=== PATIENT | female | born 1945 | race Caucasian/White ===

== ENCOUNTER → 2016-04-14 | Outpatient (CLI) | payer BC ==
[~2016-04-14] MED LIST: ASPI-435 PO; ATOR10TA88 PO; CHOL100010 PO; IBUP-103 PO; INSUINJ SC; MULT-506 PO; PANT40TA PO; TAMO20TA47 PO
--- NOTE | 2016-04-14 11:48 | DIAGNOSTIC IMAGING REPORT ---
TWO VIEW CHEST CLINICAL HISTORY: Breast cancer. Chest congestion. FINDINGS: PA and lateral chest radiographs are compared to study dated 04/22/2015. Correlation is made with chest CT dated 10/22/2014. The cardiomediastinal silhouette is unremarkable. Chronic interstitial thickening and nodularity is similar previous. No superimposed airspace consolidation or pleural effusion is identified. There is no pneumothorax. The skeletal structures are osteopenic. The bony thorax appears intact. Surgical clips project over the left breast. IMPRESSION: Chronic parenchymal changes as above. No acute cardiopulmonary abnormality is seen. Electronically signed by: Sheng Betancourt M.D. 04/14/2016 11:46 AM Dictated Date/Time: 04/14/2016 11:45 AM
== END | disposition home or self-care (01) ==
LOC: C.RAD 11:14
PROVIDERS: ATTEND Internal Medicine Hematology & Oncology
DX: D05.12 Intraductal carcinoma in situ of left breast (principal)

== ENCOUNTER → 2016-05-31 | Outpatient (CLI) | payer BC ==
--- NOTE | 2016-05-31 14:38 | DIAGNOSTIC IMAGING REPORT ---
PA CHEST WITH BILATERAL RIB SERIES CLINICAL HISTORY: Pleurodynia. FINDINGS: A PA chest radiograph with 8 additional views may been bilateral rib series is compared to study dated 04/14/2016 and correlated with chest CT dated 10/22/2014. The cardiomediastinal silhouette is unremarkable. There is mild atherosclerotic calcification of the thoracic aorta. Chronic interstitial thickening and nodularity is similar to previous. No airspace consolidation, pleural effusion, or pneumothorax is seen. The skeletal structures are osteopenic. There is no radiographic evidence of acute rib fracture on the bilateral rib series. Destructive change with mild bony resorption is noted within the adjacent left anterolateral fifth and sixth ribs. The remainder of the bony thorax is grossly intact. Degenerative change is noted throughout the thoracic spine. Surgical clips are noted in the left breast. IMPRESSION: 1. No active disease in the chest. 2. There is no radiographic evidence of acute rib fracture on the bilateral rib series as clinically queried. 3. Chronic appearing destructive change is seen within the adjacent anterolateral 5th and 6th ribs. This may represent the sequelae of previous treatment/fracture with bony resorption. Correlate for point tenderness at this site. Chest CT could be considered for further assessment. Electronically signed by: hSeng Betancourt M.D. 05/31/2016 2:37 PM Dictated Date/Time: 05/31/2016 2:29 PM
== END | disposition home or self-care (01) ==
LOC: C.RAD1850 13:57
PROVIDERS: ATTEND Student in an Organized Health Care Education/Training Program
DX: R07.81 Pleurodynia (principal)

== ENCOUNTER → 2016-09-26 | Outpatient (CLI) | payer BC ==
--- NOTE | 2016-10-04 06:08 | CODING QUERY MEDICAL NECESSITY ---
CQSUPPORTING DIAGNOSIS NEEDED A supporting diagnosis is required for the test/procedure performed on this patient in order for us to be reimbursed by the patient's insurance. Please provide a supporting diagnosis for the following test/procedure listed below next to the test name along with your signature. *If there is no additional diagnosis for this patient that would support the following test/procedure please document that below next to the test/procedure. Test(s)/Procedure(s) that require a supporting diagnosis: DOS 09/26/16 URINE CULTURE ORDERED BY LIBRADO BENEDICT Provider Signature: Date: Thank you Lashell Otto Health Information Management Once completed, please kindly fax back to [phone] For questions please call [phone]
== END | disposition home or self-care (01) ==
LOC: C.PATHSPEC 17:04
PROVIDERS: ATTEND Nurse Practitioner Adult Health
DX: L29.8 Other pruritus (principal); R31.29 Other microscopic hematuria

== ENCOUNTER → 2016-10-13 | Outpatient (CLI) | payer BC ==
[2016-10-11 12:46] LABS: BUN/CREATININE RATIO 12.8 (10-20); CREATININE 0.76 mg/dl (0.60-1.20)
[~2016-10-13] MED LIST changes: +OPTIRAY 320 IV PRN
--- NOTE | 2016-10-13 09:49 | DIAGNOSTIC IMAGING REPORT ---
ABD/PELVIS COMBO HISTORY: 70 years Female R31.29 Microhematuria COMPARISON: Chest CT 10/22/2014 TECHNIQUE: Multiple axial CT images of the abdomen and pelvis were obtained both with and without the intravenous administration of 120 mL Optiray 320. Delayed postcontrast images were obtained. FINDINGS: Minimal subpleural groundglass opacities of the lung bases suggest atelectasis. There is no pneumoperitoneum. Coronary arterial calcifications are partially imaged. The liver, gallbladder, spleen and adrenal glands are within normal limits. There is moderate diffuse pancreatic atrophy. The noncontrast scan demonstrates no renal calculi. There is an extrarenal pelvis on the left without hydronephrosis. The bilateral ureters, urinary bladder, uterus and adnexa are within normal limits. No filling defects are identified within the collecting systems. Somewhat lobulated exophytic low attenuating lesion projecting from the lateral aspect of the screw pole left kidney measures 1.5 x 1.0 cm suggesting a simple cyst. There is moderate atherosclerotic plaquing of the abdominal aorta. No bulky retroperitoneal adenopathy is seen. There is no bowel obstruction. Significant colonic diverticulosis is noted particularly within the sigmoid colon without CT evidence of acute diverticulitis. Appendix appears normal. Soft tissues are within normal limits. The bones are intact. Severe facet arthropathy is seen at several levels in the lower lumbar spine. 5 mm anterolisthesis L4 on L5. Severe degenerative basis. There is severe intervertebral disc space narrowing at L5-S1. There is convex left curvature of the lumbar spine. IMPRESSION: 1. No acute intra-abdominal or intrapelvic abnormality identified. 2. No renal calculi or obstructive uropathy. 3. Extensive sigmoid diverticulosis without CT evidence of acute diverticulitis. 4. Additional incidental findings as above. The above report was generated using voice recognition software. It may contain grammatical, syntax or spelling errors. Electronically signed by: Keith Holbrook M.D. 10/13/2016 9:48 AM Dictated Date/Time: 10/13/2016 9:36 AM
== END | disposition home or self-care (01) ==
LOC: C.CTS 09:05
PROVIDERS: ATTEND Nurse Practitioner Adult Health
DX: R31.29 Other microscopic hematuria (principal); K57.30 Diverticulosis of large intestine without perforation or abscess without bleeding

== ENCOUNTER → 2016-11-01 | Outpatient (CLI) | payer BC ==
[~2016-11-01] MED LIST changes: -OPTIRAY 320 IV PRN
[2016-11-01 13:22] VITALS: BP 130/86; PULSE 95; TEMP 37.2; O2SAT 97
--- NOTE | 2016-11-01 17:15 | Radiation Oncology Follow-Up ---
Radiation Oncology Follow-Up Date of Visit Nov 01, 2016. Reason For Visit Annual follow-up Radiation Completion Date APBI 01/24/14 Diagnosis (1) DCIS (ductal carcinoma in situ) of breast Status: Resolved Onset Date: 11/01/2013 Stage: 0 Permanent Comment: Abnormal left breast mammogram Status post stereotactic biopsy 11/01/2013 revealing ductal carcinoma in situ Status post lumpectomy 12/03/2013 revealing DCIS staged [id number] Estrogen receptor positive, progesterone receptor positive Status post completion of radiation therapy utilizing accelerated partial breast treatment completed 01/24/2014 received 3850 cGy Last Edited By: Amairani Deleon on Sep 02, 2014 15:01 History of Present Illness Ms. Reyna is a 70-year-old female who underwent bilateral digital screening mammograms on 10/23/2013. This showed a faint group of microcalcifications in an associated asymmetry in the upper outer middle one third of the left breast. Further evaluation with spot magnification views was recommended. These microcalcifications appear more conspicuous compared to prior examination. Stable benign intramammary lymph nodes are noted in the upper outer quadrant of each breast. No other abnormalities were appreciated. On 10/07/2013 patient underwent a unilateral left digital diagnostic mammogram. Spot magnification views were performed of the left upper outer quadrant. The recently observed increasing cluster of microcalcifications in the left upper outer quadrant were appreciated but did not appear to be significantly increased compared to a prior study from 2010. Their morphology however is indeterminant. This was given a BI-RADS Category 4B of intermediate suspicion for malignancy and a stereotactic biopsy of the left breast was recommended. On 11/01/2013 the patient underwent a stereotactic left breast biopsy. This revealed DCIS solid with multiple small ducts totaling less than 0.2 cm collective diameter. Nuclear grade is 2 of 3. Microcalcifications were present but not associated with DCIS. Estrogen receptors were positive and progesterone receptors were positive. No invasive carcinoma was appreciated. Presumptive pathologic stage is pTis (DCIS). The patient was subsequently seen by Dr. Lopez for medical oncology evaluation. She was also seen by Dr. Trinidad for further surgical evaluation. She is scheduled for a partial mastectomy on 12/03/2013. Dr. Lopze reviewed the potential role of tamoxifen and was kind enough to ask us to see the patient in referral to discuss the potential role of radiation. She received accelerated partial breast treatment. Radiation was completed and she received 3850 cGy Interim History She's been doing well over this past year. She denies any changes to her breast. She has noted no masses or tenderness no change of axilla. She's had no swelling of her arm. She is up-to-date on mammography. She is on tamoxifen and denies side effects. She is being followed by gynecology. She has had a previous ultrasound. She is for recheck ultrasound to follow the endometrium. She had a workup for microscopic hematuria. This included an abdominal and pelvic CT scan on 10/13/2016. There was no acute intra-abdominal or intrapelvic abnormalities identified. No renal calculi. Extensive sigmoid diverticulosis. Allergies Coded Allergies: Penicillins (Verified Allergy, Unknown, RASH, 12/03/13) Home Medications Scheduled Aspirin (Aspirin 81), 81 TAB PO DAILY Atorvastatin (Lipitor), 10 MG PO DAILY Cholecalciferol (Vitamin D), 1,000 INTER.UNIT PO DAILY Ibuprofen Tab (Advil), 400 MG PO Q6 Insulin Nph (Humulin-N), 17 UNITS SC QAM Insulin Nph (Humulin-N), 8-10 UNITS SC QPM Multivitamin (Multivitamin), 1 TAB PO DAILY Pantoprazole (Protonix), 40 MG PO DAILY Tamoxifen (Nolvadex), 20 MG PO DAILY Review of Systems Gastrointestinal: Symptoms: WNL Oral: Symptoms: No Problems Respiratory: Symptoms: WNL Urinary: Symptoms: WNL Comments: Dropped Bladder - Frequency Skin: Symptoms: No Problems Breast: Right Upper Arm Measurement: 29.9 Right Mid Arm Measurement: 24.3 Right Wrist Measurement: 16.9 Left Upper Arm Measurement: 31.1 Left Mid Arm Measurement: 24.5 Left Wrist Measurement: 16.8 Arm Dominence: Right Physical Exam Vital Signs Date Time Temp Pulse Resp B/P (MAP) Pulse Ox O2 Delivery O2 Flow Rate FiO2 11/01/16 13:22 37.2 95 16 130/86 97 Fatigue: None General Appearance: no apparent distress Eyes: normal inspection, EOMI ENT: normal ENT inspection, hearing grossly normal Neck: no adenopathy, thyroid normal Respiratory/Chest: lungs clear, no respiratory distress, no accessory muscle use Breast: Breast examination reveals well-healed incisions of the left breast. There are no masses or tenderness and no axillary adenopathy. She has no skin retractions or nipple changes. She does have some telangiectasia along the incision line. There are fibrous changes along the lateral aspect of the breast. Using the Vergas score cosmesis she has a good outcome. The right breast showed no masses or tenderness and no axillary adenopathy. Cardiovascular: regular rate, rhythm, no gallop, no murmur Abdomen: non tender Extremities: no pedal edema Neurologic/Psychiatric: no motor/sensory deficits, alert, normal mood/affect Skin: warm/dry Laboratory Studies Test 10/11/16 10:05 Blood Urea Nitrogen 10 mg/dl (7-18) Creatinine 0.76 mg/dl (0.60-1.20) Est Creatinine Clear Calc Drug Dose 67.1 ml/min Estimated GFR () 92.8 Estimated GFR (Non- 80.0 BUN/Creatinine Ratio 12.8 (10-20) Additional Studies Patient: YIN REYNA Med Rec: [id number] Address1: [address] [place] [address] [id number] Date: 1945 Sex: F Ref Phy: Att Phy: Amairani Deleon PA-C Bridgette Phy: Lorne Moody M.D. Inter Phy: Staci Gavlan [facility] Zip: [place] [address] SC: [id number] Report #: [id number] Sonographer: JENNIFER Diagnosis: 6 MO F/U BILATERAL Service Date: 02/16/16 MNE: [id number] Ordering Dr: Amairani Deleon PA-C CC: Amairani Deleon PA-C CONF: DICTATED BY: Staci Galvan MD MAMMOGRAPHY REPORT BILATERAL DIGITAL DIAGNOSTIC MAMMOGRAM TOMOSYNTHESIS WITH CAD: 02/16/2016 CLINICAL HISTORY: 70-year-old female with a personal history of left breast cancer status post lumpectomy and radiation in November 2013. Annual bilateral mammography. TECHNIQUE: Bilateral CC and MLO 2-D digital and tomosynthesis images, spot magnification left CC and ML views were obtained. Current study was also evaluated with a Computer Aided Detection (CAD) system. COMPARISON: Comparison is made to exams dated: 07/29/2015 mammogram, 11/03/2014 mammogram, 05/02/2014 mammogram, 12/03/2013 specimen, 09/26/2013 mammogram, and 2012 mammogram - [facility]. BREAST COMPOSITION: There are scattered areas of fibroglandular density in both breasts. FINDINGS: There is expected architectural distortion and associated surgical clips in the upper outer posterior left breast, at the site of prior lumpectomy. There is skin irregularity of the left breast as well as diffuse skin thickening and trabecular edema. All of these findings are likely related to prior treatment. There are rim calcifications anterior and lateral to the surgical site that are compatible with benign dystrophic calcifications. More linear calcifications inferior and medial to the surgical site also probably represent dystrophic calcification. They have coarsened since the 11/03/2014 mammograms. No new suspicious mass, architectural distortion or cluster of microcalcifications is seen bilaterally. IMPRESSION: IMPRESSION: ACR BI-RADS CATEGORY 2: BENIGN Stable bilateral mammograms. There is no mammographic evidence of malignancy in the breasts. Bilateral mammography is recommended in one year but recommend remaining a diagnostic patient so that additional spot magnification views can be performed of the left lumpectomy bed. These results and recommendations were discussed with the patient at the time of the exam. Approximately 10% of breast cancers are not detected with mammography. A negative mammographic report should not delay biopsy if a clinically suggestive mass is present. Staci Galvan M.D. ay/:02/16/2016 13:40:08 Manager Bridge: Brooke SALAMANCA)([place]), [facility] letter sent: Normal 1/2 BI-RADS Code: ACR BI-RADS Category 2: Benign Dictated by: Staci Galvan MD Signed by: Staci Galvan MD Assessment & Plan Plan: Continue with scheduled mammography. This is scheduled for January. Continues on tamoxifen through medical oncology. We asked her to return to our office in 1 year. She may call if she has any questions or concerns in the interim. Total Time In Follow-Up I spent 20 minutes speaking to the patient performing examination. I spent 15 minutes reviewing information in completing this note. Copy To Lorne Moody M.D.; Elvin Gr D.O. Problem Qualifiers (1) DCIS (ductal carcinoma in situ) of breast: Laterality: left Qualified Codes: D05.12 - Intraductal carcinoma in situ of left breast
== END | disposition home or self-care (01) ==
LOC: C.ONC 13:11
PROVIDERS: ATTEND Physician Assistant Medical
DX: Z08 Encounter for follow-up examination after completed treatment for malignant neoplasm (principal); Z92.3 Personal history of irradiation; Z85.3 Personal history of malignant neoplasm of breast

== ENCOUNTER → 2016-11-04 | Outpatient (CLI) | payer BC | END | disposition home or self-care (01) | LOC: C.PATHSPEC 13:35 | PROVIDERS: ATTEND Obstetrics & Gynecology | DX: R93.8 Abnormal findings on diagnostic imaging of other specified body structures (principal) ==

== ENCOUNTER → 2016-11-11 | Outpatient (CLI) | payer BC ==
[2016-11-11 12:53] LABS: ESTIMATED AVERAGE GLUCOSE 171 mg/dl; HA1C FLAG Normal (Normal)
== END | disposition home or self-care (01) ==
LOC: C.LAB1850 10:14
PROVIDERS: ATTEND Nurse Practitioner Family
DX: E11.9 Type 2 diabetes mellitus without complications (principal)

== ENCOUNTER → 2016-12-19 | Outpatient (CLI) | payer BC ==
[2016-12-19 14:49] LABS: HEMATOCRIT 44.9 % (37-47); MEAN CELL VOLUME 91.4 fL (80-100); MEAN CORPUSCULAR HEMOGLOBIN 31.6 pg (25-34); MEAN CORPUSCULAR HGB CONC 34.5 g/dl (32-36); MEAN PLATELET VOLUME 9.9 fL (7.4-10.4); PLATELET COUNT 295 K/uL (130-400); RED BLOOD COUNT 4.91 M/uL (4.2-5.4); WHITE BLOOD COUNT 9.79 K/uL (4.8-10.8)
== END | disposition home or self-care (01) ==
LOC: C.LAB1850 12:31
PROVIDERS: ATTEND Obstetrics & Gynecology
DX: Z01.810 Encounter for preprocedural cardiovascular examination (principal); Z01.812 Encounter for preprocedural laboratory examination

== ENCOUNTER → 2016-12-26 | Day surgery (SDC) | payer BC ==
[2016-11-24 16:00] VITALS: Ht 157.5 cm; Wt 84.1 kg
[~2016-12-26] VITALS: Ht 157.5 cm; Wt 84.1 kg
[~2016-12-26] MED LIST changes: +ATROPINE SULFATE 0.1 MG/ML 5ML SYR IV PRN; +DEXAMETHASONE SOD INJ 4 MG/ML VIAL ONE; +DEXTROSE 5% 50ML 50 ML IV ONE; +EpHEDrine SULFATE INJ 50 MG/ML AMP IV PRN; +FENTANYL CITRATE INJ 50 MCG/1 ML 2 ML VIAL IV PRN; +FENTANYL CITRATE INJ 50 MCG/1 ML 2 ML VIAL ONE; +HYDROmorphone INJ 1 MG/ML SYR IV PRN; +LIDOCAINE HCL 2% 2 ML VIAL (20MG/ML) ONE; +MIDAZOLAM HCL 1 MG/ML 2ML VIAL ONE; +NURSING VERBAL MED ORDER ONE; +ONDANSETRON INJ 2 MG/ML 2 ML VIAL IV PRN; +ONDANSETRON INJ 2 MG/ML 2 ML VIAL ONE; +OXYCODONE/ACETAMINOPHEN 5-325 TAB PO PRN; +PHENYLEPHRINE 100MCG/ML 5ML SYR IV PRN; +PROMETHAZINE HCL INJ 25 MG in SODIUM CHLORIDE 0.9% 50ML 50 ML IV PRN; +PROPOFOL IV EMULSION 10 MG/ML 20 ML VIAL IV ONE; +SODIUM CHLORIDE 0.9% 1000ML 1,000 ML IV SCH
--- NOTE | 2016-12-26 08:22 | History & Physical Bridge - SC ---
H&P Re-Evaluation Bridge Note: I have examined the patient, reviewed the History & Physical and in the interval since the performance of the History & Physical I have noted the following changes of clinical significance: No changes noted. +/- polypectomy ( if found on hysteroscopy).
--- NOTE | 2016-12-26 09:08 | [facility] Post Operative Brief Note ---
Immediate Operative Summary Operative Date Dec 26, 2016. Pre-Operative Diagnosis Thickened endometrium Post-Operative Diagnosis Same Procedure(s) Performed Hysteroscopy, dilation & curettage Surgeon Nazia Ritchie DO Packaging Line Operator Surgeon(s) none Estimated Blood Loss 5ml Findings Uterus sounded to 8cm. Bilateral tubal ostia visualized. Small amount of "bubbly "-appearing endometrium, otherwise appears atrophic. Small amount of endometrial curettings obtained. Specimens endometrial curettings Drains bladder drained prior to and after procedure - clear yellow Anesthesia general Complication(s) None Disposition Recovery Room / PACU
--- NOTE | 2016-12-26 09:09 | Discharge Instructions-SurgCtr ---
Discharge Instructions Date of Service Dec 26, 2016. Visit Reason for Visit: Thickened Endometrium Discharge Discharge Diagnosis / Problem: same Discharge Goals Goal(s): Diagnostic testing Medications Stopped Medications Name(s): Only took half of insulin. Activity Recommendations Activity Limitations: per Instructions/Follow-up section Anesthesia . Post Anesthesia Instructions: If you have had General Anesthesia or IV Sedation: * Do not drive today. * Resume driving when surgeon permits. * Do not make important decisions or sign legal documents today. * Call surgeon for: 1. Temperature elevations greater than 101 degrees F. 2. Uncontrollable pain. 3. Excessive bleeding. 4. Persistent nausea and vomiting. 5. Medication intolerance (nausea, vomiting or rash). * For nausea and vomiting use only clear liquids such as: tea, soda, bouillon until nausea subsides, then gradually increase diet as tolerated. * If you have any concerns or questions, call your surgeon's office. If physician is unavailable and it is an emergency, call 911 or go to the nearest emergency room. . Instructions / Follow-Up Instructions / Follow-Up ACTIVITY RECOMMENDATIONS: * Avoid tampons, douching, hot tubs, pools, and intercourse until bleeding has stopped. * May shower as usual. * No strenuous activity for 24-48 hours. After 24-48 hours, you may do anything you feel like doing (driving and sports are okay). SPECIAL CARE INSTRUCTIONS: Special Diet: * Mild nausea may occur in the immediate post-operative period. * Take clear liquids such as tea, cola or bouillon until all nausea has subsided; you may then resume your normal diet. Special Care: * Light bleeding and vaginal spotting can last from a few days to 3-4 weeks. Call your doctor if bleeding becomes heavier than the heaviest part of your period. * Check your temperature twice a day for one week. If it goes above 100.4 degrees Fahrenheit (38.0 Celsius), notify your doctor. * Call your doctor's office for an appointment for 6 weeks after your surgery. FOLLOW-UP VISIT: Call your doctor's office for an appointment for 6 weeks after your surgery. Diet Recommendations Home Diet: resume previous diet Procedures Procedures Performed: Hysteroscopy, dilation & curettage Pending Studies Studies pending at discharge: yes List of pending studies: pathology - endometrial curettings Medical Emergencies . Who to Call and When: Medical Emergencies: If at any time you feel your situation is an emergency, please call 911 immediately. . Non-Emergent Contact Non-Emergency issues call your: Primary Care Provider, Gambling Broker . . "Provider Documentation" section prepared by Galina Ritchie. .
[2016-12-26 10:04] VITALS: TEMP 36.5
--- NOTE | 2016-12-26 10:28 | OPERATIVE REPORT ---
DATE OF OPERATION: 12/26/2016 REASON FOR SURGERY: Thickened endometrium. PREOPERATIVE DIAGNOSIS: Thickened endometrium. POSTOPERATIVE DIAGNOSIS: Thickened endometrium. PROCEDURES PERFORMED: Hysteroscopy and dilation and curettage. SURGEON: Galina Ritchie MD INHALATION THERAPY AIDE: None. ESTIMATED BLOOD LOSS: 5 mL. FINDINGS: Uterus sounded to 6 to 8 cm. Bilateral tubal ostia visualized, bubble-like polypoid-appearing endometrium, otherwise appeared atrophic, small amount of endometrial curettings obtained. SPECIMENS: Endometrial curettings. DRAINS: Bladder drained prior to and after procedure clear yellow. ANESTHESIA: General. COMPLICATIONS: None. DISPOSITION: Stable and good to recovery area. INDICATIONS FOR PROCEDURE: The patient is a 71-year-old who was noted to find a thickened endometrium of 4.6 mm on ultrasound. Attempt was made to collect specimen in the office; however, this was impossible due to patient discomfort. A sample with the endometrial biopsy curette was taken and scant tissue was received by pathology. Therefore, due to her thickened endometrial lining and use of tamoxifen, the patient was taken to the operating room for more thorough evaluation and dilation and curettage. DESCRIPTION OF PROCEDURE: The patient was seen in the preoperative holding area where risks, benefits, alternatives to surgery were reviewed. She had previously signed informed consent in the office under no duress. She was then taken to the operating room where general anesthesia was administered. She was prepared and draped in the usual sterile fashion with feet in Yellofin stirrups in the dorsal lithotomy position. A timeout was confirmed. Bladder was drained. A weighted speculum was placed in the vagina, the cervix was visualized and the anterior lip was grasped with a single tooth tenaculum. The uterus was sounded to 8 cm and the cervix was gently dilated sequentially to admit a hysteroscope. A hysteroscope was inserted. The above noted findings were seen. Using the MyoSure device for greater accuracy, the noted abnormal areas of endometrial tissue were sampled with MyoSure. This was then removed and a generalized curettage was performed with a sharp curette. All of these specimens were sent to pathology labeled endometrial curettings. All instruments were removed from the vagina. The bladder was again drained and this was again clear yellow. Excellent hemostasis was observed. The patient was awoken from anesthesia and taken to recovery room in stable and good condition. I attest to the content of the Intraoperative Record and any orders documented therein. Any exceptions are noted below. MTDD
[2016-12-26 10:33] VITALS: BP 117/61; PULSE 89; O2SAT 98
--- NOTE | 2016-12-26 10:35 | Anesthesiology Progress Note ---
Anesthesia Post Op Note Date & Time Dec 26, 2016 at 10:34 Vital Signs Pain Intensity: 0 Vital Signs Past 12 Hours Date Time Temp Pulse Resp B/P (MAP) Pulse Ox O2 Delivery O2 Flow Rate FiO2 12/26/16 10:04 36.5 101 16 114/69 (84) 96 Room Air 12/26/16 09:55 113/75 12/26/16 09:54 84 17 90 12/26/16 09:54 79 17 12/26/16 09:53 81 18 12/26/16 09:53 80 18 96 12/26/16 09:51 120/73 12/26/16 09:51 36.7 82 16 120/73 96 Room Air 12/26/16 09:48 77 15 12/26/16 09:48 76 15 97 12/26/16 09:46 105/76 12/26/16 09:43 88 17 12/26/16 09:43 91 17 94 12/26/16 09:41 112/73 12/26/16 09:38 81 22 100 12/26/16 09:38 81 22 12/26/16 09:36 109/50 12/26/16 09:33 75 15 12/26/16 09:33 15 12/26/16 09:31 108/49 12/26/16 09:28 79 18 100 12/26/16 09:28 79 18 12/26/16 09:25 110/73 12/26/16 09:23 81 18 12/26/16 09:23 81 18 100 12/26/16 09:20 102/51 12/26/16 09:18 82 15 12/26/16 09:18 15 12/26/16 09:16 103/61 12/26/16 09:13 93 12/26/16 09:13 36.7 96 18 108/60 100 Mask 8 12/26/16 09:13 91 18 108/60 99 12/26/16 07:01 36.7 89 18 105/58 (74) 95 Room Air Notes Mental Status: alert / awake / arousable, participated in evaluation Pt Amnestic to Procedure: Yes Nausea / Vomiting: adequately controlled Pain: adequately controlled Airway Patency, RR, SpO2: stable & adequate BP & HR: stable & adequate Hydration State: stable & adequate Anesthetic Complications: no major complications apparent Doing well. BG 91. VSS. Ready for d/c
== END | disposition home or self-care (01) ==
LOC: X.SURG 06:37
PROVIDERS: ATTEND Obstetrics & Gynecology
DX: N84.0 Polyp of corpus uteri (principal); E11.42 Type 2 diabetes mellitus with diabetic polyneuropathy; Z79.4 Long term (current) use of insulin; E78.5 Hyperlipidemia, unspecified; E78.1 Pure hyperglyceridemia; E55.9 Vitamin D deficiency, unspecified; K21.9 Gastro-esophageal reflux disease without esophagitis; Z78.0 Asymptomatic menopausal state; Z87.891 Personal history of nicotine dependence; Z79.82 Long term (current) use of aspirin; Z79.899 Other long term (current) drug therapy

== ENCOUNTER → 2017-02-20 | Outpatient (CLI) | payer BC ==
[~2017-02-20] MED LIST changes: +ATOR10TA82 PO; -ATOR10TA88 PO; -ATROPINE SULFATE 0.1 MG/ML 5ML SYR IV PRN; -DEXAMETHASONE SOD INJ 4 MG/ML VIAL ONE; -DEXTROSE 5% 50ML 50 ML IV ONE; -EpHEDrine SULFATE INJ 50 MG/ML AMP IV PRN; -FENTANYL CITRATE INJ 50 MCG/1 ML 2 ML VIAL IV PRN; -FENTANYL CITRATE INJ 50 MCG/1 ML 2 ML VIAL ONE; -HYDROmorphone INJ 1 MG/ML SYR IV PRN; -LIDOCAINE HCL 2% 2 ML VIAL (20MG/ML) ONE; -MIDAZOLAM HCL 1 MG/ML 2ML VIAL ONE; -NURSING VERBAL MED ORDER ONE; -ONDANSETRON INJ 2 MG/ML 2 ML VIAL IV PRN; -ONDANSETRON INJ 2 MG/ML 2 ML VIAL ONE; -OXYCODONE/ACETAMINOPHEN 5-325 TAB PO PRN; -PHENYLEPHRINE 100MCG/ML 5ML SYR IV PRN; -PROMETHAZINE HCL INJ 25 MG in SODIUM CHLORIDE 0.9% 50ML 50 ML IV PRN; -PROPOFOL IV EMULSION 10 MG/ML 20 ML VIAL IV ONE; -SODIUM CHLORIDE 0.9% 1000ML 1,000 ML IV SCH; -TAMO20TA47 PO; +TAMO20TA9 PO
--- NOTE | 2017-02-20 15:13 | MAMMOGRAPHY REPORT ---
BILATERAL DIGITAL DIAGNOSTIC MAMMOGRAM TOMOSYNTHESIS WITH CAD: 02/20/2017 CLINICAL HISTORY: 71-year-old woman with a personal history of left breast cancer status post breast conservation treatment. She presents for annual mammography. TECHNIQUE: Bilateral breast tomosynthesis in addition to standard 2D mammography was performed. Spot magnification left CC and ML views were also obtained. Current study was also evaluated with a Comp uter Aided Detection (CAD) system. COMPARISON: Comparison is made to exams dated: 02/16/2016 mammogram, 07/29/2015 mammogram, 11/03/2014 m ammogram, 10/07/2013 mammogram, 09/26/2013 mammogram, and 09/25/2012 mammogram - [facility]. BREAST COMPOSITION: There are scattered areas of fibroglandular density in both breasts. FINDINGS: There is asymmetry of the size of the breasts, right greater than left, secondary to prior left breast treatment. There is expected architectural distortion in the upper outer posterior left breast, denoting the site of prior lumpectomy. There remains diffuse trabecular edema and skin thick ening of the left breast since treatment. There are benign dystrophic calcifications anterior to the surgical site, best seen on the spot magnification views, that are stable comparing to the spot magn ification views obtained 02/16/2016. No new suspicious mass, architectural distortion or cluster of microcalcifications is seen bilaterally. IMPRESSION: ACR BI-RADS CATEGORY 2: BENIGN Stable bilateral mammograms, including postsurgical/posttreatment changes in the left breast and meredith gn-appearing calcifications anterior to the surgical site. Bilateral mammography is recommended in o ne year and would recommend remaining a diagnostic patient so additional spot magnification views can be performed again in the left breast. These results and recommendations were discussed with the patient at the time of the exam. Approximately 10% of breast cancers are not detected with mammography. A negative mammographic report should not delay biopsy if a clinically suggestive mass is present. Staci Galvan M.D. ay/:02/20/2017 11:21:22 Financial Counselor: Jose A WEBB(Mira)(M), [facility] letter sent: Normal 1/2 BI-RADS Code: ACR BI-RADS Category 2: Benign
== END | disposition home or self-care (01) ==
LOC: C.MAMM 10:21
PROVIDERS: ATTEND Physician Assistant Medical
DX: R92.1 Mammographic calcification found on diagnostic imaging of breast (principal); Z85.3 Personal history of malignant neoplasm of breast

== ENCOUNTER → 2017-02-27 | Outpatient (CLI) | payer BC | END | disposition home or self-care (01) | LOC: C.MAMM 10:37 | PROVIDERS: ATTEND Family Medicine | DX: Z78.0 Asymptomatic menopausal state (principal); M85.89 Other specified disorders of bone density and structure, multiple sites ==

== ENCOUNTER → 2017-04-21 | Outpatient (CLI) | payer BC ==
--- NOTE | 2017-04-21 14:09 | DIAGNOSTIC IMAGING REPORT ---
R HAND MIN 3 VIEWS ROUTINE CLINICAL HISTORY: OSTEOARTHRITIS pain COMPARISON: None. DISCUSSION: Moderate generalized degenerative change. Is most prominent involving the distal interphalangeal joints throughout. Degenerative subchondral cysts at several locations. Minimal degenerative change first carpometacarpal joint. Minimal degenerative change of the carpometacarpal regions. There is no evidence for soft tissue swelling. IMPRESSION: Findings consistent with osteoarthritic change primarily of the distal interphalangeal joint of all fingers. The above report was generated using voice recognition software. It may contain grammatical, syntax or spelling errors. Electronically signed by: Bryce Vines M.D. 04/21/2017 2:07 PM Dictated Date/Time: 04/21/2017 2:05 PM
== END | disposition home or self-care (01) ==
LOC: C.RAD1850 13:33
PROVIDERS: ATTEND Family Medicine
DX: M19.041 Primary osteoarthritis, right hand (principal)

== ENCOUNTER → 2017-04-27 | Outpatient (CLI) | payer BC ==
--- NOTE | 2017-04-27 11:00 | DIAGNOSTIC IMAGING REPORT ---
RIGHT SHOULDER 3 VIEWS CLINICAL HISTORY: Right shoulder pain. FINDINGS: 3 views of the right shoulder are compared to study dated 08/06/2015. The skeletal structures are osteopenic. No fracture or dislocation is identified. Mild productive change is noted at the acromioclavicular joint. The glenohumeral articulation is preserved. The overlying soft tissues are within normal limits. The visualized right lung parenchyma appears clear. IMPRESSION: Osteopenia and mild arthritic change as above. No acute bony abnormality is identified in the right shoulder. Findings are unchanged from previous. Electronically signed by: Sheng Betancourt M.D. 04/27/2017 10:58 AM Dictated Date/Time: 04/27/2017 10:57 AM
== END | disposition home or self-care (01) ==
LOC: C.RDSM 18:59
PROVIDERS: ATTEND Family Medicine
DX: M25.511 Pain in right shoulder (principal); M85.88 Other specified disorders of bone density and structure, other site

== ENCOUNTER → 2017-05-26 | Outpatient (CLI) | payer BC ==
[2017-05-26 16:03] LABS: ALBUMIN 3.2 gm/dl (3.4-5.0); ALT/SGPT 25 U/L (12-78); BLOOD UREA NITROGEN 13 mg/dl (7-18); CALCIUM 8.8 mg/dl (8.5-10.1); CARBON DIOXIDE 28 mmol/L (21-32); CHOLESTEROL 141 mg/dl (0-200); CREATININE 0.75 mg/dl (0.60-1.20); GLUCOSE 187 mg/dl (70-99); POTASSIUM 4.3 mmol/L (3.5-5.1); SODIUM 140 mmol/L (136-145)
[2017-05-26 16:13] LABS: ALKALINE PHOSPHATASE 41 U/L (45-117); AST/SGOT 14 U/L (15-37); LDL CHOLESTEROL CALCULATED 48 mg/dl; TOTAL PROTEIN 7.1 gm/dl (6.4-8.2)
[2017-05-27 07:11] LABS: HEMOGLOBIN A1C 7.8 % (4.5-5.6)
== END | disposition home or self-care (01) ==
LOC: C.LAB1850 14:26
PROVIDERS: ATTEND Internal Medicine Endocrinology, Diabetes & Metabolism
DX: E55.9 Vitamin D deficiency, unspecified (principal); E13.9 Other specified diabetes mellitus without complications

== ENCOUNTER → 2017-06-13 | Outpatient (CLI) | payer BC | END | disposition home or self-care (01) | LOC: C.LAB1850 10:29 | PROVIDERS: ATTEND Internal Medicine Endocrinology, Diabetes & Metabolism | DX: E55.9 Vitamin D deficiency, unspecified (principal); E13.9 Other specified diabetes mellitus without complications ==

== ENCOUNTER → 2017-10-31 | Outpatient (CLI) | payer BC ==
[2017-10-31 12:52] VITALS: BP 96/60; PULSE 89; TEMP 36.7; O2SAT 97
--- NOTE | 2017-10-31 14:37 | Radiation Oncology Follow-Up ---
Radiation Oncology Follow-Up Date of Visit Oct 31, 2017. Reason For Visit annual follow up Radiation Completion Date APBI finished 01-24-2014 Diagnosis (1) DCIS (ductal carcinoma in situ) of breast Status: Resolved Onset Date: 11/01/2013 Stage: 0 Permanent Comment: Abnormal left breast mammogram Status post stereotactic biopsy 11/01/2013 revealing ductal carcinoma in situ Status post lumpectomy 12/03/2013 revealing DCIS staged [id number] Estrogen receptor positive, progesterone receptor positive Status post completion of radiation therapy utilizing accelerated partial breast treatment completed 01/24/2014 received 3850 cGy Last Edited By: Amairani Deleon on Sep 02, 2014 15:01 History of Present Illness Ms. Reyna is a 70-year-old female who underwent bilateral digital screening mammograms on 10/23/2013. This showed a faint group of microcalcifications in an associated asymmetry in the upper outer middle one third of the left breast. Further evaluation with spot magnification views was recommended. These microcalcifications appear more conspicuous compared to prior examination. Stable benign intramammary lymph nodes are noted in the upper outer quadrant of each breast. No other abnormalities were appreciated. On 10/07/2013 patient underwent a unilateral left digital diagnostic mammogram. Spot magnification views were performed of the left upper outer quadrant. The recently observed increasing cluster of microcalcifications in the left upper outer quadrant were appreciated but did not appear to be significantly increased compared to a prior study from 2010. Their morphology however is indeterminant. This was given a BI-RADS Category 4B of intermediate suspicion for malignancy and a stereotactic biopsy of the left breast was recommended. On 11/01/2013 the patient underwent a stereotactic left breast biopsy. This revealed DCIS solid with multiple small ducts totaling less than 0.2 cm collective diameter. Nuclear grade is 2 of 3. Microcalcifications were present but not associated with DCIS. Estrogen receptors were positive and progesterone receptors were positive. No invasive carcinoma was appreciated. Presumptive pathologic stage is pTis (DCIS). The patient was subsequently seen by Dr. Lopez for medical oncology evaluation. She was also seen by Dr. Trinidad for further surgical evaluation. She is scheduled for a partial mastectomy on 12/03/2013. Dr. Lopez reviewed the potential role of tamoxifen and was kind enough to ask us to see the patient in referral to discuss the potential role of radiation. She received accelerated partial breast treatment. Radiation was completed and she received 3850 cGy Interim History She has been doing well over this past year. She denies any changes to her breast. She has an area of fibrous scar tissue. She feels this is unchanged from previous. She has no associated pain or discomfort. She is noticed no swelling of the breast. She denies any change of the axilla. She has had no swelling of her arm. She is up-to-date on mammography. She is on tamoxifen and denies side effects. Allergies Coded Allergies: Penicillins (Verified Allergy, Intermediate, RASH, 12/26/16) Home Medications Scheduled Aspirin (Aspirin 81), 81 TAB PO QAM Atorvastatin (Lipitor), 10 MG PO QPM Cholecalciferol (Vitamin D), 1,000 INTER.UNIT PO QAM Ibuprofen Tab (Advil), 400 MG PO Q6 Insulin Nph (Humulin-N), 15 UNITS SC QAM Insulin Nph (Humulin-N), 10 UNITS SC QPM Multivitamin (Multivitamin), 1 TAB PO QAM Pantoprazole (Protonix), 40 MG PO QAM Tamoxifen (Nolvadex), 20 MG PO QAM Review of Systems Gastrointestinal: Symptoms: WNL Oral: Symptoms: No Problems Respiratory: Symptoms: WNL Urinary: Symptoms: WNL Comments: " dropped bladder has a pesseri " Skin: Symptoms: No Problems Breast: Right Upper Arm Measurement: 32.0 Right Mid Arm Measurement: 25.0 Right Wrist Measurement: 16.9 Left Upper Arm Measurement: 31.0 Left Mid Arm Measurement: 23.5 Left Wrist Measurement: 16.5 Arm Dominence: Right Patient Cosmetic Evaluation: Good Staff Cosmetic Evalaluation: Good Physical Exam Vital Signs Date Time Temp Pulse Resp B/P (MAP) Pulse Ox O2 Delivery O2 Flow Rate FiO2 10/31/17 12:52 36.7 89 20 96/60 97 Fatigue: None General Appearance: no apparent distress Eyes: normal inspection, EOMI ENT: normal ENT inspection, hearing grossly normal Neck: no adenopathy, thyroid normal Respiratory/Chest: lungs clear, no respiratory distress, no accessory muscle use Breast: Breast examination reveals well-healed incisions of the left breast. She has an area of fibrous tissue in the area of the incision. This is firm. There are no distinct masses. The fibrous tissue is extensive across the lateral portion of the breast. She has telangiectasia. Using the [place] score cosmesis she has a poor outcome. The right breast showed no masses or tenderness and no axillary adenopathy. Cardiovascular: regular rate, rhythm, no gallop, no murmur Extremities: no pedal edema Neurologic/Psychiatric: no motor/sensory deficits, alert, normal mood/affect Skin: warm/dry Pain Management Patient Reports Pain: No Side: Bilateral Patient Preferred Pain Scale: 0 - 10 Initial Pain Intensity: 0.0 Pain Management Plan She denies pain therefore requires no pain management. Laboratory Laboratory Results: not applicable Pathology Pathology Results: not applicable Imaging Imaging Studies: were reviewed, and pertinent findings noted below Imaging Comments Patient: YIN REYNA [place] Rec: [id number] Address1: [address] [place] [address] Address2: Acct ID: [id number] Date: 1945 Sex: F Ref Phy: Amairani Deleon PA-C Att Phy: Amairani Deleon PA-C Bridgette Phy: Lorne Moody M.D. Inter Phy: Staci Galvan MD [place] Zip: [id number] SC: C.MAMM Report #: [id number] Structures Assembler: RISHI Diagnosis: 12 MO F/U Service Date: 02/20/17 MNE: [id number] Ordering Dr: Amairani Deleon PA-C CC: Amairani Deleon PA-C CONF: DICTATED BY: Staci Galvan MD MAMMOGRAPHY REPORT BILATERAL DIGITAL DIAGNOSTIC MAMMOGRAM TOMOSYNTHESIS WITH CAD: 02/20/2017 CLINICAL HISTORY: 71-year-old woman with a personal history of left breast cancer status post breast conservation treatment. She presents for annual mammography. TECHNIQUE: Bilateral breast tomosynthesis in addition to standard 2D mammography was performed. Spot magnification left CC and ML views were also obtained. Current study was also evaluated with a Computer Aided Detection (CAD ) system. COMPARISON: Comparison is made to exams dated: 02/16/2016 mammogram, 07/29/2015 mammogram, 11/03/2014 mammogram, 10/07/2013 mammogram, 09/26/2013 mammogram, and 09/25 mammogram - [facility]. BREAST COMPOSITION: There are scattered areas of fibroglandular density in both breasts. FINDINGS: There is asymmetry of the size of the breasts, right greater than left , secondary to prior left breast treatment. There is expected architectural distortion in the upper outer posterior left breast, denoting the site of prior lumpectomy. There remains diffuse trabecular edema and skin thickening of the left breast since treatment. There are benign dystrophic calcifications anterior to the surgical site, best seen on the spot magnification views, that are stable comparing to the spot magnification views obtained 02/16/2016. No new suspicious mass, architectural distortion or cluster of microcalcifications is seen bilaterally. IMPRESSION: ACR BI-RADS CATEGORY 2: BENIGN Stable bilateral mammograms, including postsurgical/posttreatment changes in the left breast and benign-appearing calcifications anterior to the surgical site. Bilateral mammography is recommended in one year and would recommend remaining a diagnostic patient so additional spot magnification views can be performed again in the left breast. These results and recommendations were discussed with the patient at the time of the exam. Approximately 10% of breast cancers are not detected with mammography. A negative mammographic report should not delay biopsy if a clinically suggestive mass is present. Staci Galvan M.D. ay/:02/20/2017 11:21:22 Regional Marketing Director: Jose A WEBB(Mira)([place]), [facility] letter sent: Normal 1/2 BI-RADS Code: ACR BI-RADS Category 2: Benign Dictated by: Staci Galvan MD Signed by: Staci Galvan MD Assessment & Plan Plan: Continue regular follow-up with her primary care provider and medical oncologist. She continues on tamoxifen. She is scheduled for her next mammogram in January 2018. We asked her to return to our office in 1 year. She may call if she has any questions or concerns in the interim. Total Time In Follow-Up I spent 20 minutes speaking to the patient in performing examination. I spent 15 minutes reviewing information and completing this note. Copy To Lorne Moody M.D.; Elvin Gr D.O. Problem Qualifiers (1) DCIS (ductal carcinoma in situ) of breast: Laterality: left Qualified Codes: D05.12 - Intraductal carcinoma in situ of left breast
== END | disposition home or self-care (01) ==
LOC: C.ONC 12:23
PROVIDERS: ATTEND Physician Assistant Medical
DX: Z08 Encounter for follow-up examination after completed treatment for malignant neoplasm (principal); Z92.3 Personal history of irradiation; Z85.3 Personal history of malignant neoplasm of breast

== ENCOUNTER 2019-12-09 11:42 | Inpatient (IN) ==
[2019-12-09] MEDS ORDERED: NITROGLYCERIN SL 0.4 MG/TAB TAB SL PRN (12:28)
[2019-12-09] MEDS ORDERED: SODIUM CHLORIDE 0.9% 500 ML IV SCH (12:30)
--- NOTE | 2019-12-09 12:36 | Emergency Department Note ---
Impression & Plan Substernal chest pain, Acalculous cholecystitis, Leukocytosis, Elevated LFTs ED Provider Note INFORMANT: Patient ED PROVIDER(S): Nathan Cadet MD CHIEF COMPLAINT: Chest pain PLAN: Disposition: Admitted Condition: Good MEDICAL DECISION MAKING: Patient presented complaining of chest pain. She was given 1 sublingual nitroglycerin which helped and resolved her pain. The patient had tachycardia on her ECG. No acute ST elevation was noted. Nonspecific changes. She had blood work obtained. Chest x-ray was negative for acute process. Her laboratory testing showed a significant leukocytosis at 16,000. The patient also had increased LFTs. Troponin was negative. CT PE study was performed and did not reveal any evidence of pulmonary embolism. Chronic findings noted. The patient underwent gallbladder imaging. Consultation was made with internal medicine for further management. She was treated with IV Rocephin and Flagyl as her gallbladder ultrasound was concerning for a calculus cholecystitis. The patient was evaluated by internal medicine in the emergency department and admitted. Triage Nursing notes reviewed and agree them. Vital Signs: reviewed and remarkable for tachycardia Differential diagnosis: Cardiac ischemia, aortic dissection, pulmonary embolism, pneumothorax, pneumonia, pericarditis, myocarditis, esophageal rupture, GERD, cholecystitis, pancreatitis, musculoskeletal, as well as other pathologies. Diagnostics interpreted by me: ECG: Twelve-lead ECG reveals sinus tachycardia at [address] Normal axis and QRS. No ST elevation or depression. Cardiac Monitoring: Cardiac monitoring ordered by me: The patient was placed on continuous cardiac monitoring and observed. It revealed a sinus tachycardia at 102 beats per minute without ectopy or evidence of dysrhythmia. Imaging studies: Chest x-ray. Findings: A chest x-ray was performed and revealed no pneumothorax, effusion, infiltrate, pulmonary edema, free air under the diaphragm, or wide mediastinum. Impression: No acute disease. CT PE study was performed and revealed no evidence of pulmonary embolism. 1. Motion degraded study 2. No evidence of acute pulmonary embolism 3. No evidence of focal pulmonary consolidation 4. Multiple chronic left-sided rib fractures associated with bony resorption and soft tissue thickening of the left chest wall. While this could be posttraumatic or represent the late sequela of post radiation change, neoplasm cannot be excluded. Clinical correlation is advocated. A PET/CT scan potentially could add diagnostic information. Consultation(s): [facility] service, Dr. Ileana HPI: The patient is a 85 year old female who presents to the Emergency Room with complaints of substernal chest pain. This started this morning at 9:00 and is persistent. The patient also notes the following associated symptoms, pain with a deep breath, nausea, vomiting. The patient has taken no medication for relieving factors. Current pain is rated as 5/10. Pain was a 6. Occurred at rest. Pt denies LOC, headache, fevers, chills, diaphoresis, visual changes, neck pain, abdominal pain, back pain, melena, hematochezia, urinary symptoms, numbness, weakness, lymphadenopathy, rash, or other complaints. ROS: See above HPI for pertinent positives & negatives. A total of 10 systems reviewed and were otherwise negative. PAST MEDICAL HISTORY:See Below, diabetes PAST SURGICAL HISTORY:See Below, FAMILY HISTORY:See Below SOCIAL HISTORY:See Below, lives alone HOME MEDICATIONS:See Below ALLERGIES:See Below VITALS:See Below PHYSICAL EXAMINATION: GENERAL: Awake, alert, well-appearing, in no distress HENT: Normocephalic, atraumatic. Oropharynx unremarkable. EYES: Normal conjunctiva. Sclera non-icteric. NECK: Inspection normal. Non-tender. Supple. No nuchal rigidity. FROM. No masses. RESPIRATORY: Clear to auscultation. No wheezes. No rales. Normal respiratory effort. CARDIAC: Normal rate. Normal rhythm. No murmurs. No rubs. Extremities warm and well perfused. Pulses equal. No JVD. GI: Soft, non-distended. No tenderness to palpation. No rebound or guarding. No masses. RECTAL: Deferred. MUSCULOSKELETAL: Atraumatic. Chest examination reveals no tenderness. The back is symmetrical on inspection without obvious abnormality. There is no CVA tenderness to palpation. No joint edema. LOWER EXTREMITIES: Calves are equal size bilaterally and non-tender. Trace edema. No discoloration. NEURO: Normal sensorium. No sensory or motor deficits noted. SKIN: No rash or jaundice noted. Nathan Cadet MD Past Med/Surg History Medical History Asthma Hypercholesterolemia Insulin dependent diabetes mellitus Family History Father Diabetes Brother Diabetes Social History Smoking Status: Former smoker Feels Safe at Home: Yes Allergies Allergies Allergy/AdvReac Type Severity Reaction Status Date / Time Penicillins Allergy Intermediate RASH Verified 12/09/19 14:17 Home Meds Home Medications Medication Instructions Recorded Confirmed aspirin [Aspir-81] 81 mg PO DAILY 12/09/19 12/09/19 atorvastatin 10 mg PO HS 12/09/19 12/09/19 cholecalciferol (vitamin D3) 25 mcg PO DAILY 12/09/19 12/09/19 multivitamin 1 tab PO DAILY 12/09/19 12/09/19 omeprazole 20 mg PO HS 12/09/19 12/09/19 ropinirole 2 mg PO HS 12/09/19 12/09/19 tramadol 50 mg PO HS PRN 12/09/19 12/09/19 Previous Rx's Medication Instructions Recorded Humulin 70/30 U-100 Insulin 100 See Rx Instructions SQ .COMPLEX #3 12/31/18 unit/mL subcutaneous suspension vial NS ApexigenTouch Ultra Blue Test Strip #200 ea NS 04/17/19 insulin syringe-needle U-100 0.5 #120 ea 11/14/19 mL 31 gauge x 5/16" Humulin N NPH U-100 Insulin 100 15 unit SQ QAM #2 vial NS 11/21/19 unit/mL subcutaneous Results & Data (ED) Vital Signs Vital Signs - 24 hr 12/09/19 11:48 12/09/19 11:58 12/09/19 12:29 Temperature 36.6 C Temperature Source Oral Pulse Rate 129 H Pulse Rate [Apical] Pulse Rate from SpO2 Sensor Pulse Rhythm Regular Pulse Rhythm [Apical] Pulse Strength Normal Pulse Strength [Apical] Respiratory Rate 20 Respiratory Effort / Characteristics Non-Labored Spontaneous Non-Labored Spontaneous Respiratory Depth Normal Normal Respiratory Pattern Regular Blood Pressure 149/75 H Blood Pressure [Right Arm] Blood Pressure Mean 99 Blood Pressure Mean [Right Arm] Blood Pressure Position Sitting Blood Pressure Position [Right Arm] Pulse Oximetry 94 95 Oxygen Delivery Method Room Air Room Air Room Air Sepsis Recent Fever Within 48 Hours No Sepsis New/Unexplained Change in Mental Status N/A Sepsis Action Taken by Nursing No Action Required 12/09/19 12:37 12/09/19 12:44 12/09/19 13:00 Temperature Temperature Source Pulse Rate 123 H 118 H Pulse Rate [Apical] 115 H Pulse Rate from SpO2 Sensor 124 H Pulse Rhythm Pulse Rhythm [Apical] Pulse Strength Pulse Strength [Apical] Respiratory Rate 20 20 20 Respiratory Effort / Characteristics Non-Labored Respiratory Depth Normal Respiratory Pattern Blood Pressure 134/73 128/79 Blood Pressure [Right Arm] 128/72 Blood Pressure Mean 102 92 Blood Pressure Mean [Right Arm] 90 Blood Pressure Position Blood Pressure Position [Right Arm] Pulse Oximetry 98 95 95 Oxygen Delivery Method Room Air Room Air Room Air Sepsis Recent Fever Within 48 Hours Sepsis New/Unexplained Change in Mental Status Sepsis Action Taken by Nursing 12/09/19 13:30 12/09/19 14:00 12/09/19 14:38 Temperature Temperature Source Pulse Rate 117 H 116 H Pulse Rate [Apical] 117 H Pulse Rate from SpO2 Sensor 117 H 119 H Pulse Rhythm Pulse Rhythm [Apical] Regular Pulse Strength Pulse Strength [Apical] Normal Respiratory Rate 22 18 16 Respiratory Effort / Characteristics Non-Labored Spontaneous Respiratory Depth Normal Respiratory Pattern Regular Blood Pressure 141/71 H 136/65 Blood Pressure [Right Arm] 147/86 H Blood Pressure Mean 104 94 Blood Pressure Mean [Right Arm] 106 Blood Pressure Position Blood Pressure Position [Right Arm] Semi-fowlers Pulse Oximetry 94 91 96 Oxygen Delivery Method Room Air Room Air Room Air Sepsis Recent Fever Within 48 Hours Sepsis New/Unexplained Change in Mental Status Sepsis Action Taken by Nursing 12/09/19 14:39 12/09/19 15:01 12/09/19 16:00 Temperature Temperature Source Pulse Rate 118 H 122 H 120 H Pulse Rate [Apical] Pulse Rate from SpO2 Sensor 122 H 125 H 120 H Pulse Rhythm Pulse Rhythm [Apical] Pulse Strength Pulse Strength [Apical] Respiratory Rate 23 19 19 Respiratory Effort / Characteristics Respiratory Depth Respiratory Pattern Blood Pressure 147/86 H 151/109 H 121/61 Blood Pressure [Right Arm] Blood Pressure Mean 99 115 87 Blood Pressure Mean [Right Arm] Blood Pressure Position Blood Pressure Position [Right Arm] Pulse Oximetry 97 95 90 Oxygen Delivery Method Sepsis Recent Fever Within 48 Hours Sepsis New/Unexplained Change in Mental Status Sepsis Action Taken by Nursing 12/09/19 16:30 12/09/19 17:00 Temperature Temperature Source Pulse Rate 124 H 124 H Pulse Rate [Apical] Pulse Rate from SpO2 Sensor 124 H Pulse Rhythm Pulse Rhythm [Apical] Pulse Strength Pulse Strength [Apical] Respiratory Rate 20 21 Respiratory Effort / Characteristics Respiratory Depth Respiratory Pattern Blood Pressure 149/73 H 147/79 H Blood Pressure [Right Arm] Blood Pressure Mean 99 100 Blood Pressure Mean [Right Arm] Blood Pressure Position Blood Pressure Position [Right Arm] Pulse Oximetry 95 Oxygen Delivery Method Sepsis Recent Fever Within 48 Hours Sepsis New/Unexplained Change in Mental Status Sepsis Action Taken by Nursing Laboratory Data Result diagrams: 12/09/19 12:47 12/09/19 12:47 Lab Results 12/09/19 12/09/19 12/09/19 Range/Units 12:47 12:47 12:47 WBC 16.20 H (4.8-10.8) K/uL RBC 4.70 (4.2-5.4) M/uL Hgb 14.2 (12.0-16.0) g/dL Hct 43.0 (37-47) % MCV 91.5 (80-100) fL MCH 30.2 (25-34) pg MCHC 33.0 (32-36) g/dL RDW Std Deviation 46.9 H (36.4-46.3) fL RDW Coeff of Kwasi 13.8 (11.5-14.5) % Plt Count 370 (130-400) K/uL MPV 9.3 (7.4-10.4) fL Immature Gran % (Auto) 0.2 % Neut % (Auto) 88.5 % Lymph % (Auto) 7.2 % [place] % (Auto) 3.3 % Eos % (Auto) 0.6 % Baso % (Auto) 0.2 % Neut # (Auto) 14.32 H (1.4-6.5) K/uL Lymph # (Auto) 1.17 L (1.2-3.4) K/uL [place] # (Auto) 0.54 (0.11-0.59) K/uL Eos # (Auto) 0.10 (0-0.5) K/uL Baso # (Auto) 0.03 (0-0.2) K/uL Immature Gran # (Auto) 0.04 H (0.00-0.02) K/uL PT 10.7 (9.0-12.0) Seconds INR 1.0 (0.9-1.1) APTT 29.5 (21.0-31.0) Seconds PTT Ratio 1.1 Sodium 139 (136-145) mmol/L Potassium 4.1 (3.5-5.1) mmol/L Chloride 103 (98-107) mmol/L Carbon Dioxide 28 (21-32) mmol/L Anion Gap 8.0 (3-11) BUN 13 (7-18) mg/dl Creatinine 0.76 (0.6-1.2) mg/dl Est Cr Clr Drug Dosing 69.8 ml/min Est GFR ( Amer) 90.2 Est GFR (Non-Af Amer) 77.8 BUN/Creatinine Ratio 16.7 (10-20) Glucose 247 H (70-99) mg/dl Calcium 9.2 (8.5-10.1) mg/dl Total Bilirubin 1.7 H (0.2-1) mg/dl AST 465 H (15-37) U/L ALT 196 H (12-78) U/L Alkaline Phosphatase 93 (45-117) U/L Troponin I < 0.015 (0-0.045) ng/ml Total Protein 6.9 (6.4-8.2) gm/dl Albumin 2.8 L (3.4-5.0) gm/dl Globulin 4.1 H (2.5-4.0) gm/dl Albumin/Globulin Ratio 0.7 L (0.9-2) Lipase 75 (73-393) U/L Administered Medications Nitroglycerin (Nitroglycerin Sl 0.4 Mg/Tab Tab) 0.4 mg SL UD PRN PRN Reason: Chest Pain Stop: 01/08/20 12:27 Last Admin: 12/09/19 12:34 Dose: 0.4 mg Documented by: [id number] Discontinued Medications Sodium Chloride (Nss) 500 mls @ 999 mls/hr IV .Q31M SETH Stop: 12/09/19 13:00 Last Infusion: 12/09/19 13:10 Dose: 0 mls/hr Documented by: [id number] Admin: 12/09/19 12:36 Dose: 999 mls/hr Documented by: [id number] Ceftriaxone Sodium (Rocephin) 1,000 mg in 50 mls @ 100 mls/hr IV NOW STA Stop: 12/09/19 16:48 Last Infusion: 12/09/19 17:18 Dose: 100 mls/hr Documented by: [id number] Infusion: 12/09/19 16:40 Dose: 0 mls/hr Documented by: [id number] Admin: 12/09/19 16:34 Dose: 100 mls/hr Documented by: [id number] Metronidazole (Flagyl) 500 mg in 100 mls @ 100 mls/hr IV NOW STA Stop: 12/09/19 17:18 Last Infusion: 12/09/19 17:19 Dose: 100 mls/hr Documented by: [id number] Infusion: 12/09/19 16:40 Dose: 0 mls/hr Documented by: [id number] Admin: 12/09/19 16:34 Dose: 100 mls/hr Documented by: [id number] Ioversol (Optiray 320 125ml) 120 ml IV ONCE ONE Stop: 12/09/19 14:22 Last Admin: 12/09/19 14:21 Dose: 120 ml Documented by: [id number] Discharge Plan Visit Data Chief Complaint: Chest Pain Stated Complaint: CHEST PAIN,VOMITING ED Provider: Nathan Cadet Discharge Problem: Substernal chest pain, Acalculous cholecystitis, Leukocytosis, Elevated LFTs Forms Stand Alone Forms: [facility] Prescriptions Prescriptions: No Action Humulin 70/30 U-100 Insulin 100 unit/mL (70-30) suspension See Rx Instructions SQ .COMPLEX Qty: 3 RF: 3 (DME) OneTouch Ultra Blue Test Strip Strip See Rx Instructions .ROUTE .MEDSUPPLY Qty: 200 RF: 3 (DME) insulin syringe-needle U-100 [BD Insulin Syringe Ultra-Fine] 0.5 mL 31 gauge x 5/16" syringe See Rx Instructions .ROUTE .MEDSUPPLY Qty: 120 RF: 5 Humulin N NPH U-100 Insulin 100 unit/mL suspension 15 unit SQ QAM Qty: 2 RF: 3 atorvastatin 10 mg tablet 10 mg PO HS RF: 0 aspirin [Aspir-81] 81 mg Tablet,Delayed Release (Dr/Ec) 81 mg PO DAILY RF: 0 multivitamin Tablet 1 tab PO DAILY RF: 0 cholecalciferol (vitamin D3) 25 mcg (1,000 unit) Tablet 25 mcg PO DAILY RF: 0 tramadol 50 mg tablet 50 mg PO HS PRN (Reason: Pain) RF: 0 ropinirole 2 mg tablet 2 mg PO HS RF: 0 omeprazole 20 mg capsule,delayed release(DR/EC) 20 mg PO HS RF: 0 Referrals Referrals: Lorne Moody [Primary Care Provider] -
[2019-12-09 12:59] LABS: Basophils # (auto) 0.03 K/uL (0-0.2); Basophils % (auto) 0.2 %; Eosinophils % (auto) 0.6 %; Hemoglobin 14.2 g/dL (12.0-16.0); Immature Granulocytes # (auto) 0.04 K/uL (0.00-0.02); Immature Granulocytes % (auto) 0.2 %; Lymphocytes # (auto) 1.17 K/uL (1.2-3.4); Lymphocytes % (auto) 7.2 %; Mean Corpuscular Hemoglobin 30.2 pg (25-34); Mean Corpuscular Volume 91.5 fL (80-100); Mean Platelet Volume 9.3 fL (7.4-10.4); Monocytes # (auto) 0.54 K/uL (0.11-0.59); Monocytes % (auto) 3.3 %; Neutrophils # (auto) 14.32 K/uL (1.4-6.5); Neutrophils % (auto) 88.5 %; Platelet Count 370 K/uL (130-400); RDW Coefficient of Variation 13.8 % (11.5-14.5); RDW Standard Deviation 46.9 fL (36.4-46.3)
[2019-12-09 13:14] LABS: Partial Thromboplastin Ratio 1.1; Partial Thromboplastin Time 29.5 Seconds (21.0-31.0); Prothrombin Time 10.7 Seconds (9.0-12.0)
[2019-12-09 13:23] LABS: Alanine Aminotransferase 196 U/L (12-78); Albumin Level 2.8 gm/dl (3.4-5.0); Aspartate Aminotransferase 465 U/L (15-37); BUN Creatinine Ratio 16.7 (10-20); Blood Urea Nitrogen 13 mg/dl (7-18); Calcium 9.2 mg/dl (8.5-10.1); Carbon Dioxide 28 mmol/L (21-32); Chloride 103 mmol/L (98-107); Creatinine Clr Calc Pharmacy 69.8 ml/min; Est GFR (African American) 90.2; Est GFR (Non-African American) 77.8; Glucose 247 mg/dl (70-99); Lipase 75 U/L (73-393); Potassium 4.1 mmol/L (3.5-5.1); Sodium 139 mmol/L (136-145)
[2019-12-09 13:28] LABS: Albumin Globulin Ratio 0.7 (0.9-2); Alkaline Phosphatase 93 U/L (45-117); Bilirubin,Total 1.7 mg/dl (0.2-1); Globulin 4.1 gm/dl (2.5-4.0); Total Protein 6.9 gm/dl (6.4-8.2); Troponin I < 0.015 ng/ml (0-0.045)
--- NOTE | 2019-12-09 13:49 | XRay Report ---
XR chest 1V portable HISTORY: Atypical Chest Pain COMPARISON: Chest 05/31/2016. FINDINGS: The lungs are clear. Cardiac silhouette is normal in size. No pleural effusions. No pneumot horax. Surgical clips noted within the left breast. Mild diffuse interstitial thickening is likely ch ronic. IMPRESSION: No acute process. ACT 112: Negative or not required by law. Electronically signed by: Zay Ugarte M.D. 12/09/2019 1:48 PM
--- NOTE | 2019-12-09 14:09 | Electrocardiogram Report ---
Test Reason : Blood Pressure : / mmHG Vent. Rate : 118 BPM Atrial Rate : 118 BPM P-R Int : 180 ms QRS Dur : 068 ms QT Int : 306 ms P-R-T Axes : 041 008 049 degrees QTc Int : 428 ms Poor data quality, interpretation may be adversely affected Sinus tachycardia Possible Left atrial enlargement Nonspecific ST abnormality Abnormal ECG When compared with ECG of 13-NOV-2013 10:19, No significant change was found Confirmed by Cayden Glaser ([id number]) on 12/09/2019 2:08:42 PM Referred By: Confirmed By:Cayden Glaser
[2019-12-09] MEDS ORDERED: OPTIRAY 320 125ml IV ONE (14:21)
--- NOTE | 2019-12-09 14:44 | CT Scan Report ---
CT ANGIOGRAM OF THE CHEST CLINICAL HISTORY: Atypical chest pain and tachycardia. Possible pulmonary embolism. COMPARISON STUDY: Chest x-ray dated 12/09/2019, CT scan dated 10/22/2014, rib series dated 05/31/2016 TECHNIQUE: Following the IV administration of 120 mL of Optiray-320, CT angiogram of the thorax was p erformed from the thoracic inlet to the lung bases utilizing the pulmonary embolus protocol. Images a re reviewed in the axial, sagittal, and coronal planes. IV contrast was administered without complica tion. MIP imaging was performed. A dose lowering technique was utilized adhering to the principles o f ALARA. CT DOSE: 476.79 mGy.cm FINDINGS: There is a subcarinal lymph node the upper limits of normal in size. There is no definitive pathologi c adenopathy. There was no evidence of thoracic aortic dilatation. There are no pulmonary artery filling defects to indicate acute pulmonary embolism. Evaluation is juárez ited due to respiratory motion artifact. There are no pleural effusions There is no focal pulmonary consolidation. Postsurgical changes involve the left breast. There is increasing soft tissue thickening involving th e left chest wall measuring 23 mm in thickness. There are multiple old left-sided rib fractures with areas of bony resorption. IMPRESSION: 1. Motion degraded study 2. No evidence of acute pulmonary embolism 3. No evidence of focal pulmonary consolidation 4. Multiple chronic left-sided rib fractures associated with bony resorption and soft tissue thickeni ng of the left chest wall. While this could be posttraumatic or represent the late sequela of post ra diation change, neoplasm cannot be excluded. Clinical correlation is advocated. A PET/CT scan potenti ally could add diagnostic information. ACT 112: Negative or not required by law. Electronically signed by: Angel Lopez M.D. 12/09/2019 2:43 PM
--- NOTE | 2019-12-09 16:00 | Ultrasound Report ---
Biliary ultrasound CLINICAL HISTORY: Chest pain. Elevated LFTs. Possible post cystitis COMPARISON STUDY: CT scan dated 10/13/2016 FINDINGS: Pancreas appears sonographically normal. No focal hepatic masses are visualized. There is gallbladder wall thickening with trace pericholecystic fluid. The gallbladder wall measures 5 mm. No shadowing calculi are visualized. The gallbladder contains a small amount of sludge. The gal lbladder wall appears hypervascular. There is no ductal dilatation. The common bile duct measures 5 m m. The technologist reports a negative sonographic Matias sign. There is no right-sided hydronephrosis. IMPRESSION: 1. Abnormal gallbladder wall thickening with trace pericholecystic fluid. No discrete gallbladder francine culi identified. No ductal dilatation. There is mild gallbladder wall hyperemia. Clinical correlation recommended to exclude acalculus cholecystitis. A nuclear medicine hepatic biliary study could be ob tained in follow-up to assess cystic duct patency. ACT 112: Negative or not required by law. Electronically signed by: Angel Lopez M.D. 12/09/2019 3:58 PM
[2019-12-09] MEDS ORDERED: cefTRIAXone SODIUM 1,000 MG/50 ML BAG IV STA (16:19)
[2019-12-09] MEDS ORDERED: metroNIDAZOLE 500 MG/100 ML BAG IV STA (16:19)
--- NOTE | 2019-12-09 16:49 | History & Physical Report ---
Date of Service December 09, 2019 Assessment & Plan (1) Cholecystitis: RUQ u/s on admission showed gallbladder wall thickening with trace pericholecystic fluid. LFTs also elevated along with elevated bilirubin. Possibly reflecting a passed stone vs. acalculus cholecystitis. - GI & GS consulted - HIDA scan ordered - NPO - Given signs/symptoms of sepsis (HR, leukocytosis), will get blood cultures & start antibiotics. - Pain control as needed - IV fluids given tachycardia and concern for SIRS. Lactate also ordered. (2) Chest pain: Initially thought to be chest pain. EKG shows sinus tachycardia to the 120 range, but no acute ischemic changes. No ongoing chest pain, and initial troponin negative. - Trend one more troponin, but I do not think this represents ACS. - Will in fact HOLD her ASA in case of need for surgery. - (3) Insulin dependent diabetes mellitus: Prior A1c was 7.7% in 2019. She reports being a Type 3 diabetic. She reports she follows with Dr. Calvert; however, I do not see any notes in our system. - Continue home insulin doses, but lower dosing given she will be NPO. - Glycemic pharmacist consulted given unusual insulin regimen. (4) Hypercholesterolemia: - Continue statin (5) Asthma: In notes; however, no inhalers in MAY. - DuoNebs PRN (6) DVT prophylaxis: SCDs - Low DVT risk per admission calculator, plus possible surgery needed. History of Present Illness Primary Care Provider: Lorne Moody 74yo W w/ hx of DM who presents with epigastric pain and concern for cholecystitis/choledocholithiasis. The patient reports that she had breakfast around 8:30am. She reports the pain began shortly after that. She reports the pain as an epigastric pain with some radiation up the substernal chest and toward the RUQ region. The pain lasted about an hour after gradually fading away. She reports that she also felt nauseated and threw up her cereal she'd eaten for breakfast. She felt slightly lightheaded, but did not pass out. She denies any fevers or chills. She reports the pain lasted about 1 hour then resolved without any real action on her part. She did not take any additional medication or treatment for the pain. She came to the ED for further treatment. Allergies Allergy/AdvReac Type Severity Reaction Status Date / Time Penicillins Allergy Intermediate RASH Verified 12/09/19 14:17 Home Medications Home Medications Medication Instructions Recorded Confirmed Type Humulin 70/30 U-100 Insulin 100 See Rx Instructions SQ .COMPLEX #3 12/31/18 12/09/19 Rx unit/mL subcutaneous suspension vial NS OneTouch Ultra Blue Test Strip #200 ea NS 04/17/19 11/21/19 Rx insulin syringe-needle U-100 0.5 #120 ea 11/14/19 11/21/19 Rx mL 31 gauge x 5/16" Humulin N NPH U-100 Insulin 100 15 unit SQ QAM #2 vial NS 11/21/19 12/09/19 Rx unit/mL subcutaneous aspirin [Aspir-81] 81 mg PO DAILY 12/09/19 12/09/19 History atorvastatin 10 mg PO HS 12/09/19 12/09/19 History cholecalciferol (vitamin D3) 25 mcg PO DAILY 12/09/19 12/09/19 History multivitamin 1 tab PO DAILY 12/09/19 12/09/19 History omeprazole 20 mg PO HS 12/09/19 12/09/19 History ropinirole 2 mg PO HS 12/09/19 12/09/19 History tramadol 50 mg PO HS PRN 12/09/19 12/09/19 History Past Med/Surg History Medical History Asthma Hypercholesterolemia Insulin dependent diabetes mellitus Family History Father Diabetes Brother Diabetes Social History Smoking Status: Former smoker Feels Safe at Home: Yes Review of Systems Review of Systems: All systems reviewed & are unremarkable except as noted in HPI & below Physical Exam Constitutional: WD/WN, vitals as above Eyes: EOM intact bilaterally; no conjunctival abnormality ENMT: external ear and nose normal, oropharynx normal Neck: trachea midline, no thyromegaly normal visual inspection Respiratory: normal respiratory effort, lungs clear to auscultation no respiratory distress Cardiovascular: Rate/Rhythm: regular rhythm and + tachycardic Heart Sounds: normal S1 and normal S2 Extremities: no edema Gastrointestinal (Abdomen): Inspection/Auscultation: abdomen normal to inspection and normal bowel sounds; abdomen not distended Percussion/Palpation: + abdomen tender (Very mild in epigastric region) and abdomen soft; no guarding and abdomen not rigid Musculoskeletal: no cyanosis or clubbing, extremities motor strength 5/5 Skin: no rashes, warm and dry Neurologic: moves all extremities and awake Psychiatric: Orientation: alert, oriented to person and cooperative Results & Data Results & Data ([facility]) Vital Signs (Past 12 Hours) Vital Signs Temp Pulse Pulse Resp BP BP Pulse Ox 12/09/19 14:38 117 H 16 147/86 H 96 12/09/19 14:00 116 H 18 136/65 91 12/09/19 13:30 117 H 22 141/71 H 94 12/09/19 13:00 118 H 20 128/79 95 12/09/19 12:44 123 H 20 134/73 95 12/09/19 12:37 115 H 20 128/72 98 12/09/19 12:29 95 12/09/19 11:48 36.6 C 129 H 20 149/75 H 94 PG Care Time/CCT Total # of Minutes Spent Total Time Spent with Patient: Total time spent is greater than 50% in coordination of care (as documented) at patient's floor/unit and/or counseling patient: Coding Level of Care Code 32284 Initial Inpt Care Lvl 3 Diagnoses Cholecystitis K81.9 Chest pain R07.9 Insulin dependent diabetes mellitus E11.9; Z79.4 Hypercholesterolemia E78.00 Asthma J45.909 DVT prophylaxis Z29.9
[2019-12-09] MEDS ORDERED: GLUCOSE 40% GEL 15 GM TUBE PO PRN (17:57)
[2019-12-09] MEDS ORDERED: INSULIN ASPART 100 UNITS/ML 3 ML PEN SC SCH ×2 (17:57→19:00)
[2019-12-09] MEDS ORDERED: DEXTROSE 50% 50 ML SYRINGE IV PRN (17:57)
[2019-12-09] MEDS ORDERED: ONDANSETRON INJ 2 MG/ML 2 ML VIAL IV PRN (17:57)
[2019-12-09] MEDS ORDERED: GLUCOSE 10 TABS/TUBE PO PRN (17:57)
[2019-12-09] MEDS ORDERED: CARBOHYDRATES FOR HYPOGLYCEMIA PO PRN (17:57)
[2019-12-09] MEDS ORDERED: GLUCAGON FOR INJ 1 MG VIAL SQ PRN (17:57)
[2019-12-09] MEDS ORDERED: INSULIN NPH ISOPH U HUMAN SQ SCH (17:57)
[2019-12-09] MEDS ORDERED: PHARMACY GLYCEMIC MGMT CONSULT PRN (18:18)
[2019-12-09] MEDS: SODIUM CHLORIDE 0.9% 1000ML 1,000 ML IV SCH (18:34)
[2019-12-09] MEDS ORDERED: SODIUM CHLORIDE 0.9% 1000ML 500 ML IV ONE (18:44)
--- NOTE | 2019-12-09 19:39 | Surgery Consultation ---
Date of Consultation December 09, 2019 Assessment & Plan (1) Substernal chest pain: (2) Acalculous cholecystitis: pt is a 74 year-old female who was admitted to hospital for chest pain, U/S study, acute cholecystitis, IMP: acute cholecystitis, cholangitis? conservative treatment first, NPO, IV fluid, IV antibiotic, control pain, repeat labs CBC, CMP in am, HIDA scan, depend on labs and HIDA scan result, pt may need ERCP if T bili goes up, I plan to do laparoscopic cholecystectomy tomorrow afternoon or Monday , D/W benefits, risks and alternatives of the surgery, pt understood, she agrees with the plan, I answered all questions, (3) Elevated LFTs: History of Present Illness Attending Physician: João Santiago MD CC: chest pain, HPI:74yo W w/ hx of DM who presents with epigastric pain and concern for cholecystitis/choledocholithiasis. The patient reports that she had breakfast around 8:30am. She reports the pain began shortly after that. She reports the pain as an epigastric pain with some radiation up the substernal chest and toward the RUQ region. The pain lasted about an hour after gradually fading away. She reports that she also felt nauseated and threw up her cereal she'd eaten for breakfast. She felt slightly lightheaded, but did not pass out. She denies any fevers or chills. She reports the pain lasted about 1 hour then resolved without any real action on her part. She did not take any additional medication or treatment for the pain. She came to the ED for further treatment. I ( Malgorzata Dumont MD ) got a call for consult acute cholecystitis. I reviewed pt's H/P, labs, U/S CT scan with pt. now pt has no chest pain. no abdominal pain, no nausea, no vomiting, no fever. Allergies Allergy/AdvReac Type Severity Reaction Status Date / Time Penicillins Allergy Intermediate RASH Verified 12/09/19 14:17 Home Medications Home Medications Medication Instructions Recorded Confirmed Type Humulin 70/30 U-100 Insulin 100 See Rx Instructions SQ .COMPLEX #3 12/31/18 12/09/19 Rx unit/mL subcutaneous suspension vial NS OneTouch Ultra Blue Test Strip #200 ea NS 04/17/19 11/21/19 Rx insulin syringe-needle U-100 0.5 #120 ea 11/14/19 11/21/19 Rx mL 31 gauge x 5/16" Humulin N NPH U-100 Insulin 100 15 unit SQ QAM #2 vial NS 11/21/19 12/09/19 Rx unit/mL subcutaneous aspirin [Aspir-81] 81 mg PO DAILY 12/09/19 12/09/19 History atorvastatin 10 mg PO HS 12/09/19 12/09/19 History cholecalciferol (vitamin D3) 25 mcg PO DAILY 12/09/19 12/09/19 History multivitamin 1 tab PO DAILY 12/09/19 12/09/19 History omeprazole 20 mg PO HS 12/09/19 12/09/19 History ropinirole 2 mg PO HS 12/09/19 12/09/19 History tramadol 50 mg PO HS PRN 12/09/19 12/09/19 History Past Med/Surg History Medical History Asthma Hypercholesterolemia Insulin dependent diabetes mellitus Family History Father Diabetes Brother Diabetes Social History Smoking Status: Former smoker Feels Safe at Home: Yes Review of Systems Review of Systems: All systems reviewed & are unremarkable except as noted in HPI & below Allergies Allergy/AdvReac Type Severity Reaction Status Date / Time Penicillins Allergy Intermediate RASH Verified 12/09/19 14:17 Home Medications Home Medications Medication Instructions Recorded Confirmed Type Humulin 70/30 U-100 Insulin 100 See Rx Instructions SQ .COMPLEX #3 12/31/18 12/09/19 Rx unit/mL subcutaneous suspension vial NS OneTouch Ultra Blue Test Strip #200 ea NS 04/17/19 11/21/19 Rx insulin syringe-needle U-100 0.5 #120 ea 11/14/19 11/21/19 Rx mL 31 gauge x 5/16" Humulin N NPH U-100 Insulin 100 15 unit SQ QAM #2 vial NS 11/21/19 12/09/19 Rx unit/mL subcutaneous aspirin [Aspir-81] 81 mg PO DAILY 12/09/19 12/09/19 History atorvastatin 10 mg PO HS 12/09/19 12/09/19 History cholecalciferol (vitamin D3) 25 mcg PO DAILY 12/09/19 12/09/19 History multivitamin 1 tab PO DAILY 12/09/19 12/09/19 History omeprazole 20 mg PO HS 12/09/19 12/09/19 History ropinirole 2 mg PO HS 12/09/19 12/09/19 History tramadol 50 mg PO HS PRN 12/09/19 12/09/19 History Patient History Medical History Asthma Hypercholesterolemia Insulin dependent diabetes mellitus Family History Father Diabetes Brother Diabetes Social History Smoking Status: Former smoker Second Hand Exposure: Yes (Son smokes); Do You Dip or Chew Tobacco: No; Tobacco Cessation Education Requested by Patient: No Hx Alcohol Use: No Hx Substance Use: No Preferred Language: Slovenian Communication Ability: Effective [employer] Required: No Beliefs That Will Affect Care: None Current Living Situation: Family and Other Current Living Situation Comment: resides with son and sister Other Information That Helps Us Care for You: No Feels Safe at Home: Yes Safety Concerns: Feels Safe At This Time Review of Systems Review of Systems: All systems reviewed & are unremarkable except as noted in HPI & below Constitutional: as per Subjective / HPI Eyes: as per Subjective / HPI Ear, Nose, Mouth, Throat: as per Subjective / HPI Respiratory: as per Subjective / HPI asthma Cardiovascular: as per Subjective / HPI and + chest pain Additional Comments: hypercholesterolemia Gastrointestinal: as per Subjective / HPI gastroenteritis Genitourinary: as per Subjective / HPI breast cancer 2016 Musculoskeletal: as per Subjective / HPI shoulder and knee surgery Integumentary: as per Subjective / HPI Neurologic: as per Subjective / HPI Psychiatric: as per Subjective / HPI Endocrine: as per Subjective / HPI insulin dependent DM Hematologic / Lymphatic: as per Subjective / HPI Allergy / Immunological: as per Subjective / HPI Physical Exam Constitutional: WD/WN, vitals as above well developed and well nourished Eyes: PERRL, conjunctivae normal, anicteric sclerae ENMT: external ear and nose normal, oropharynx normal Neck: trachea midline, no thyromegaly Respiratory: normal respiratory effort, lungs clear to auscultation normal respiratory effort Cardiovascular: RRR, no murmur, no edema Rate/Rhythm: regular rate, regular rhythm and + tachycardic Heart Sounds: normal S1 and normal S2 Gastrointestinal (Abdomen): normal bowel sounds, soft, nontender, no hepatosplenomegaly soft, NT, ND, BS +, Musculoskeletal: no cyanosis or clubbing, extremities motor strength 5/5 Skin: no rashes, warm and dry Neurologic: patellar DTR's 2+ bilat, sensation intact Psychiatric: Orientation: alert and oriented x 3 Results & Data ([facility]) Vital Signs (Past 12 Hours) Vital Signs Temp Pulse Pulse Resp BP BP Pulse Ox 12/09/19 17:57 37.3 C 134 H 20 114/63 93 12/09/19 17:00 124 H 21 147/79 H 12/09/19 16:30 124 H 20 149/73 H 95 12/09/19 16:00 120 H 19 121/61 90 12/09/19 15:01 122 H 19 151/109 H 95 12/09/19 14:39 118 H 23 147/86 H 97 12/09/19 14:38 117 H 16 147/86 H 96 12/09/19 14:00 116 H 18 136/65 91 12/09/19 13:30 117 H 22 141/71 H 94 12/09/19 13:00 118 H 20 128/79 95 12/09/19 12:44 123 H 20 134/73 95 12/09/19 12:37 115 H 20 128/72 98 12/09/19 12:29 95 12/09/19 11:48 36.6 C 129 H 20 149/75 H 94 Laboratory Results Abnormal lab results 12/09/19 12/09/19 12/09/19 Range/Units 12:47 12:47 18:10 WBC 16.20 H (4.8-10.8) K/uL RDW Std Deviation 46.9 H (36.4-46.3) fL Neut # (Auto) 14.32 H (1.4-6.5) K/uL Lymph # (Auto) 1.17 L (1.2-3.4) K/uL Immature Gran # (Auto) 0.04 H (0.00-0.02) K/uL Glucose 247 H (70-99) mg/dl POC Glucose 183 H (70-99) mg/dl Total Bilirubin 1.7 H (0.2-1) mg/dl AST 465 H (15-37) U/L ALT 196 H (12-78) U/L Albumin 2.8 L (3.4-5.0) gm/dl Globulin 4.1 H (2.5-4.0) gm/dl Albumin/Globulin Ratio 0.7 L (0.9-2) Biliary ultrasound CLINICAL HISTORY: Chest pain. Elevated LFTs. Possible post cystitis COMPARISON STUDY: CT scan dated 10/13/2016 FINDINGS: Pancreas appears sonographically normal. No focal hepatic masses are visualized. There is gallbladder wall thickening with trace pericholecystic fluid. The gallbladder wall measures 5 mm. No shadowing calculi are visualized. The gallbladder contains a small amount of sludge. The gallbladder wall appears hypervascular. There is no ductal dilatation. The common bile duct measures 5 mm. The technologist reports a negative sonographic Matias sign. There is no right-sided hydronephrosis. IMPRESSION: 1. Abnormal gallbladder wall thickening with trace pericholecystic fluid. No discrete gallbladder calculi identified. No ductal dilatation. There is mild gallbladder wall hyperemia. Clinical correlation recommended to exclude acalculus cholecystitis. A nuclear medicine hepatic biliary study could be obtained in follow-up to assess cystic duct patency.
[2019-12-09] MEDS: AMPICILLIN/SULBACTAM SOD 3,000 MG in 0.9 % SODIUM CHLORIDE 100 ML IV SCH ×2 (19:42→23:39)
--- NOTE | 2019-12-09 19:57 | Medical Student H&P ---
Date of Service December 09, 2019 Assessment & Plan (1) Substernal chest pain: Chest pain * Patient started experiencing chest pain after having breakfast. Pain started substernal upper abdomen area and traveled to the epigastric area and below the left chest. She reports nausea and vomiting. * On exam, R and L UQ pain on deep palpation as well as positive Matias sign * Labs: Elevated LFTs: Ast 465, ALT 198. Bili 1.7. Leukocytosis: 16.k (neut 14.3k) Imaging: * GB US: normal pancreas, GB wall thickenin mm, diameter 5 mm, small sludge noted, no discrete calculus appreciated. * CXR: clear lungs. no signs of congestion or pleura effusion * Chest CT: normal, left sided rib fractures noted * No numbness, tingling, facial droop, extremities weakness Not concerning of neurological etiology. * No tachypnea, SOB, PORTER, labored breathing, abnormal lung sounds. No congestion on CXR. Not concerning for a PE Plan: History, physical exam, and imaging are consistent with Cholecystitis. Blood cultures pending. Start broad spectrum ABX (cipro?). Consult surgery for cholecystectomy Elevated LFTs * AST 465, Alt 198. Ration AST/ALt ~ 2.3 * Low Albumin 2.8 * No know hx of hepatitis, no evidence for vaccination either Plan: Although no jaundice, angiomata, staton erythma, JVD or acities were appreciated on exam, cannot rule out liver etiology. Liver US may help with clem gnosis Tachycardia: * Heart rate has been elevated on vitals checks and on heart monitor order by ED physician. HR ranging from 115-134 since admission. * ECG was not significant for AK or acute processes. Unspecific ST abnormalities. * No left arm pain, no jaw/neck pain. No personal hx of cardiac disease, present in family (mother --unspecified) Plan: Tachycardia likley to inflammation process. Chest pain is likely referred pain due to the cholecystitis. Imaging studies reassuring. Continue to monitor. HTN: * BP has been elevated since admission. Systolic runs in the high 140s-150s. Diastolic run in the high 80s with a highest of 109. occasionally drops to normal levels. * Today: 171/64 Plan: patient is not on any BP medication. Continue to monitor while at [facility]. FOllow with with PCP. If persistent, advice to discuss with PCP to get started on a BP controlling regimen. Hx of breast cancer DICS: * Radiation, lumpectomy (2013). no mastectomy * CTA noted signs of left sided rib fractures with bony resorption Plan: continue to monitor, may consider Heme-onc consultation, follow up with Heme-onc to discuss finding. Poorly controled DMII on insulin: * A1c 7.7%. Glouse levels 274 (POC: 159)( on 08/06/18). Patined is on insulin and does not seem to have developed end organ damage. Plan: Encourage better diet, increased excerise, home testing strips, and follow up with PCP to re-assess A1c and re-evaluate meds regimen Admission and Anticipated Discharge Date Admission Date: December 09, 2019 History of Present Illness Chief Complaint: Chest pain Ms Washington is a 74 yo female who presents to the ED complaining of chest pain that started this morning around 8:30 am after having her usual breakfast (bowl of cereal). Based on history, the pain started across the upper abdomen, travelling downwards towards midline of the abdomen and towards left chest. She had a hard time describing the quality of pain and said it is of a sharp nature. Pain has been constant since onset and she rates it at 7/10 when it started, has gown down to 2/10 after she was given MED here. She did not take anything for it before coming to the ED, nor has she had any food since the pain started. Nothing seems to make the pain worse. Patient reports nausea and vomiting twice this morning. Emisis had a brown color "like the cereal" but no coffee ground or blood present. Pain does not radiate down the left arm. Patient denies facial droop, jaw pain, upper or lower extremity weakness, numbness or tingling. Patient denies chest pain, SOB, PORTER, diarrhea, constipation, fever, night sweats, chills, known sick contacts, unusual foods, or recent travel. Patient is compliant with COVID-19 gridlines, always wearing a mask and staying home for the most part. Of note, history and PE were somewhat limited due to patient frustration with having to answer questions. Allergies Allergy/AdvReac Type Severity Reaction Status Date / Time Penicillins Allergy Intermediate RASH Verified 12/09/19 14:17 Home Medications Home Medications Medication Instructions Recorded Confirmed Type Humulin 70/30 U-100 Insulin 100 See Rx Instructions SQ .COMPLEX #3 12/31/18 12/09/19 Rx unit/mL subcutaneous suspension vial NS OneTouch Ultra Blue Test Strip #200 ea NS 04/17/19 11/21/19 Rx insulin syringe-needle U-100 0.5 #120 ea 11/14/19 11/21/19 Rx mL 31 gauge x 5/16" Humulin N NPH U-100 Insulin 100 15 unit SQ QAM #2 vial NS 11/21/19 12/09/19 Rx unit/mL subcutaneous aspirin [Aspir-81] 81 mg PO DAILY 12/09/19 12/09/19 History atorvastatin 10 mg PO HS 12/09/19 12/09/19 History cholecalciferol (vitamin D3) 25 mcg PO DAILY 12/09/19 12/09/19 History multivitamin 1 tab PO DAILY 12/09/19 12/09/19 History omeprazole 20 mg PO HS 12/09/19 12/09/19 History ropinirole 2 mg PO HS 12/09/19 12/09/19 History tramadol 50 mg PO HS PRN 12/09/19 12/09/19 History Past Med/Surg History Medical History Asthma Hypercholesterolemia Insulin dependent diabetes mellitus Family History Father Diabetes Brother Diabetes Social History Smoking Status: Former smoker Second Hand Exposure: Yes (Son smokes); Do You Dip or Chew Tobacco: No; Tobacco Cessation Education Requested by Patient: No Hx Alcohol Use: No Hx Substance Use: No Preferred Language: Monegasque Communication Ability: Effective Patient Insurance Clerk Required: No Beliefs That Will Affect Care: None Current Living Situation: Family and Other Current Living Situation Comment: resides with son and sister Other Information That Helps Us Care for You: No Feels Safe at Home: Yes Safety Concerns: Feels Safe At This Time Immunizations: has not gotten flu shot this year yet (2019) Review of Systems + anorexia; no fever, no chills, no sweats, no fatigue and no weakness no facial pain no cough, no chest congestion, no dyspnea, no dyspnea on exertion and no hemoptysis + chest pain; no radiating jaw, neck or arm pain, no dyspnea, no dyspnea on exertion and no palpitations as per Subjective / HPI, + nausea and + vomiting; no constipation and no diarrhea/loose stools + restless legs; no generalized weakness, no tingling, no numbness, no headache(s) and no confusion Oriented x3 Physical Exam Constitutional: WD/WN, vitals as above + acute distress; no altered mental status Respiratory: normal respiratory effort; no labored breathing Auscultation: lungs clear to auscultation bilaterally; no crackles, no rhonchi and no wheezes Cardiovascular: Rate/Rhythm: regular rhythm and + tachycardic Heart Sounds: no gallop, no murmur and no cardiac rub trace bilateral lower extremity edema Gastrointestinal (Abdomen): Inspection/Auscultation: abdomen normal to inspection Percussion/Palpation: + abdomen tender and abdomen soft; no guarding, abdomen not rigid and no abdominal mass reduced bowl sounds in all 4 quadrants. Tender in the upper right and left quadrants on deep palpation. Positive Matias sign. Results & Data ([facility]) Vital Signs (Past 12 Hours) Vital Signs Temp Pulse Pulse Resp BP BP Pulse Ox 12/09/19 17:57 37.3 C 134 H 20 114/63 93 12/09/19 17:00 124 H 21 147/79 H 12/09/19 16:30 124 H 20 149/73 H 95 12/09/19 16:00 120 H 19 121/61 90 12/09/19 15:01 122 H 19 151/109 H 95 12/09/19 14:39 118 H 23 147/86 H 97 12/09/19 14:38 117 H 16 147/86 H 96 12/09/19 14:00 116 H 18 136/65 91 12/09/19 13:30 117 H 22 141/71 H 94 12/09/19 13:00 118 H 20 128/79 95 12/09/19 12:44 123 H 20 134/73 95 12/09/19 12:37 115 H 20 128/72 98 12/09/19 12:29 95 12/09/19 11:48 36.6 C 129 H 20 149/75 H 94 Code Status & VTE Plan VTE Prophylaxis Plan VTE Prophylaxis will be ordered: Yes Supervising Attestation This is a medical student note, written for learning purposes only. Please see my H&P for plan of care.
[2019-12-09] MEDS: INSULIN ASPART 100 UNITS/ML 3 ML PEN SC SCH ×2 (20:02→23:40)
[2019-12-09] MEDS: ROPINIROLE HCL 1 MG TABLET PO SCH (20:03)
[2019-12-09] MEDS: ATORVASTATIN 10 MG TAB PO SCH (20:03)
[2019-12-09] MEDS: PANTOprazole 40 MG TAB PO SCH (20:04)
[2019-12-10] MEDS: INSULIN ASPART 100 UNITS/ML 3 ML PEN SC SCH ×5 (03:46→20:05)
[2019-12-10] MEDS: AMPICILLIN/SULBACTAM SOD 3,000 MG in 0.9 % SODIUM CHLORIDE 100 ML IV SCH ×3 (06:11→20:02)
[2019-12-10 07:05] LABS: Hemoglobin 13.4 g/dL (12.0-16.0); Mean Corpuscular Hemoglobin 29.4 pg (25-34); Mean Corpuscular Hgb Conc 32.7 g/dL (32-36); Mean Corpuscular Volume 89.9 fL (80-100); Mean Platelet Volume 9.4 fL (7.4-10.4); Platelet Count 323 K/uL (130-400); RDW Coefficient of Variation 14.1 % (11.5-14.5); RDW Standard Deviation 46.1 fL (36.4-46.3); Red Blood Count 4.56 M/uL (4.2-5.4)
[2019-12-10 07:32] LABS: Albumin Level 2.5 gm/dl (3.4-5.0); BUN Creatinine Ratio 13.8 (10-20); Calcium 9.2 mg/dl (8.5-10.1); Est GFR (African American) 101.6; Est GFR (Non-African American) 87.6; Magnesium 2.1 mg/dl (1.8-2.4)
[2019-12-10 07:38] LABS: Albumin Globulin Ratio 0.7 (0.9-2); Bilirubin,Total 4.7 mg/dl (0.2-1); Globulin 3.8 gm/dl (2.5-4.0); Total Protein 6.3 gm/dl (6.4-8.2)
[2019-12-10 08:41] LABS: Estimated Average Glucose 177 mg/dl; Hemoglobin A1C 7.8 % (4.5-5.6)
--- NOTE | 2019-12-10 08:54 | Gastrointestinal Consultation ---
Date of Consultation December 10, 2019 Assessment & Plan (1) Substernal chest pain: 74 year old female admitted w/ upper abdominal pain and substernal chest pain, imaging concerning for acalculus cholecystitis, LFTs trending up and febrile this AM which is concerning for cholangitis. She is presently out of room in MR and I was unable to assess her on AM rounds. Please keep her NPO Tentative plan for ERCP IV ABX Antiemetics PRN Analgesia PRN Appreciate general surgery recommendation Will review MR when able. Thank you for allowing us to participate in the care of this patient. Please call with any acute changes, questions or concerns. Please see addendum below with additional recommendation from my supervising physician. (2) Elevated LFTs: Supervising Physician Co-Signing Physician Notes I have personally seen and examined the patient with LIBRADO Covarrubias in the radiology suite. Her note reflects my exam and findings. I agree with her impression and plan. Pt with clinical and objective signs of cholangitis with acute rise in Bili. Will check MRCP and consider ERCP today. Patient agrees with plan. Noe Campos M.D. History of Present Illness Reason for Consultation: abd pain Requesting Physician: Jack Attending Physician: João Santiago MD History of Present Illness 74 year old female with history of T2DM, dyslipidemia, DCIS who was admitted wit h epigastric pain/chest pain - GI asked to evaluate. Pt was not in her room this AM x 2 attempts. Will attempt to evaluate in afternoon rounds. ABD US: Abnormal gallbladder wall thickening with trace pericholecystic fluid. No discrete gallbladder calculi identified. No ductal dilatation. There is mild gallbladder wall hyperemia. Clinical correlation recommended to exclude acalculus cholecystitis. A nuclear medicine hepatic biliary study could be obtained in follow-up to assess cystic duct patency. CTA: Motion degraded study 2. No evidence of acute pulmonary embolism 3. No evidence of focal pulmonary consolidation 4. Multiple chronic left-sided rib fractures associated with bony resorption and soft tissue thickening of the left chest wall. While this could be posttraumatic or represent the late sequela of post radiation change, neoplasm cannot be excluded. Clinical correlation is advocated. A PET/CT scan potentially could add diagnostic information. Allergies Allergy/AdvReac Type Severity Reaction Status Date / Time Penicillins Allergy Intermediate RASH Verified 12/09/19 14:17 Home Medications Home Medications Medication Instructions Recorded Confirmed Type Humulin 70/30 U-100 Insulin 100 See Rx Instructions SQ .COMPLEX #3 12/31/18 12/09/19 Rx unit/mL subcutaneous suspension vial NS OneTouch Ultra Blue Test Strip #200 ea NS 04/17/19 11/21/19 Rx insulin syringe-needle U-100 0.5 #120 ea 11/14/19 11/21/19 Rx mL 31 gauge x 5/16" Humulin N NPH U-100 Insulin 100 15 unit SQ QAM #2 vial NS 11/21/19 12/09/19 Rx unit/mL subcutaneous aspirin [Aspir-81] 81 mg PO DAILY 12/09/19 12/09/19 History atorvastatin 10 mg PO HS 12/09/19 12/09/19 History cholecalciferol (vitamin D3) 25 mcg PO DAILY 12/09/19 12/09/19 History multivitamin 1 tab PO DAILY 12/09/19 12/09/19 History omeprazole 20 mg PO HS 12/09/19 12/09/19 History ropinirole 2 mg PO HS 12/09/19 12/09/19 History tramadol 50 mg PO HS PRN 12/09/19 12/09/19 History Patient History Medical History (Updated 12/09/19 @ 17:42 by Nathan Cadet MD) Asthma Hypercholesterolemia Insulin dependent diabetes mellitus Family History Father Diabetes Brother Diabetes Social History Smoking Status: Former smoker Second Hand Exposure: Yes (Son smokes); Do You Dip or Chew Tobacco: No; Tobacco Cessation Education Requested by Patient: No Hx Alcohol Use: No Hx Substance Use: No Preferred Language: Belgian Communication Ability: Effective Motor Tune Up Specialist Required: No Beliefs That Will Affect Care: None Current Living Situation: Family and Other Current Living Situation Comment: resides with son and sister Other Information That Helps Us Care for You: No Feels Safe at Home: Yes Safety Concerns: Feels Safe At This Time Review of Systems Review of Systems: Unable to assess, pt not in room Physical Exam Physical Exam: Unable to assess, pt not in room Results & Data ([place]) Vital Signs (Past 12 Hours) Vital Signs Temp Pulse Pulse Resp BP Pulse Ox 12/10/19 07:20 37.6 C H 112 H 22 120/62 91 12/10/19 03:39 37 C 108 H 18 104/48 L 91 12/09/19 23:33 36.7 C 108 H 17 106/65 93 12/09/19 23:00 108 H Laboratory Results 12/10/19 12/10/19 12/10/19 Range/Units 07:23 06:38 06:38 WBC (4.8-10.8) K/uL RBC (4.2-5.4) M/uL Hgb (12.0-16.0) g/dL Hct (37-47) % MCV (80-100) fL MCH (25-34) pg MCHC (32-36) g/dL RDW Std Deviation (36.4-46.3) fL RDW Coeff of Kwasi (11.5-14.5) % Plt Count (130-400) K/uL MPV (7.4-10.4) fL Immature Gran % (Auto) % Neut % (Auto) % Lymph % (Auto) % Stoddard % (Auto) % Eos % (Auto) % Baso % (Auto) % Neut # (Auto) (1.4-6.5) K/uL Lymph # (Auto) (1.2-3.4) K/uL Stoddard # (Auto) (0.11-0.59) K/uL Eos # (Auto) (0-0.5) K/uL Baso # (Auto) (0-0.2) K/uL Immature Gran # (Auto) (0.00-0.02) K/uL PT (9.0-12.0) Seconds INR (0.9-1.1) APTT (21.0-31.0) Seconds PTT Ratio Sodium 140 (136-145) mmol/L Potassium 4.0 (3.5-5.1) mmol/L Chloride 108 H (98-107) mmol/L Carbon Dioxide 26 (21-32) mmol/L Anion Gap 7.0 (3-11) BUN 9 (7-18) mg/dl Creatinine 0.66 (0.6-1.2) mg/dl Est Cr Clr Drug Dosing 77.0 ml/min Est GFR ( Amer) 101.6 Est GFR (Non-Af Amer) 87.6 BUN/Creatinine Ratio 13.8 (10-20) Glucose 142 H (70-99) mg/dl POC Glucose 126 H (70-99) mg/dl Estimat Average Glucose 177 mg/dl Hemoglobin A1c 7.8 H (4.5-5.6) % Lactate (0.4-2.0) mmol/L Calcium 9.2 (8.5-10.1) mg/dl Magnesium 2.1 (1.8-2.4) mg/dl Total Bilirubin 4.7 H D (0.2-1) mg/dl AST 385 H (15-37) U/L ALT 433 H (12-78) U/L Alkaline Phosphatase 107 (45-117) U/L Troponin I (0-0.045) ng/ml Total Protein 6.3 L (6.4-8.2) gm/dl Albumin 2.5 L (3.4-5.0) gm/dl Globulin 3.8 (2.5-4.0) gm/dl Albumin/Globulin Ratio 0.7 L (0.9-2) Lipase (73-393) U/L 12/10/19 12/10/19 12/09/19 Range/Units 06:38 03:43 23:30 WBC 12.20 H (4.8-10.8) K/uL RBC 4.56 (4.2-5.4) M/uL Hgb 13.4 (12.0-16.0) g/dL Hct 41.0 (37-47) % MCV 89.9 (80-100) fL MCH 29.4 (25-34) pg MCHC 32.7 (32-36) g/dL RDW Std Deviation 46.1 (36.4-46.3) fL RDW Coeff of Kwasi 14.1 (11.5-14.5) % Plt Count 323 (130-400) K/uL MPV 9.4 (7.4-10.4) fL Immature Gran % (Auto) % Neut % (Auto) % Lymph % (Auto) % Stoddard % (Auto) % Eos % (Auto) % Baso % (Auto) % Neut # (Auto) (1.4-6.5) K/uL Lymph # (Auto) (1.2-3.4) K/uL Stoddard # (Auto) (0.11-0.59) K/uL Eos # (Auto) (0-0.5) K/uL Baso # (Auto) (0-0.2) K/uL Immature Gran # (Auto) (0.00-0.02) K/uL PT (9.0-12.0) Seconds INR (0.9-1.1) APTT (21.0-31.0) Seconds PTT Ratio Sodium (136-145) mmol/L Potassium (3.5-5.1) mmol/L Chloride (98-107) mmol/L Carbon Dioxide (21-32) mmol/L Anion Gap (3-11) BUN (7-18) mg/dl Creatinine (0.6-1.2) mg/dl Est Cr Clr Drug Dosing ml/min Est GFR ( Amer) Est GFR (Non-Af Amer) BUN/Creatinine Ratio (10-20) Glucose (70-99) mg/dl POC Glucose 154 H 174 H (70-99) mg/dl Estimat Average Glucose mg/dl Hemoglobin A1c (4.5-5.6) % Lactate (0.4-2.0) mmol/L Calcium (8.5-10.1) mg/dl Magnesium (1.8-2.4) mg/dl Total Bilirubin (0.2-1) mg/dl AST (15-37) U/L ALT (12-78) U/L Alkaline Phosphatase (45-117) U/L Troponin I (0-0.045) ng/ml Total Protein (6.4-8.2) gm/dl Albumin (3.4-5.0) gm/dl Globulin (2.5-4.0) gm/dl Albumin/Globulin Ratio (0.9-2) Lipase (73-393) U/L 12/09/19 12/09/19 12/09/19 Range/Units 19:59 19:55 18:10 WBC (4.8-10.8) K/uL RBC (4.2-5.4) M/uL Hgb (12.0-16.0) g/dL Hct (37-47) % MCV (80-100) fL MCH (25-34) pg MCHC (32-36) g/dL RDW Std Deviation (36.4-46.3) fL RDW Coeff of Kwasi (11.5-14.5) % Plt Count (130-400) K/uL MPV (7.4-10.4) fL Immature Gran % (Auto) % Neut % (Auto) % Lymph % (Auto) % Stoddard % (Auto) % Eos % (Auto) % Baso % (Auto) % Neut # (Auto) (1.4-6.5) K/uL Lymph # (Auto) (1.2-3.4) K/uL Stoddard # (Auto) (0.11-0.59) K/uL Eos # (Auto) (0-0.5) K/uL Baso # (Auto) (0-0.2) K/uL Immature Gran # (Auto) (0.00-0.02) K/uL PT (9.0-12.0) Seconds INR (0.9-1.1) APTT (21.0-31.0) Seconds PTT Ratio Sodium (136-145) mmol/L Potassium (3.5-5.1) mmol/L Chloride (98-107) mmol/L Carbon Dioxide (21-32) mmol/L Anion Gap (3-11) BUN (7-18) mg/dl Creatinine (0.6-1.2) mg/dl Est Cr Clr Drug Dosing ml/min Est GFR ( Amer) Est GFR (Non-Af Amer) BUN/Creatinine Ratio (10-20) Glucose (70-99) mg/dl POC Glucose 159 H 183 H (70-99) mg/dl Estimat Average Glucose mg/dl Hemoglobin A1c (4.5-5.6) % Lactate (0.4-2.0) mmol/L Calcium (8.5-10.1) mg/dl Magnesium (1.8-2.4) mg/dl Total Bilirubin (0.2-1) mg/dl AST (15-37) U/L ALT (12-78) U/L Alkaline Phosphatase (45-117) U/L Troponin I < 0.015 (0-0.045) ng/ml Total Protein (6.4-8.2) gm/dl Albumin (3.4-5.0) gm/dl Globulin (2.5-4.0) gm/dl Albumin/Globulin Ratio (0.9-2) Lipase (73-393) U/L 12/09/19 12/09/19 12/09/19 Range/Units 17:09 12:47 12:47 WBC (4.8-10.8) K/uL RBC (4.2-5.4) M/uL Hgb (12.0-16.0) g/dL Hct (37-47) % MCV (80-100) fL MCH (25-34) pg MCHC (32-36) g/dL RDW Std Deviation (36.4-46.3) fL RDW Coeff of Kwasi (11.5-14.5) % Plt Count (130-400) K/uL MPV (7.4-10.4) fL Immature Gran % (Auto) % Neut % (Auto) % Lymph % (Auto) % Stoddard % (Auto) % Eos % (Auto) % Baso % (Auto) % Neut # (Auto) (1.4-6.5) K/uL Lymph # (Auto) (1.2-3.4) K/uL Stoddard # (Auto) (0.11-0.59) K/uL Eos # (Auto) (0-0.5) K/uL Baso # (Auto) (0-0.2) K/uL Immature Gran # (Auto) (0.00-0.02) K/uL PT 10.7 (9.0-12.0) Seconds INR 1.0 (0.9-1.1) APTT 29.5 (21.0-31.0) Seconds PTT Ratio 1.1 Sodium 139 (136-145) mmol/L Potassium 4.1 (3.5-5.1) mmol/L Chloride 103 (98-107) mmol/L Carbon Dioxide 28 (21-32) mmol/L Anion Gap 8.0 (3-11) BUN 13 (7-18) mg/dl Creatinine 0.76 (0.6-1.2) mg/dl Est Cr Clr Drug Dosing 69.8 ml/min Est GFR ( Amer) 90.2 Est GFR (Non-Af Amer) 77.8 BUN/Creatinine Ratio 16.7 (10-20) Glucose 247 H (70-99) mg/dl POC Glucose (70-99) mg/dl Estimat Average Glucose mg/dl Hemoglobin A1c (4.5-5.6) % Lactate 1.1 (0.4-2.0) mmol/L Calcium 9.2 (8.5-10.1) mg/dl Magnesium (1.8-2.4) mg/dl Total Bilirubin 1.7 H (0.2-1) mg/dl AST 465 H (15-37) U/L ALT 196 H (12-78) U/L Alkaline Phosphatase 93 (45-117) U/L Troponin I < 0.015 (0-0.045) ng/ml Total Protein 6.9 (6.4-8.2) gm/dl Albumin 2.8 L (3.4-5.0) gm/dl Globulin 4.1 H (2.5-4.0) gm/dl Albumin/Globulin Ratio 0.7 L (0.9-2) Lipase 75 (73-393) U/L 12/09/19 Range/Units 12:47 WBC 16.20 H (4.8-10.8) K/uL RBC 4.70 (4.2-5.4) M/uL Hgb 14.2 (12.0-16.0) g/dL Hct 43.0 (37-47) % MCV 91.5 (80-100) fL MCH 30.2 (25-34) pg MCHC 33.0 (32-36) g/dL RDW Std Deviation 46.9 H (36.4-46.3) fL RDW Coeff of Kwasi 13.8 (11.5-14.5) % Plt Count 370 (130-400) K/uL MPV 9.3 (7.4-10.4) fL Immature Gran % (Auto) 0.2 % Neut % (Auto) 88.5 % Lymph % (Auto) 7.2 % Stoddard % (Auto) 3.3 % Eos % (Auto) 0.6 % Baso % (Auto) 0.2 % Neut # (Auto) 14.32 H (1.4-6.5) K/uL Lymph # (Auto) 1.17 L (1.2-3.4) K/uL Stoddard # (Auto) 0.54 (0.11-0.59) K/uL Eos # (Auto) 0.10 (0-0.5) K/uL Baso # (Auto) 0.03 (0-0.2) K/uL Immature Gran # (Auto) 0.04 H (0.00-0.02) K/uL PT (9.0-12.0) Seconds INR (0.9-1.1) APTT (21.0-31.0) Seconds PTT Ratio Sodium (136-145) mmol/L Potassium (3.5-5.1) mmol/L Chloride (98-107) mmol/L Carbon Dioxide (21-32) mmol/L Anion Gap (3-11) BUN (7-18) mg/dl Creatinine (0.6-1.2) mg/dl Est Cr Clr Drug Dosing ml/min Est GFR ( Amer) Est GFR (Non-Af Amer) BUN/Creatinine Ratio (10-20) Glucose (70-99) mg/dl POC Glucose (70-99) mg/dl Estimat Average Glucose mg/dl Hemoglobin A1c (4.5-5.6) % Lactate (0.4-2.0) mmol/L Calcium (8.5-10.1) mg/dl Magnesium (1.8-2.4) mg/dl Total Bilirubin (0.2-1) mg/dl AST (15-37) U/L ALT (12-78) U/L Alkaline Phosphatase (45-117) U/L Troponin I (0-0.045) ng/ml Total Protein (6.4-8.2) gm/dl Albumin (3.4-5.0) gm/dl Globulin (2.5-4.0) gm/dl Albumin/Globulin Ratio (0.9-2) Lipase (73-393) U/L
[2019-12-10] MEDS ORDERED: [UNRECOGNIZED DRUG - OTHER] SQ SCH (09:00)
[2019-12-10] MEDS ORDERED: INSULIN ISOPHANE SQ SCH (09:00)
--- NOTE | 2019-12-10 10:24 | Nuclear Medicine Report ---
NM hepatobiliary CLINICAL HISTORY: Possible cholecystitis/choledocolithiasis COMPARISON STUDY: Gallbladder ultrasound dated 12/09/2019 FINDINGS: The patient was injected with 5.5 mCi of technetium 99 M Choletec. Sequential anterior imag es were acquired. The patient was unable to lie supine for the duration of the plan images. The gallb ladder was visualized on the 60 minute image. There is normal passage of activity into small bowel IMPRESSION: 1. No evidence of cystic duct obstruction. ACT 112: Negative or not required by law. Electronically signed by: Angel Lopez M.D. 12/10/2019 10:23 AM
--- NOTE | 2019-12-10 11:08 | Magnetic Resonance Report ---
MR MRCP CLINICAL HISTORY: Possible cholecystitis abdominal and chest pain. COMPARISON STUDY: Biliary ultrasound dated 12/09/2019., Nuclear medicine hepatobiliary study dated FINDINGS: A breath-hold MRCP was performed. MIP images were acquired. The study is slightly compromised due to motion artifact. There is no evidence of intra or extrahepatic biliary ductal dilatation. The common bile duct measure s 5.7 mm. There is no pancreatic ductal dilatation. There are no ductal filling defects to indicate calculi. There is mild irregularity of the central intrahepatic ducts. It is unclear whether this is a true fi nding or secondary to artifact given the technical limitations of the examination There is gallbladder wall thickening (6 mm) with trace pericholecystic fluid. IMPRESSION: 1. Gallbladder thickening and trace pericholecystic fluid 2. No gallbladder or ductal calculi identified 3. No evidence of biliary or pancreatic ductal dilatation 4. Intrahepatic biliary strictures versus artifact secondary to somatic motion. ACT 112: Negative or not required by law. Electronically signed by: Angel Lopez M.D. 12/10/2019 11:07 AM
--- NOTE | 2019-12-10 11:36 | Pharmacy Report ---
Glycemic Control Consultation - Date of Service December 10, 2019 - Scope Scope: Glycemic Pharmacist consulted for glycemic control and to write orders per [facility] inpatient glycemic control protocol. - Objective Weight: 85.5 kg Accuchecks BSG (last 24hrs): 12/09/19 12/09/19 12/09/19 12:47 18:10 19:59 Glucose 247 H POC Glucose 183 H 159 H 12/09/19 12/10/19 12/10/19 23:30 03:43 06:38 Glucose 142 H POC Glucose 174 H 154 H 12/10/19 07:23 Glucose POC Glucose 126 H Laboratory Data (last 24hrs): 12/09/19 12/10/19 12:47 06:38 Potassium 4.1 4.0 Carbon Dioxide 28 26 Anion Gap 8.0 7.0 Creatinine 0.76 0.66 Est Cr Clr Drug Dosing 69.8 77.0 HbA1c: Hemoglobin A1c 7.8 % (4.5-5.6) H 12/10/19 06:38 - Recent Pertinent Medications Outpatient Anti-diabetic Regimen: * NPH 15 units SC qAM + Humulin 70/30 10-12 units SC qPM * A1c = 7.8 % 12/10/19 The patient is currently receiving: * Basal insulin: None * Correctional Insulin: Novolog Correction per scale ACHS Goal Range: Low 110 mg/dL - High 140 mg/dL Correction Factor: 35 mg/dL/unit * Prandial insulin: Per carb ratio of 1 unit per 11 grams CHO consumed * Oral Agents: None Risk Factors for Insulin Resistance: * Infection: suspected cholecystitis (receiving Unasyn 3 g IV q6h) * Diet: NPO - Assessment & Plan Assessment & Plan: ASSESSMENT: * AYO is a 74 year old female admitted on 12/09/19 with suspected cholecystitis * Started on IV Unasyn 3 g q6h * BSG of 247 mg/dL on admission, but well-controlled since then with Novolog q4h * 159, 174, 154, 126 mg/dL * Patient is currently NPO for cholecystectomy tomorrow - will continue q4h dosing of Novolog while NPO and add Lantus scale this evening * Per patient, she follows with Dr. Calvert for management of her diabetes PLAN FOR INPATIENT GLYCEMIC CONTROL: * Basal insulin * Lantus scale x 1 SC HS - 0-10 units based on BSG * Plan to transition back to home medications once diet is ordered * Bolus insulin * NovoLog per scale q4h while NPO * Goal Range: Low 110 mg/dL - High 140 mg/dL * Correction Factor: 35 mg/dL/unit * Nutritional / Prandial insulin per carb ratio of 1 unit per 11 grams CHO consumed * Please note that the plan above was derived based on current level of insulin resistance and hospital stress. These recommendations are appropriate for inpatient admission only. Plan of care upon discharge will need to be reassessed to avoid potential outpatient hypo/hyperglycemia. Thank you.
[2019-12-10] MEDS: SODIUM CHLORIDE 0.9% 1000ML 1,000 ML IV SCH (12:32)
[2019-12-10] MEDS: TRAMADOL HCL 50 MG TABLET PO PRN (12:46)
[2019-12-10] MEDS: ACETAMINOPHEN 325 MG TAB PO PRN (14:27)
--- NOTE | 2019-12-10 14:32 | Surgery Progress Note ---
Date of Service stable, no fever, no abdominal pain, but (T) bilirubin up to 4.7. HIDA scan, and MRCP- acute cholecystitis, December 10, 2019 Assessment & Plan (1) Substernal chest pain: (2) Acalculous cholecystitis: pt is a 74 year-old female who was admitted to hospital for chest pain, U/S study, acute cholecystitis, IMP: acute cholecystitis, cholangitis? conservative treatment first, NPO, IV fluid, IV antibiotic, control pain, repeat labs CBC, CMP in am, HIDA scan, depend on labs and HIDA scan result, pt may need ERCP if T bili goes up, I plan to do laparoscopic cholecystectomy tomorrow afternoon or Monday , D/W benefits, risks and alternatives of the surgery, pt understood, she agrees with the plan, I answered all questions, 12/10/2019 2:35PM pt will have ERCP by GI doctor today, I recommend to do laparoscopic cholecystectomy tomorrow, D/W benefits, risks and alternatives of the surgery, pt agrees with the plan, I answered all questions, NPO after MN, (3) Elevated LFTs: Admission and Anticipated Discharge Date Admission Date: December 09, 2019 Supervising Physician Co-Signing Physician Notes I have personally seen and examined the patient with LIBRADO Covarrubias in the radiology suite. Her note reflects my exam and findings. I agree with her impression and plan. Pt with clinical and objective signs of cholangitis with acute rise in Bili. Will check MRCP and consider ERCP today. Patient agrees with plan. Noe Campos M.D. Review of Systems Constitutional: as per Subjective / HPI Eyes: as per Subjective / HPI Ear, Nose, Mouth, Throat: as per Subjective / HPI Respiratory: as per Subjective / HPI asthma Cardiovascular: as per Subjective / HPI and + chest pain Additional Comments: hypercholesterolemia Gastrointestinal: as per Subjective / HPI gastroenteritis Genitourinary: as per Subjective / HPI breast cancer 2016 Musculoskeletal: as per Subjective / HPI shoulder and knee surgery Integumentary: as per Subjective / HPI Neurologic: as per Subjective / HPI Psychiatric: as per Subjective / HPI Endocrine: as per Subjective / HPI insulin dependent DM Hematologic / Lymphatic: as per Subjective / HPI Allergy / Immunological: as per Subjective / HPI Physical Exam Constitutional: WD/WN, vitals as above well developed and well nourished Eyes: PERRL, conjunctivae normal, anicteric sclerae ENMT: external ear and nose normal, oropharynx normal Neck: trachea midline, no thyromegaly Respiratory: normal respiratory effort, lungs clear to auscultation normal respiratory effort Cardiovascular: RRR, no murmur, no edema Rate/Rhythm: regular rate, regular rhythm and + tachycardic Heart Sounds: normal S1 and normal S2 Gastrointestinal (Abdomen): normal bowel sounds, soft, nontender, no hepatosplenomegaly Musculoskeletal: no cyanosis or clubbing, extremities motor strength 5/5 Skin: no rashes, warm and dry Neurologic: patellar DTR's 2+ bilat, sensation intact Psychiatric: Orientation: alert and oriented x 3 Results & Data ([facility]) Vital Signs (Past 12 Hours) Vital Signs Temp Pulse Pulse Resp BP BP Pulse Ox 12/10/19 12:03 36.8 C 103 H 20 117/77 92 12/10/19 08:00 106 H 12/10/19 07:20 37.6 C H 112 H 22 120/62 91 12/10/19 03:39 37 C 108 H 18 104/48 L 91
[2019-12-10] MEDS ORDERED: ROCURONIUM BROMIDE 10 MG/ML 5 ML VIAL IV ONE (15:05)
[2019-12-10] MEDS ORDERED: PROPOFOL IV EMULSION 10 MG/ML 20 ML VIAL IV ONE (15:05)
[2019-12-10] MEDS ORDERED: SUCCINYLCHOLINE CHLORIDE 20 MG/ML 10 ML VIAL IV ONE (15:05)
[2019-12-10] MEDS ORDERED: fentaNYL citrate 100 MCG/2 ML VIAL ONE ×2 (15:05→17:46)
[2019-12-10] MEDS ORDERED: LIDOCAINE HCL 2% 2 ML VIAL/AMP(20MG/ML) INFIL ONE (15:05)
--- NOTE | 2019-12-10 15:14 | Electrocardiogram Report ---
Test Reason : Blood Pressure : / mmHG Vent. Rate : 113 BPM Atrial Rate : 113 BPM P-R Int : 180 ms QRS Dur : 074 ms QT Int : 326 ms P-R-T Axes : 040 001 038 degrees QTc Int : 447 ms Sinus tachycardia Otherwise normal ECG When compared with ECG of 09-DEC-2019 11:48, No significant change was found Confirmed by Cayden Glaser ([id number]) on 12/10/2019 3:13:56 PM Referred By: Lorne Moody Confirmed By:Cayden Glaser
[2019-12-10] MEDS ORDERED: ONDANSETRON INJ 2 MG/ML 2 ML VIAL IV PRN (16:14)
[2019-12-10] MEDS ORDERED: fentaNYL citrate 100 MCG/2 ML VIAL IV PRN (16:14)
[2019-12-10] MEDS ORDERED: ePHEDrine sulfate 50 MG/ML AMP IV PRN (16:14)
[2019-12-10] MEDS ORDERED: ATROPINE SULFATE 0.1 MG/ML 10ML SYR IV PRN (16:14)
--- NOTE | 2019-12-10 16:14 | Anesthesiology Consultation ---
Date of Service December 10, 2019 Assessment & Plan (1) Encounter for pre-operative examination: Chart Review Chart Review: Acceptable Risk for Surgery and Patient NOT seen in Pre Admission Testing Consults Requested none ASA ASA3 Proposed Anesthesia Anesthesia Type: General Risk / Benefits Reviewed With: PT / POA / Parent / Guardian, Accepts Plan and Informed Consent Obtained History Surgery Operation Date: 12/10/19 08:40 Proposed Procedures p Endoscopic Retrograde Cholangiopancreatogram - Johan Givens Operation Date: 12/11/19 11:00 Proposed Procedures p Laparoscopic Cholecystectomy - Malgorzata Dumont MD Height/Weight Height: 5 ft 2 in Weight: 85.5 kg Allergies Allergy/AdvReac Type Severity Reaction Status Date / Time Penicillins Allergy Intermediate RASH Verified 12/09/19 14:17 Medications Home Medications Medication Instructions Recorded Confirmed Last Taken Humulin 70/30 U-100 Insulin 100 See Rx Instructions SQ .COMPLEX #3 12/31/18 12/09/19 12/08/19 unit/mL subcutaneous suspension vial NS OneTouch Ultra Blue Test Strip #200 ea NS 04/17/19 11/21/19 Unknown insulin syringe-needle U-100 0.5 #120 ea 11/14/19 11/21/19 Unknown mL 31 gauge x 5/16" Humulin N NPH U-100 Insulin 100 15 unit SQ QAM #2 vial NS 11/21/19 12/09/19 12/09/19 unit/mL subcutaneous aspirin [Aspir-81] 81 mg PO DAILY 12/09/19 12/09/19 12/09/19 atorvastatin 10 mg PO HS 12/09/19 12/09/19 12/08/19 cholecalciferol (vitamin D3) 25 mcg PO DAILY 12/09/19 12/09/19 12/09/19 multivitamin 1 tab PO DAILY 12/09/19 12/09/19 12/09/19 omeprazole 20 mg PO HS 12/09/19 12/09/19 12/08/19 ropinirole 2 mg PO HS 12/09/19 12/09/19 12/08/19 tramadol 50 mg PO HS PRN 12/09/19 12/09/19 12/08/19 Active Medications Generic Name Dose Route Start Last Admin Trade Name Freq PRN Reason Stop Dose Admin Acetaminophen 650 mg 12/09/19 17:57 09/15/20 14:27 Acetaminophen 325 Mg Tab PO 10/14/20 17:56 650 mg Q4H PRN Administration pain/fever Atorvastatin Calcium 10 mg 12/09/19 21:00 12/09/19 20:03 Atorvastatin 10 Mg Tab PO 01/08/20 20:59 10 mg HS SETH Administration Ampicillin Sodium/Sulbactam 108 mls @ 200 mls/hr 12/09/19 18:00 12/10/19 14:22 Sodium 3,000 mg/ Sodium IV 12/19/19 17:59 Infused Chloride Q6H SETH Infusion Protocol Sodium Chloride 1,000 mls @ 80 mls/hr 12/09/19 18:30 12/10/19 12:32 Nss 1000ml IV 01/08/20 18:29 80 mls/hr .[id number] SETH Administration Insulin Aspart 0 units 12/09/19 20:00 12/10/19 12:33 Insulin Aspart 100 Units/Ml 3 Ml Pen SC 01/08/20 19:59 Not Given Q4 SETH Ondansetron HCl 4 mg 12/09/19 17:57 12/09/19 20:52 Ondansetron Inj 2 Mg/Ml 2 Ml Vial IV 01/08/20 17:56 4 mg Q4H PRN Administration Nausea Pantoprazole Sodium 40 mg 12/09/19 21:00 12/09/19 20:04 Pantoprazole 40 Mg Tab PO 01/08/20 20:59 40 mg HS SETH Administration Ropinirole HCl 2 mg 12/09/19 21:00 12/09/19 20:03 Ropinirole Hcl 1 Mg Tablet PO 01/08/20 20:59 2 mg HS SETH Administration Tramadol HCl 50 mg 12/09/19 17:57 12/10/19 12:46 Tramadol Hcl 50 Mg Tablet PO 01/08/20 17:56 50 mg BID PRN Administration Pain NPO Date Last Intake of Fluids: 12/10/19 Time Last Intake of Fluids: 14:30 Last Intake of Fluids Comment: sip with pill Date Last Intake of Solids: 12/09/19 Time Last Intake of Solids: 19:00 Past Medical History Medical History Asthma Hypercholesterolemia Insulin dependent diabetes mellitus Exercise / Class Metabolic Activity II 4-5 Yardwork/Stairs/Walk up hill Past Family History Family History Father Diabetes Brother Diabetes Past Anesthesia History No Hx of Anesthesia Complications and No Family Hx of Anesthesia Complications History of PONV No Hx of PONV and No Hx of Motion Sickness Social History Smoking Status: Former smoker tobacco type: cigarettes Do You Dip or Chew Tobacco: No Hx Alcohol Use: No Hx Substance Use: No Physical Exam Vital Signs Last Vital Signs Temp 36.9 C 12/10/19 15:59 Pulse 97 H 12/10/19 15:59 Resp 20 12/10/19 15:59 BP 116/67 12/10/19 15:59 Pulse Ox 92 12/10/19 15:59 ENMT Mouth: no dentition abnormality Thyromental Distance: > or= 3.5 Finger Breadths Mallampati Class: II Neck normal visual inspection Respiratory normal respiratory effort Auscultation: lungs clear to auscultation bilaterally Cardiovascular Rate/Rhythm: regular rate and regular rhythm Psychiatric Orientation: alert Testing Laboratory Results 12/10/19 06:38 12/10/19 06:38 PT 10.7 Seconds (9.0-12.0) 12/09/19 12:47 INR 1.0 (0.9-1.1) 12/09/19 12:47 APTT 29.5 Seconds (21.0-31.0) 12/09/19 12:47 Hemoglobin A1c 7.8 % (4.5-5.6) H 12/10/19 06:38 12/10/19 12/10/19 12/10/19 15:53 11:39 07:23 POC Glucose 124 H 134 H 126 H
--- NOTE | 2019-12-10 16:19 | Hospitalist Progress Note ---
Date of Service December 10, 2019 Assessment & Plan (1) Cholecystitis: RUQ u/s on admission showed gallbladder wall thickening with trace pericholecystic fluid. LFTs also elevated along with elevated bilirubin. Possibly reflecting a passed stone vs. acalculus cholecystitis. - GI & GS consulted - Plan for ERCP today with possible lap yuval tomorrow vs. with Dr. Dumont. (2) Chest pain: Initially thought to be chest pain. EKG shows sinus tachycardia to the 120 range, but no acute ischemic changes. No ongoing chest pain, and initial troponin negative. - Troponins negative. - Will in fact HOLD her ASA in case of need for surgery. (3) Insulin dependent diabetes mellitus: Prior A1c was 7.7% in 2019. She reports being a Type 3 diabetic. She reports she follows with Dr. Calvert; however, I do not see any notes in our system. - Continue home insulin doses, but lower dosing given she will be NPO. - Glycemic pharmacist consulted given unusual insulin regimen -> Doing Lantus right now. Will transition back to normal home regimen after procedures done. (4) Hypercholesterolemia: - Continue statin (5) Asthma: In notes; however, no inhalers in MAY. - DuoNebs PRN (6) DVT prophylaxis: SCDs - Low DVT risk per admission calculator, plus surgery needed. Admission and Anticipated Discharge Date Admission Date: December 09, 2019 Subjective No major issues today. She is frustrated/upset by the confusion and lots of testing. Reports no fevers/chills, chest pain, shortness of breath, abdominal pain, nausea, or vomiting. Physical Exam Constitutional: WD/WN, vitals as above Eyes: EOM intact bilaterally; no conjunctival abnormality ENMT: external ear and nose normal, oropharynx normal Neck: trachea midline, no thyromegaly normal visual inspection Respiratory: normal respiratory effort, lungs clear to auscultation no respiratory distress Cardiovascular: Rate/Rhythm: regular rhythm and + tachycardic Heart Sounds: normal S1 and normal S2 Extremities: no edema Gastrointestinal (Abdomen): Inspection/Auscultation: abdomen normal to inspection and normal bowel sounds; abdomen not distended Percussion/Palpation: + abdomen tender (Very mild in epigastric region) and abdomen soft; no guarding and abdomen not rigid Musculoskeletal: no cyanosis or clubbing, extremities motor strength 5/5 Skin: no rashes, warm and dry Neurologic: moves all extremities and awake Psychiatric: Orientation: alert, oriented to person and cooperative Results & Data Results & Data ([facility]) Vital Signs (Past 12 Hours) Vital Signs Temp Pulse Pulse Pulse Resp BP BP 12/10/19 15:59 36.9 C 97 H 20 116/67 12/10/19 15:53 36.7 C 102 H 16 124/69 12/10/19 12:03 36.8 C 103 H 20 117/77 12/10/19 08:00 106 H 12/10/19 07:20 37.6 C H 112 H 22 120/62 Pulse Ox 12/10/19 15:59 92 12/10/19 15:53 98 12/10/19 12:03 92 12/10/19 08:00 12/10/19 07:20 91 PG Care Time/CCT Total # of Minutes Spent Total Time Spent with Patient: Total time spent is greater than 50% in coordination of care (as documented) at patient's floor/unit and/or counseling patient: Coding Level of Care Code 32767 Subseq Hosp Care Lvl 3 Diagnoses Cholecystitis K81.9 Chest pain R07.9 Insulin dependent diabetes mellitus E11.9; Z79.4 Hypercholesterolemia E78.00 Asthma J45.909 DVT prophylaxis Z29.9
--- NOTE | 2019-12-10 16:23 | History & Physical Bridge Note ---
Date of Service December 10, 2019 History & Physical Bridge Note I have examined the patient, reviewed the History & Physical and in the interval since the performance of the History & Physical. The patient presented with abdominal discomfort and was found to have a significant elevation of her liver associated enzymes, bilirubin, white blood cell count and fever. Given this scenario there is a concern for underlying cholangitis. We will proceed with ERCP for biliary decompression this afternoon. I have discussed the risks of the procedure to include bleeding, infection, perforation, failed biliary cannulation and need for follow-up studies.
[2019-12-10] MEDS ORDERED: IOVERSOL 50ml IV ONE (16:31)
[2019-12-10] MEDS ORDERED: INDOMETHACIN 50 MG SUPP PR ONE (16:32)
[2019-12-10] MEDS ORDERED: ONDANSETRON INJ 2 MG/ML 2 ML VIAL ONE (16:58)
[2019-12-10] MEDS ORDERED: DEXAMETHASONE SOD INJ 4 MG/ML VIAL ONE (16:58)
[2019-12-10] MEDS ORDERED: LARYING-O-JET KIT (LTA) ONE (16:58)
--- NOTE | 2019-12-10 18:09 | Post Operative Brief Note ---
Immediate Post Op Note v1 Date of Surgery December 10, 2019 Pre & Post Diagnosis Operation Date: 12/10/19 08:40 Pre-Op Diagnosis: EPIGASTRIC PAIN; cholangitis Post-Op Diagnosis: Cholangtiis / Choledocholithiasis Operation Date: 12/11/19 11:00 <No data on this case meets the specified criteria> I identified the patient and participated in the time-out.: Yes Procedure Operation Date: 12/10/19 08:40 Actual Procedures p Endoscopic Retrograde Cholangiopancreatogram(Not Applicable) - Johan Givens Operation Date: 12/11/19 11:00 <No data on this case meets the specified criteria> Surgeon Johan Givens Sales Strategy Manager none Estimated Blood Loss 0 Findings Consistent with Post-Op Diagnosis
--- NOTE | 2019-12-10 18:09 | GI REPORT ---
Patient Name: Krista Washington Procedure Date: 12/10/2019 4:52 PM Date of : 1945 Admit Type: Inpatient Age: 74 Gender: Female Attending MD: Johan Givens DO Procedure: ERCP Providers: Johan Givens DO Referring MD: Lorne Moody, João Santiago Md, Denisa Pantoja Md Indications: Abdominal pain of suspected biliary origin, Suspected ascending cholangitis Medicines: General Anesthesia Complications: No immediate complications. Estimated blood loss: Minimal. Estimated Blood Loss: Estimated blood loss was minimal. Procedure: Pre-Anesthesia Assessment: - Prior to the procedure, a History and Physical was performed, and patient medications, allergies and sensitivities were reviewed. The patient's tolerance of previous anesthesia was reviewed. - The risks and benefits of the procedure and the sedation options and risks were discussed with the patient. All questions were answered and informed consent was obtained. - Patient identification and proposed procedure were verified prior to the procedure by the physician, the nurse and the rda. The procedure was verified in the procedure room. - Pre-procedure physical examination revealed no contraindications to sedation. - ASA Grade Assessment: III - A patient with severe systemic disease. - After reviewing the risks and benefits, the patient was deemed in satisfactory condition to undergo the procedure. - The anesthesia plan was to use general anesthesia. - Immediately prior to administration of medications, the patient was re-assessed for adequacy to receive sedatives. - The heart rate, respiratory rate, oxygen saturations, blood pressure, adequacy of pulmonary ventilation, and response to care were monitored throughout the procedure. - The physical status of the patient was re-assessed after the procedure. After obtaining informed consent, the scope was passed under direct vision. Throughout the procedure, the patient's blood pressure, pulse, and oxygen saturations were monitored continuously. The Scope was introduced through the mouth, and advanced to the duodenum and used to inject contrast into the bile duct. The patient tolerated the procedure well. The Scope was introduced through the mouth, and advanced to the duodenum and used to inject contrast into the bile duct and ventral pancreatic duct. The ERCP was performed with difficulty due to challenging cannulation because of papillary stenosis. Successful completion of the procedure was aided by performing the maneuvers documented (below) in this report. Findings: The semiconductor engineer film was normal. The esophagus was successfully intubated under direct vision without detailed examination of the pharynx, larynx, and associated structures, and upper GI tract. The upper GI tract was grossly normal. The major papilla was small. The ventral pancreatic duct was inadvertently cannulated with the short-nosed traction sphincterotome and 0.025 in guidewire without any complications. This was left in place to aid in biliary cannulation and later placed a prophylactic pancreatic stent. The bile duct could not be cannulated with the short-nosed traction sphincterotome and guidewire (multiple combinations tried). A ventral pancreatic septotomy was made with a monofilament Dreamtome sphincterotome using ERBE electrocautery to gain access to the biliary tree. There was no post-sphincterotomy bleeding. The bile duct was deeply cannulated with the short-nosed traction sphincterotome and 0.035 in Acrobat 2 guidewire. Contrast was injected. I personally interpreted the bile duct images. Contrast extended to the hepatic ducts. The biliary orifice was stenotic. This appeared benign. The lower third of the main bile duct contained filling defect(s) thought to be a small stones and sludge. Biliary sphincterotomy was made with a monofilament Fusion OMNI sphincterotome using ERBE electrocautery. There was no post-sphincterotomy bleeding. To discover objects, the biliary tree was swept with an 8.5 to15.5 mm balloon starting at the bifurcation. Sludge, small stones and pus was swept from the duct. One 5 Fr by 7 cm prophylactic pancreatic stent with a full external pigtail and no internal flaps was placed 7 cm into the ventral pancreatic duct. Clear fluid flowed through the stent. The stent was in good position. One 10 Fr by 7 cm biliary stent with a single external flap and a single internal flap was placed 7 cm into the common bile duct. Dark bile, pus and sludge flowed through the stent. The stent was in good position. The endoscope was withdrawn from the patient. The total fluoroscopy exposure time was 2 minutes and 24 seconds. Indomethacin 100 mg was given via suppository to decrease the risk of post-ERCP pancreatitis (PEP). Impression: - The major papilla appeared to be small. - Biliary papillary stenosis, benign. - Choledocholithiasis, sludge and pus was found. Partial removal was accomplished by biliary sphincterotomy and balloon extraction. - A pancreatic septotomy was performed to gain access to the biliary tree. - A biliary sphincterotomy was performed. - One prophylactic pancreatic stent was placed into the ventral pancreatic duct. - One biliary stent was placed into the common bile duct. - Indomethacin given to decrease risk of post-ERCP pancreatitis. Recommendation: - Avoid aspirin and nonsteroidal anti-inflammatory medicines for 1 week. - Clear liquid diet today. - Observe patient's clinical course following today's ERCP with therapeutic intervention. - Use broad spectrum antibiotics for 2 weeks. - Repeat ERCP in 6 weeks to remove stent. - Cholecystectomy per General Surgery. Johan Givens D.O. Johan Givens, DO 12/10/2019 6:09:00 PM This report has been signed electronically. Note Initiated On: 12/10/2019 4:52 PM Number of Addenda: 0 I attest to the content of the Intraoperative Record and orders documented therein, exceptions below {[id number]}
--- NOTE | 2019-12-10 18:11 | Communication Note ---
Date of Service: December 10, 2019 The patient underwent urgent ERCP this evening for suspected cholangitis. The procedure was somewhat difficult due to papillary stenosis, a small ampulla and small stones within the duct. A prophylactic pancreatic stent was made. Several small stones were removed from the common bile duct in addition to sludge and pus. Prophylactic pancreatic stent placed Biliary stent placed Recommendations Avoid nonsteroidals for 1 week Broad-spectrum antibiotic coverage for 2 weeks Cholecystectomy per general surgery Repeat ERCP in 6 to 8 weeks for removal of biliary stent Continue IV hydration overnight
--- NOTE | 2019-12-10 18:26 | Anesthesiology Progress Note ---
Date of Service December 10, 2019 Anesthesia Post Procedure Vital Signs Vital Signs: Temp Pulse Pulse Pulse Resp BP BP 12/10/19 18:25 80 12 128/77 12/10/19 18:15 92 H 20 139/73 12/10/19 18:05 94 H 16 145/68 H 12/10/19 17:59 36.8 C 98 H 19 149/83 H 12/10/19 15:59 36.9 C 97 H 20 116/67 12/10/19 15:53 36.7 C 102 H 16 124/69 12/10/19 15:00 105 H 12/10/19 12:03 36.8 C 103 H 20 117/77 12/10/19 08:00 106 H 12/10/19 07:20 37.6 C H 112 H 22 120/62 12/10/19 03:39 37 C 108 H 18 104/48 L 12/09/19 23:33 36.7 C 108 H 17 106/65 12/09/19 23:00 108 H 12/09/19 19:47 37.0 C 115 H 18 171/67 H 12/09/19 18:30 130 H Pulse Ox 12/10/19 18:25 94 12/10/19 18:15 96 12/10/19 18:05 97 12/10/19 17:59 98 12/10/19 15:59 92 12/10/19 15:53 98 12/10/19 15:00 12/10/19 12:03 92 12/10/19 08:00 12/10/19 07:20 91 12/10/19 03:39 91 12/09/19 23:33 93 12/09/19 23:00 12/09/19 19:47 92 12/09/19 18:30 Pain Intensity Left Chest: Pain Intensity: 1 Transfer of Care Handoff Completed per policy Notes Mental Status: alert / awake / arousable and participated in evaluation Patient Amnestic to Procedure: Yes Nausea / Vomiting: adequately controlled Pain: adequately controlled Airway Patency, RR, SpO2: stable & adequate BP & HR: stable & adequate Hydration State: stable & adequate Anesthetic Complications: no major complications apparent and Pt Satisfied with anesthetic care
--- NOTE | 2019-12-10 18:29 | Fluoroscopy Report ---
[place] ERCP biliary ductal HISTORY: 74 years-old Female ERCP DONE IN THE [facility].R. COMPARISON: MRCP 12/10/2019 TECHNIQUE: 9 spot fluoroscopic images of the right upper quadrant abdomen were obtained utilizing 2 m inutes and 25.9 seconds fluoroscopy time FINDINGS: Endoscope within the duodenum. Cannulation of the pancreatic and common bile ducts. Retrograde inject ion of contrast. There is contrast opacification of the common bile duct which does not appear dilate d. Additionally, there is opacification of the cystic duct and what appears to be the contracted gall bladder. Contrast extends to the level of the distal common hepatic duct without appreciable intrahep atic biliary ductal opacification. Subsequent images demonstrate deployment of common bile duct and p ancreatic ductal stents which appear in satisfactory positioning. IMPRESSION: Fluoroscopic assistance as above. Please see procedural report for further details. ACT 112: Negative or not required by law. The above report was generated using voice recognition software. It may contain grammatical, syntax o r spelling errors. Electronically signed by: Keith Holbrook M.D. 12/10/2019 6:27 PM
[2019-12-10] MEDS ORDERED: LANTUS PER UNIT CHARGE SQ SCH ×2 (20:00→21:00)
[2019-12-10] MEDS: ROPINIROLE HCL 1 MG TABLET PO SCH (20:04)
[2019-12-10] MEDS: PANTOprazole 40 MG TAB PO SCH (20:04)
[2019-12-10] MEDS: ATORVASTATIN 10 MG TAB PO SCH (20:04)
[2019-12-11] MEDS: AMPICILLIN/SULBACTAM SOD 3,000 MG in 0.9 % SODIUM CHLORIDE 100 ML IV SCH ×5 (00:28→23:49)
[2019-12-11] MEDS: INSULIN ASPART 100 UNITS/ML 3 ML PEN SC SCH ×6 (00:29→20:40)
[2019-12-11] MEDS ORDERED: Nursing to Pharmacy Communication SCH (01:15)
[2019-12-11] MEDS: ACETAMINOPHEN 325 MG TAB PO PRN (06:08)
[2019-12-11] MEDS: SODIUM CHLORIDE 0.9% 1000ML 1,000 ML IV SCH ×2 (06:09→17:28)
[2019-12-11 07:07] LABS: Hematocrit (blood only) 44.1 % (37-47); Hemoglobin 14.3 g/dL (12.0-16.0); Mean Corpuscular Hemoglobin 29.5 pg (25-34); Mean Corpuscular Hgb Conc 32.4 g/dL (32-36); Mean Corpuscular Volume 91.1 fL (80-100); Mean Platelet Volume 9.3 fL (7.4-10.4); Platelet Count 348 K/uL (130-400); RDW Standard Deviation 46.8 fL (36.4-46.3); Red Blood Count 4.84 M/uL (4.2-5.4); White Blood Count 12.86 K/uL (4.8-10.8)
[2019-12-11 07:38] LABS: Albumin Level 2.7 gm/dl (3.4-5.0); BUN Creatinine Ratio 20.4 (10-20); Calcium 9.2 mg/dl (8.5-10.1); Creatinine Clr Calc Pharmacy 74.7 ml/min; Est GFR (African American) 100.6; Est GFR (Non-African American) 86.8; Magnesium 2.2 mg/dl (1.8-2.4); Potassium 4.3 mmol/L (3.5-5.1)
[2019-12-11 07:46] LABS: Albumin Globulin Ratio 0.6 (0.9-2); Globulin 4.3 gm/dl (2.5-4.0)
--- NOTE | 2019-12-11 09:39 | Gastroenterology Progress Note ---
Date of Service December 11, 2019 Assessment & Plan (1) Substernal chest pain: 74 year old female admitted w/ upper abdominal pain and substernal chest pain, imaging concerning for acalculus cholecystitis, LFTs trending up and febrile this AM which is concerning for cholangitis. She is presently out of room in and I was unable to assess her on AM rounds. S/P ERCP w/ decompression and evidence of cholangitis, stent placement Avoid nonsteroidals for 1 week Broad-spectrum antibiotic coverage for 2 weeks Cholecystectomy per general surgery Repeat ERCP in 6 to 8 weeks for removal of biliary stent Antiemetics PRN Analgesia PRN Will sign off. Thank you for allowing us to participate in the care of this patient. Please call with any acute changes, questions or concerns. Please see addendum below with additional recommendation from my supervising physician. (2) Elevated LFTs: Admission and Anticipated Discharge Date Admission Date: December 09, 2019 Subjective S/P ERCP w/ decompression and stent placement Feeling ok Has had persistent pain she presenting with No nausea/vomiting Review of Systems Constitutional: no fever and no chills Respiratory: no cough and no dyspnea Cardiovascular: no chest pain Gastrointestinal: + abdominal pain Physical Exam Constitutional: no acute distress Respiratory: normal respiratory effort, lungs clear to auscultation Gastrointestinal (Abdomen): Percussion/Palpation: + abdomen tender (RUQ) and abdomen soft Skin: no rashes, warm and dry Results & Data ([facility]) Vital Signs (Past 12 Hours) Vital Signs Temp Pulse Pulse Resp BP Pulse Ox 12/11/19 08:00 84 12/11/19 07:35 36.6 C 104 H 20 150/75 H 96 12/11/19 04:20 36.8 C 99 H 14 138/75 96 12/11/19 00:00 36.6 C 96 H 19 112/64 94 12/10/19 23:00 89
--- NOTE | 2019-12-11 10:06 | Surgery Progress Note ---
Date of Service pt had ERCP yesterday, pt has mild epigastric pain, no nausea, no vomiting, no fever, I reviewed ERCP finding with pt, December 11, 2019 Assessment & Plan (1) Substernal chest pain: (2) Acalculous cholecystitis: pt is a 74 year-old female who was admitted to hospital for chest pain, U/S study, acute cholecystitis, IMP: acute cholecystitis, cholangitis? conservative treatment first, NPO, IV fluid, IV antibiotic, control pain, repeat labs CBC, CMP in am, HIDA scan, depend on labs and HIDA scan result, pt may need ERCP if T bili goes up, I plan to do laparoscopic cholecystectomy tomorrow afternoon or Monday , D/W benefits, risks and alternatives of the surgery, pt understood, she agrees with the plan, I answered all questions, 12/10/2019 2:35PM pt will have ERCP by GI doctor today, I recommend to do laparoscopic cholecystectomy tomorrow, D/W benefits, risks and alternatives of the surgery, pt agrees with the plan, I answered all questions, NPO after MN, 12/11/2019 10:04AM, I recommend to do laparoscopic cholecystectomy, possible open or cholangiogram, D/W benefits, risks and alternatives of the surgery, the risks - infection, bleeding, injury CBD, biliary leak, NE, , injury other organs, pt understood, she agrees with the surgery, I answered all questions, (3) Elevated LFTs: Admission and Anticipated Discharge Date Admission Date: December 09, 2019 Subjective S/P ERCP w/ decompression and stent placement Feeling ok Has had persistent pain she presenting with No nausea/vomiting Review of Systems Constitutional: as per Subjective / HPI Eyes: as per Subjective / HPI Ear, Nose, Mouth, Throat: as per Subjective / HPI Respiratory: as per Subjective / HPI asthma Cardiovascular: as per Subjective / HPI and + chest pain Additional Comments: hypercholesterolemia Gastrointestinal: as per Subjective / HPI gastroenteritis Genitourinary: as per Subjective / HPI breast cancer 2016 Musculoskeletal: as per Subjective / HPI shoulder and knee surgery Integumentary: as per Subjective / HPI Neurologic: as per Subjective / HPI Psychiatric: as per Subjective / HPI Endocrine: as per Subjective / HPI insulin dependent DM Hematologic / Lymphatic: as per Subjective / HPI Allergy / Immunological: as per Subjective / HPI Physical Exam Constitutional: WD/WN, vitals as above well developed and well nourished Eyes: PERRL, conjunctivae normal, anicteric sclerae ENMT: external ear and nose normal, oropharynx normal Neck: trachea midline, no thyromegaly Respiratory: normal respiratory effort, lungs clear to auscultation normal respiratory effort Cardiovascular: RRR, no murmur, no edema Rate/Rhythm: regular rate, regular rhythm and + tachycardic Heart Sounds: normal S1 and normal S2 Gastrointestinal (Abdomen): normal bowel sounds, soft, nontender, no hepatosplenomegaly mild tenderness epigastric area, no rebound pain, no distend, BS + Musculoskeletal: no cyanosis or clubbing, extremities motor strength 5/5 Skin: no rashes, warm and dry Neurologic: patellar DTR's 2+ bilat, sensation intact Psychiatric: Orientation: alert and oriented x 3 Results & Data ([facility]) Vital Signs (Past 12 Hours) Vital Signs Temp Pulse Pulse Resp BP Pulse Ox 12/11/19 08:00 84 12/11/19 07:35 36.6 C 104 H 20 150/75 H 96 12/11/19 04:20 36.8 C 99 H 14 138/75 96 12/11/19 00:00 36.6 C 96 H 19 112/64 94 12/10/19 23:00 89 Laboratory Results Abnormal lab results 12/10/19 12/10/19 12/10/19 Range/Units 11:39 15:53 18:05 WBC (4.8-10.8) K/uL RDW Std Deviation (36.4-46.3) fL Chloride (98-107) mmol/L BUN/Creatinine Ratio (10-20) Glucose (70-99) mg/dl POC Glucose 134 H 124 H 167 H (70-99) mg/dl Total Bilirubin (0.2-1) mg/dl AST (15-37) U/L ALT (12-78) U/L Alkaline Phosphatase (45-117) U/L Albumin (3.4-5.0) gm/dl Globulin (2.5-4.0) gm/dl Albumin/Globulin Ratio (0.9-2) 12/10/19 12/11/19 12/11/19 Range/Units 20:05 00:25 04:11 WBC (4.8-10.8) K/uL RDW Std Deviation (36.4-46.3) fL Chloride (98-107) mmol/L BUN/Creatinine Ratio (10-20) Glucose (70-99) mg/dl POC Glucose 176 H 149 H 134 H (70-99) mg/dl Total Bilirubin (0.2-1) mg/dl AST (15-37) U/L ALT (12-78) U/L Alkaline Phosphatase (45-117) U/L Albumin (3.4-5.0) gm/dl Globulin (2.5-4.0) gm/dl Albumin/Globulin Ratio (0.9-2) 12/11/19 12/11/19 12/11/19 Range/Units 06:50 06:50 07:36 WBC 12.86 H (4.8-10.8) K/uL RDW Std Deviation 46.8 H (36.4-46.3) fL Chloride 108 H (98-107) mmol/L BUN/Creatinine Ratio 20.4 H (10-20) Glucose 156 H (70-99) mg/dl POC Glucose 135 H (70-99) mg/dl Total Bilirubin 2.0 H D (0.2-1) mg/dl AST 149 H (15-37) U/L ALT 300 H (12-78) U/L Alkaline Phosphatase 119 H (45-117) U/L Albumin 2.7 L (3.4-5.0) gm/dl Globulin 4.3 H (2.5-4.0) gm/dl Albumin/Globulin Ratio 0.6 L (0.9-2)
--- NOTE | 2019-12-11 10:06 | Pharmacy Report ---
Pharmacy Glycemic Short Note 2 - Date of Service December 11, 2019 - Glycemic Short BSG Results (Last 24 hours): OUTPATIENT ANTIDIABETIC REGIMEN: * NPH 15 units SC qAM + Humulin 70/30 10-12 units SC qPM * A1c = 7.8 % 12/10/19 ASSESSMENT: 12/11/19: * BSGs well controlled yesterday: [phone] mg/dL * Received 9 units of insulin total: 5 units basal + 4 units bolus * Patient underwent ERCP yesterday afternoon * She remains NPO this morning for a lap yuval. Will continue with q4h checks until a diet is resumed. 12/10/19: * AYO is a 74 year old female admitted on 12/09/19 with suspected cholecystitis * Started on IV Unasyn 3 g q6h * BSG of 247 mg/dL on admission, but well-controlled since then with Novolog q4h * 159, 174, 154, 126 mg/dL * Patient is currently NPO for cholecystectomy tomorrow - will continue q4h dosing of Novolog while NPO and add Lantus scale this evening * Per patient, she follows with Dr. Calvert for management of her diabetes PLAN FOR INPATIENT GLYCEMIC CONTROL: * Hold outpatient oral diabetes medications * Basal insulin * Lantus 0-10 units SQ x 1 per BSG (see eMAR for more details) * Bolus insulin * NovoLog q4h * Goal Range: Low 110 mg/dL - High 140 mg/dL * Correction Factor: 35 mg/dL/unit * Nutritional / Prandial insulin per carb ratio of 1 unit per 11 grams CHO consumed PLAN FOR DISCHARGE: * to be determined
--- NOTE | 2019-12-11 12:02 | History & Physical Bridge Note ---
Date of Service December 11, 2019 History & Physical Bridge Note I have examined the patient, reviewed the History & Physical and in the interval since the performance of the History & Physical I have noted the following changes of clinical significance: no changes noted Supervising Physician Co-Signing Physician Notes I have personally seen and examined the patient with LIBRADO Covarrubias in the radiology suite. Her note reflects my exam and findings. I agree with her impression and plan. Pt with clinical and objective signs of cholangitis with acute rise in Bili. Will check MRCP and consider ERCP today. Patient agrees with plan. Noe Campos M.D.
[2019-12-11] MEDS ORDERED: LACTATED RINGER'S 1,000 ML IV SCH (12:15)
[2019-12-11] MEDS ORDERED: ePHEDrine sulfate 50 MG/ML AMP IV PRN (12:17)
[2019-12-11] MEDS ORDERED: BACITRACIN OINT 15 GM TUBE ONE (12:17)
[2019-12-11] MEDS ORDERED: LIDOCAINE HCL 1% 20 ML VIAL ONE (12:17)
[2019-12-11] MEDS ORDERED: ONDANSETRON INJ 2 MG/ML 2 ML VIAL IV PRN (12:17)
[2019-12-11] MEDS ORDERED: ATROPINE SULFATE 0.1 MG/ML 10ML SYR IV PRN (12:17)
[2019-12-11] MEDS ORDERED: BUPIVACAINE 0.5 % 5 MG/1 ML MPF 30ML VIAL ONE (12:17)
--- NOTE | 2019-12-11 12:17 | Anesthesiology Consultation ---
Date of Service December 11, 2019 Assessment & Plan (1) Encounter for pre-operative examination: Chart Review Chart Review: Acceptable Risk for Surgery Consults Requested none ASA ASA3 Proposed Anesthesia Anesthesia Type: General Risk / Benefits Reviewed With: PT / POA / Parent / Guardian, Accepts Plan and Informed Consent Obtained History Surgery Operation Date: 12/10/19 08:40 Proposed Procedures p Endoscopic Retrograde Cholangiopancreatogram - Johan Givens Operation Date: 12/11/19 12:30 Proposed Procedures p Laparoscopic Cholecystectomy - Malgorzata Dumont MD Height/Weight Height: 5 ft 2 in Weight: 85.5 kg Allergies Allergy/AdvReac Type Severity Reaction Status Date / Time Penicillins Allergy Intermediate RASH Verified 12/09/19 14:17 Medications Home Medications Medication Instructions Recorded Confirmed Last Taken Humulin 70/30 U-100 Insulin 100 See Rx Instructions SQ .COMPLEX #3 12/31/18 12/09/19 12/08/19 unit/mL subcutaneous suspension vial NS OneTouch Ultra Blue Test Strip #200 ea NS 04/17/19 11/21/19 Unknown insulin syringe-needle U-100 0.5 #120 ea 11/14/19 11/21/19 Unknown mL 31 gauge x 5/16" Humulin N NPH U-100 Insulin 100 15 unit SQ QAM #2 vial NS 11/21/19 12/09/19 12/09/19 unit/mL subcutaneous aspirin [Aspir-81] 81 mg PO DAILY 12/09/19 12/09/19 12/09/19 atorvastatin 10 mg PO HS 12/09/19 12/09/19 12/08/19 cholecalciferol (vitamin D3) 25 mcg PO DAILY 12/09/19 12/09/19 12/09/19 multivitamin 1 tab PO DAILY 12/09/19 12/09/19 12/09/19 omeprazole 20 mg PO HS 12/09/19 12/09/19 12/08/19 ropinirole 2 mg PO HS 12/09/19 12/09/19 12/08/19 tramadol 50 mg PO HS PRN 12/09/19 12/09/19 12/08/19 Active Medications Generic Name Dose Route Start Last Admin Trade Name Freq PRN Reason Stop Dose Admin Acetaminophen 650 mg 12/09/19 17:57 12/11/19 06:08 Acetaminophen 325 Mg Tab PO 01/08/20 17:56 650 mg Q4H PRN Administration pain/fever Atorvastatin Calcium 10 mg 12/09/19 21:00 12/10/19 20:04 Atorvastatin 10 Mg Tab PO 01/08/20 20:59 10 mg HS SETH Administration Ampicillin Sodium/Sulbactam 108 mls @ 200 mls/hr 12/09/19 18:00 12/11/19 12:07 Sodium 3,000 mg/ Sodium IV 12/19/19 17:59 200 mls/hr Chloride Q6H SETH Administration Protocol Sodium Chloride 1,000 mls @ 80 mls/hr 12/09/19 18:30 12/11/19 06:09 Nss 1000ml IV 01/08/20 18:29 80 mls/hr .[id number] SETH Administration Insulin Aspart 0 units 12/09/19 20:00 12/11/19 11:37 Insulin Aspart 100 Units/Ml 3 Ml Pen SC 01/08/20 19:59 Not Given Q4 SETH Protocol Ondansetron HCl 4 mg 12/09/19 17:57 12/09/19 20:52 Ondansetron Inj 2 Mg/Ml 2 Ml Vial IV 01/08/20 17:56 4 mg Q4H PRN Administration Nausea Pantoprazole Sodium 40 mg 12/09/19 21:00 12/10/19 20:04 Pantoprazole 40 Mg Tab PO 01/08/20 20:59 40 mg HS SETH Administration Ropinirole HCl 2 mg 12/09/19 21:00 12/10/19 20:04 Ropinirole Hcl 1 Mg Tablet PO 01/08/20 20:59 2 mg HS SETH Administration Tramadol HCl 50 mg 12/09/19 17:57 12/10/19 12:46 Tramadol Hcl 50 Mg Tablet PO 01/08/20 17:56 50 mg BID PRN Administration Pain NPO Date Last Intake of Fluids: 12/09/19 Time Last Intake of Fluids: 08:00 Last Intake of Fluids Comment: sip with pill Date Last Intake of Solids: 12/09/19 Time Last Intake of Solids: 08:00 Past Medical History Medical History Asthma Hypercholesterolemia Insulin dependent diabetes mellitus Exercise / Class Metabolic Activity II 4-5 Yardwork/Stairs/Walk up hill Past Family History Family History Father Diabetes Brother Diabetes Past Anesthesia History No Hx of Anesthesia Complications and No Family Hx of Anesthesia Complications History of PONV No Hx of PONV and No Hx of Motion Sickness Social History Smoking Status: Former smoker tobacco type: cigarettes Do You Dip or Chew Tobacco: No Hx Alcohol Use: No Hx Substance Use: No Physical Exam Vital Signs Last Vital Signs Temp 98.2 F 12/11/19 12:02 Pulse 103 H 12/11/19 12:02 Resp 20 12/11/19 12:02 BP 154/76 H 12/11/19 12:02 Pulse Ox 98 12/11/19 12:02 ENMT Mouth: + edentulous Thyromental Distance: > or= 3.5 Finger Breadths Mallampati Class: II Neck normal visual inspection Respiratory normal respiratory effort Auscultation: lungs clear to auscultation bilaterally Cardiovascular Rate/Rhythm: regular rhythm and + tachycardic Testing Laboratory Results 12/11/19 06:50 12/11/19 06:50 PT 10.7 Seconds (9.0-12.0) 12/09/19 12:47 INR 1.0 (0.9-1.1) 12/09/19 12:47 APTT 29.5 Seconds (21.0-31.0) 12/09/19 12:47 Hemoglobin A1c 7.8 % (4.5-5.6) H 12/10/19 06:38 12/09/19 17:10 Aerobic Blood Culture - Preliminary Blood No growth in Aerobic bottle after 24 hours. Anaerobic Blood Culture - Preliminary No growth in Anaerobic bottle after 24 hours. 12/09/19 17:09 Aerobic Blood Culture - Preliminary Blood No growth in Aerobic bottle after 24 hours. Anaerobic Blood Culture - Preliminary No growth in Anaerobic bottle after 24 hours. 12/11/19 12/11/19 12/11/19 11:31 07:36 04:11 POC Glucose 139 H 135 H 134 H 12/11/19 00:25 POC Glucose 149 H
[2019-12-11] MEDS ORDERED: fentaNYL citrate 100 MCG/2 ML VIAL ONE ×2 (12:20→13:10)
[2019-12-11] MEDS ORDERED: MIDAZOLAM HCL 1 MG/ML 2ML VIAL ONE (12:20)
[2019-12-11] MEDS ORDERED: ONDANSETRON INJ 2 MG/ML 2 ML VIAL ONE (12:22)
[2019-12-11] MEDS ORDERED: LIDOCAINE HCL 2% 2 ML VIAL/AMP(20MG/ML) INFIL ONE (12:22)
[2019-12-11] MEDS ORDERED: PROPOFOL IV EMULSION 10 MG/ML 20 ML VIAL IV ONE (12:22)
[2019-12-11] MEDS ORDERED: ROCURONIUM BROMIDE 10 MG/ML 5 ML VIAL IV ONE (12:22)
[2019-12-11] MEDS ORDERED: CIPROFLOXACIN / D5W 400 MG/200 ML BAG IV SCH (12:30)
[2019-12-11] MEDS ORDERED: GLYCOPYRROLATE 0.2 MG/ML VIAL ONE (13:29)
--- NOTE | 2019-12-11 13:35 | Post Operative Brief Note ---
Immediate Post Op Note v1 Date of Surgery December 11, 2019 Pre & Post Diagnosis Operation Date: 12/10/19 08:40 Pre-Op Diagnosis: EPIGASTRIC PAIN; CHOLECYSTITIS Post-Op Diagnosis: EPIGASTRIC PAIN; CHOLECYSTITIS Operation Date: 12/11/19 12:30 Pre-Op Diagnosis: EPIGASTRIC PAIN; acute CHOLECYSTITIS Post-Op Diagnosis: Acute CHOLECYSTITIS I identified the patient and participated in the time-out.: Yes Procedure Operation Date: 12/10/19 08:40 Actual Procedures p Endoscopic Retrograde Cholangiopancreatogram(Not Applicable) - Johan Givens Operation Date: 12/11/19 12:30 Actual Procedures p Laparoscopic Cholecystectomy(Not Applicable) - Malgorzata Dumont MD Surgeon Malgorzata Dumont MD Forging Roll Operator JEN Harding Estimated Blood Loss 10 Findings Consistent with Post-Op Diagnosis acute cholecystitis Fluids 900ml Specimens gallbladder Anesthesia Type General Complications none Disposition Accompanied Patient To Recovery: Yes Disposition: Recovery Room Overlapping Procedure I was immediately available: during the entire case.
[2019-12-11] MEDS ORDERED: NEOSTIGMINE METHYLSULFATE 5 MG/5 ML SYR ONE (13:40)
[2019-12-11] MEDS ORDERED: ESMOLOL HCL INJ 10 MG/ML 10ML VIAL IV ONE (13:40)
--- NOTE | 2019-12-11 14:17 | Operative Report (OR) ---
DATE OF OPERATION: 12/11/2019 PREOPERATIVE DIAGNOSIS: Acute cholecystitis. POSTOPERATIVE DIAGNOSIS: Acute cholecystitis. OPERATION: Laparoscopic cholecystectomy. SURGEON: Malgorzata Dumont MD. ANESTHESIA: General. ESTIMATED BLOOD LOSS: About 10 mL. SODA FLAKER: Oly Hernandez PA-C. FINDINGS: Acute cholecystitis. COMPLICATIONS: None. INDICATIONS FOR THE PROCEDURE: This is a 74-year-old female who presented with acute cholecystitis and the patient is required to do laparoscopic cholecystectomy, possible open, possible cholangiogram. I did talk to the patient about the benefit, the risk, alternate procedure. I indicated the risks may include but not limited to such as bleeding, infection, injury to common bile duct, injury to other organs, myocardial infarction, bile leak, and even . The patient understands. She signed informed consent and I answered all questions. DETAILS OF PROCEDURE: We brought the patient to the OR, put the patient in the supine position. The patient received SCD on bilateral legs to prevent DVT. Also, patient received 2 grams of Unasyn IV for prophylactic antibiotic. The patient received general anesthesia without difficulties. Abdomen was prepped and draped in routine sterile fashion. After time-out, I injected local anesthesia by using 1% lidocaine mixed with 0.5% Marcaine just above the umbilicus. Then I made a small incision just above the umbilicus, opened fascia and opened peritoneum under direct vision, put a Kenny trocar in, connected to CO2 to create pneumoperitoneum, flow rate at 6 liters per minute, pressure not more than 14 mmHg. Once we got a nice pneumoperitoneum, we put the camera in, looked around the abdomen, it shows normal finding on the liver. However, the gallbladder showed significant gallbladder wall thickening and edema, confirming the diagnosis of acute cholecystitis. Then, we put another two 5 mm trocars in the right upper quadrant, one 11 trocar in the epigastric area. Once all trocars in, we used a grasper to hold the gallbladder, put in the direction to the diaphragm, another grasper to hold the pouch of gallbladder, put a lateral to expose the triangle of Calot. Cystic duct was identified and mobilized. I put two 10 mm metal clips on the proximal cystic duct, one on the distal cystic duct and used a scissor for transection of the cystic duct. Rechecked, no bile leak and the cystic artery was identified and mobilized. I put two 10 mm metal clips on the proximal cystic artery, one on the distal cystic artery, then used a scissor for transection of cystic artery. Rechecked, no active bleeding. Then we used the Bovie to take down gallbladder from the liver bed. Rechecked and no active bleeding, no bile leak from liver bed. Then we removed gallbladder through the catch bag. Then we reinserted the Kenny trocar in, connected to CO2 to create pneumoperitoneum, again looked around the abdomen, no active bleeding, no bile leak from liver bed. Then we removed all trocars under direct vision. No active bleeding from the trocar sites. Pneumoperitoneum was released, now closed the umbilical incision, fascial layer by using #1 Vicryl [id number] x2, closed subcutaneous layer by using 2-0 Vicryl interruptedly, closed skin by using 4-0 Vicryl continuous running, closed the epigastric area 11 trocar fascial layer by using #1 Vicryl [id number] x2, closed subcutaneous layer by using 2-0 Vicryl interruptedly, closed skin by using 4-0 Vicryl interruptedly, closed another two 5 mm trocar site skin only by using 4-0 Vicryl. Then, we put the dressing on. The patient tolerated the procedure well. All instrument, needle and sponge count correct x2 at the end of the case. The patient was transferred to recovery room in stable condition. My ssn/ssbn assistant navigator was necessary throughout the procedure for laparoscopic cholecystectomy. I attest to the content of the Intraoperative Record and any orders documented therein. Any exceptions are noted below. MAGDA
[2019-12-11] MEDS: fentaNYL citrate 100 MCG/2 ML VIAL IV PRN ×2 (14:25→14:30)
--- NOTE | 2019-12-11 14:39 | Anesthesiology Progress Note ---
Date of Service December 11, 2019 Anesthesia Post Procedure Vital Signs Vital Signs: Temp Pulse Pulse Pulse Resp BP BP 12/11/19 14:31 107 H 19 152/64 H 12/11/19 14:20 106 H 20 144/77 H 12/11/19 14:10 103 H 24 153/82 H 12/11/19 14:02 97.7 F 106 H 16 150/77 H 12/11/19 12:02 98.2 F 103 H 20 154/76 H 12/11/19 11:22 98.1 F 93 H 18 133/73 12/11/19 08:00 84 12/11/19 07:35 97.9 F 104 H 20 150/75 H 12/11/19 04:20 98.2 F 99 H 14 138/75 12/11/19 00:00 97.9 F 96 H 19 112/64 12/10/19 23:00 89 12/10/19 18:53 97.7 F 85 16 132/68 12/10/19 18:35 97.7 F 89 20 129/67 12/10/19 18:25 80 12 128/77 12/10/19 18:15 92 H 20 139/73 12/10/19 18:05 94 H 16 145/68 H 12/10/19 17:59 98.2 F 98 H 19 149/83 H 12/10/19 15:59 98.4 F 97 H 20 116/67 12/10/19 15:53 98.1 F 102 H 16 124/69 12/10/19 15:00 105 H Pulse Ox 12/11/19 14:31 94 12/11/19 14:20 100 12/11/19 14:10 100 12/11/19 14:02 100 12/11/19 12:02 98 12/11/19 11:22 95 12/11/19 08:00 12/11/19 07:35 96 12/11/19 04:20 96 12/11/19 00:00 94 12/10/19 23:00 12/10/19 18:53 96 12/10/19 18:35 96 12/10/19 18:25 94 12/10/19 18:15 96 12/10/19 18:05 97 12/10/19 17:59 98 12/10/19 15:59 92 12/10/19 15:53 98 12/10/19 15:00 Pain Intensity Left Chest: Pain Intensity: 1 Upper Abdomen: Pain Intensity: 3 Transfer of Care Handoff Completed per policy Notes Mental Status: alert / awake / arousable and participated in evaluation Patient Amnestic to Procedure: Yes Nausea / Vomiting: adequately controlled Pain: adequately controlled Airway Patency, RR, SpO2: stable & adequate BP & HR: stable & adequate Hydration State: stable & adequate Anesthetic Complications: no major complications apparent and Pt Satisfied with anesthetic care
[2019-12-11] MEDS ORDERED: HYDROmorphone INJ 0.5 MG/0.5 ML SYR IV PRN (15:06)
--- NOTE | 2019-12-11 16:01 | Hospitalist Progress Note ---
Date of Service December 11, 2019 Assessment & Plan (1) Acalculous cholecystitis: RUQ u/s on admission showed gallbladder wall thickening with trace pericholecystic fluid. LFTs also elevated along with elevated bilirubin. Possibly reflecting a passed stone vs. acalculus cholecystitis. - GI & GS consulted - ERCP on 12/09 with stones, sludge, and pus. GI recommend 2 weeks of antibiotics. - Lap yuval with Dr. Dumont on 12/10. No complications per operative note. - Post-operative care per surgical time. (2) Chest pain: Initially thought to be chest pain. EKG shows sinus tachycardia to the 120 range, but no acute ischemic changes. No ongoing chest pain, and initial troponin negative. - Troponins negative. - Will in fact HOLD her ASA for now until after approval from surgery. (3) Insulin dependent diabetes mellitus: Prior A1c was 7.7% in 2019. She reports being a Type 3 diabetic. She reports she follows with Dr. Calvert; however, I do not see any notes in our system. - Continue home insulin doses, but lower dosing given she will be NPO. - Glycemic pharmacist consulted given unusual insulin regimen -> Doing Lantus right now. Will transition back to normal home regimen after procedures done. - Blood sugars good today. (4) Hypercholesterolemia: - Continue statin (5) Asthma: In notes; however, no inhalers in MAY. - DuoNebs PRN (6) DVT prophylaxis: SCDs - Low DVT risk per admission calculator, plus surgery needed. - Will start Lovenox in the morning Admission and Anticipated Discharge Date Admission Date: December 09, 2019 Subjective Still having some epigastric pain today. Reports no fevers/chills, chest pain, shortness of breath, nausea, or vomiting. Physical Exam Constitutional: WD/WN, vitals as above Eyes: EOM intact bilaterally; no conjunctival abnormality ENMT: external ear and nose normal, oropharynx normal Neck: trachea midline, no thyromegaly normal visual inspection Respiratory: normal respiratory effort, lungs clear to auscultation no respiratory distress Cardiovascular: Rate/Rhythm: regular rhythm and + tachycardic Heart Sounds: normal S1 and normal S2 Extremities: no edema Gastrointestinal (Abdomen): Inspection/Auscultation: abdomen normal to inspection and normal bowel sounds; abdomen not distended Percussion/Palpation: + abdomen tender (Very mild in epigastric region) and abdomen soft; no guarding and abdomen not rigid Musculoskeletal: no cyanosis or clubbing, extremities motor strength 5/5 Skin: no rashes, warm and dry Neurologic: moves all extremities and awake Psychiatric: Orientation: alert, oriented to person and cooperative Results & Data Results & Data ([facility]) Vital Signs (Past 12 Hours) Vital Signs Temp Pulse Pulse Pulse Resp BP Pulse Ox 12/11/19 15:15 36.5 C 104 H 18 140/74 97 12/11/19 14:50 37.1 C 104 H 20 156/77 H 98 12/11/19 14:40 107 H 20 146/72 H 99 12/11/19 14:31 107 H 19 152/64 H 94 12/11/19 14:20 106 H 20 144/77 H 100 12/11/19 14:10 103 H 24 153/82 H 100 12/11/19 14:02 36.5 C 106 H 16 150/77 H 100 12/11/19 12:02 36.8 C 103 H 20 154/76 H 98 12/11/19 11:22 36.7 C 93 H 18 133/73 95 12/11/19 08:00 84 12/11/19 07:35 36.6 C 104 H 20 150/75 H 96 12/11/19 04:20 36.8 C 99 H 14 138/75 96 PG Care Time/CCT Total # of Minutes Spent Total Time Spent with Patient: Total time spent is greater than 50% in coordination of care (as documented) at patient's floor/unit and/or counseling patient: Coding Level of Care Code 96155 Subseq Hosp Care Lvl 2 Diagnoses Acalculous cholecystitis K81.9 Chest pain R07.9 Insulin dependent diabetes mellitus E11.9; Z79.4 Hypercholesterolemia E78.00 Asthma J45.909 DVT prophylaxis Z29.9
[2019-12-11] MEDS: TRAMADOL HCL 50 MG TABLET PO PRN (18:14)
[2019-12-11] MEDS ORDERED: LANTUS PER UNIT CHARGE SQ SCH (20:00)
[2019-12-11] MEDS: PANTOprazole 40 MG TAB PO SCH (20:36)
[2019-12-11] MEDS: ATORVASTATIN 10 MG TAB PO SCH (20:37)
[2019-12-11] MEDS: ROPINIROLE HCL 1 MG TABLET PO SCH (20:38)
[2019-12-12] MEDS: AMPICILLIN/SULBACTAM SOD 3,000 MG in 0.9 % SODIUM CHLORIDE 100 ML IV SCH (05:30)
[2019-12-12] MEDS: SODIUM CHLORIDE 0.9% 1000ML 1,000 ML IV SCH (05:58)
[2019-12-12 07:36] LABS: Basophils # (auto) 0.03 K/uL (0-0.2); Basophils % (auto) 0.2 %; Eosinophils # (auto) 0.41 K/uL (0-0.5); Eosinophils % (auto) 3.3 %; Hematocrit (blood only) 38.6 % (37-47); Immature Granulocytes # (auto) 0.03 K/uL (0.00-0.02); Immature Granulocytes % (auto) 0.2 %; Lymphocytes # (auto) 1.36 K/uL (1.2-3.4); Lymphocytes % (auto) 11.1 %; Mean Corpuscular Hemoglobin 30.6 pg (25-34); Mean Corpuscular Hgb Conc 33.7 g/dL (32-36); Mean Corpuscular Volume 90.8 fL (80-100); Monocytes # (auto) 1.22 K/uL (0.11-0.59); Monocytes % (auto) 9.9 %; Neutrophils # (auto) 9.25 K/uL (1.4-6.5); Neutrophils % (auto) 75.3 %; Platelet Count 319 K/uL (130-400); RDW Coefficient of Variation 14.3 % (11.5-14.5); RDW Standard Deviation 47.4 fL (36.4-46.3); Red Blood Count 4.25 M/uL (4.2-5.4)
[2019-12-12] MEDS: INSULIN ASPART 100 UNITS/ML 3 ML PEN SC SCH ×2 (08:10→12:30)
[2019-12-12] MEDS ORDERED: Nursing to Pharmacy Communication SCH (08:15)
[2019-12-12] MEDS ORDERED: CHOLECALCIFEROL 1,000 UNITS 25 MCG TAB PO SCH ×2 (09:00→21:00)
[2019-12-12] MEDS ORDERED: MULTIVITAMIN TAB PO SCH ×2 (09:00→21:00)
--- NOTE | 2019-12-12 09:03 | Surgery Progress Note ---
Date of Service December 12, 2019 Assessment & Plan (1) Acalculous cholecystitis: POD # 1 laparoscopic cholecystectomy, POD # 2 s/p ERCP with biliary sphincterotomy and balloon extraction of CBD stones/pus -vitals stable, afebrile - leukocytosis stable at 12.3K - postop pain at incisions, controlled - t. bili/lfts pending this am Plan: Okay to advance diet to regular diet Continue pain management as needed Continue IV Abx, can transition to oral if another IV cannot be established Doing well from surgical standpoint continue medical management encouraged ambulation incentive spirometry SCDs Dr. Dumont has seen patient and present during my examination , agrees with above. Admission and Anticipated Discharge Date Admission Date: December 09, 2019 Subjective feeling better had pain at incision sites, controlled with pain medication no n/v, tolerated clear liquids Physical Exam Constitutional: WD/WN, vitals as above no acute distress and not ill appearing Respiratory: normal respiratory effort; no respiratory distress Gastrointestinal (Abdomen): Inspection/Auscultation: abdomen normal to inspection; abdomen not distended Percussion/Palpation: + abdomen tender (at incision sites appropriate postop) and abdomen soft; no guarding and abdomen not rigid Skin: no rashes, warm and dry + incision (covered with dry dressings) Psychiatric: A+Ox3, euthymic affect Results & Data ([facility]) Vital Signs (Past 12 Hours) Vital Signs Temp Pulse Pulse Resp BP Pulse Ox 12/12/19 08:08 36.8 C 79 20 122/68 95 12/12/19 03:09 36.7 C 104 H 18 131/70 93 12/11/19 23:59 97 H 12/11/19 23:54 36.6 C 100 H 19 131/64 91 12/11/19 21:25 102 H Laboratory Results 12/12/19 12/12/19 12/12/19 Range/Units 07:30 07:18 07:18 WBC 12.30 H (4.8-10.8) K/uL RBC 4.25 (4.2-5.4) M/uL Hgb 13.0 (12.0-16.0) g/dL Hct 38.6 (37-47) % MCV 90.8 (80-100) fL MCH 30.6 (25-34) pg MCHC 33.7 (32-36) g/dL RDW Std Deviation 47.4 H (36.4-46.3) fL RDW Coeff of Kwasi 14.3 (11.5-14.5) % Plt Count 319 (130-400) K/uL MPV 9.0 (7.4-10.4) fL Immature Gran % (Auto) 0.2 % Neut % (Auto) 75.3 % Lymph % (Auto) 11.1 % [place] % (Auto) 9.9 % Eos % (Auto) 3.3 % Baso % (Auto) 0.2 % Neut # (Auto) 9.25 H (1.4-6.5) K/uL Lymph # (Auto) 1.36 (1.2-3.4) K/uL [place] # (Auto) 1.22 H (0.11-0.59) K/uL Eos # (Auto) 0.41 (0-0.5) K/uL Baso # (Auto) 0.03 (0-0.2) K/uL Immature Gran # (Auto) 0.03 H (0.00-0.02) K/uL Sodium Pending Potassium Pending Chloride Pending Carbon Dioxide Pending Anion Gap Pending BUN Pending Creatinine Pending Est Cr Clr Drug Dosing Pending Est GFR ( Amer) Pending Est GFR (Non-Af Amer) Pending BUN/Creatinine Ratio Pending Glucose Pending POC Glucose 121 H (70-99) mg/dl Calcium Pending Total Bilirubin Pending AST Pending ALT Pending Alkaline Phosphatase Pending Total Protein Pending Albumin Pending Globulin Pending Albumin/Globulin Ratio Pending 12/11/19 12/11/19 12/11/19 Range/Units 20:22 16:17 14:04 WBC (4.8-10.8) K/uL RBC (4.2-5.4) M/uL Hgb (12.0-16.0) g/dL Hct (37-47) % MCV (80-100) fL MCH (25-34) pg MCHC (32-36) g/dL RDW Std Deviation (36.4-46.3) fL RDW Coeff of Kwasi (11.5-14.5) % Plt Count (130-400) K/uL MPV (7.4-10.4) fL Immature Gran % (Auto) % Neut % (Auto) % Lymph % (Auto) % [place] % (Auto) % Eos % (Auto) % Baso % (Auto) % Neut # (Auto) (1.4-6.5) K/uL Lymph # (Auto) (1.2-3.4) K/uL [place] # (Auto) (0.11-0.59) K/uL Eos # (Auto) (0-0.5) K/uL Baso # (Auto) (0-0.2) K/uL Immature Gran # (Auto) (0.00-0.02) K/uL Sodium Potassium Chloride Carbon Dioxide Anion Gap BUN Creatinine Est Cr Clr Drug Dosing Est GFR ( Amer) Est GFR (Non-Af Amer) BUN/Creatinine Ratio Glucose POC Glucose 240 H 144 H 137 H (70-99) mg/dl Calcium Total Bilirubin AST ALT Alkaline Phosphatase Total Protein Albumin Globulin Albumin/Globulin Ratio 12/10/ Range/Units 11:31 WBC (4.8-10.8) K/uL RBC (4.2-5.4) M/uL Hgb (12.0-16.0) g/dL Hct (37-47) % MCV (80-100) fL MCH (25-34) pg MCHC (32-36) g/dL RDW Std Deviation (36.4-46.3) fL RDW Coeff of Kwasi (11.5-14.5) % Plt Count (130-400) K/uL MPV (7.4-10.4) fL Immature Gran % (Auto) % Neut % (Auto) % Lymph % (Auto) % [place] % (Auto) % Eos % (Auto) % Baso % (Auto) % Neut # (Auto) (1.4-6.5) K/uL Lymph # (Auto) (1.2-3.4) K/uL [place] # (Auto) (0.11-0.59) K/uL Eos # (Auto) (0-0.5) K/uL Baso # (Auto) (0-0.2) K/uL Immature Gran # (Auto) (0.00-0.02) K/uL Sodium Potassium Chloride Carbon Dioxide Anion Gap BUN Creatinine Est Cr Clr Drug Dosing Est GFR ( Amer) Est GFR (Non-Af Amer) BUN/Creatinine Ratio Glucose POC Glucose 139 H (70-99) mg/dl Calcium Total Bilirubin AST ALT Alkaline Phosphatase Total Protein Albumin Globulin Albumin/Globulin Ratio
[2019-12-12 09:06] LABS: Albumin Level 2.3 gm/dl (3.4-5.0); BUN Creatinine Ratio 18.8 (10-20); Calcium 8.2 mg/dl (8.5-10.1); Creatinine Clr Calc Pharmacy 100.5 ml/min; Est GFR (African American) 110.6; Est GFR (Non-African American) 95.4; Potassium 3.7 mmol/L (3.5-5.1)
[2019-12-12 09:10] LABS: Albumin Globulin Ratio 0.6 (0.9-2); Bilirubin,Total 1.1 mg/dl (0.2-1); Total Protein 6.3 gm/dl (6.4-8.2)
--- NOTE | 2019-12-12 10:52 | Pharmacy Report ---
Pharmacy Glycemic Short Note 2 - Date of Service December 12, 2019 - Glycemic Short BSG Results (Last 24 hours): OUTPATIENT ANTIDIABETIC REGIMEN: * NPH 15 units SC qAM + Humulin 70/30 10-12 units SC qPM * A1c = 7.8 % 12/10/19 ASSESSMENT: 12/11: * BSGs controlled yesterday: [id number] mg/dL * Received 17 units of insulin total: 10 units basal + 7 units bolus * Significant post-prandial hyperglycemia last evening - tightened CF/CR this morning given diet resumed and no longer on Q4H checks * Fasting BSG was 121 mg/dL this AM - controlled * Since diet is resumed will transition to BID NPH starting this evening to mimic home regimen * Lunchtime BSG was 136 mg/dL - controlled 12/10: * BSGs well controlled yesterday: [phone] mg/dL * Received 9 units of insulin total: 5 units basal + 4 units bolus * Patient underwent ERCP yesterday afternoon * She remains NPO this morning for a lap yuval. Will continue with q4h checks until a diet is resumed. 12/09: * AYO is a 74 year old female admitted on 12/09/19 with suspected cholecystitis * Started on IV Unasyn 3 g q6h * BSG of 247 mg/dL on admission, but well-controlled since then with Novolog q4h * 159, 174, 154, 126 mg/dL * Patient is currently NPO for cholecystectomy tomorrow - will continue q4h dosing of Novolog while NPO and add Lantus scale this evening * Per patient, she follows with Dr. Calvert for management of her diabetes PLAN FOR INPATIENT GLYCEMIC CONTROL: * Hold outpatient oral diabetes medications * Basal insulin - transitioned to BID NPH * NPH 12 units SQ w/ breakfast (starting tomorrow) * NPH 8 units SQ w/ dinner (starting tonight) * Bolus insulin - tightened CF/CR * NovoLog ACHS * Goal Range: Low 110 mg/dL - High 140 mg/dL * Correction Factor: 25 mg/dL/unit * Nutritional / Prandial insulin per carb ratio of 1 unit per 8 grams CHO consumed PLAN FOR DISCHARGE: * to be determined
--- NOTE | 2019-12-12 16:01 | Discharge Summary ---
Date of Service December 12, 2019 Admission HPI Per Admitting Provider Ms Washington is a 74 yo female who presents to the ED complaining of chest pain that started this morning around 8:30 am after having her usual breakfast (bowl of cereal). Based on history, the pain started across the upper abdomen, travelling downwards towards midline of the abdomen and towards left chest. She had a hard time describing the quality of pain and said it is of a sharp nature. Pain has been constant since onset and she rates it at 7/10 when it started, has gown down to 2/10 after she was given MED here. She did not take anything for it before coming to the ED, nor has she had any food since the pain started. Nothing seems to make the pain worse. Patient reports nausea and vomiting twice this morning. Emisis had a brown color "like the cereal" but no coffee ground or blood present. Pain does not radiate down the left arm. Patient denies facial droop, jaw pain, upper or lower extremity weakness, numbness or tingling. Patient denies chest pain, SOB, PORTER, diarrhea, constipation, fever, night sweats, chills, known sick contacts, unusual foods, or recent travel. Patient is compliant with COVID-19 gridlines, always wearing a mask and staying home for the most part. Of note, history and PE were somewhat limited due to patient frustration with having to answer questions. Principal Diagnosis Acute cholecystitis Discharge Exam Constitutional WD/WN, vitals as above Eyes EOM intact bilaterally; no conjunctival abnormality ENMT external ear and nose normal, oropharynx normal Neck trachea midline, no thyromegaly normal visual inspection Respiratory normal respiratory effort, lungs clear to auscultation no respiratory distress Cardiovascular Rate/Rhythm: regular rhythm and + tachycardic Heart Sounds: normal S1 and normal S2 Extremities: no edema Gastrointestinal (Abdomen) Inspection/Auscultation: abdomen normal to inspection and normal bowel sounds; abdomen not distended Percussion/Palpation: + abdomen tender (Very mild in epigastric region) and abdomen soft; no guarding and abdomen not rigid Musculoskeletal no cyanosis or clubbing, extremities motor strength 5/5 Skin no rashes, warm and dry Neurologic moves all extremities and awake Psychiatric Orientation: alert, oriented to person and cooperative Discharge Data Allergies Allergy/AdvReac Type Severity Reaction Status Date / Time Penicillins Allergy Intermediate RASH Verified 12/09/19 14:17 Consultations 12/09/19 15:26 ED Decision to Admit Stat 12/09/19 17:57 Consult Gastroenterology Routine Consult General Surgery Routine Procedures Performed Operation Date: 12/10/19 08:40 Actual Procedures p Endoscopic Retrograde Cholangiopancreatogram(Not Applicable) - Johan Givens Operation Date: 12/11/19 12:30 Actual Procedures p Laparoscopic Cholecystectomy(Not Applicable) - Malgorzata Dumont MD Ordered Studies 12/09/19 13:44 CT angio chest PE protocol Stat 12/09/19 14:51 US gallbladder Stat 12/10/19 08:51 MR MRCP Urgent 12/10/19 12:00 FL ERCP biliary ductal Routine Hospital Course (1) Acalculous cholecystitis: RUQ u/s on admission showed gallbladder wall thickening with trace pericholecystic fluid. LFTs also elevated along with elevated bilirubin. Possibly reflecting a passed stone vs. acalculus cholecystitis. - ERCP on 12/09 with stones, sludge, and pus. GI recommend 2 weeks of antibioti cs. - Lap yuval with Dr. Dumont on 12/10. No complications per operative note. - Ready for discharge on 12/11. Sent home with abx and pain medication. Will follow up with surgery in 2 weeks and GI for stent removal in 4-6 weeks. (2) Chest pain: Initially thought to be chest pain. EKG shows sinus tachycardia to the 120 range, but no acute ischemic changes. No ongoing chest pain, and initial troponin negative. - Troponins negative. - Continue ASA on discharge. (3) Insulin dependent diabetes mellitus: Prior A1c was 7.7% in 2019. She reports being a Type 3 diabetic. She reports she follows with Dr. Calvert; however, I do not see any notes in our system. - Continued home insulin doses, but lower dosing given she will be NPO. - Return to normal home dosing on discharge. (4) Hypercholesterolemia: - Continue statin (5) Asthma: In notes; however, no inhalers in MAY. - DuoNebs PRN (6) DVT prophylaxis: SCDs - Low DVT risk per admission calculator, plus surgery needed. - Will start Lovenox in the morning Total Time Total Time Spent Total Time Spent (In Minutes): 35 Discharge Plan Discharge Items Patient Disposition: Home - Home Health Services Reason For Visit: EPIGASTRIC PAIN; POSSIBLY CHOLECYSTITIS Discharge Diagnosis: Cholecystitis (inflamed gallbladder) Activity: Resume your previous activity Non-emergency contact: Primary Care Provider and Surgeon Call non-emergency contact if: your symptoms worsen, your pain is not controlled and your temperature is above 101 Follow-up/Referrals: Johan Givens [Physician] - 02/12/20 9:25 am (Please see Dr. Givens in the office in ~1 month to discuss the biliary stent removal.) Lorne Moody [Primary Care Provider] - 12/20/19 9:10 am Malgorzata Dumont MD [Physician] - 12/25/19 12:15 pm (Please see Dr. Dumont in two weeks.) Diet: Carb Consistent or DM2 and Heart Healthy Addtl Attending Provider Instructions: You were admitted for an inflamed gallbladder. We will have you take antibiotics for [address] Dumont in his clinic about that time too. Please see Dr. Givens in the office in ~1 month to discuss the biliary stent removal. This needs to happen in 6 to 8 weeks. Addtl Business Analysis Professional Provider Instructions: Post-Surgical ~Discharge Instructions Activity Recommendations: - lifting limitation: (25 pounds for 4 weeks), - exercise/sex/sports limit: (nonstrenuous until cleared by surgeon), - driving or machine use limit: (none for 1 week or until pain free), - Shower/bathe limit: (may shower 4 days after your surgery date) Diet: - Resume previous diet SPECIAL CARE INSTRUCTIONS: - May shower starting on Monday. Sponge bath and wash hair in meantime. On Monday, remove outer dressings and let water run over area and pat dry. - Leave steri strips on for one week and then remove. - Call the surgeon's office with any questions or concerns - - (ex. temperature higher than 101 degrees F, excessive bleeding or pain). MEDICATIONS: - Resume previous medications unless instructed otherwise by your surgeon. - Tramadol as needed for pain - You can take extra strength Tylenol as needed for mild pain. (650 mg every 6 hours as needed) FOLLOW UP VISIT: - If not already scheduled, please call the office to schedule a two week follow-up appointment. Office number Pending Studies at Discharge: Yes (gallbladder pathology, will be reviewed at follow-up visit) Stand-Alone Forms: My [facility], Smoking Cessation Medications and DC Order Prescriptions: New amoxicillin-pot clavulanate [Augmentin] 875-125 mg Tablet 1 tab PO BIDM Qty: 14 RF: 0 hydrocodone-acetaminophen 5-325 mg tablet 1 tab PO Q6H PRN (Reason: pain) Qty: 20 RF: 0 Continued Humulin 70/30 U-100 Insulin 100 unit/mL (70-30) suspension See Rx Instructions SQ .COMPLEX Qty: 3 RF: 3 (DME) OneTouch Ultra Blue Test Strip Strip See Rx Instructions .ROUTE .MEDSUPPLY Qty: 200 RF: 3 (DME) insulin syringe-needle U-100 [BD Insulin Syringe Ultra-Fine] 0.5 mL 31 gauge x 5/16" syringe See Rx Instructions .ROUTE .MEDSUPPLY Qty: 120 RF: 5 Humulin N NPH U-100 Insulin 100 unit/mL suspension 15 unit SQ QAM Qty: 2 RF: 3 atorvastatin 10 mg tablet 10 mg PO HS RF: 0 aspirin [Aspir-81] 81 mg Tablet,Delayed Release (Dr/Ec) 81 mg PO DAILY RF: 0 multivitamin Tablet 1 tab PO DAILY RF: 0 cholecalciferol (vitamin D3) 25 mcg (1,000 unit) Tablet 25 mcg PO DAILY RF: 0 tramadol 50 mg tablet 50 mg PO HS PRN (Reason: Pain) RF: 0 ropinirole 2 mg tablet 2 mg PO HS RF: 0 omeprazole 20 mg capsule,delayed release(DR/EC) 20 mg PO HS RF: 0 Discharge Orders: Discharge Order (Routine); Ordered 12/12/19 Ordered By: João Santiago Admission Data Admit Date/Time: 12/09/19 16:54 Attending Provider: João Santiago Admit Provider: João Santiago Primary Care Provider: Lorne Moody Other Providers: Elfego Tejeda ; Noe Campos ; Malgorzata Dumont Other Interventions: Discharge Summary Assessment (RN) Last Done: 12/12/19 13:50 Coding Level of Care Code D/C Day Management >30 mins Diagnoses Acalculous cholecystitis K81.9 Chest pain R07.9 Insulin dependent diabetes mellitus E11.9; Z79.4 Hypercholesterolemia E78.00 Asthma J45.909 DVT prophylaxis Z29.9
[2019-12-12] MEDS ORDERED: INSULIN HUMAN NPH SC SCH (16:30)
[2019-12-12] MEDS ORDERED: AMOXICILLIN/CLAVULANATE 875 MG TAB PO SCH (17:00)
[2019-12-13] MEDS ORDERED: INSULIN HUMAN NPH SC SCH (07:30)
== END 2019-12-12 14:49 | disposition home health service (06) | DRG 418 ==
LOC: ED 11:42 → 2S 16:54

== ENCOUNTER 2020-08-18 05:02 | Inpatient (IN) ==
--- NOTE | 2020-06-24 14:42 | PAT Medication Instructions ---
Medication Instructions Date of Service June 24, 2020 Home Medications Medication Instructions Recorded Diffbot Ultra Blue Test Strip #200 ea NS 02/06/20 insulin syringe-needle U-100 0.5 #120 ea 03/07/20 mL 31 gauge x 08/09" aspirin [Aspir-81] 81 mg PO QAM atorvastatin 10 mg PO HS cholecalciferol (vitamin D3) 25 mcg PO QAM multivitamin 1 tab PO QAM omeprazole 20 mg PO QAM ropinirole 2 mg PO HS dulaglutide [Trulicity] 0.75 mg SUBCUT WK insulin NPH and regular human [Humulin 70/30 U-100 Insulin] 12 unit SUBCUT BID Continue as directed dulaglutide [Trulicity] 0.75 mg SUBCUT WK DO NOT take the morning of surgery cholecalciferol (vitamin D3) 25 mcg PO QAM multivitamin 1 tab PO QAM Take morning of surgery With a small sip of water, OTHERWISE NOTHING TO EAT OR DRINK AFTER MIDNIGHT: aspirin [Aspir-81] 81 mg PO QAM (unless told otherwise by surgeon) omeprazole 20 mg PO QAM Take evening before surgery atorvastatin 10 mg PO HS ropinirole 2 mg PO HS insulin NPH and regular human [Humulin 70/30 U-100 Insulin] 12 unit SUBCUT BID Insulin Dependent Diabetic Patients * Test your blood sugar the morning of surgery * If Blood Sugar is GREATER THAN 150, take HALF of your regular dose of: insulin NPH and regular human [Humulin 70/30 U-100 Insulin] take 6 units * If Blood Sugar is LESS THAN 150, DO NOT TAKE ANY: insulin NPH and regular human [Humulin 70/30 U-100 Insulin] Other Notes If you have any questions please call us at [phone] or [phone] or [phone] or [phone]
--- NOTE | 2020-06-26 12:28 | Anesthesiology Consultation ---
Date of Service June 26, 2020 Assessment & Plan (1) Encounter for pre-operative examination: COVID Status: As of 06/26 assessment, patient denies travel to endemic area, known exposure/sick contacts, or symptoms of COVID19. Patient instructed that they and their household members must follow strict social distancing guidelines, wear a mask in public and avoid travel/events/gatherings for 14 days prior to surgery. Preoperative COVID19 testing to be completed prior to surgery per surgeon's arrangements (pt aware). Patient made aware to self-isolate as much as possible between COVID testing and surgery. PCP Clearance 06/17/2020: "Preop: Good cardiac capacity with METs at least 4, for an intermediate procedure so at acceptable risk2.7% per calculation." Chart Review Chart Review: Acceptable Risk for Surgery and Patient seen in Pre Admission Testing Teaching & Discussion Instructed NPO after midnight before surgery, except medications with 15 cc of water. Medication instructions provided according to the PAT guidelines. History Surgery Operation Date: 07/21/20 10:00 Proposed Procedures p Left Total Knee Arthroplasty - Edgar Nuñez MD Height/Weight Height: 5 ft 2 in Weight: 83.915 kg Allergies Allergy/AdvReac Type Severity Reaction Status Date / Time Penicillins Allergy Intermediate RASH Verified 06/17/20 14:34 Medications Home Medications Medication Instructions Recorded Confirmed Last Taken aspirin [Aspir-81] 81 mg PO QAM 12/09/19 06/17/20 3 Weeks Ago ~02/05/20 atorvastatin 10 mg PO HS 12/09/19 06/17/20 02/25/20 21:00 cholecalciferol (vitamin D3) 25 mcg PO QAM 12/09/19 06/17/20 02/25/20 08:00 multivitamin 1 tab PO QAM 12/09/19 06/17/20 02/25/20 08:00 omeprazole 20 mg PO QAM 12/09/19 06/17/20 02/25/20 21:00 ropinirole 2 mg PO HS 12/09/19 06/17/20 02/25/20 21:00 OneTouch Ultra Blue Test Strip #200 ea NS 02/06/20 05/08/20 Unknown insulin syringe-needle U-100 0.5 #120 ea 03/07/20 05/08/20 Unknown mL 31 gauge x 5/16" dulaglutide [Trulicdemar] 0.75 mg SUBCUT WK 06/17/20 06/17/20 Unknown insulin NPH and regular human 12 unit SUBCUT BID 06/17/20 06/17/20 Unknown [Humulin 70/30 U-100 Insulin] Past Medical History Medical History Cystocele, midline no surgical intervention 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 no chest pain. Osteoarthritis Poor historian patient needed reinforcement regarding pre op appointments and pre op care. patient does not take her medications as indicated and was not sure "what they were going to do about my meds". stopped giving herself the Trulicity ~2 weeks ago due to a red spot at the injection site, "not sure what the doctor wants to do". also is not currently on the Requip because "I ran out and not sure it even helps, I just have to talk to the doctor". I attempted to educate the importance of compliance. Patient forgetful from the beginning of conversation to the end about the dates of pre op appointments (PAT Office/Surgeon). I had her write the appointments down, in hopes she did not forget. Restless leg syndrome Exercise / Class Metabolic Activity III < 4 Walking/Shop/Light housework (Denies CP or SOB with ambulation on one level, does 5 steps up at home.) Past Family History Family History (Updated 06/17/20 @ 15:04 by Coreen Armando RN) Father Diabetes Brother Diabetes Other No family history of adverse response to anesthesia Past Surgical History Surgical History History of colonoscopy History of dilatation and curettage History of esophagogastroduodenoscopy (EGD) Hx laparoscopic cholecystectomy Hx of lumpectomy Left Status post knee surgery (1999) Right knee arthroscopy Status post shoulder surgery (2002) Left shoulder r/t frozen shoulder Past Anesthesia History No Hx of Anesthesia Complications and No Family Hx of Anesthesia Complications History of PONV No Hx of PONV and No Hx of Motion Sickness Social History Smoking Status: Former smoker tobacco type: cigarettes Do You Dip or Chew Tobacco: No Smoking End Date: quit ~2000 Hx Alcohol Use: No Hx Substance Use: No substance use type: does not use Review of Systems Pt denies any recent chest pain, shortness of breath, palpitations, cough, fever, URI, or uncontrolled acid reflux (controlled with meds). Physical Exam Vital Signs BP: 103/68 P: 85bpm SPO2: 95% RA T: 98.4 F R: 16 ENMT Mouth: + dentures and + edentulous Thyromental Distance: > or= 3.5 Finger Breadths Mallampati Class: III Neck normal visual inspection; neck extension not limited Respiratory normal respiratory effort, lungs clear to auscultation Cardiovascular RRR, no murmur, no edema Vessels: no carotid bruit Testing Laboratory Results PT 10.2 Seconds (9.0-12.0) 06/26/20 12:41 INR 1.0 (0.9-1.1) 06/26/20 12:41 APTT 27.9 Seconds (21.0-31.0) 06/26/20 12:41 Blood Type A Positive 06/26/20 12:41 Antibody Screen NEGATIVE 06/26/20 12:41 06/17/20 WBC: 9.89 H/H: 14.8/45.3 PLATELETS: 366 SODIUM: 141 POTASSIUM: 4.6 CHLORIDE: 104 CO2: 32 BUN: 17 CREATININE: 0.70 GLUCOSE: 197 A1C: 7.0 % Electrocardiogram Date: 06/17/20 Findings: + NSR @ (80bpm) Poor wave progression. No significant change from 12/30/19. Chest X-Ray Date: 12/30/19 Findings: + NAD
[2020-06-26 13:10] LABS: Partial Thromboplastin Ratio 1.1; Partial Thromboplastin Time 27.9 Seconds (21.0-31.0); Prothrombin Time 10.2 Seconds (9.0-12.0)
--- NOTE | 2020-06-26 14:08 | XRay Report ---
XR leg length study HISTORY: 74 years-old Female surgeon order chronic lower extremity pain COMPARISON: Knee radiographs 05/25/2020 TECHNIQUE: AP view of the lower extremities were obtained for a leg length study FINDINGS: Mild to moderate bilateral hip osteoarthritis with moderate osteoarthritis of the medial compartments . No acute fracture, dislocation or suspicious bone lesion. Unremarkable soft tissues. The iliac crests demonstrate symmetric height. The right lower extremity measured from the femoral he ad to the tibial plafond measures 83.7 cm. The left lower extremity when measured in a similar fashio n measures 83.0 cm. IMPRESSION: 1. Leg length discrepancy as above. 2. Osteoarthritis of the bilateral knees and hips. ACT 112: Negative or not required by law. The above report was generated using voice recognition software. It may contain grammatical, syntax o r spelling errors. Electronically signed by: Keith Holbrook M.D. 06/26/2020 2:07 PM
[~2020-08-18 05:02] MED LIST changes: +ACETAMINOPHEN 500 MG TAB PO SCH; -ASPI-435 PO; -ATOR10TA82 PO; +CHECK CLONIDINE PATCH PLACEMENT SCH; -CHOL100010 PO; +CeleBREX 200 MG CAP PO SCH; +FAMOTIDINE 20 MG TAB PO SCH; +GABAPENTIN 300 MG CAP PO SCH; -IBUP-103 PO; -INSUINJ SC; +LR 500ML BOLUS, THEN 15ML/HR IV SCH; +LR 60ML/HR IV SCH; +METOCLOPRAMIDE HCL 10 MG TABLET PO SCH; -MULT-506 PO; -PANT40TA PO; +ROPIVACAINE 0.5% HCL/PF 150 MG, BUPIVACAINE 0.75% MPF 20 ML, EPINEPHrine 0.15 MG, Ketor... INFIL SCH; -TAMO20TA9 PO; +TRANEXAMIC ACID 1,000 MG **IV Intra-op IV SCH; +TRANEXAMIC ACID 1,000 MG **IV Pre-op IV SCH; +ceFAZolin 2000MG 2,000 MG/15 ML SYR IV SCH; +cloNIDine HCL 0.1 MG/24 HR TRANSDERM SYS TD SCH; +oxyCODONE HCL 10 MG TABCR (OxyCONTIN) PO SCH; +traMADol HCL 50 MG TABLET PO SCH
[2020-08-18] MEDS ORDERED: TRANEXAMIC ACID 1,000 MG **IV Pre-op IV SCH (06:00)
[2020-08-18] MEDS ORDERED: TRANEXAMIC ACID 1,000 MG **IV Intra-op IV SCH (06:00)
[2020-08-18] MEDS ORDERED: ROPIVACAINE 0.5% HCL/PF 150 MG, BUPIVACAINE 0.75% MPF 20 ML, EPINEPHrine 0.15 MG, Ketor... INFIL SCH (06:00)
[2020-08-18] MEDS ORDERED: traMADol HCL 50 MG TABLET PO SCH (06:00)
[2020-08-18] MEDS ORDERED: CeleBREX 200 MG CAP PO SCH (06:00)
[2020-08-18] MEDS ORDERED: LR 60ML/HR IV SCH (06:00)
[2020-08-18] MEDS ORDERED: ACETAMINOPHEN 500 MG TAB PO SCH (06:00)
[2020-08-18] MEDS ORDERED: ceFAZolin 2000MG 2,000 MG/15 ML SYR IV SCH (06:00)
[2020-08-18] MEDS ORDERED: GABAPENTIN 300 MG CAP PO SCH (06:00)
[2020-08-18] MEDS ORDERED: FAMOTIDINE 20 MG TAB PO SCH (06:00)
[2020-08-18] MEDS ORDERED: LR 500ML BOLUS, THEN 15ML/HR IV SCH (06:00)
[2020-08-18] MEDS ORDERED: oxyCODONE HCL 10 MG TABCR (OxyCONTIN) PO SCH (06:00)
[2020-08-18] MEDS ORDERED: METOCLOPRAMIDE HCL 10 MG TABLET PO SCH (06:00)
[2020-08-18] MEDS ORDERED: cloNIDine HCL 0.1 MG/24 HR TRANSDERM SYS TD SCH (06:00)
[2020-08-18] MEDS ORDERED: ePHEDrine sulfate 50 MG/ML AMP IV PRN (06:24)
[2020-08-18] MEDS ORDERED: fentaNYL citrate 100 MCG/2 ML VIAL IV PRN (06:24)
[2020-08-18] MEDS ORDERED: ONDANSETRON INJ 2 MG/ML 2 ML VIAL IV PRN ×2 (06:24→11:56)
[2020-08-18] MEDS ORDERED: ATROPINE SULFATE 0.1 MG/ML 10ML SYR IV PRN (06:24)
[2020-08-18] MEDS ORDERED: BUPIVACAINE 0.25% 30 ML VIAL ONE (06:30)
[2020-08-18] MEDS ORDERED: BUPIVACAINE 0.5 % 5 MG/1 ML PF 10ML VIAL ONE (06:30)
[2020-08-18] MEDS ORDERED: fentaNYL citrate 100 MCG/2 ML VIAL ONE (06:33)
[2020-08-18] MEDS ORDERED: PROPOFOL IV EMULSION 10 MG/ML 20 ML VIAL IV ONE ×5 (06:33→10:16)
[2020-08-18] MEDS ORDERED: LIDOCAINE 2% 2 ML VIAL/AMP(20MG/ML) INFIL ONE (06:33)
[2020-08-18] MEDS ORDERED: MIDAZOLAM HCL 1 MG/ML 2ML VIAL ONE (06:33)
--- NOTE | 2020-08-18 06:37 | History & Physical Bridge Note ---
Date of Service August 18, 2020 History & Physical Bridge Note I have examined the patient, reviewed the History & Physical and in the interval since the performance of the History & Physical I have noted the following changes of clinical significance: no changes noted
[2020-08-18] MEDS ORDERED: ORTHO JOINT ANESTHETIC ONE (06:45)
[2020-08-18] MEDS ORDERED: VANCOMYCIN HCL 1000MG/20ML VIAL ONE ×2 (06:45→09:20)
[2020-08-18] MEDS ORDERED: ONDANSETRON INJ 2 MG/ML 2 ML VIAL ONE (07:20)
--- NOTE | 2020-08-18 10:47 | Operative Report ---
Post Operative Report Pre & Post Diagnosis Operation Date: 08/18/20 07:00 Pre-Op Diagnosis: Left Knee Osteoarthritis Post-Op Diagnosis: Left Knee Osteoarthritis I identified the patient and participated in the time-out.: Yes Procedure Operation Date: 08/18/20 07:00 Actual Procedures p Left Total Knee Arthroplasty(Left) - Edgar Nuñez MD Surgeon Edgar Nuñez MD Lathe Tender Emre Chavez, fellow. Pura [employer] physicians clothing sales assistant. Estimated Blood Loss 10 Findings Consistent with Post-Op Diagnosis Specimens Bone and soft tissue. Drains None Anesthesia Type MAC Spinal Regional Complications none Disposition Accompanied Patient To Recovery: No Disposition: Recovery Room Indications Krista is 74. She has failed conservative treatment of her left knee arthritis and wishes to have operative intervention. She has been seen by her medical doctor preoperatively. Description of Procedure Informed consent obtained. Patient identified. She identified the operative site as the left knee. I marked with my initials and a preoperative surgical timeout was performed. A preoperative dose of IV antibiotics was given. She was positioned supine on the OR table with a tourniquet on the left thigh. Her leg was moderately large. A bump was placed under the left calf. The leg was prepped from tourniquet to the toes and then draped in the usual sterile fashion. DVT prophylaxis intraoperatively with mechanical device. Postoperatively with early mobility Lovenox and foot pumps. The exam under anesthesia revealed range of motion 0/5/1 10-1 15. She had no pathological varus or valgus laxity. She had trace LCL laxity. No knee effusion. Preop TXA given. Bony prominences were inspected and padded. Limb exsanguinated with the Esmarch. Tourniquet inflated to 250 mmHg. A midline longitudinal incision was made in a generous fashion in order to prevent tension on this apex of the incision. It was lengthened distally as necessary during surgery. The skin was incised down to the extensor mechanism. A minimal flap was elevated medially followed by medial parapatellar arthrotomy. Soft tissue on the anterior aspect the distal femur was removed. The retropatellar fat pad was excised. An extensile medial release was performed. A release of the synovial reflection in the lateral gutter was performed. There was grade 2 and 3 chondrosis diffusely about the patella. There were grade 4 changes in the weightbearing area of the medial compartment. The lateral compartment looked relatively normal with intact meniscus and cartilage. 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 The knee was carefully flexed and the cruciate ligaments which were intact were resected. The knee was then dislocated and the medial and lateral meniscus were removed. The geometry was atypical. The anterior tibia was very prominent. The patellar tendon was rather short and exposure laterally was difficult. Intramedullary alignment guide was inserted just in front of and between the tibial spines based upon preoperative templating. The 0 degree cutting block was applied and set to take 10 mm off the lateral side corresponding to a 4 mm cut medially. This was pinned into place and the slope was assessed. The slope clinically looks fine. The alignment was bisecting the ankle joint and second ray and so in a very desirable position. This guide was pinned into place and checked with the rios wing which suggested that there was less slope in the cut. Patellar tendon was carefully protected and the cut was made with some residual posterior medial cartilage uncut and exposed. Laterally a marginal osteophyte avulsed some of the marginal tibia for about half centimeter laterally. This was carefully excised and resulted in a few millimeters by a few millimeters rim width and depth defect from about the 3:00 to 5:00. The tibia was sized to a 2.5 or 2. Attention was then turned to the femur where a test pilot hole was drilled into the distal femur followed by insertion of distal femoral cutting guide set at 12 mm thick cut 7 degree valgus based on preop templating. This cut was made and the epicondylar axis was marked out. It was noted now that the extension gap was tight asymmetrically. Laterally it could fit in an 8 block but not medially. I then went ahead and perform more medial and posterior medial release releasing the semimembranosus tendons and posterior medial capsule off of the tibia and excised the marginal osteophytes. At this point was then able to get the 10 mm block in with a full extension perhaps a trace bit of hyperextension and some varus valgus laxity in full extension. The distal femoral sizing guide was applied and sized to 2.5. The appropriate external rotation drill holes were made which matched the epicondylar axis which had been previously marked. The flexion gap was rectangular. These cuts were made protecting the collateral ligaments and osteophytes under the medial more so than lateral collateral ligament were removed. At this time it was noted that a 10 mm block was difficult to get into the flexion gap. This was particularly tight posteriorly which I think was an indication of the lack of po sterior tibial slope. I went ahead and reapplied the tibial cutting guide and the pegs were left in place. The 3 degree posterior slope block was utilized and this cut was remade. This helped to minimize the lateral rim defect and removed 90% of the cartilage posterior medially. The remainder was done with the rongeur. After a performing this slope correction I was able to fit a 12.5 mm block in both flexion and extension with no laxity in either position. The box cutting guide was applied lateralized pinned in the place and that cut was made. Posterior medial and lateral osteophytes removed as encountered and the box was rasped and found to be flushed. The femoral trial was applied in good position. The knee was subluxated and the tibia was applied. It was applied over to just the level of the lateral defect minimally and there was good bone support underneath the tibial tray without any loss of support or containment. I marked the posterior medial area and later drilled the eburnated bone there. Alignment was directly off the tibial tubercle with some posterior medial bone exposed as it was typical. The keel was drilled and punched and then trialing was performed. The size 12 5 spacer was applied and there was excellent range of motion. Full extension perhaps a degree of hyperextension and flexion easily to about 110. No varus or valgus laxity at 94 0. There was 1+ MCL opening in mid positioning. There was 1+ LCL laxity in mid position. The patella was then prepared by measuring it to 21-1/2 mm in thickness. The guide was set to preserve 14 for a 35 mm patella. This cut was made and the patella paddle was aligned appropriately to the knee and lug holes drilled. Patellar tracking was fine with no hands technique. The trial components were removed. The bony surfaces were meticulously prepared using pulsatile lavage and the canals were plugged. The back of the knee was injected with Ortho joint mix. 2 bags of Simplex P cement each containing 2 g of vancomycin powder which had been pulverized were mixed. While in a doughy state smears were placed posteriorly on the condyles followed by cementation of the femur tibia and patella. The knee was held in full extension until the cement hardened. This required additional tourniquet time of 138 minutes. Tourniquet let down meticulous hemostasis was performed. Composite patellar thickness was 22 mm. Patella tracked fine with no hands technique and the aforementioned laxity profile applied. The MCL showed 1+ laxity in mid position and in order to address this I dissected out the distal portion of the MCL which had previously been released. I measure down about 5 to 6 cm from the joint line area and inserted an 8 x 20 staple with the knee in varus and about 20 to 30 degrees of flexion. This greatly minimized the MCL mid flexion laxity down to what I would consider trace with a firm endpoint. The staple was inserted in an orientation to engage both tongs into the bone and should be distal to the tibial stem. The final polyethylene component was inserted and laxity was again reassessed. 1+ LCL laxity. Trace MCL laxity. Stable in full extension at and at 90 degrees. Copious irrigation was performed. When the final component was inserted the back of the knee was inspected for cement and bleeding as well as irrigated. Cement flakes were removed posteriorly. Then went ahead and closed the extensor mechanism above the equator the patella with interrupted #2 FiberWire and below the equator with running and interrupted #1 Vicryl. There was a thick subcutaneous fat layer which was closed with 0 and 2-0 Vicryl's. Modena assisted flexion with extensor mechanism closed was 115 degrees. Bulky soft sterile dressing was applied Xeroform 4 x 4's ABD full-length Wojciech wrap. Patient awakened from anesthesia without difficulty and taken to recovery in stable condition. The resected bone was sent for specimen. There were no complications. Counts were correct. Blood loss was estimated to be 10 cc. After the tourniquet was let down another dose of TXA was given. Plan is to rehabilitate her according to the total knee protocol. She may weight-bear as tolerated. Components inserted with a J[employer]J PFC Sigma rotating platform knee a size 35 mm 3 peg oval dome patella. A 12.5 mm thick polyethylene insert posterior stabilized. A size 2 keeled mobile-bearing tibial tray and a size 2.5 posterior stabilized femoral component. I attest to the content of the Intraoperative Record and any orders documented therein. Any exceptions are noted below.
--- NOTE | 2020-08-18 11:39 | XRay Report ---
XR knee LT 1 or 2V routine CLINICAL HISTORY: Surgical Post Op COMPARISON: Leg length study June 26, 2020. FINDINGS: Alignment of the total left knee arthroplasty is anatomic. There is no periprosthetic frac ture or unexpected radiopaque foreign body. There are skin freya. There is a pin within the medial tibial plateau. IMPRESSION: Expected findings following total left knee arthroplasty. ACT 112: Negative or not required by law. Electronically signed by: Mario Mariscal M.D. 08/18/2020 11:36 AM
[2020-08-18] MEDS ORDERED: hydrALAZINE HCL 20 MG/ML VIAL IV PRN (11:56)
[2020-08-18] MEDS ORDERED: METOCLOPRAMIDE HCL INJ 5 MG/ML 2 ML VIAL IV PRN (11:56)
[2020-08-18] MEDS ORDERED: NALOXONE HCL 0.4 MG/1 ML VIAL/CARP IV PRN (11:56)
[2020-08-18] MEDS ORDERED: oxyCODONE HCL IR 5 MG TAB (IMMEDIATE RELEASE) PO PRN (11:56)
[2020-08-18] MEDS ORDERED: MAGNESIUM HYDROXIDE SUSP 30 ML UDC PO PRN (11:56)
[2020-08-18] MEDS ORDERED: bisacodyL 10 MG SUPP PR PRN (11:56)
[2020-08-18] MEDS ORDERED: HYDROmorphone INJ 0.5 MG/0.5 ML SYR IV PRN (11:56)
[2020-08-18] MEDS ORDERED: PHARMACY GLYCEMIC MGMT CONSULT PRN (12:00)
[2020-08-18] MEDS: CHECK CLONIDINE PATCH PLACEMENT SCH ×3 (12:12→15:14)
[2020-08-18] MEDS ORDERED: CARBOHYDRATES FOR HYPOGLYCEMIA PO PRN (13:00)
[2020-08-18] MEDS ORDERED: GLUCOSE 10 TABS/TUBE PO PRN (13:00)
[2020-08-18] MEDS ORDERED: GLUCAGON FOR INJ 1 MG VIAL IM PRN (13:00)
[2020-08-18] MEDS ORDERED: GLUCOSE 40% GEL 15 GM TUBE PO PRN (13:00)
[2020-08-18] MEDS ORDERED: DEXTROSE 50% 50 ML SYRINGE IV PRN (13:00)
[2020-08-18] MEDS: SODIUM CHLORIDE 0.9% 1000ML 1,000 ML IV SCH (13:01)
--- NOTE | 2020-08-18 13:07 | Pharmacy Report ---
Pharmacy Glycemic Short Note 2 - Date of Service August 18, 2020 - Glycemic Short BSG Results (Last 24 hours): 08/18/20 08/18/20 08/18/20 05:20 09:30 10:53 POC Glucose 89 87 80 08/18/20 11:49 POC Glucose 101 H OUTPATIENT ANTIDIABETIC REGIMEN: * NPH/Regular 70/30 - 12 units AM + 11 units PM * Trulicity 0.75 mg every Monday * HbA1c = 6.9% (08/14/20) ASSESSMENT: * 74 yo F admitted s/p L TKA. Pharmacy has been consulted to assist with inpatient glycemic management. * BSGs preoperatively were 89-87 mg/dL, well controlled. Postoperatively, they were 80-101 mg/dL, well controlled. * No steroids received perioperatively. Diet ordered. Will start NPH + Novolog based on home dose, weight and stress. * Did not want to start home 70/30 in a postoperative patient until we see how she is eating. PLAN FOR INPATIENT GLYCEMIC CONTROL: * Basal insulin * NPH 0-8 units SC BIDM per BSG (see EMR for more information) * Bolus insulin * NovoLog per scale ACHS or Q6hrs while NPO * Goal Range: Low 110 mg/dL - High 140 mg/dL * Correction Factor: 30 mg/dL/unit * Nutritional / Prandial insulin per carb ratio of 1 unit per 10 grams CHO consumed PLAN FOR DISCHARGE: * HbA1c is at goal. Continue outpatient regimen as long as she is not experiencing hypoglycemia at home. Continue to follow with endocrinology.
--- NOTE | 2020-08-18 14:07 | Anesthesiology Progress Note ---
Date of Service August 18, 2020 Anesthesia Post Procedure Vital Signs Vital Signs: Temp Pulse Pulse Resp BP Pulse Ox 08/18/20 12:55 69 16 110/71 94 08/18/20 12:27 70 16 110/68 94 08/18/20 11:30 73 16 105/59 L 95 08/18/20 11:20 67 14 108/61 95 08/18/20 11:10 75 16 106/69 96 08/18/20 11:00 36.1 C L 74 16 106/53 L 96 08/18/20 10:50 71 18 106/71 100 08/18/20 10:42 36.2 C L 78 18 105/66 100 08/18/20 05:40 37.0 C 80 20 141/63 H 98 Pain Intensity Left Knee: Pain Intensity: 6 Transfer of Care Handoff Completed per policy Notes Mental Status: alert / awake / arousable and participated in evaluation Patient Amnestic to Procedure: Yes Nausea / Vomiting: adequately controlled Pain: adequately controlled Airway Patency, RR, SpO2: stable & adequate BP & HR: stable & adequate Hydration State: stable & adequate Neuraxial Anesthesia: was administered and sensory block is resolving Anesthetic Complications: no major complications apparent and Pt Satisfied with anesthetic care
--- NOTE | 2020-08-18 15:04 | Orthopedic Progress Note ---
Date of Service August 18, 2020 Assessment & Plan (1) Primary osteoarthritis of left knee: Postop day 0-status post left total knee arthroplasty today with Dr. Nuñez. Cautioned her to go slow with advancing her diet. Especially due to the nausea and vomiting that she did have this afternoon. She does have IV Zofran and Reglan available as needed. Lovenox to start this evening for DVT prophylaxis. CHRIS stockings and AV impulse boots in place also for DVT prophylaxis. She was placed in a hinged range of motion postop knee brace to protect her left knee MCL. This was explained to her. She is a little intimidated by this and not feeling that she is going to be able to use it. I did explain to her that it does get easier with practice. She may be weight-bear as tolerated on her left lower extremity. The brace may be open to do range of motion from 0 to 90 degrees. The brace should be locked in extension with ambulation. She needs to use a walker to assist with ambulation. She should wear the brace at all times. Ice and elevation to her left knee as needed for pain and swelling. Pain medication as prescribed. Appreciate glycemic control consult for assistance. PT and OT as ordered. Case management for disposition. We will discuss findings with Dr. Nuñez. All questions were answered today. Postoperative x-rays were reviewed with the patient. Will reeval in the morning and plan to change her dressing to a Prevena incisional wound VAC tomorrow. We will also review postoperative course with patient in the morning. She understands and agrees with the plan. xray shows no complication, good position. PSS Admission and Anticipated Discharge Date Admission Date: August 18, 2020 Subjective Patient is sitting up in bed. She states she did have some vomiting after lunch. She no longer feels nauseous and is hungry. She would like some more food. She has not been out of bed. She has no pain in her left knee or leg. She states that she does feel that some of the feeling is starting to return. Denies any numbness or tingling. Physical Exam Physical Exam: Exam of her left lower extremity the dressings are clean dry and intact. She has 4 out of 5 strength with dorsiflexion plantarflexion of her left foot. Distal gross sensation seems to be normal. Dorsalis pedis pulses 1+. Foot is warm. No distal edema. No calf tenderness with palpation. She is able to independently straight leg raise or lower extremity without pain today. Results & Data ([facility]) Vital Signs (Past 12 Hours) Vital Signs Temp Pulse Pulse Resp BP Pulse Ox 08/18/20 12:55 69 16 110/71 94 08/18/20 12:27 70 16 110/68 94 08/18/20 11:30 73 16 105/59 L 95 08/18/20 11:20 67 14 108/61 95 08/18/20 11:10 75 16 106/69 96 08/18/20 11:00 36.1 C L 74 16 106/53 L 96 08/18/20 10:50 71 18 106/71 100 08/18/20 10:42 36.2 C L 78 18 105/66 100 08/18/20 05:40 37.0 C 80 20 141/63 H 98
[2020-08-18] MEDS: KETOROLAC TROMETHAMINE 15 MG/ML VIAL IV SCH ×3 (15:12→23:40)
[2020-08-18] MEDS: ceFAZolin 2000MG 2,000 MG/15 ML SYR IV SCH ×2 (15:12→22:40)
[2020-08-18] MEDS: ACETAMINOPHEN 500 MG TAB PO SCH ×2 (15:13→21:15)
[2020-08-18] MEDS: INSULIN ASPART 100 UNITS/ML 3 ML PEN SC SCH ×2 (17:53→21:13)
[2020-08-18] MEDS: INSULIN HUMAN NPH SC SCH (17:54)
[2020-08-18] MEDS: SENNA 8.6 MG TAB PO SCH (19:43)
[2020-08-18] MEDS: ENOXAPARIN INJ 30 MG/0.3 ML SYR SQ SCH (19:43)
[2020-08-18] MEDS: DOCUSATE SODIUM 100 MG CAP PO SCH (19:43)
[2020-08-18] MEDS: ATORVASTATIN 10 MG TAB PO SCH (19:43)
[2020-08-19] MEDS: CHECK CLONIDINE PATCH PLACEMENT SCH ×3 (00:25→15:08)
[2020-08-19] MEDS: KETOROLAC TROMETHAMINE 15 MG/ML VIAL IV SCH (05:17)
[2020-08-19] MEDS: ACETAMINOPHEN 500 MG TAB PO SCH ×3 (05:17→21:04)
[2020-08-19 06:02] LABS: Hematocrit (blood only) 39.7 % (37-47); Hemoglobin 13.1 g/dL (12.0-16.0); Mean Corpuscular Hemoglobin 30.1 pg (25-34); Mean Corpuscular Volume 91.3 fL (80-100); Platelet Count 276 K/uL (130-400); RDW Coefficient of Variation 14.2 % (11.5-14.5); RDW Standard Deviation 47.7 fL (36.4-46.3); Red Blood Count 4.35 M/uL (4.2-5.4); White Blood Count 10.48 K/uL (4.8-10.8)
[2020-08-19 06:26] LABS: BUN Creatinine Ratio 16.2 (10-20); Calcium 8.1 mg/dl (8.5-10.1); Creatinine Clr Calc Pharmacy 57.8 ml/min; Est GFR (African American) 75.5 ml/min; Est GFR (Non-African American) 65.2 ml/min; Potassium 4.3 mmol/L (3.5-5.1)
[2020-08-19] MEDS: SODIUM CHLORIDE 0.9% 1000ML 1,000 ML IV SCH (07:11)
--- NOTE | 2020-08-19 07:31 | Operative Report ---
Post Operative Report Pre & Post Diagnosis Operation Date: 08/18/20 07:00 Pre-Op Diagnosis: Left Knee Osteoarthritis Post-Op Diagnosis: Left Knee Osteoarthritis I identified the patient and participated in the time-out.: Yes Procedure Operation Date: 08/18/20 07:00 Actual Procedures p Left Total Knee Arthroplasty(Left) - Edgar Nuñez MD Surgeon Edgar Reyes MD Certified Medical Records Coder Emre Chaevz, fellow. [employer] physicians billing and accounting staff assistant. Estimated Blood Loss 10 Findings Consistent with Post-Op Diagnosis Specimens bone cuts Anesthesia Type Spinal MAC Complications none Disposition Accompanied Patient To Recovery: Yes Disposition: Recovery Room Description of Procedure As per Dr. Nuñez's note, I assisted in prepping and draping, instruments handling, certain parts of the procedure and wound closure I attest to the content of the Intraoperative Record and any orders documented therein. Any exceptions are noted below.
[2020-08-19] MEDS: DOCUSATE SODIUM 100 MG CAP PO SCH ×2 (08:26→20:50)
[2020-08-19] MEDS: ASPIRIN 81 MG ECTAB PO SCH (08:26)
[2020-08-19] MEDS: ENOXAPARIN INJ 30 MG/0.3 ML SYR SQ SCH ×2 (08:27→20:51)
[2020-08-19] MEDS: CHOLECALCIFEROL 1,000 UNITS 25 MCG TAB PO SCH (08:27)
[2020-08-19] MEDS: PANTOprazole 40 MG TAB PO SCH (08:27)
[2020-08-19] MEDS: MULTIVITAMIN TAB PO SCH (08:27)
[2020-08-19] MEDS: INSULIN ASPART 100 UNITS/ML 3 ML PEN SC SCH ×4 (08:30→20:52)
[2020-08-19] MEDS: INSULIN HUMAN NPH SC SCH ×2 (08:32→17:30)
--- NOTE | 2020-08-19 08:43 | Pharmacy Report ---
Pharmacy Glycemic Short Note 2 - Date of Service August 19, 2020 - Glycemic Short BSG Results (Last 24 hours): 08/18/20 08/18/20 08/18/20 09:30 10:53 11:49 Glucose POC Glucose 87 80 101 H 08/18/20 08/18/20 08/19/20 16:59 20:58 05:38 Glucose 170 H POC Glucose 191 H 167 H 08/19/20 08:07 Glucose POC Glucose 163 H OUTPATIENT ANTIDIABETIC REGIMEN: * NPH/Regular 70/30 - 12 units AM + 11 units PM * Trulicity 0.75 mg every Monday * HbA1c = 6.9% (08/14/20) ASSESSMENT: 08/19: * POD #1 s/p left TKA * BSGs yesterday of 87, 101, 191, and 167 mg/dL * Received 15 units of insulin (8 units of NPH, 7 units of Novolog) * Fasting BSG of 163 mg/dL this morning * Will plan to increase NPH and tighten Novolog parameters 08/18: * 74 yo F admitted s/p L TKA. Pharmacy has been consulted to assist with inpatient glycemic management. * BSGs preoperatively were 89-87 mg/dL, well controlled. Postoperatively, they were 80-101 mg/dL, well controlled. * No steroids received perioperatively. Diet ordered. Will start NPH + Novolog based on home dose, weight and stress. * Did not want to start home 70/30 in a postoperative patient until we see how she is eating. PLAN FOR INPATIENT GLYCEMIC CONTROL: * Basal insulin * NPH 4-8 units SC BIDM per BSG (see EMR for more information) * Bolus insulin * NovoLog per scale ACHS or Q6hrs while NPO * Goal Range: Low 110 mg/dL - High 140 mg/dL * Correction Factor: 20 mg/dL/unit * Nutritional / Prandial insulin per carb ratio of 1 unit per 7 grams CHO consumed PLAN FOR DISCHARGE: * HbA1c is at goal. Continue outpatient regimen as long as she is not experiencing hypoglycemia at home. Continue to follow with endocrinology.
--- NOTE | 2020-08-19 09:13 | Anesthesiology Progress Note ---
Date of Service August 19, 2020 Anesthesia Post Procedure Vital Signs Vital Signs: Temp Pulse Pulse Pulse Resp BP Pulse Ox 08/19/20 07:33 37.1 C 85 18 102/69 93 08/19/20 03:10 36.9 C 84 16 109/65 92 08/18/20 22:23 36.5 C 74 16 119/74 97 08/18/20 19:04 36.6 C 80 16 130/70 93 08/18/20 15:26 36.5 C 92 H 16 132/81 96 08/18/20 12:55 69 16 110/71 94 08/18/20 12:27 70 16 110/68 94 08/18/20 11:45 36.4 C L 63 16 107/62 99 08/18/20 11:30 73 16 105/59 L 95 08/18/20 11:20 67 14 108/61 95 08/18/20 11:10 75 16 106/69 96 08/18/20 11:00 36.1 C L 74 16 106/53 L 96 08/18/20 10:50 71 18 106/71 100 08/18/20 10:42 36.2 C L 78 18 105/66 100 Pain Intensity Left Knee: Pain Intensity: 0 Notes Mental Status: alert / awake / arousable and participated in evaluation Patient Amnestic to Procedure: Yes Nausea / Vomiting: adequately controlled Pain: adequately controlled Airway Patency, RR, SpO2: stable & adequate BP & HR: stable & adequate Hydration State: stable & adequate Neuraxial Anesthesia: was administered and sensory block resolved Anesthetic Complications: no major complications apparent
--- NOTE | 2020-08-19 09:19 | Progress Notes ---
DATE: 08/19/2020 The patient is sitting in her chair, eating. Her pain is minimal. I discussed with her the results of the surgery and the addition of the MCL ligament staple. We talked about the postoperative plan including potential discharge. Home health PT, OT, followup, etc. She is afebrile and her vital signs are stable. Her labs are noted and are within acceptable limits. X-rays are reviewed and show a well-positioned total knee arthroplasty without any evidence of complication. A ligament staple in place within the medial tibia. On examination, her dressing is taken down. There is scant drainage on the bandage, but nothing actively draining. There is minimal intraarticular swelling within the knee. Her posterior tibial pulse 1+. Sensation normal. She has 5/5 motor function to ankle and toe plantarflexion, dorsiflexion, inversion, eversion. Sensation normal. Swelling minimal. A Prevena wound VAC is applied after changing the dressing. She is educated about how to use this and a CHRIS hose stocking and her hinged brace is applied. The patient is doing well status post her left knee replacement. We will see how she does today with PT, OT and pain control. She can weightbear as tolerated with the brace locked in extension for now. Use walker. She can be out of the brace when she is in bed and she can also bend the knee 0-90 when she is in bed. If she is discharged, we will follow up with her in 1 week to remove her wound VAC. If she has any problems with severe pain, swelling, fevers, wound issues or any other problems, she is to contact my office. Lots of rest and elevation. She will have home PT and OT. She will be on her regular medications including a pain medication and Lovenox. We will need to check a weekly CBC. She can bath, shower.
--- NOTE | 2020-08-19 10:19 | Discharge Summary ---
Date of Service August 19, 2020 Discharge Data Procedures Performed Operation Date: 08/18/20 07:00 Actual Procedures p Left Total Knee Arthroplasty(Left) - Edgar Nuñez MD Hospital Course (1) Primary osteoarthritis of left knee: Patient was admitted to [facility] after undergoing an elective left total knee arthroplasty with Dr. Nuñez on August 18, 2020. Her surgery was performed with spinal anesthesia, peripheral nerve block and IV sedation. She tolerated the procedure well without any intraoperative complications. During surgery she did have a loose MCL so a staple was also placed. This changed her postoperative course just slightly. Postoperatively she is allowed to weight-bear as tolerated on her left lower extremity with the assistance of a walker. She does need to keep a hinged range of motion brace on her left knee locked in extension at all times with ambulation. She can open the brace to do gentle range of motion exercises from 0 to 90 degrees. On postoperative day 1 her dressings were changed. Her incision was clean, dry and intact. There is no effusion of her left knee or prepatellar bursa. No significant ecchymosis or erythema. No active drainage. No calf tenderness. A Prevena wound VAC dressing was applied to her incision. This will stay on for the next 7 days. Instructions were provided to her for this. She tolerated a regular diet during her inpatient stay although she did have some postoperative nausea and vomiting after surgery yesterday. That has improved/resolved. Vital signs remained stable. CBC, BMP were stable postoperatively. Her home medications were continued during her inpatient stay. A glycemic control consult was placed for management of her diabetes. Case management was co nsulted for disposition. She elected to go home with her son with in-home health and physical therapy. She does have a walker for use at home. Pain medications were prescribed after surgery was consistent of IV Dilaudid, tramadol, Tylenol and oxycodone. Her pain was well controlled during her inpatient stay, although she did have increased pain on POD 1 and increased anxiety regarding the brace and incisional wound vac. We elected to keep her another night for pain control and comfort. She was seen and evaluated by physical therapy and occupational therapy and was deemed safe for home as long as she had someone home with her to help. She does have plans to have her son stay with her for the next 2 weeks. Postoperative instructions and discharge instructions were reviewed with the patient. Follow-up appointments have been scheduled. She was placed on Lovenox, AV impulse boots and CHRIS stockings for DVT prophylaxis. Encouraged her to do her exercises taught by the physical and occupational therapist on her own at home. She can ice and elevate as needed for swelling and pain. All questions were answered. She was discharged to her home in stable condition on August 20, 2020 with her son. Discharge Instructions New Medicine: * You will likely be taking one or more of these medications: 1. Lovenox - You will be on Lovenox for 2-4 weeks after surgery to prevent blood clots. The CBC blood test will be done weekly while on this medication. Aspirin, 81 mg is OK to take while on this medication. 2. Tramadol - Take, as directed, when you need it, every four to six hours to control your pain. 3. Oxycodone - Take, as directed, when you need it, every four to six hours to control your pain. 4. Colace & Senokot - Take to prevent constipation which can be caused by narcotics. These can be bought [id number] at the pharmacy * The most common side effects of pain medicine and iron are nausea and constipation. If nausea or constipation is too much of a problem or if you have any questions about your new medicines or doses, call [facility] at . We will try to help you manage these issues. "VERY IMPORTANT TO READ AND REVIEW" Blood Clots and Blood Thinning Medicine: * You are given Lovenox during the immediate post-operative period to lessen the risk of blood clots forming in your legs and/or lungs. Lovenox is usually given for 2-4 weeks after surgery. * You need to get your blood checked weekly while on this medication. Your first blood test should be on August 25, 2020. If you have home health they should do this from home.Prescription provided at discharge Physical Therapy: * Do your physical therapy at home. These are the exercises you learned while in the hospital (quad sets, leg raises, calf pumps, gluteal squeezes, knee bending, and heel props.) You should do these exercises 3-4 times per day. * You will either go to inpatient rehab ([facility]), home with Home Therapy and nursing or home with outpatient rehab. You should do rehab with the therapist 2-3 times per week. You should do therapy on your own daily. * You may bear full weight on your leg with crutches or walker unless otherwise advised. Home Exercise: * You were shown a series of exercises (heel props, heel slides, etc.) in the hospital. Do these exercises three to four times each day including the exercises you were shown in physical therapy. Walking: * You may be up for short periods of time. Standing and walking for 1-2 hours at a time is usually okay. You should not stand or walk for excessive periods of time as this may Cause increased pain and swelling. SELF CARE INSTRUCTIONS AFTER TOTAL KNEE REPLACEMENT A. You may need to continue a physical therapy program after discharge from the hospital. There are several options available to you. Your doctor will assist you in selecting the best one for you. 1. An out-patient facility 2 to 3 times a week for therapy or home therapy. 2. Continue working on all exercises taught to you in the hospital. Your goals should be to increase bending of your knee to 90 degrees and beyond and to fully straighten your knee. B. Your therapist will notify you when you are able to progress from a walker to a cane. C. Wear TEDS as much as possible.~ They may be removed at night for laundering. D. Do not place a pillow behind your knee when resting. A pillow at your ankle is okay. E. Ice your knee 15-20 minutes every 2-3 hours and elevate it above the level of your heart. F. You may shower on the fourth day after surgery using regular soap and water. Do not submerge until the wound is completely healed (approximately 2 weeks). Until the fourth day after surgery, cover the incision/bandage with a bag or plastic wrap. G. Anyone who is touching your surgical incision area should wash their hands and wear gloves. H. Keep your incision covered with gauze pads under the CHRIS hose until it is dry. I. Leave Prevena wound VAC dressing in place. This stays on for approximately 7 days. You need to charge the battery every now and then. You can use the clear tape strips to apply to the edges if it starts coming undone to reseal the plastic dressing. You may do exercises with this on as instructed by your therapist. J. You may shower starting Thursday, August 13, 2020. May pat the incision dry. Do not scrub or soak incision. Redress as needed. K. Do exercises as taught by your therapist. Do them frequently throughout the day. Take frequent rests and elevate your leg to prevent swelling. L. Where the knee hinged brace when out of bed at all times. You B do not have to wear at bedtime or at rest. It needs to be locked in extension when ambulating. You can unlock the brace when sitting or working on range of motion exercises for your left knee. VERY IMPORTANT TO READ AND REVIEW A. YOU WILL BE GIVEN AN ORDER AT DISCHARGE FOR PT/INR (BLOOD WORK). PLEASE HAVE THIS DONE INSTRUCTED. PLEASE CALL OUR OFFICE AFTER YOUR BLOODWORK IS COMPLETE SO WE CAN TRACK YOUR RESULTS. IF YOU ARE GOING TO OUTPATIENT PHYSICAL THERAPY, YOU WILL NEED TO GO TO OUTPATIENT TESTING TO HAVE IT DRAWN. B. There are a few signs you need to watch for after you are home. Call [facility] if you notice any of the followin. Increased severe knee pain. Some pain is expected especially when you exercise. 2. Increased swelling in your leg or knee; pain or swelling of the calf muscle in either lower leg. 3. Any fluid drainage from the incision. 4. Shortness of breath or chest pain. 5. Numbness and tingling in the surgical extremity C. Please call [facility] at if you have any concerns or questions about your operation or recovery. The doctor or his nurse will return your call promptly. D. Do not have any elective dental work or other elective procedures done for 6 weeks after your knee replacement. When you have any invasive procedure (dental cleaning, extraction, colonoscopy etc) performed, you will need to take antibiotics to prevent infection from developing in your artificial joint. Tell your other health care providers you have an artificial joint. My office will supply you with further information and the antibiotics. Call your doctor if: * Temperature above 101 degrees F. * Pain not relieved by pain medicine ordered. * Increased drainage or redness from incision. * Notify your doctor with any questions or concerns. Follow-up Visit: You will follow-up with Dr. Nuñez 10-14 days after surgery. The office number is . Avoid all tobacco products. If you need help to stop smoking, call [place] at . This is a free call.
[2020-08-19] MEDS: traMADol HCL 50 MG TABLET PO PRN (11:39)
[2020-08-19] MEDS: SENNA 8.6 MG TAB PO SCH (20:50)
[2020-08-19] MEDS: ATORVASTATIN 10 MG TAB PO SCH (20:51)
[2020-08-19] MEDS: CeleBREX 200 MG CAP PO SCH (20:51)
[2020-08-20] MEDS: traMADol HCL 50 MG TABLET PO PRN ×2 (00:34→11:05)
[2020-08-20] MEDS: CHECK CLONIDINE PATCH PLACEMENT SCH ×2 (00:40→08:00)
[2020-08-20] MEDS: ACETAMINOPHEN 500 MG TAB PO SCH (05:46)
[2020-08-20] MEDS: DOCUSATE SODIUM 100 MG CAP PO SCH (08:01)
[2020-08-20] MEDS: CHOLECALCIFEROL 1,000 UNITS 25 MCG TAB PO SCH (08:01)
[2020-08-20] MEDS: CeleBREX 200 MG CAP PO SCH (08:01)
[2020-08-20] MEDS: MULTIVITAMIN TAB PO SCH (08:01)
[2020-08-20] MEDS: PANTOprazole 40 MG TAB PO SCH (08:01)
[2020-08-20] MEDS: ASPIRIN 81 MG ECTAB PO SCH (08:01)
[2020-08-20] MEDS: ENOXAPARIN INJ 30 MG/0.3 ML SYR SQ SCH (08:02)
[2020-08-20] MEDS: INSULIN HUMAN NPH SC SCH (08:04)
[2020-08-20] MEDS: INSULIN ASPART 100 UNITS/ML 3 ML PEN SC SCH ×2 (08:07→12:24)
--- NOTE | 2020-08-20 08:17 | Orthopedic Progress Note ---
Date of Service August 20, 2020 Assessment & Plan (1) Primary osteoarthritis of left knee: Postop day 2-status post left total knee arthroplasty Regular diet as ordered. Pain medication as prescribed. She is allowed out of bed, weight-bear as tolerated left lower extremity with a hinged range of motion brace locked in extension with ambulation. She can open the brace from 0 to 90 degrees to do exercises. Prevena incisional wound VAC on at all times. PT and OT is ordered today. Lovenox, AV impulse boots and CHRIS stockings for DVT prophylaxis. Case management for disposition. She is going to go home with her son and and home health and nursing and physical therapy. Follow-up as scheduled next week for removal of the incisional wound VAC. Discharge instructions were reviewed. All questions were answered. She does feel ready to go home today. Discharge to home today with home health. Will discuss findings with Dr. Nuñez. Admission and Anticipated Discharge Date Admission Date: August 18, 2020 Subjective Patient is sitting up eating breakfast. She states that she is hungry. She is feeling well. No nausea or vomiting. She has not developed any chest pain or shortness of breath. She did have 2 tramadol this morning which helps control her pain. She does feel that she is ready to go home today. She is managing the brace and the incisional wound VAC just fine. Physical Exam Physical Exam: Exam of her left lower extremity. The Prevena wound VAC is in place. Functioning. There is no significant edema in her left lower extremity. She has no calf tenderness. The brace is intact. Dorsalis pedis and posterior tibial pulses are 1+. Distal sensation is normal. Nontender throughout her foot. Strength is 5/5. Results & Data ([facility]) Vital Signs (Past 12 Hours) Vital Signs Temp Pulse Pulse Resp BP Pulse Ox 08/20/20 07:28 36.8 C 86 16 119/71 93 08/19/20 22:41 37.1 C 89 16 117/74 98 Laboratory Results 08/20/20 08/19/20 08/19/20 Range/Units 07:54 20:42 16:58 POC Glucose 124 H 170 H 165 H (70-99) mg/dl 08/19/20 Range/Units 12:03 POC Glucose 179 H (70-99) mg/dl
== END 2020-08-20 13:14 | disposition home health service (06) | DRG 470 ==
LOC: ASU 05:02 → 3E 05:02 → OBSVTOIN 10:53

== ENCOUNTER 2023-12-28 20:32 | Inpatient (IN) ==
--- NOTE | 2023-12-28 21:32 | Emergency Department Note ---
Impression & Plan Rhabdomyolysis, Acute UTI ED Provider Note NAME: YIN REYNA AGE: 78 SEX: F : 1945 ARRIVES VIA: Ambulance INFORMANT: Patient, ED PROVIDER(S): Agustin Chan MD CHIEF COMPLAINT: Fall HPI: This is a 78-year-old female presenting after a fall. Patient fell about 24 hours ago. She slid out of a chair and was unable to get herself back up. She has abrasions to bilateral elbows. Denies any current pain. She is not hit her head, neck or any part of her body with significant force. She does note she is not laying on the ground for 24 hours, unable to eat or drink. ROS: See above HPI for pertinent positives & negatives. A total of 10 systems reviewed and were otherwise negative. PAST MEDICAL HISTORY: See Below PAST SURGICAL HISTORY: See Below FAMILY HISTORY: See Below SOCIAL HISTORY: See Below HOME MEDICATIONS: See Below ALLERGIES: See Below VITALS: See Below PHYSICAL EXAMINATION: General: resting comfortably in no acute distress Head: Normocephalic and atraumatic Eyes: Normal inspection, extraocular muscles intact Ear, nose, throat: Normal external exam Neck: Normal range of motion Respiratory: lungs clear to auscultation bilaterally Cardiovascular: Regular rate/rhythm, no murmur GI: soft, nontender, no guarding or rebound Extremities: nontender, moves all extremities Neuro: The patient awake and alert, appropriately conversive, no focal deficits, symmetric faces Skin: Warm, dry, and intact MEDICAL DECISION MAKING: This 78-year-old female senting after a fall. patient had significant downtime of 24 hours. Will do screening workup to assess for rhabdomyolysis, urinary tract infection, traumatic injury - labs revealing of a leukocytosis to 17.79. Otherwise she has electrolyte disturbances and anion gap likely consistent with dehydration. Patient has transaminitis. Patient has rhabdomyolysis with CK of 14,000. Slightly elevated Trope at 39. Otherwise there is definitely UTI. Will treat with ceftriaxone at this time. CT imaging of the head reveals no intracranial process Will give fluids at this time as well. -CT of the head reveals no acute traumatic process -Chest Xray independently interpreted by me showing no pneumothorax, focal opacity, or pleural effusions. -X-ray of the hip as independent turbid by me reveals no signs of osseous fracture or dislocation - Will get admitted for patient's dehydration and rhabdomyolysis. Differential diagnosis: Prior to my lysis, urine tract infection, traumatic injury, intracranial process, hip fracture ER treatment provided: See below Independent History obtained from: [facility] interpreted by me: ECG: ECG independently interpreted by me with sinus tachycardia rate of 114, left axis deviation, normal MT, incomplete right bundle branch normal QTc, no ST segment elevations consistent with STEMI criteria Cardiac Monitoring: An order was placed for continuous cardiac monitoring. The monitor shows a rate of 115 with sinus tachycardia rhythm. Laboratory studies: As stated above and show below. Imaging studies: See below. 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 no chest pain. 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 Surgical History History of arthroscopy RT KNEE Hx of lumpectomy Left History of dilatation and curettage History of esophagogastroduodenoscopy (EGD) History of colonoscopy Hx laparoscopic cholecystectomy Status post shoulder surgery (2002) Left shoulder r/t frozen shoulder Family History Father Diabetes Brother Diabetes Other No family history of adverse response to anesthesia Social History Smoking Status: Never smoker Second Hand Exposure: Yes (Son smokes); Do You Dip or Chew Tobacco: No; Hx Alcohol Use: No Hx Substance Use: No Preferred Language: Portuguese Communication Ability: Effective Visual Impairment: Limited Anodizing Line Operator Required: No Beliefs That Will Affect Care: None marital status: Single Current Living Situation: Alone Current Living Situation Comment: sister Feels Safe at Home: Yes Assistive Devices: Denture - Upper, Denture - Lower, Glasses and Walker Allergies Allergies Allergy/AdvReac Type Severity Reaction Status Date / Time Penicillins Allergy Intermediate RASH Verified 12/29/23 00:42 Home Meds Home Medications Medication Instructions Recorded Confirmed atorvastatin 10 mg tablet 10 mg PO HS 12/09/19 12/29/23 cholecalciferol (vitamin D3) 25 25 mcg PO QAM 12/09/19 12/29/23 mcg (1,000 unit) tablet multivitamin 1 tab PO QAM 12/09/19 12/29/23 omeprazole 20 mg capsule,delayed 20 mg PO QAM 12/09/19 12/29/23 release blood-glucose meter (OneTouch 01/20/21 12/29/23 Verio Reflect Meter) aspirin 81 mg tablet,delayed 81 mg PO QAM 05/24/21 12/29/23 release (Adult Low Dose Aspirin) conjugated estrogens 0.625 mg/gram 1 applic topical UD 10/22/21 12/29/23 vaginal cream (Premarin) furosemide 20 mg tablet 20 mg PO QAM 10/22/21 12/29/23 gabapentin 100 mg capsule 100 mg PO QAM 10/22/21 12/29/23 oxybutynin chloride 5 mg 5 mg PO QAM 05/12/22 12/29/23 tablet,extended release 24 hr gabapentin 300 mg capsule 300 mg PO HS 12/29/23 12/29/23 nitrofurantoin 100 mg PO BID 12/29/23 12/29/23 monohydrate/macrocrystals 100 mg capsule Previous Rx's Medication Instructions Recorded lancets 21 gauge (BD Microtainer #200 ea 10/11/22 Lancet) blood sugar diagnostic (OneTouch #200 ea 06/27/23 Verio test strips) insulin syringe-needle U-100 0.3 #200 ea 12/04/23 mL 31 gauge x 5/16" (BD Insulin Syringe Ultra-Fine) dulaglutide 1.5 mg/0.5 mL 1.5 mg (0.5 mL) subcut Q7D #2 mL 12/07/23 subcutaneous pen injector (Trulicity) insulin human U-100 NPH-regulr See Rx Instructions .Route 12/14/23 70-30 mix 100 unit/mL subcutaneous .COMPLEX #30 mL susp (Humulin 70/30 U-100 Insulin) Results & Data (ED) Vital Signs Vital Signs - 24 hr 12/28/23 20:58 Temperature 36.8 C Temperature Source Oral Pulse Rate 114 H Respiratory Rate 18 Respiratory Effort / Characteristics Non-Labored Spontaneous Respiratory Depth Normal Respiratory Pattern Regular Blood Pressure 113/74 Blood Pressure Mean 87 Pulse Oximetry 99 Oxygen Delivery Method Room Air Sepsis Recent Fever Within 48 Hours No Sepsis New/Unexplained Change in Mental Status No Sepsis Action Taken by Nursing No Action Required Laboratory Data 12/29/23 04:42 12/29/23 04:42 Lab Results 12/28/23 12/28/23 Range/Units 20:45 22:46 WBC 17.79 H (4.8-10.8) K/ul RBC 5.32 (4.20-5.40) M/uL Hgb 15.8 (12.0-16.0) g/dl Hct 46.2 (37.0-47.0) % MCV 86.8 (80.0-100.0) fL MCH 29.7 (25.0-34.0) pg MCHC 34.2 (32.0-36.0) g/dL RDW Std Deviation 42.3 (36.4-46.3) fL RDW Coeff of Kwasi 13.3 (11.5-14.5) % Plt Count 258 (130-400) K/uL MPV 11.1 (9.4-12.4) fL Immature Gran % (Auto) 0.8 % Neut % (Auto) 82.9 % Lymph % (Auto) 6.2 % Dooly % (Auto) 7.9 % Eos % (Auto) 1.9 % Baso % (Auto) 0.3 % Neut # (Auto) 14.75 H (1.40-6.50) K/uL Lymph # (Auto) 1.10 L (1.20-3.40) K/uL D[place]y # (Auto) 1.41 H (0.11-0.59) K/uL Eos # (Auto) 0.34 (0.00-0.50) K/uL Baso # (Auto) 0.05 (0.00-0.20) K/uL Immature Gran # (Auto) 0.14 (0.01-0.20) K/uL Sodium 133 L (136-145) mmol/L Potassium 3.9 (3.5-5.1) mmol/L Chloride 96 L (98-107) mmol/L Carbon Dioxide 16 L (21-32) mmol/L Anion Gap 21 H (3-11) BUN 25 H (6-23) mg/dl Creatinine 1.20 (0.6-1.2) mg/dl Est Cr Clr Drug Dosing 42.8 ml/min eGFR 46.62 BUN/Creatinine Ratio 20.8 H (10-20) Glucose 177 H (70-99(Fasting)) mg/dl Calcium 9.2 (8.6-10.3) mg/dl Total Bilirubin 0.9 (0.2-1.0) mg/dl AST 279 H (13-39) U/L ALT 110 H (7-52) U/L Alkaline Phosphatase 51 (34-104) U/L Total Creatine Kinase 90616 H (26-192) U/L Troponin I High Sens 39.6 H Cancelled (0-14) pg/ml Total Protein 7.6 (6.0-8.3) gm/dl Albumin 3.6 (3.4-5.0) gm/dl Globulin 4.0 (2.5-4.0) gm/dl Albumin/Globulin Ratio 0.9 (0.9-2) Lipase 6 L (11-82) U/L Administered Medications Aspirin (Aspirin 81 Mg Ectab) 81 mg PO [facility] Stop: 01/28/24 08:59 Last Admin: 12/29/23 08:10 Dose: 81 mg Documented By: TASHIA Enoxaparin Sodium (Enoxaparin Inj 40 Mg/0.4 Ml Syr) 40 mg SQ [facility] Stop: 01/28/24 08:59 Last Admin: 12/29/23 08:45 Dose: 40 mg Documented By: TASHIA Gabapentin (Gabapentin 100 Mg Cap) 100 mg PO [facility] Stop: 01/28/24 08:59 Last Admin: 12/29/23 08:10 Dose: 100 mg Documented By: TASHIA Gabapentin (Gabapentin 100 Mg Cap) 200 mg PO HS [facility] Stop: 01/28/24 20:59 Last Admin: 12/30/23 00:41 Dose: Not Given Documented By: HETAL Lactated Ringer's (Lr) 1,000 mls @ 150 mls/hr IV .Q6H40M [facility] Stop: 12/30/23 08:00 Last Admin: 12/30/23 05:23 Dose: 150 mls/hr Documented By: Infusion: 12/30/23 05:21 Dose: Infused Documented By: Admin: 12/29/23 22:52 Dose: Not Given Documented By: Admin: 12/29/23 22:40 Dose: 150 mls/hr Documented By: Infusion: 12/29/23 15:25 Dose: Infused Documented By: Admin: 12/29/23 08:44 Dose: 150 mls/hr Documented By: TASHIA Ciprofloxacin (Cipro / D5w) 400 mg in 200 mls @ 100 mls/hr IV Q12H [facility]; Protocol Stop: 01/03/24 08:59 Last Infusion: 12/30/23 00:41 Dose: Infused Documented By: Admin: 12/29/23 22:40 Dose: 100 mls/hr Documented By: Infusion: 12/29/23 11:36 Dose: Infused Documented By: Admin: 12/29/23 09:36 Dose: 100 mls/hr Documented By: TASHIA Insulin Aspart (Insulin Aspart Per Unit Charge) 0 units SC ACHS [facility] Stop: 01/28/24 07:29 Last Admin: 12/29/23 22:50 Dose: 6 units Documented By: HETAL Co-signed By: MARCELO Admin: 12/29/23 18:45 Dose: 5 units Documented By: IBRAHIMA Co-signed By: ARVIN Admin: 12/29/23 13:46 Dose: 7 units Documented By: TASHIA Co-signed By: ARVIN Admin: 12/29/23 09:35 Dose: 5 units Documented By: TASHIA Co-signed By: CATHY Insulin Glargine (Lantus Per Unit Charge) 7 units SQ BID [facility] Stop: 01/28/24 08:59 Last Admin: 12/29/23 22:50 Dose: 7 units Documented By: HETAL Co-signed By: MARCELO Admin: 12/29/23 08:10 Dose: 7 units Documented By: TASHIA Co-signed By: CATHY Oxybutynin Chloride (Oxybutynin Chloride Xl 5 Mg Tabcr) 5 mg PO QAM [facility] Stop: 01/28/24 08:59 Last Admin: 12/29/23 08:10 Dose: 5 mg Documented By: TASHIA Pantoprazole Sodium (Pantoprazole 40 Mg Tab) 40 mg PO QAM [facility] Stop: 01/28/24 08:59 Last Admin: 12/29/23 08:10 Dose: 40 mg Documented By: TASHIA Discontinued Medications Bush Syrup (Bush Syrup 5 Ml Udp) 5 ml PO Q6 [facility] Stop: 01/08/24 17:59 Last Admin: 12/29/23 17:56 Dose: Not Given Documented By: IBRAHIMA Sodium Chloride (Nss) 1,000 mls @ 999 mls/hr IV .Q1H1M [facility] Stop: 12/28/23 23:45 Last Infusion: 12/29/23 00:17 Dose: Infused Documented By: [facility] Admin: 12/28/23 22:38 Dose: 999 mls/hr Documented By: SHARMAINE Ceftriaxone Sodium (Rocephin) 2,000 mg in 50 mls @ 100 mls/hr IV NOW STA Stop: 12/28/23 23:25 Last Infusion: 12/29/23 00:17 Dose: Infused Documented By: Admin: 12/28/23 23:35 Dose: 100 mls/hr Documented By: SUDHA Sodium Chloride (Nss) 1,000 mls @ 200 mls/hr IV .Q5H [facility] Stop: 12/29/23 11:18 Last Admin: 12/29/23 08:12 Dose: Not Given Documented By: Infusion: 12/29/23 08:11 Dose: Infused Documented By: Admin: 12/29/23 03:33 Dose: 200 mls/hr Documented By: GAIL Sodium Chloride (Nss) 1,000 mls @ 999 mls/hr IV .Q1H1M [facility] Stop: 12/29/23 02:32 Last Infusion: 12/29/23 03:36 Dose: Infused Documented By: Admin: 12/29/23 02:28 Dose: 999 mls/hr Documented By: Jessica Cefepime HCl (Maxipime 2000mg) 2,000 mg in 20 mls @ 5 mls/min IV Q12H [facility]; Protocol Stop: 01/03/24 07:59 Last Admin: 12/29/23 08:48 Dose: Not Given Documented By: TSAHIA Vancomycin HCl 1,750 mg/ (Sodium Chloride) 535 mls @ 200 mls/hr IV NOW ONE; Protocol Stop: 12/29/23 11:10 Last Infusion: 12/29/23 09:04 Dose: Infused Documented By: Admin: 12/29/23 08:49 Dose: 200 mls/hr Documented By: TASHIA Discharge Plan Visit Data Chief Complaint: Fall Stated Complaint: GLF ED Provider: Agustin Chan Discharge Problem: Rhabdomyolysis, Acute UTI Patient Disposition: Admitted As Inpatient Discharge Instructions Interventions: ED Discharge Assessment Last Done: 12/29/23 21:43
[2023-12-28 21:36] LABS: BUN Creatinine Ratio 20.8 (10-20); Calcium 9.2 mg/dl (8.6-10.3); Creatinine Clr Calc Pharmacy 42.8 ml/min; Potassium 3.9 mmol/L (3.5-5.1)
[2023-12-28 21:36] LABS: Appearance Urine Turbid (Clear); Bacteria Urine Automated 3+ (None Seen); Bilirubin Urine Negative (Negative); Blood Urine 3+ (Negative); Color Urine Yellow; Glucose Urine UA Trace (Negative); Ketones Urine 4+ (Negative); Leukocyte Esterase Urine 3+ (Negative); Nitrite Urine Negative (Negative); Protein Urine 2+ (Negative); RBC Urine Automated 0-2 /hpf (0-2); Specific Gravity Urine 1.016 (1.000-1.030); Urobilinogen Urine Negative (Negative); WBC Urine Automated >50 /hpf (0-5); pH Urine 5.5 (4.5-7.5)
[2023-12-28 21:38] LABS: Basophils # (auto) 0.05 K/uL (0.00-0.20); Basophils % (auto) 0.3 %; Eosinophils # (auto) 0.34 K/uL (0.00-0.50); Eosinophils % (auto) 1.9 %; Hematocrit (blood only) 46.2 % (37.0-47.0); Hemoglobin 15.8 g/dl (12.0-16.0); Immature Granulocytes # (auto) 0.14 K/uL (0.01-0.20); Immature Granulocytes % (auto) 0.8 %; Lymphocytes % (auto) 6.2 %; Mean Corpuscular Hemoglobin 29.7 pg (25.0-34.0); Mean Corpuscular Hgb Conc 34.2 g/dL (32.0-36.0); Mean Corpuscular Volume 86.8 fL (80.0-100.0); Mean Platelet Volume 11.1 fL (9.4-12.4); Monocytes # (auto) 1.41 K/uL (0.11-0.59); Monocytes % (auto) 7.9 %; Neutrophils # (auto) 14.75 K/uL (1.40-6.50); Neutrophils % (auto) 82.9 %; Platelet Count 258 K/uL (130-400); RDW Coefficient of Variation 13.3 % (11.5-14.5); RDW Standard Deviation 42.3 fL (36.4-46.3); Red Blood Count 5.32 M/uL (4.20-5.40); White Blood Count 17.79 K/ul (4.8-10.8)
[2023-12-28 21:43] LABS: Troponin I High Sensitivity 39.6 pg/ml (0-14)
[2023-12-28 22:00] LABS: Albumin Globulin Ratio 0.9 (0.9-2); Albumin Level 3.6 gm/dl (3.4-5.0); Bilirubin,Total 0.9 mg/dl (0.2-1.0); Total Protein 7.6 gm/dl (6.0-8.3)
[2023-12-28] MEDS: SODIUM CHLORIDE 0.9% 1,000 ML IV SCH (22:38)
--- NOTE | 2023-12-28 23:02 | CT Scan Report ---
Exam(s): CT HEAD Without Contrast EXAM: CT Head Without Intravenous Contrast CLINICAL HISTORY: Reason for exam: Fall. TECHNIQUE: Axial computed tomography images of the head/brain without intravenous contrast. CTDI is 38.24 mGy and DLP is 625.8 mGy-cm. Automated exposure control was utilized for the study. A dose lowering technique was utilized adhering to the principles of ALARA. No coronal or sagittal reconstructed images. COMPARISON: No relevant prior studies available. FINDINGS: Brain: No hemorrhage. No apparent acute cortical infarct. No mass lesion or midline shift. Senescent changes. Ventricles: No hydrocephalus. Bones/joints: No acute fracture. Soft tissues: Unremarkable. Sinuses: No acute sinusitis. Mastoid air cells: No mastoid effusion. Orbits: No acute process. IMPRESSION: No acute intracranial process. Electronically signed by: Paulina Roldan M.D. 12/28/23 23:01 PM
--- NOTE | 2023-12-28 23:17 | History & Physical Report ---
Date of Service December 28, 2023 Assessment & Plan (1) Rhabdomyolysis: Plan: 78yo female with unwitnessed fall, prolonged downtime in her apartment appx 21 hours. Patient with rhabdomyolysis - IV=[id number]. Evidence of myoglobinuria with +Blood in UA, absence of RBCs. Also with increased Cr from baseline - 1.2 from previous 0.8. Patient received 1L NSS in the ER -Admit to medical -Will give additional 1L NSS then NSS at 200mL/hr x 2 liters ordered -External catheter for I/O monitoring -Repeat CK, chemistry in AM (2) Weakness: Plan: Patient reports generalized weakness, difficulty getting around due to pain in the back and knee. -PT/OT evaluation -Fall precautions (3) UTI (urinary tract infection): Plan: Patient with UTI - on Cefdinir outpatient -Continue Ceftriaxone -Continue Oxybutynin Plan Diabetes -Lantus 7u BID -ISS -Goal blood sugar 110 - 140 -Continue Gabapentin - will decrease evening dose from 300mg to 200mg HS History of Present Illness Chief Complaint: fall, prolonged down time Primary Care Provider: Lorne Moody Krista Perez is a 78yo female with history of DM, HLP, GERD and RLS pre senting after an unwitnessed fall at home with prolonged down time - rhabdomyolysis. Patient has reportedly been quite weak, difficulty with ambulating due to pain in the knees and back. She was recently diagnosed with a UTI and started on Cefdinir. She also recently had a gel shot in her right knee. Yesterday she slid out of bed onto the floor around 22:00. She was unable to get up and laid on the floor until 19:30 today. She reports ongoing diffuse weakness, otherwise denies fever, chills, chest pain, palpitations, abdominal pain, nausea, vomiting, diarrhea. No LOC or head trauma. Upon arrival patient found to be tachycardic, otherwise HD stable ER Course: NSS x 1L Ceftriaxone x 2gm Allergies Allergy/AdvReac Type Severity Reaction Status Date / Time Penicillins Allergy Intermediate RASH Verified 12/29/23 00:42 Home Medications Medication Instructions Recorded Confirmed Type atorvastatin 10 mg tablet 10 mg PO HS 12/09/19 12/29/23 History cholecalciferol (vitamin D3) 25 25 mcg PO QAM 12/09/19 12/29/23 History mcg (1,000 unit) tablet multivitamin 1 tab PO QAM 12/09/19 12/29/23 History omeprazole 20 mg capsule,delayed 20 mg PO QAM 12/09/19 12/29/23 History release blood-glucose meter (OneTouch 01/20/21 12/29/23 History Verio Reflect Meter) aspirin 81 mg tablet,delayed 81 mg PO QAM 05/24/21 12/29/23 History release (Adult Low Dose Aspirin) conjugated estrogens 0.625 mg/gram 1 applic topical UD 10/22/21 12/29/23 History vaginal cream (Premarin) furosemide 20 mg tablet 20 mg PO QAM 10/22/21 12/29/23 History gabapentin 100 mg capsule 100 mg PO QAM 10/22/21 12/29/23 History oxybutynin chloride 5 mg 5 mg PO QAM 05/12/22 12/29/23 History tablet,extended release 24 hr lancets 21 gauge (BD Microtainer #200 ea 10/11/22 12/29/23 Rx Lancet) blood sugar diagnostic (OneTouch #200 ea 06/27/23 12/29/23 Rx Verio test strips) insulin syringe-needle U-100 0.3 #200 ea 12/04/23 12/29/23 Rx mL 31 gauge x 5/16" (BD Insulin Syringe Ultra-Fine) dulaglutide 1.5 mg/0.5 mL 1.5 mg (0.5 mL) subcut Q7D #2 mL 12/07/23 12/29/23 Rx subcutaneous pen injector (Trulicity) insulin human U-100 NPH-regulr See Rx Instructions .Route 12/14/23 12/29/23 Rx 70-30 mix 100 unit/mL subcutaneous .COMPLEX #30 mL susp (Humulin 70/30 U-100 Insulin) gabapentin 300 mg capsule 300 mg PO HS 12/29/23 12/29/23 History nitrofurantoin 100 mg PO BID 12/29/23 12/29/23 History monohydrate/macrocrystals 100 mg capsule Past Med/Surg History Problem List (Updated 12/29/23 @ 01:43 by Marti Moreno DO) UTI (urinary tract infection) Diabetes mellitus, type 2 History of breast cancer (2013) Left breast -- surgical intervention + radiation treatments -> 2013 Lower extremity edema Primary osteoarthritis of left knee Vitamin D deficiency (Chronic) Abnormal abdominal CT scan (Chronic) 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 no chest pain. 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 Surgical History History of arthroscopy RT KNEE Hx of lumpectomy Left History of dilatation and curettage History of esophagogastroduodenoscopy (EGD) History of colonoscopy Hx laparoscopic cholecystectomy Status post shoulder surgery (2002) Left shoulder r/t frozen shoulder Family History Father Diabetes Brother Diabetes Other No family history of adverse response to anesthesia Social History Smoking Status: Never smoker Second Hand Exposure: Yes (Son smokes); Do You Dip or Chew Tobacco: No; Hx Alcohol Use: No Preferred Language: Khmer Communication Ability: Effective Visual Impairment: Limited Print Developer Automatic Required: No Beliefs That Will Affect Care: None marital status: Single Current Living Situation: Family Current Living Situation Comment: sister Feels Safe at Home: Yes Assistive Devices: Denture - Upper, Denture - Lower, Glasses and Walker Review of Systems Review of Systems: All systems reviewed & are unremarkable except as noted in HPI & below Physical Exam 2 Physical Exam: General: patient resting comfortably, NAD, non-toxic in appearance, AA&O x 4 Skin: warm, dry, intact, no rashes or lesions HEENT: NC/AT, PERRL, EOMI, anicteric sclera, conjunctiva without injection, external ear normal to inspection and nontender, nares patent, moist mucus membranes, dentition intact, no oropharyngeal lesions, neck supple, trachea midline, no LAD, no thyromegaly, no JVD Heart: +S1/S2, regular, tachycardic, no m/r/g Lungs: equal air entry bilaterally, no rales/rhonchi/wheezes Abd: +BS, soft, NT/ND, no masses/organomegaly/ascites Ext: warm, 2+ pulses in UE/LE bilaterally, no clubbing/cyanosis or edema Neuro: nonfocal, patient AA&O x 4, speech intact, no facial droop, moving all extremities on command with equal strength 5/5 Results & Data Results & Data Vital Signs (Past 12 Hours) Vital Signs Temp Pulse Resp BP Pulse Ox O2 Del Method 12/28/23 22:39 117 H 19 142/72 H 12/28/23 22:21 117 H 27 H 115/77 12/28/23 22:09 120 H 19 12/28/23 21:42 116 H 19 92 12/28/23 21:30 121/73 12/28/23 21:21 113 H 20 95 12/28/23 21:11 115 H 12/28/23 21:06 114 H 20 131/74 98 12/28/23 20:58 36.8 C 114 H 18 113/74 99 Room Air Laboratory Results Laboratory Results WBC 17.79 K/ul (4.8-10.8) H 12/28/23 20:45 RBC 5.32 M/uL (4.20-5.40) 12/28/23 20:45 Hgb 15.8 g/dl (12.0-16.0) 12/28/23 20:45 Hct 46.2 % (37.0-47.0) 12/28/23 20:45 MCV 86.8 fL (80.0-100.0) 12/28/23 20:45 MCH 29.7 pg (25.0-34.0) 12/28/23 20:45 MCHC 34.2 g/dL (32.0-36.0) 12/28/23 20:45 RDW Std Deviation 42.3 fL (36.4-46.3) 12/28/23 20:45 RDW Coeff of Kwasi 13.3 % (11.5-14.5) 12/28/23 20:45 Plt Count 258 K/uL (130-400) 12/28/23 20:45 MPV 11.1 fL (9.4-12.4) 12/28/23 20:45 Immature Gran % (Auto) 0.8 % 12/28/23 20:45 Neut % (Auto) 82.9 % 12/28/23 20:45 Lymph % (Auto) 6.2 % 12/28/23 20:45 [place] % (Auto) 7.9 % 12/28/23 20:45 Eos % (Auto) 1.9 % 12/28/23 20:45 Baso % (Auto) 0.3 % 12/28/23 20:45 Neut # (Auto) 14.75 K/uL (1.40-6.50) H 12/28/23 20:45 Lymph # (Auto) 1.10 K/uL (1.20-3.40) L 12/28/23 20:45 [place] # (Auto) 1.41 K/uL (0.11-0.59) H 12/28/23 20:45 Eos # (Auto) 0.34 K/uL (0.00-0.50) 12/28/23 20:45 Baso # (Auto) 0.05 K/uL (0.00-0.20) 12/28/23 20:45 Immature Gran # (Auto) 0.14 K/uL (0.01-0.20) 12/28/23 20:45 Sodium 133 mmol/L (136-145) L 12/28/23 20:45 Potassium 3.9 mmol/L (3.5-5.1) 12/28/23 20:45 Chloride 96 mmol/L (98-107) L 12/28/23 20:45 Carbon Dioxide 16 mmol/L (21-32) L 12/28/23 20:45 Anion Gap 21 (3-11) H 12/28/23 20:45 BUN 25 mg/dl (6-23) H 12/28/23 20:45 Creatinine 1.20 mg/dl (0.6-1.2) 12/28/23 20:45 Est Cr Clr Drug Dosing 42.8 ml/min 12/28/23 20:45 eGFR 46.62 12/28/23 20:45 BUN/Creatinine Ratio 20.8 (10-20) H 12/28/23 20:45 Glucose 177 mg/dl (70-99(Fasting)) H 12/28/23 20:45 Calcium 9.2 mg/dl (8.6-10.3) 12/28/23 20:45 Total Bilirubin 0.9 mg/dl (0.2-1.0) 12/28/23 20:45 AST 279 U/L (13-39) H 12/28/23 20:45 ALT 110 U/L (7-52) H 12/28/23 20:45 Alkaline Phosphatase 51 U/L (34-104) 12/28/23 20:45 Total Creatine Kinase 75312 U/L (26-192) H 12/28/23 20:45 Troponin I High Sens Cancelled 12/28/23 22:46 Total Protein 7.6 gm/dl (6.0-8.3) 12/28/23 20:45 Albumin 3.6 gm/dl (3.4-5.0) 12/28/23 20:45 Globulin 4.0 gm/dl (2.5-4.0) 12/28/23 20:45 Albumin/Globulin Ratio 0.9 (0.9-2) 12/28/23 20:45 Lipase 6 U/L (11-82) L 12/28/23 20:45 Urine Color Yellow 12/28/23 Unknown Urine Appearance Turbid (Clear) A 12/28/23 Unknown Urine pH 5.5 (4.5-7.5) 12/28/23 Unknown Ur Specific [place] 1.016 (1.000-1.030) 12/28/23 Unknown Urine Protein 2+ (Negative) H 12/28/23 Unknown Urine Glucose (UA) Trace (Negative) H 12/28/23 Unknown Urine Ketones 4+ (Negative) H 12/28/23 Unknown Urine Blood 3+ (Negative) H 12/28/23 Unknown Urine Nitrite Negative (Negative) 12/28/23 Unknown Urine Bilirubin Negative (Negative) 12/28/23 Unknown Urine Urobilinogen Negative (Negative) 12/28/23 Unknown Ur Leukocyte Esterase 3+ (Negative) H 12/28/23 Unknown Urine WBC (Auto) >50 /hpf (0-5) H 12/28/23 Unknown Urine RBC (Auto) 0-2 /hpf (0-2) 12/28/23 Unknown U Hyaline Cast (Auto) 6-10 /lpf (0-2) H 12/28/23 Unknown U Epithel Cells (Auto) 3-5 /hpf (0-2) H 12/28/23 Unknown Urine Bacteria (Auto) 3+ (None Seen) H 12/28/[address] 12/28/23 21:30 Exam(s): CT HEAD Without Contrast EXAM: CT Head Without Intravenous Contrast CLINICAL HISTORY: Reason for exam: Fall. TECHNIQUE: Axial computed tomography images of the head/brain without intravenous contrast. CTDI is 38.24 mGy and DLP is 625.8 mGy-cm. Automated exposure control was utilized for the study. A dose lowering technique was utilized adhering to the principles of ALARA. No coronal or sagittal reconstructed images. COMPARISON: No relevant prior studies available. FINDINGS: Brain: No hemorrhage. No apparent acute cortical infarct. No mass lesion or midline shift. Senescent changes. Ventricles: No hydrocephalus. Bones/joints: No acute fracture. Soft tissues: Unremarkable. Sinuses: No acute sinusitis. Mastoid air cells: No mastoid effusion. Orbits: No acute process. IMPRESSION: No acute intracranial process. Electronically signed by: Paulina Roldan M.D. 12/28/23 23:01 PM PG Care Time/CCT Total # of Minutes Spent Total Time Spent with Patient: Total time spent is greater than 50% in coordination of care (as documented) at patient's floor/unit and/or counseling patient: Coding Level of Care Code 55047 INT INP/OBS CARE 2/55MIN Diagnoses Rhabdomyolysis M62.82 Weakness R53.1 UTI (urinary tract infection) N39.0
[2023-12-28] MEDS: cefTRIAXone SODIUM 2,000 MG/50 ML BAG IV STA (23:35)
[2023-12-29] MEDS ORDERED: GLUCAGON FOR INJ 1 MG VIAL SQ PRN (01:19)
[2023-12-29] MEDS ORDERED: GLUCOSE 40% GEL 15 GM TUBE PO PRN (01:19)
[2023-12-29] MEDS ORDERED: CARBOHYDRATES FOR HYPOGLYCEMIA PO PRN (01:19)
[2023-12-29] MEDS ORDERED: ACETAMINOPHEN 325 MG TAB PO PRN (01:19)
[2023-12-29] MEDS ORDERED: GLUCOSE 10 TAB/TUBE PO PRN (01:19)
[2023-12-29] MEDS ORDERED: ONDANSETRON INJ 2 MG/ML 2 ML VIAL IV PRN (01:19)
[2023-12-29] MEDS ORDERED: DEXTROSE 50% 50 ML SYRINGE IV PRN (01:19)
[2023-12-29 01:46] LABS: Troponin I High Sensitivity 28.6 pg/ml (0-14)
[2023-12-29 02:02] LABS: Magnesium 2.1 mg/dl (1.7-2.4); Phosphorus 4.5 mg/dl (2.5-4.9)
[2023-12-29] MEDS: SODIUM CHLORIDE 0.9% 1,000 ML IV SCH ×2 (02:28→03:33)
[2023-12-29 05:01] LABS: Hematocrit (blood only) 40.7 % (37.0-47.0); Hemoglobin 13.5 g/dl (12.0-16.0); Mean Corpuscular Hemoglobin 29.6 pg (25.0-34.0); Mean Corpuscular Hgb Conc 33.2 g/dL (32.0-36.0); Mean Corpuscular Volume 89.3 fL (80.0-100.0); Mean Platelet Volume 9.4 fL (9.4-12.4); Platelet Count 316 K/uL (130-400); RDW Coefficient of Variation 13.7 % (11.5-14.5); RDW Standard Deviation 44.6 fL (36.4-46.3); Red Blood Count 4.56 M/uL (4.20-5.40)
[2023-12-29 05:16] LABS: BUN Creatinine Ratio 22.3 (10-20); Calcium 7.7 mg/dl (8.6-10.3); Creatinine Clr Calc Pharmacy 54.6 ml/min; Potassium 3.8 mmol/L (3.5-5.1)
[2023-12-29 05:51] LABS: Albumin Level 2.9 gm/dl (3.4-5.0); Bilirubin Direct 0.1 mg/dl (0-0.2); Bilirubin,Total 0.4 mg/dl (0.2-1.0)
--- NOTE | 2023-12-29 06:44 | XRay Report ---
XR chest 1V portable CLINICAL HISTORY: Fall. COMPARISON STUDY: Chest radiograph December 30, 2019. Chest CT December 31, 2019. FINDINGS: Moderate elevation of the right hemidiaphragm has mildly increased. Lungs are clear. There is no pneumothorax or pleural effusion. Cardiac size is normal. Mediastinal contours are normal. Ther e is no evidence for pulmonary edema. IMPRESSION: No acute cardiopulmonary findings. ACT 112: Negative or not required by law. Electronically signed by: Mario Mariscal M.D. 12/29/2023 6:43 AM
--- NOTE | 2023-12-29 06:46 | XRay Report ---
XR hip RT 2V w pelvis HISTORY: 78 years-old Female fall acute pain of the pelvis status post fall COMPARISON: CT 04/07/2021 TECHNIQUE: AP view of the pelvis with 2 views of the right hip FINDINGS: Mild osteoarthritis of the hips. Severe degeneration of the pubic symphysis. No acute fracture, dislo cation or avascular necrosis. IMPRESSION: No acute fracture or dislocation. ACT 112: Negative or not required by law. The above report was generated using voice recognition software. It may contain grammatical, syntax o r spelling errors. Electronically signed by: Vamsi Holbrook M.D. 12/29/2023 6:45 AM
[2023-12-29] MEDS ORDERED: VANCOMYCIN CONSULT ACTIVE PRN ×2 (07:57)
[2023-12-29] MEDS ORDERED: SODIUM CHLORIDE 0.9% 1,000 ML IV SCH (08:00)
--- NOTE | 2023-12-29 08:00 | Hospitalist Progress Note ---
Date of Service December 29, 2023 Assessment & Plan (1) Rhabdomyolysis: Plan: 78yo female with unwitnessed fall, prolonged downtime in her apartment apx 21 hours. Found to have sepsis and rhabdomyolysis - TR=[id number]. Also with increased Cr from baseline - 1.2 from previous 0.8. Treated with IV fluids and ceftriaxone overnight Antibiotics broadened for sepsis - ordered cefepime and vancomycin - but shortly after I received urine culture results from [facility] - E. coli and Klebsiella R to cefepime, has PCN allergy, S to cipro -CK improved from 19515 --> 8000. -AST/ALT and minimal troponin elevation related to rhabdo - all improved -HAGMA improved, hypovolemic hyponatremia improved and sodium normalized to 135 -change IVF to LR at 150/h for next 24h -AM BMP and CK -PT and OT (2) UTI (urinary tract infection): Plan: Sepsis present on admission - persistent tachycardia and severe leukocytosis despite IV fluid resuscitation, related to UTI and infectious colitis. Was on cefdinir outpatient but UTI was resistant -abx changed to cipro -HAGMA may be related to sepsis tachycardia - get EKG - personally reviewed tracing sinus tachycardia. related to sepsis. TSH was normal in October. (3) Infectious colitis: Plan: Acute diarrhea Stool + E. coli with shiga toxin. C. diff was negative Continue IVF, supportive care Plan Diabetes -BG in 200s, increase glargine and aspart -Continue Gabapentin - decreased evening dose from 300mg to 200mg HS DVT ppx - enoxaparin 40 sq qd Admission and Anticipated Discharge Date Admission Date: December 28, 2023 Subjective Has had dysuria Remains tachycardic In the afternoon developed significant diarrhea. No abdominal pain. No shortness of breath or chest pain Physical Exam Physical Exam: PHYSICAL EXAMINATION Last 24h vital signs reviewed, see documentation in flowsheet General: comfortable appearing, no distress HEENT: Normocephalic, atraumatic, pupils round and equal, sclerae anicteric, no conjunctival injection, dry mucus membranes Lungs: Normal respiratory effort. Clear to auscultation bilaterally. No RRW Heart: Regular rate and rhythm, no murmurs. No JVD Abdomen: Soft, nontender, nondistended. Bowel sounds present. Extremities: Warm, dry, well-perfused. No extremity edema. Neuro: Alert and oriented x 4, face symmetric, moves 4 extremities well Psych: Normal affect and behavior Results & Data Results & Data Vital Signs (Past 12 Hours) Vital Signs Temp Pulse Pulse Resp BP BP Pulse Ox 12/29/23 07:45 116 H 12/29/23 04:00 116 H 16 117/55 L 100 12/29/23 02:32 36.8 C 110 H 16 132/91 99 12/29/23 02:30 118 H 22 134/91 94 12/29/23 02:00 110 H 25 H 121/72 94 12/29/23 01:30 149/73 H 12/29/23 01:03 111 H 18 125/72 99 12/29/23 00:00 116 H 16 152/73 H 98 12/28/23 23:03 117 H 20 144/79 H 99 12/28/23 22:39 117 H 19 142/72 H 12/28/23 22:21 117 H 27 H 115/77 12/28/23 22:09 120 H 19 12/28/23 21:42 116 H 19 92 12/28/23 21:30 121/73 12/28/23 21:21 113 H 20 95 12/28/23 21:11 115 H 12/28/23 21:06 114 H 20 131/74 98 12/28/23 20:58 36.8 C 114 H 18 113/74 99 O2 Del Method 12/29/23 07:45 12/29/23 04:00 12/29/23 02:32 Room Air 12/29/23 02:30 12/29/23 02:00 12/29/23 01:30 12/29/23 01:03 Room Air 12/29/23 00:00 Room Air 12/28/23 23:03 12/28/23 22:39 12/28/23 22:21 12/28/23 22:09 12/28/23 21:42 12/28/23 21:30 12/28/23 21:21 12/28/23 21:11 12/28/23 21:06 12/28/23 20:58 Room Air Laboratory Results CK 8000 Tn flat W 18 anion gap improved Cr 0.9 AST/ALT mildly elevated improved PG Care Time/CCT Total # of Minutes Spent Total Time Spent with Patient: Total time spent is greater than 50% in coordination of care (as documented) at patient's floor/unit and/or counseling patient: Coding Level of Care Code 50519 SUB INP/OBS CARE MIN Diagnoses Rhabdomyolysis M62.82 UTI (urinary tract infection) N39.0 Infectious colitis A09
[2023-12-29] MEDS: ASPIRIN 81 MG ECTAB PO SCH (08:10)
[2023-12-29] MEDS: OXYBUTYNIN CHLORIDE XL 5 MG TABCR PO SCH (08:10)
[2023-12-29] MEDS: PANTOprazole 40 MG TAB PO SCH (08:10)
[2023-12-29] MEDS: LANTUS PER UNIT CHARGE SQ SCH (08:10)
[2023-12-29] MEDS: GABAPENTIN 100 MG CAP PO SCH (08:10)
[2023-12-29] MEDS: LACTATED RINGER'S 1,000 ML IV SCH (08:44)
[2023-12-29] MEDS: ENOXAPARIN INJ 40 MG/0.4 ML SYR SQ SCH (08:45)
[2023-12-29] MEDS: CEFEPIME 2000MG 2,000 MG/20 ML SYR IV SCH (08:46)
[2023-12-29] MEDS: VANCOMYCIN HCL 1,750 MG in SODIUM CHLORIDE 0.9% 500 ML IV ONE (08:49)
[2023-12-29] MEDS: INSULIN ASPART PER UNIT CHARGE SC SCH (09:35)
--- OUTSIDE RECORDS SUMMARY | 2023-12-29 09:35 | External Medical Summary | Summary of Care ---
Author Name Unknown Organization [facility] Address [address] [place] [place] [address] Phone [phone] Care Team Providers Care Bicycle Fitter Name Role Phone Lorne Moody MD Primary Care Provider [phone] Reason for Visit * Reason Comments Follow Up Encounter Details Date Type Department Care Team (Late st Contact Info) Description 12/20/2023 10:00 AM EDT Office Visit Ophthalmology, 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 1 06/18/2017 Active simvastatin (ZOCOR) 40 MG Tablet Take by mouth daily. Active Meloxicam 7.5 MG Oral Tablet Take 1 Tablet by mouth. 08/25/2011 Active HUMULIN N 100 UNIT/ML injection 12/18/2017 Active atorvaSTATin (LIPITOR) 10 MG TabletIndications: takes in the evening Indications: takes in the evening 02/20/2018 Active HUMULIN 70/30 (70-30) 100 UNIT/ML injection 01/29/2018 Active ONETOUCH ULTRA BLUE STRP 02/20/2018 Active gabapentin (NEURONTIN) 100 MG Capsule Take 1 Capsule by mouth in the morning. 1 02/04/2018 Active SURE COMFORT INSULIN SYRINGE 31G X 5/16" 0.3 ML MISC 12/18/2017 Active Euflexxa 20 MG/2ML Intra-articular Solution Prefilled Syringe (Sodium Hyaluronate) 2 mL. 11/12/2019 Active rOPINIRole HCl 2 MG Oral Tablet (Requip) See Instructions, Disp# 90 tab, Refills: 1, TAKE 1 TABLET BY MOUTH AT BEDTIME 1 TO 3 HOURS BEFORE BEDTIME, Pharmacy: [facility] ST[facility] [id number] 11/29/2019 Active Omeprazole 20 MG Oral Capsule Delayed Release (PriLOSEC) 02/02/2021 Active Famotidine 20 MG Oral Tablet (Pepcid) Start: 04/08/19 7:54:25 EST, See Instructions, Disp# 90, TAKE 1 TABLET BY MOUTH AT BEDTIME, AVOID EATING AND DRINKING FOR 10 MINUTES AFTER EACH DOSE, Pharmacy: [facility]/pharmacy #[id number] 04/08/2019 Active Aspirin Buf(CaCarb-MgCarb- MgO) 81 MG Oral Tablet 81 mg. 08/02/2013 Active Furosemide 20 MG Oral Tablet (Lasix) 10/23/2021 Active Premarin 0.625 MG/GM Vaginal Cream (Estrogens Conjugated) Administer 0.5 g into the vagina once a day Monday and only. Use 0.5 gm with applicator at bed time 42.5 g 6 02/09/2023 Active oxyBUTYnin Chloride ER 5 MG Oral Tablet Extended Release 24 Hour (Ditropan XL) Take 1 Tablet by mouth in the morning. 90 Tablet 3 02/07/2023 Active Albuterol Sulfate HFA 108 (90 Base) MCG/ACT Inhalation Aerosol Solution Inhale 1 Puff by mouth every 6 hours as needed. 07/28/2023 Active Gabapentin 300 MG Oral Capsule (Neurontin) Take 1 Capsule by mouth at bedtime. 09/25/2023 Active Trulicity 1.5 MG/0.5ML Subcutaneous Solution Pen-injector Inject 1.5 mg under the skin once a week. 12/14/2023 Active Trulicity 0.75 MG/0.5ML Subcutaneous Solution Pen-injector 05/08/2020 Discontinue d(Medicatio n List Clean Up) documented as of this encounter (statuses as of 12/20/2023) Active Problems Problem Noted Date Diagnosed Date Advanced directives, counseling/discussion 05/29 Vaginal irritation from pessary 04/24/2020 Urinary incontinence without sensory awareness 1 05/09/2018 Incomplete uterovaginal prolapse 12/08/2017 Type 2 diabetes mellitus wit h hemoglobin A1c goal of less than 7.0% 08/04/2017 HTN, goal below 130/80 08/04/2017 Cystocele, lateral 08/04/2017 Vaginal atrophy 08/04/2017 Rectocele 08/04/2017 documented as of this encounter (statuses as of 12/20/2023) Social History Tobacco Use Types Packs/Day Years Used Date Smoking Tobacco: Former Smokeless Tobacco: Never Alcohol Use Standard Drinks/Week Comments No 0 (1 standard drink = 0.6 oz pur e alcohol) Utilities Answer Date Recorded Do you have trouble paying y our heating, water, or electric bill? (Adult - for ages 18 years and over) Not on file 09/12/2023 Is your family able to pay t he heat, water, or electric bill? (Household - for ages 0-17 years) Not on file 09/12/2023 Does your family have access to good internet? (Household - for ages 0-17 years) Not on file 09/12/2023 Social Connections Answer Date Recorded How often do you feel lonely or isolated from those around you? (Adult - for ages 18 years and over) Not on file 09/12/2023 Sex and Gender Information Value Date Recorded Sex Assigned at Not on file Gender Identity Not on file Sexual Orientation Not on file Job Start Date Occupation Industry Not on file Not on file Not on file documented as of this encounter Progress Notes * Chente Cai DO - 12/20/2023 10:00 AM EDT [facility] [place] Nursing Notes: Sue Laboy RN 12/20/23 0934 Signed Krista Washington is a 78 year old year old female who presents for Macular Telangectasia type 2. Last Office Visit: 08/29/2023 (in office), Visit date not found (telemedicine) Patient currently states no change in vision. Are you diabetic? Yes. Do you check your blood sugars daily? YES. Fasting BS this mornin mg/dl. Last Hemoglobin A1C: No results found for: "HGBA1C" Do you drive? yes OCT image(s) of both eyes acquired and filed/scanned into chart. Base Eye Exam Visual Acuity (Snellen - Linear) Right Left Dist cc 20/25 -2 20/25 -1 Correction: Glasses Tonometry (Tonopen, 9:32 AM) Right Left Pressure 15 13 Pupils Pupils Dark Light Shape React APD Right PERRL 3 3 Round Minimal None Left PERRL 3 3 Round Minimal None Visual Parra (Counting fingers) Right Left Full Full Extraocular Movement Right Left Full, Ortho Full, Ortho Neuro/Psych Oriented x3: Yes Mood/Affect: Normal Dilation Both eyes: 0.5% Proparacaine @ 9:31 AM Dilation #2 Both eyes: 1.0% Mydriacyl, 2.5% Phenylephrine @ 9:31 AM Dilation #3 Both eyes: 1.0% Mydriacyl, 2.5% Phenylephrine @ 9:33 AM Dilation Comments Patient cautioned that effects of dilation may last 2-7 hours dependant upon individual reaction. It was discussed that driving while dilated is not recommended. EXTERNAL: The ocular adnexae are unremarkable. SLE: Lids/Lashes: wnl OU Conjunctiva/Sclera: quiet OU Cornea: clear OU Anterior Chamber: deep and quiet OU Iris: normal OU; no NVI OU Lens: 2+mixed cataracts OU Dilated fundus exam OD: vitreous: clear optic nerve: 0.25, no edema/pallor/NVD macula: irreg fvr vessels: wnl periphery: wnl, no RT/RD Dilated fundus exam OS: vitreous: clear optic nerve: 0.25, no edema/pallor/NVD macula: irreg fvr vessels: wnl periphery: wnl, no RT/RD OCT Interpretation: OD: resolved VMT bt incomplete pvd, inner cystic space c/w MacTel--stable OS: inner cystic space in fovea c/w MacTel, no pvd--stable Fundus Photo Interpretation: 09/24/2021 OD: suboptimal due to cataract, wnl OS: suboptimal due to cataract, wnl Fluorescein Interpretation: 11/04/2021 OD: normal OS: trace temporal leakage c/w MacTel A/P: 1. Macular Telangiectasia (MacTel) Type 2 OU -no CNV OU -recommend Amsler grid monitoring. 2. h/o VitreoMacular Traction Syndrome OD -resolved -still incomplete pvd -recommend Amsler grid monitoring. 3. h/o Tamoxifen use -was on tamoxifen 20mg/day x 5 years finished 2019 -has been off since 2019 4. DM2 -no retinopathy -recommend HgbA1C <7, BP and lipid control. 5. Cataracts OU -becoming visually significant. -retinas stable for CE at Dr. Andrade's discretion 6. OHT OU -monitor -followed w/ Dr. Andrade F/u 1 year for OCT OU (alternate 6 months w/ Dr. Andrade) Chente Cai DO CC: Gerry Andrade, OD CC: PCP: Lorne Moody MD documented in this encounter Nursing Notes * Sue Laboy RN - 12/20/2023 9:25 AM EDT Krista Washington is a 78 year old year old female who presents for Macular Telangectasia type 2. Last Office Visit: 08/29/2023 (in office), Visit date not found (telemedicine) Patient currently states no change in vision. Are you diabetic? Yes. Do you check your blood sugars daily? YES. Fasting BS this mornin mg/dl. Last Hemoglobin A1C: No results found for: "HGBA1C" Do you drive? yes OCT image(s) of both eyes acquired and filed/scanned into chart. documented in this encounter Plan of Treatment Upcoming Encounters Date Type Department Care Team (Late st Contact Info) Description 08/28/2024 11:30 AM EDT Office Visit Ophthalmology, 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 Ordered: 12/20/2023 Health Maintenance Due Date Last Done Comments DXA Scan 1945 GFR 1945 HbA1c 1952 Depression Screening 1958 Albumin/Creatinine Ratio 1964 Diabetic Foot Exam 1964 Hepatitis C Screening 1964 DTap/Tdap Vaccines (1 - Tdap) 1965 COVID-19 Vaccine (2 - season) 2023 01/25/2023 Influenza Vaccine (FLU shot) (#1) 2023 01/20/2020, 12/17/2018, 01/06/2017, Additional history exists Diabetic Eye Exam 08/07/2024 08/08/2023, , 09/24/2021 Pneumococcal Vaccine: 65+ Years Completed 03/05/2022, 03/01/2018, 12/12/2014, Additional history exists Zoster Vaccines Completed 09/08/2022, 02/24, 10/21/2014 HPV (Gardasil) Vaccine Aged Out No lo nger eligible based on patient's age to complete this topic Hepatitis B Vaccine Aged Out No longe r eligible based on patient's age to complete this topic MENINGOCOCCAL (MENACTRA/MENVEO) Aged Out No longer eligible based on patient's age to complete this topic documented as of this encounter Medical Devices Not on filedocumented as of this encounter Visit Diagnoses Diagnosis 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
--- OUTSIDE RECORDS SUMMARY | 2023-12-29 09:35 | External Medical Summary | Continuity of Care Document ---
Author Name Unknown Organization [facility] [address] [address] [place] [phone] Care Team Providers Care Profiling Machine Set Up Operator Tool Name Role Phone Lorne Moody Primary Care Physician [phone] [id number] Date(s): 12/05/23 - 12/05/23 [facility] 0 [facility] [address] [address] [place] [phone] Discharge Disposition: Home or Self Care Attending Physician: MD Rios Christopher Allergies, Adverse Reactions, Alerts Substance Criticality Severity Reaction Reaction Severity Status ciprofloxacin Hives Active penicillins 1 Active 1Amoxicllin Immunizations Given and Recorded Vaccine Date Status Refusal Reason SARS COVID Vaccine Unspecified 01/25/23 Recorded influenza virus vaccine, inactivated 12/05/22 Give n influenza virus vaccine, inactivated 01/26/22 Give n influenza virus vaccine, inactivated 1 01/26/21 Gi nhan influenza virus vaccine, inactivated 01/20/20 Give n influenza virus vaccine, inactivated 12/17/18 Give n influenza virus vaccine, inactivated 01/06/17 Give n influenza virus vaccine, inactivated 12/04/15 Give n influenza virus vaccine, inactivated 12/12/14 Give n zoster vaccine, inactivated 09/08/22 Recorded zoster vaccine, inactivated 2 03/09/22 Recorded pneumococcal 23-valent vaccine 3 03/05/22 Recorded pneumococcal 23-valent vaccine 03/01/18 Given pneumococcal 23-valent vaccine 10/28/09 Recorded SARS-CoV-2 (COVID-19) mRNA-1273 vaccine 03/31/21 R ecorded SARS-CoV-2 (COVID-19) mRNA-1273 vaccine 06/19/20 R ecorded SARS-CoV-2 (COVID-19) mRNA-1273 vaccine 05/20/20 R ecorded tetanus/diphtheria/pertuss, acel (Tdap) 03/12/15 G iven pneumococcal 13-valent vaccine 12/12/14 Given zoster vaccine live 10/21/14 Recorded 1Early/Late Reason: Early/Late Reason: Other : Given on time 2Result Comment: [facility] pharmacy 3Result Comment: [facility] Pharmacy Medications Albuterol (Eqv-Proventil HFA) 90 mcg/inh inhalation aerosol Start: 08/16/23 11:29:00 PM EDT, 2 puff, inhaled, q6h, Disp# 6.7 each, Refills: 1, Pharmacy: [id number] Start Date: 08/16/23 Stop Date: 08/23/23 Status: Ordered aspirin 81 mg oral tablet Start: 08/02/13 9:51:00 AM EDT, 1 tab, PO, Daily Start Date: 08/02/13 Status: Ordered atorvastatin 10 mg oral tablet Start: 07/28/23 5:22:00 PM EDT, 1 tab, PO, Daily, Disp# 90 tab, Refills: 3, Pharmacy: [id number] Start Date: 07/28/23 Status: Ordered atorvastatin 10 mg oral tablet Start: 09/26/22 11:00:00 AM EDT, See Instructions, Disp# 90 tab, Refills: 3, TAKE 1 TABLET BY MOUTH EVERY DAY, Pharmacy: [facility] [id number] Start Date: 09/26/22 Status: Suspended Euflexxa 10 mg/mL intra-articular solution Start: 11/08/23 12:25:00 PM EDT, 20 mg =, intra-articular, q7days, Disp# 6 mL, Refills: 0, 3 syringes for R knee. Please ship to physician's office: [address] [place] [id number],Note to Pharmacy: R KNEE DJD [id number], Pharmacy: [facility] Start Date: 11/08/23 Stop Date: 11/29/23 Status: Ordered furosemide 20 mg oral tablet Start: 11/07/22 12:52:00 PM EDT, See Instructions, Disp# 90 tab, Refills: 0, TAKE 1 TABLET BY MOUTH EVERY DAY, Pharmacy: [id number] Start Date: 11/07/22 Status: Ordered gabapentin 100 mg oral capsule Start: 09/01/23 11:09:00 AM EDT, 1 cap, PO, qAM, Disp# 90 cap, Refills: 3, [id number] Start Date: 09/01/23 Stop Date: 08/26/24 Status: Ordered gabapentin 300 mg oral capsule Start: 09/01/23 11:09:00 AM EDT, 1 cap, PO, qhs, Disp# 90 cap, Refills: 3, Pharmacy: [facility]/pharmacy #[id number] Start Date: 09/01/23 Stop Date: 08/26/24 Status: Ordered NovoLIN NPH Innolet 100 units/mL subcutaneous suspension Start: 09/03/12 2:46:00 PM EDT, 18u AM, 8u PM, subQ, bid, per Endocrinology instruction Start Date: 09/03/12 Status: Ordered omeprazole 20 mg oral delayed release capsule Start: 07/28/23 5:22:00 PM EDT, 1 cap, PO, Daily, Disp# 90 cap, Refills: 0, Pharmacy: [facility] STORE [id number] Start Date: 07/28/23 Status: Ordered oxyBUTYnin 5 mg/24 hours oral tablet, extended release TAKE 1 TABLET BY MOUTH EVERY DAY IN THE MORNING Start Date: 07/13/23 Status: Ordered Pyridium 100 mg oral tablet Start: 11/07/23 11:31:00 AM EDT, 1 tab, PO, tid, Disp# 6 tab, Refills: 0, with food, PRN: as needed for urinary discomfort, [id number] Start Date: 11/07/23 Stop Date: 11/09/23 Status: Ordered Trulicity Pen Start: 11/30/23 1:41:00 PM EDT Start Date: 11/30/23 Status: Ordered Vital-D oral tablet Start: 08/09/23 2:17:00 PM EDT, 1 tab, PO, Daily Start Date: 08/09/23 Status: Ordered Problem List Condition Confirmation Course Effective Dates Status H ealth Status Informant Arthritis of carpometacarpal (CMC) joint of right thumb Confirmed Active Degenerative arthritis of knee, bilateral Confirmed Active Overactive bladder Confirmed Active Carcinoma in situ of breast 1 Confirmed Active Other chronic pain Confirmed Active GERD (gastroesophageal reflux disease) Confirmed Active S/P knee replacement Confirmed Active Hyperlipidemia Confirmed Active Current use of insulin Confirmed Active Right knee DJD Confirmed Active Osteopenia Confirmed Active RLS (restless legs syndrome) Confirmed Active T1DM (type 1 diabetes mellitus) Confirmed Active Urine incontinence Confirmed Active Vitamin D deficiency Confirmed Active 1left Procedures Procedure Date Related Diagnosis Body Site Status Mammogram of right breast 1 12/22/21 Completed Colonoscopy 2, 3 09/14/21 Complete d Plain X-ray of bilateral hands 4 07/14/21 Completed Bilateral digital screening mammogram tomosynthesis with synthetic 2d with cad 5 07/06/21 Completed Arthroplasty of left knee 08/18/20 Completed Diabetic foot examination 6 02/05/20 Completed ERCP 7 01/22/[address] angiography of chest with contrast 8 12/31/19 Completed Chest X-ray 9 12/30/19 Completed ERCP 10 12/10/19 Completed Laparoscopic cholecystectomy 12/09/19 Completed Venous doppler ultrasonograp hy left lower extremitiy 11 08/01/19 Completed X-ray of left knee 12 08/01/19 Com pleted Bone density scan 13 05/21/19 Comp leted Diagnostic mammogram 14, 15 03/13/19 Completed MRI of left shoulder 16 01/03/18 C ompleted Diabetic retinal eye exam 17 05/05/17 Completed Bone density scan 18 02/27/17 Comp leted Mammogram 19, 20, 21, 22 02/20/17 Completed Dilation and curettage 12/26/16 Co mpleted Hysteroscopy 23 12/26/16 Completed Shoulder X-ray 24 08/06/15 Complet ed Colonoscopy 25, 26 04/02/15 Comple paddy DEXA - Dual energy X-ray jay ton absorptiometry 27 02/23/15 Completed Chest x-ray 28 10/08/14 Completed Chest x-ray 29 07/12/14 Completed Partial mastectomy 12/03/13 Comple paddy Mammogram and biopsy 30 11/01/13 C ompleted Colonoscopy - repeat in 10 years 31 01/17/08 Completed Arthroscope 32 07/18/02 Completed Left shoulder SX 1999 Complete d History of knee surgery C ompleted Laparoscopic cholecystectomy 33 Completed No history of retinopathy in past year 34 Completed Repair of wrist Completed 1ACR BI-RADS CATEGORY 2: BENIGN, ULTRASOUND ACR BI-RADS CATEGORY 2: BENIGN No suspicious mammographic or sonographic abnormality in the right inferior breast in the region oftenderness pointed out by the patient. There is no mammographic or sonographic evidence of malignancy. Recommend clinical follow-up for right breast tenderness, and recommend routine bilateral screening mammograms which are next due June 2022. 2Impression: Diverticulosis in the left colon. Internal hemorrhoids along with odd looking area at anal verge. The examination was otherwise normal on direct and retroflexion views. No specimens collected. 3COLO to cecum, hemorrhoids, diverticulosis, repeat colo 5 years. 41. 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 2. Suspect an associated erosive arthritis component within the DIP joints of the hands. 3. No fracture or dislocation. 4. The bones are osteopenic. 5Impression: ACR BI RADS CATEGORY 1: negative there is no mammographic evidence of malignancy. A 1 year screening mammogram is recommended. (07/07/2022) 6No loss of protective sensation in the LEFT and RIGHT Slightly diminished peripheral pulses. Feet warm and dry. 7- Prior biliary sphincterotomy appeared open. - One partially occluded stent from the biliary tree was seen in the major papilla. - The entire main bile duct was mildly dilated. - The patient has had a cholecystectomy. - One stent was removed from the biliary tree. - The biliary tree was swept and sludge was found. - Indomethacin given to decrease risk of post-ERCP pancreatitis. 81. No pulmonary emboli identified 2. No change in left chest wall soft tissue thickening with adjacent infiltration within the left breast since chest CT of December 09, 2019. Associated healing fractures of the left fourth, fifth and sixth ribs. Posttraumatic/post treatment changes are favored. However, a neoplastic etiology could appear similar. Short-term follow-up chest CT in 3 months is recommended. 3. No consolidation to suggest pneumonia. 9Impression: No active disease in the chest. 10Impression: - The major papilla appeared to be small. - Biliary papillary stenosis. benign. - Choledocholithiasis, sludge and pus was found. Partial removal was accomplihed by biliary sphincteromy and balloon extraction. - A pancreatic septotomy was performed to gain acces to the biliary tree. - A biliary sphincteromy was performed. - One prophylactic pancreatic stent was placed into the ventral pancreatic duct. - One biliary stent was placed into the common bile duct. - Indomethacin given to decrease risk of post- ERCP pancreatitis. 111. no evidence of deep venous thrombus within the left lower extremity. 2. small left popliteal cyst, measuring 2.4 x 0.6 x 1.7 cm 121. no acute osseous injury. 2. medial compartment predominat degenerative change. lesser degenerative change in the patellofemoral compartment 13BMD measured at AP Spine L1-L4 is 1.045 g/cm T-Score -1.2 BMD measured at Femur Neck Left is 0.838 g/cm T-Score of -1.4 BMD measured at Femur Neck Right is 0.9.02 g/cm T-Score of -1.0 BMD measured at Femur Total Left is 0.836 g/cm T-Score of -1.4 BMD measured at Femur Total Right is 0.898 g/cm T-Score of -0.9 Z-Score of 0.2, this patient's BMD is considered within normal limits relative to their age. 14No malignancy, 1 year recommended. 15Stable posttreatment changes in the left breast, without mammographic evidence of malignancy in either breast. A 1 year screening mammogram is recommended, 02-24-19. 16Normal rotator cuff. Biceps tenosynovitis. Severe glenohumeral chondrosis. Postoperative changes ofdistal clavicular resection. 17No diabetic retinopathy. - [facility], Dr. Andrade 18z score 0.5 moderate fracture rsik AP spine, neck left, right neck, femur 19stable bilateral mammograms. repeat in 1 year. But, recommend remaining a diagnostic patient so theadditional spot magnification views can be performed of the left lumpectomy bed. 20Stable bilateral mammograms, benign appearing calcifications. Bilateral mammography is recoomended in 1 year and would recommend remaining a diagnostic patient so additional spot magnification views can be performed again in the left breast. 21unilateral left diagnostic. Stable postsurgical changes int eh left breast status post lumpectomy. Calicifications near the lumpectomy bed are probably benign & likely represent dystrophic calcifications from fat necrosis. recommend another short interval follow-up diagnostic mammogram of the left breast in 6 months to confrm stability. 22Unilateral left digital diagnostic 23Polyp fragments benign. 24No fractures. No change from prior study 25COLO to cecum, sigmoid diverticulosis and tortuosity, hemorhoids 26repeat colo 5 years 27Based on results. Repeat January 2017. 28No pneumothorax. no left sided rib fracture or other significant rib abnormality identified. 29No active disease in the chest 30Left breast 31repeat in 10 years 32Right knee 33Pre Operative Diagnosis: Acute Cholecystitis 34repeat in 1 year. [facility], Dr. Gerry andrade Social History Social History Type Response Tobacco 1 Smoking Status Never smoked cigaret maldonado Sex Female Sex Representation Female (finding) 1quit in 2000, a pack a day previously 20-30 years Patient Care team information Care Team Personnel Name: MD Moody Dongsheng Position: Physician - Family Med Member Role: Primary Care Provider Address: [facility] [place] [id number] [place] Care Team Related Persons Name: KANDACE REYNA
--- OUTSIDE RECORDS SUMMARY | 2023-12-29 09:35 | External Medical Summary | Continuity of Care Document ---
Author Name Unknown Organization [facility] [address] [address] [place] [address] [phone] Care Team Providers Care Clay Transporter Name Role Phone Lorne Moody Primary Care Physician [phone] [id number] Date(s): 11/30/23 - 11/30/23 [facility] [address] [phone] Encounter Diagnosis UTI (urinary tract infection)(Discharge Diagnosis) - 11/29/23 Urinary tract infection, site not specified(Final) - Discharge Disposition: Home or Self Care Attending Physician: MD Rios Christopher Allergies, Adverse Reactions, Alerts Substance Criticality Severity Reaction Reaction Severity Status ciprofloxacin Hives Active penicillins 1 Active 1Amoxicllin Assessment and Plan Extracted from: Title:UTI follow up Author:DO Reece Christina E Date:11/30/23 1.UTI (urinary tract infec tion) Ptis nolonger havingUTIsymptoms.Urine culturefrom initial visitgrewsmall amountofpseudomonas,whichmaybe colonized. UArun todayshows negativenitrites,trace leuk esterase.Urineculturewaspending Acute, uncomplicated illness/injury Goal:Resolution Data:unique tests ordered:UA unique tests reviewed:UA,Urineculture Plan: OrderedPOCUA OrderedUrine culture Pt instructed to drink fluids at home and avoid dehydration Will update pt regarding urine culture Immunizations Given and Recorded Vaccine Date Status [...] Other : Given on time 2Result Comment: [facility] pharmacy 3Result Comment: [facility] Pharmacy Medications Albuterol (Eqv-Proventil HFA) 90 mcg/inh inhalation aerosol Start: 08/16/23 11:29:00 PM EDT, 2 puff, inhaled, q6h, Disp# 6.7 each, Refills: 1, Pharmacy: [id number] Start Date: 08/16/23 Stop Date: 08/23/23 Status: Ordered aspirin 81 mg oral tablet Start: 08/02/13 9:51:00 AM EDT, 1 tab, PO, Daily Start Date: 08/02/13 Status: Ordered atorvastatin 10 mg oral tablet Start: 07/28/23 5:22:00 PM EDT, 1 tab, PO, Daily, Disp# 90 tab, Refills: 3, Pharmacy: [id number] Start Date: 07/28/23 Status: Ordered atorvastatin 10 mg oral tablet Start: 09/26/22 11:00:00 AM EDT, See Instructions, Disp# 90 tab, Refills: 3, TAKE 1 TABLET BY MOUTH EVERY DAY, Pharmacy: [id number] Start Date: 09/26/22 Status: Suspended Euflexxa 10 mg/mL intra-articular solution Start: 11/08/23 12:25:00 PM EDT, 20 mg =, intra-articular, q7days, Disp# 6 mL, Refills: 0, 3 syringes for R knee. Please ship to physician's office: Vale Dannielle Stiles. Simón. [address] [place] [address], [place] [address],Note to Pharmacy: R KNEE DJD [id number], Pharmacy: [facility] Start Date: 11/08/23 Stop Date: 11/29/23 Status: Ordered furosemide 20 mg oral tablet Start: 11/07/22 12:52:00 PM EDT, See Instructions, Disp# 90 tab, Refills: 0, TAKE 1 TABLET BY MOUTH EVERY DAY, Pharmacy: [facility] [id number] Start Date: 11/07/22 Status: Ordered gabapentin 100 mg oral capsule Start: 09/01/23 11:09:00 AM EDT, 1 cap, PO, qAM, Disp# 90 cap, Refills: 3, Pharmacy: [id number] Start Date: 09/01/23 Stop Date: 08/26/24 Status: Ordered gabapentin 300 mg oral capsule Start: 09/01/23 11:09:00 AM EDT, 1 cap, PO, qhs, Disp# 90 cap, Refills: 3, Pharmacy: [id number] Start Date: 09/01/23 Stop Date: 08/26/24 Status: Ordered NovoLIN NPH Innolet 100 units/mL subcutaneous suspension Start: 09/03/12 2:46:00 PM EDT, 18u AM, 8u PM, subQ, bid, per Endocrinology instruction Start Date: 09/03/12 Status: Ordered omeprazole 20 mg oral delayed release capsule Start: 07/28/23 5:22:00 PM EDT, 1 cap, PO, Daily, Disp# 90 cap, Refills: 0, Pharmacy: [id number] Start Date: 07/28/23 Status: Ordered oxyBUTYnin 5 mg/24 hours oral tablet, extended release TAKE 1 TABLET BY MOUTH EVERY DAY IN THE MORNING Start Date: 07/13/23 Status: Ordered Pyridium 100 mg oral tablet Start: 11/07/23 11:31:00 AM EDT, 1 tab, PO, tid, Disp# 6 tab, Refills: 0, with food, PRN: as needed for urinary discomfort, Pharmacy: [id number] Start Date: 11/07/23 Stop Date: 11/09/23 Status: Ordered Trulicity Pen Start: 11/30/23 1:41:00 PM EDT Start Date: 11/30/23 Status: Ordered Vital-D oral tablet Start: 08/09/23 2:17:00 PM EDT, 1 tab, PO, Daily Start Date: 08/09/23 Status: Ordered Mental Status 11/30/23 Barriers to Learning one year None evide nt Mandatory Health Literacy Documentation Yes Health Literacy Communication Barriers N ever Primary Language Liberian Problem List Condition Confirmation Course Effective Dates [...] Active Vitamin D deficiency Confirmed Active 1left Diagnosis Diagnosis Type Effective Dates Health Status Cl inical Service Informant UTI (urinary tract infection) Discharge Diagnosis 11/29/23 Non-Specified Procedures Procedure Date Related Diagnosis Body Site [...] 08/06/15 Complet ed Colonoscopy 25, 26 04/02/15 [facility] DEXA - Dual energy X-ray jay ton absorptiometry 27 02/23/15 Completed Chest x-ray 28 10/08/14 Completed Chest x-ray 29 07/12/14 Completed Partial mastectomy 12/03/13 [facility] paddy Mammogram and biopsy 30 11/01/13 C [...] [facility], Dr. Gerry andrade Results Laboratory List Name Date Urine Chemstick POC Outpt. (UA Chemstick POC Outpt.) 11/30/23 Most recent to oldest [Reference Range]: 1 Glucose Urine Dipstick Ref Range [negati ve] (11/30/23 2:11 PM) Bilirubin Urine Dipstick Ref Range [nega tive] (11/30/23 2:11 PM) Specific [place] Urine Ref Range [No Nor mal Defined] (11/30/23 2:11 PM) Protein Urine Dipstick Ref Range [negati ve] (11/30/23 2:11 PM) pH Urine Dipstick Ref Range [4.5 - 8.0] (11/30/23 2:11 PM) Ketones Urine Dipstick Ref Range [negati ve] (11/30/23 2:11 PM) Blood Urine Dipstick Ref Range [negative ] (11/30/23 2:11 PM) Urobilinogen Urine Dipstick Ref Range [0 .2 - 1.0 mg/dL] (11/30/23 2:11 PM) Nitrites Urine Dipstick Ref Range [negat stas] (11/30/23 2:11 PM) Leukocytes Urine Dipstick Ref Range [neg ative] (11/30/23 2:11 PM) U Leuk Est Trace (11/30/23 2:11 PM) U Nitrite Negative (11/30/23 2:11 PM) U Urobilinogen 0.2 mg/dl (11/30/23 2:11 PM) U Protein Negative (11/30/23 2:11 PM) U pH 6.5 (11/30/23 2:11 PM) U Blood Negative (11/30/23 2:11 PM) U Spec Grav 1.015 1 (11/30/23 2:11 PM) U Ketones Negative (11/30/23 2:11 PM) U Bili Negative (11/30/23 2:11 PM) U Gluc 500 mg/dl (11/30/23 2:11 PM) U Appear Slightly cloudy (11/30/23 2:11 PM) Urine color urine dipstick Yellow (11/30/23 2:11 PM) 1Result Comment: Performed at: [facility], [facility], [address], [place] [address] Orders for Microbiology Reports Name Date Urine Culture (CULTURE, URINE) 11/30/23 Microbiology Reports TEST:Urine.Cx STATUS:Auth (Verified) BODY SITE: SOURCE:Urine COLLECTED DATE/TIME:11/30/23 2:43 PM Status FINAL 12/02/2023 Vital Signs Most recent to oldest [Reference Range]: 1 Heart Rate 90 bpm (11/30/23 1:42 PM) Respiratory Rate 18 br/min (11/30/23 1:42 PM) Blood Pressure 116/64mmHg (11/30/23 1:42 PM) Cuff Pulse Pressure 52 mmHg (11/30/23 1:42 PM) Social History Social History Type Response Tobacco 1 Smoking Status Never smoked cigaret maldonado Sex Female Sex Representation Female (finding) 1quit in 2000, a pack a day previously 20-30 years FCM Outpt Note * Hortencia BAILEY MD, Edgar Palomo: MODIFY Hortencia BAILEY MD, Edgar Palomo: MODIFY Event Display: FCM Outpt Note Authored Date: [id number] Chief Complaint f/u for bladder infection. pt states everything is going well. History of Present Illness Pt is a 78 yo female who to follow up UA/culture after UTI with pseudomonas. Symptom free for more than a week. She completed her course of Bactrim 3-4 days ago. No fevers,chills, flak pain, N/V/D During med reconciliation, pt unsure of her current meds and reported she continues taking azithromycin since August 2023. Pt is taking Trulicity, not on our med list Overall confusion regarding current vs older meds Review of Systems As per HPI Physical Exam Vitals & Measurements HR:90(Monitored) RR:18 BP:116/64 SpO2:98% PHQ2 Data(Data Documented on:11/30/2023 13:41) Emotional health assessment NEGATIVE General: _Alert and oriented, No acute distress Cardiovascular: _Normal rate, Regular rhythm, No murmur, No gallop. Respiratory: _Lungs are clear to auscultation, Respirations are non-labored, Breath sounds are equal Gastrointestinal: _Soft, Non-tender, Non-distended, Normal bowel sounds. Genitourinary:No CVA tenderness Psych: Mood-affect congruence. Speech is of normal pace and content Assessment/Plan 1.UTI (urinary tract infection) Ptis nolonger havingUTIsymptoms.Urine culturefrom initial visitgrewsmall amountofpseudomonas,whichmaybe colonized. UArun todayshows negativenitrites,trace leuk tammy rase.Urineculturewaspending Acute, uncomplicated illness/injury Goal:Resolution Data:unique tests ordered:UA unique tests reviewed:UA,Urineculture Plan: OrderedPOCUA OrderedUrine culture Pt instructed to drink fluids at home and avoid dehydration Will update pt regarding urine culture Attestation Pt seen and examined in concert with Dr. Reece, agree with history and physical as documented above. Plan reviewed in detail. Any corrections or additions are noted here - _ Txfor UTI with Bactrim. Symptoms resolved after 1 week. Stopped Abx 3- 4days ago, remains well. no fevers, chills, n/v/d. No abdominal pain of CVA tenderness. No dysuria. Cx was positive for 20k colonies of pseudomonas, has a hx ofUTIs with this. 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 Repeat UA was collected per pts previously discussedplan of care, no ongoing symptoms and would additional antibiotics are not currently indicated. Discussed return precautions with patient. If she were to have recurrent severe infection would need referral for IV anti-pseudomonals; this is not currently required.Reviewed last endocrine note. Recommended for Trulicity 1.5mg weekly, Novolin 70/30 12u AM, 13u PM. Reports generally good control [id number] keepcontinued f/u with endo. Problem List/Past Medical History Ongoing Arthritis of carpometacarpal (CMC) joint of right thumb Carcinoma in situ of breast Current use of insulin Cystocele, midline| Status: Inactive Degenerative arthritis of knee, bilateral Diverticulosis| Status: Inactive GERD (gastroesophageal reflux disease) Hyperlipidemia Osteopenia Other chronic pain Overactive bladder Right knee DJD RLS (restless legs syndrome) S/P knee replacement T1DM (type 1 diabetes mellitus) Urine incontinence Vitamin D deficiency Resolved Diverticulitis Essential thrombocythemia Major depression, recurrent Pleuritic chest pain Rib pain on left side Procedure/Surgical History Mammogram of right breast| Service Date: 2Colonoscopy| Service Date: 2Plain X-ray of bilateral hands| Service Date: 2Bilateral digital screening mammogram tomosynthesis with synthetic 2d with cad| Service Date: 2Arthroplasty of left knee| Service Date: 1Diabetic foot examination| Service Date: 02/05/2020ERCP| Service Date: 01/22/2020CT angiography of chest with contrast| Service Date: 12/31/2019Chest X-ray| Service Date: 12/30/2019ERCP| Service Date: 12/10/2019Laparoscopic cholecystectomy| Service Date: 12/09/2019X-ray of left knee| Service Date: 08/01/2019Venous doppler ultrasonography left lower extremitiy| Service Date: 08/01/2019Bone density scan| Service Date: 05/21/2019Diagnostic mammogram| Service Date: 03/13/2019MRI of left shoulder| Service Date: 01/03/2018Diabetic retinal eye exam| Service Date: 05/05/2017Bone density scan| Service Date: 02/27/2017Mammogram| Service Date: 02/20/2017Hysteroscopy| Service Date: 12/26/2016Dilation and curettage| Service Date: 12/26/2016Shoulder X-ray| Service Date: 08/06/2015Colonoscopy| Service Date: 04/02/2015DEXA - Dual energy X-ray photon absorptiometry| Service Date: 02/23/2015Chest x-ray| Service Date: 10/08/2014Chest x-ray| Service Date: 07/12/2014Partial mastectomy| Service Date: 12/03/2013Mammogram and biopsy| Service Date: 11/01/2013Colonoscopy - repeat in 10 years| Service Date: 01/17/2008rthroscope| Service Date: 07/18/2002Left shoulder SX| Service Date: 1999Repair of wristHistory of knee surgeryNo history of retinopathy in past yearLaparoscopic cholecystectomy Medications albuterol(Albuterol (Eqv-Proventil HFA) 90 mcg/inh inhalation aerosol), 2 puff, inhaled, q6h aspirin(aspirin 81 mg oral tablet), 81 mg= 1 tab, PO, Daily atorvastatin(atorvastatin 10 mg oral tablet), 1 tab, PO, Daily dulaglutide(Trulicity Pen) furosemide(furosemide 20 mg oral tablet), See Instructions gabapentin(gabapentin 300 mg oral capsule), 300 mg= 1 cap, PO, qhs, 3 refills gabapentin(gabapentin 100 mg oral capsule), 1 cap, PO, qAM, 3 refills insulin isophane (NPH)(NovoLIN NPH Innolet 100 units/mL subcutaneous suspension), 18u AM, 8u PM, subQ, bid multivitamin with minerals(Vital-D oral tablet), 1 tab, PO, Daily omeprazole(omeprazole 20 mg oral delayed release capsule), 1 cap, PO, Daily oxyBUTYnin(oxyBUTYnin 5 mg/24 hours oral tablet, extended release) phenazopyridine(Pyridium 100 mg oral tablet), 100 mg= 1 tab, PO, tid, PRN sodium hyaluronate(Euflexxa 10 mg/mL intra-articular solution), 20 mg, intra- articular, q7days Allergies ciprofloxacinHives penicillins Social History Smoking Status Never smoked cigarettes Alcohol - Denies Alcohol Use Employment/School - Not employed or in school Status:Retired Description:retired from [employer] Exercise - Occasional exercise Substance Abuse - Denies Substance Abuse Tobacco - Denies Tobacco Use - Comments: quit in 2000, a pack a day previously 20-30 years Family History Cancer: Mother, Sister and Brother. Cancer of colon: Unknown. Type II diabetes mellitus: Sister and Brother. Health Status Family Member(s) Immunizations Vaccine Date Status SARS COVID Vaccine Unspecified 01/25/2023 Recorded influenza virus vaccine, inactivated 12/05/2022 Given zoster vaccine, inactivated 09/08/2022 Recorded zoster vaccine, inactivated 03/09/2022 Recorded Comments : [facility] pharmacy pneumococcal 23-valent vaccine 03/05/2022 Recorded Comments : [facility] Pharmacy influenza virus vaccine, inactivated 01/26/2022 Given SARS-CoV-2 (COVID-19) mRNA-1273 vaccine 03/31/2021 Recorded influenza virus vaccine, inactivated 01/26/2021 Given Comments : Early/Late Reason: Other : Given on time SARS-CoV-2 (COVID-19) mRNA-1273 vaccine 06/19/2020 Recorded SARS-CoV-2 (COVID-19) mRNA-1273 vaccine 05/20/2020 Recorded influenza virus vaccine, inactivated 01/20/2020 Given influenza virus vaccine, inactivated 12/17/2018 Given pneumococcal 23-valent vaccine 03/01/2018 Given influenza virus vaccine, inactivated 01/06/2017 Given influenza virus vaccine, inactivated 12/04/2015 Given tetanus/diphtheria/pertuss, acel (Tdap) 03/12/2015 Given pneumococcal 13-valent vaccine 12/12/2014 Given influenza virus vaccine, inactivated 12/12/2014 Given zoster vaccine live 10/21/2014 Recorded pneumococcal 23-valent vaccine 10/28/2009 Recorded Recommendations Health Maintenance Pending(in the next year) OverDue Medicare Annual Wellness Visit due02/14/23and every 1year Adult Influenza Vaccine due09/24/23and every 1year Due Adult Social Determinants of Health Screening due11/30/23Unknown Frequency Due In Future Diabetes Management A1c not due until12/30/23and every 366day Diabetic Eye Exam not due until08/29/24and every 366day Body Mass Index not due until11/07/24and every 366day Satisfied(in the past 1 year) Satisfied Adult Influenza Vaccine on12/05/22.Satisfied by CHRISTIAN Marrufo Paula Body Mass Index 11/07/23.Satisfied by BHAVANA Haynes Paul Diabetes Management A1c on12/29/22.Satisfied by Contributor_system, [employer] Electronic Signature on File Electronically Reviewed/Signed by: Corry Reece DO Author Signature Dt/Tm:11/30/2023 02:48 PM Resident Department of Family Medicine Electronically Reviewed/Signed by: Edgar uBrnett MD Cosigner Signature Dt/Tm: 11/30/2023 02:59 PM Department of Family Medicine [facility] Patient Care team information Care Team Personnel Name: MD Moody Dongsheng Position: Physician - Family Med Member Role: Primary Care Provider Address: [address] [place] [address] [place] Care Team Related Persons Name: KANDACE REYNA"
[2023-12-29] MEDS: CIPROFLOXACIN / D5W 400 MG/200 ML BAG IV SCH (09:36)
--- OUTSIDE RECORDS SUMMARY | 2023-12-29 09:36 | External Medical Summary | Continuity of Care Document ---
Author Name Unknown Organization [facility] [address] [place] [phone] Care Team Providers Care Supervisor Cytology Name Role Phone Lorne Moody Primary Care Physician [phone] Encounter [facility] [id number] Date(s): 11/07/23 - 11/07/23 [facility] [address] [place] [phone] Encounter Diagnosis UTI (urinary tract infection), uncomplicated(Discharge Diagnosis) - 11/06/23 Body mass index [BMI] 34.0-34.9, adult(Discharge Diagnosis) - 11/07/23 S/P total knee replacement(Discharge Diagnosis) - 11/07/23 UTI symptoms(Discharge Diagnosis) - 11/07/23 Urinary tract infection, site not specified(Final) - Discharge Disposition: Home or Self Care Attending Physician: MD Moody Dongsheng Allergies, Adverse Reactions, Alerts Substance Criticality Severity Reaction Reaction Severity Status ciprofloxacin Hives Active penicillins 1 Active 1Amoxicllin Assessment and Plan Extracted from: Title:UTI Author:DO Reece Christina E D ate:11/07/23 1.UTI (urinary tract infec tion), uncomplicated Pt presents withsymptomsand POC UA consistent with acute UTI.Pthad a UTI in July 2023 whereculture grew pseudomonas.Pt is allergic to both penicillins and ciprofloxacin reporting hives. At this time,patient was prescribed Bactrimfor broad coveragewith lowrisk of allergic reactionwhile weawaiturine culture for growth andsensitivities. Acute, uncomplicated illness/injury Goal:Resolution Data:unique tests ordered:POCUAandUrine culture _ Plan: Prescribed [id number] BID x 7 days Prescribed Pyridium 100mg TID PRN for pressure and discomfort Await urine culture Referral for COORDINATOR SKILL TRAINING PROGRAM to address bladder prolapse_ Immunizations Given and Recorded Vaccine Date Status [...] Other : Given on time 2Result Comment: [facility] pharmacy 3Result Comment: [facility] Pharmacy Medications Albuterol (Eqv-Proventil HFA) 90 mcg/inh inhalation aerosol Start: 08/16/23 11:29:00 PM EDT, 2 puff, inhaled, q6h, Disp# 6.7 each, Refills: 1, Pharmacy: [id number] Start Date: 08/16/23 Stop Date: 08/23/23 Status: Ordered aspirin 81 mg oral tablet Start: 08/02/13 9:51:00 AM EDT, 1 tab, PO, Daily Start Date: 08/02/13 Status: Ordered atorvastatin 10 mg oral tablet Start: 07/28/23 5:22:00 PM EDT, 1 tab, PO, Daily, Disp# 90 tab, Refills: 3, Pharmacy: [id number] Start Date: 07/28/23 Status: Ordered atorvastatin 10 mg oral tablet Start: 09/26/22 11:00:00 AM EDT, See Instructions, Disp# 90 tab, Refills: 3, TAKE 1 TABLET BY MOUTH EVERY DAY, Pharmacy: [id number] Start Date: 09/26/22 Status: Suspended Bactrim DS 800 mg-160 mg oral tablet Start: 11/08/23 4:55:00 PM EDT, 1 tab, PO, bid, Disp# 14 tab, Refills: 0, [facility]acy: [id number] Start Date: 11/08/23 Stop Date: 11/15/23 Status: Ordered Euflexxa 10 mg/mL intra-articular solution Start: 11/08/23 12:25:00 PM EDT, 20 mg =, intra-articular, q7days, Disp# 6 mL, Refills: 0, 3 syringes for R knee. Please ship to physician's office: [facility] Dannielle Stiles. [facility]. [address] [place] [id number],Note to Pharmacy: R KNEE DJRaleigh [id number], Pharmacy: [facility] Start Date: 11/08/23 Stop Date: 11/29/23 Status: Ordered furosemide 20 mg oral tablet Start: 11/07/22 12:52:00 PM EDT, See Instructions, Disp# 90 tab, Refills: 0, TAKE 1 TABLET BY MOUTH EVERY DAY, Pharmacy: [id number] Start Date: 11/07/22 Status: Ordered gabapentin 100 mg oral capsule Start: 09/01/23 11:09:00 AM EDT, 1 cap, PO, qAM, Disp# 90 cap, Refills: 3, [facility]acy[id number] Start Date: 09/01/23 Stop Date: 08/26/24 Status: Ordered gabapentin 300 mg oral capsule Start: 09/01/23 11:09:00 AM EDT, 1 cap, PO, qhs, Disp# 90 cap, Refills: 3, Pharmacy: [id number] Start Date: 09/01/23 Stop Date: 08/26/24 Status: Ordered NovoLIN NPH [place] 100 units/mL subcutaneous suspension Start: 09/03/12 2:46:00 PM EDT, 18u AM, 8u PM, subQ, bid, per Endocrinology instruction Start Date: 09/03/12 Status: Ordered omeprazole 20 mg oral delayed release capsule Start: 07/28/23 5:22:00 PM EDT, 1 cap, PO, Daily, Disp# 90 cap, Refills: 0, Pharmacy: [id number] Start Date: 07/28/23 Status: Ordered oxyBUTYnin 5 mg/24 hours oral tablet, extended release TAKE 1 TABLET BY MOUTH EVERY DAY IN THE MORNING Start Date: 07/13/23 Status: Ordered Pyridium 100 mg oral tablet Start: 11/07/23 11:31:00 AM EDT, 1 tab, PO, tid, Disp# 6 tab, Refills: 0, with food, PRN: as needed for urinary discomfort, Pharmacy: [id number] Start Date: 11/07/23 Stop Date: 11/09/23 Status: Ordered Vital-D oral tablet Start: 08/09/23 2:17:00 PM EDT, 1 tab, PO, Daily Start Date: 08/09/23 Status: Ordered Zithromax Z-Wale 250 mg oral tablet Start: 09/13/23 1:58:00 PM EDT, See Comments, PO, Daily, Disp# 6 tab, 500 mg (2 tabs) on day 1, [id number] mg (1 tab) on days 2-5, [facility]acy[id number] Start Date: 09/13/23 Status: Ordered Mental Status 11/07/23 Barriers to Learning one year None evide nt Mandatory Health Literacy Documentation Yes Health Literacy Communication Barriers N ever Primary Language Wolof Problem List Condition Confirmation Course Effective Dates [...] Diagnosis Diagnosis Type Effective Dates Health Status Clinical Service Informant UTI (urinary tract infection), uncomplicated Discharge Diagnosis 11/06/23 Non-Specified UTI symptoms Discharge Diagnosis 11/07/23 Non-Specified S/P total knee replacement Discharge Diagnosis 11/07/23 Non-Specified Body mass index [BMI] 34.0-34.9, adult Discharge Diagnosis 11/07/23 Non-Specified Procedures Procedure Date Related Diagnosis Body [...] Complet ed Colonoscopy 25, 26 04/02/15 Comple padyd DEXA - Dual energy X-ray jay ton [...] Chemstick POC Outpt. (UA Chemstick POC Outpt.) 11/07/23 Most recent to oldest [Reference Range]: 1 Glucose Urine Dipstick Ref Range [negati ve] (11/07/23 11:43 AM) Bilirubin Urine Dipstick Ref Range [nega tive] (11/07/23 11:43 AM) Specific [place] Urine Ref Range [No Nor mal Defined] (11/07/23 11:43 AM) Protein Urine Dipstick Ref Range [negati ve] (11/07/23 11:43 AM) pH Urine Dipstick Ref Range [4.5 - 8.0] (11/07/23 11:43 AM) Ketones Urine Dipstick Ref Range [negati ve] (11/07/23 11:43 AM) Blood Urine Dipstick Ref Range [negative ] (11/07/23 11:43 AM) Urobilinogen Urine Dipstick Ref Range [0 .2 - 1.0 mg/dL] (11/07/23 11:43 AM) Nitrites Urine Dipstick Ref Range [negat stas] (11/07/23 11:43 AM) Leukocytes Urine Dipstick Ref Range [neg ative] (11/07/23 11:43 AM) U Leuk Est Large (11/07/23 11:43 AM) U Nitrite Negative (11/07/23 11:43 AM) U Urobilinogen 0.2 mg/dl (11/07/23 11:43 AM) U Protein Negative (11/07/23 11:43 AM) U pH 6 (11/07/23 11:43 AM) U Blood Small (11/07/23 11:43 AM) U Spec Grav 1.010 1 (11/07/23 11:43 AM) U Ketones Negative (11/07/23 11:43 AM) U Bili Negative (11/07/23 11:43 AM) U Gluc 1000 mg/dl (11/07/23 11:43 AM) U Appear Cloudy (11/07/23 11:43 AM) Urine color urine dipstick Straw (11/07/23 11:43 AM) 1Result Comment: Performed at: [facility], [address], [address], [place] [address] Orders for Microbiology Reports Name Date Urine Culture (CULTURE, URINE) 11/07/23 Microbiology Reports TEST:Urine.Cx STATUS:Unauthenticated BODY SITE: SOURCE:Urine COLLECTED DATE/TIME:11/07/23 11:57 AM Culture 20 THOUSAND COLONIES/ML PSEUDOMONAS AERUGINOSA ORGANISM:Pseudomonas aeruginosa Susceptibilty: Pseudomonas aeruginosa Tested Drug Vital Signs Most recent to oldest [Reference Range]: 1 Height 157.5 cm (11/07/23 10:33 AM) Patient Weight 86.4 kg (11/07/23 10:33 AM) Body Mass Index 34.83 kg/m2 (11/07/23 10:33 AM) Temperature [36.5-37.9 DegC] 36.4 DegC *LOW* (11/07/23 10:33 AM) Heart Rate 96 bpm (11/07/23 10:33 AM) Respiratory Rate 12 br/min (11/07/23 10:33 AM) Blood Pressure 124/72mmHg (11/07/23 10:33 AM) Cuff Pulse Pressure 52 mmHg (11/07/23 10:33 AM) Social History Social History Type Response Tobacco 1 Smoking Status Never smoked cigaret maldonado Sex Female Sex Representation Female (finding) 1quit in 2000, a pack a day previously 20-30 years FCM Outpt Note * MD Moody Dongsheng: MODIFY MD Moody Dongsheng: MODIFY Event Display: FCM Outpt Note Authored Date: Chief Complaint UTI/ Urine frequency, urgance, burning and pressure 4-5 days History of Present Illness Pt is a 77 yo female with PMedHxof Breast CA, T1DM, OA, osteopenia, and diverticulitis whopresents to clinic with c/o of a bladder infection. She reports five days of pressure and pain at her lower abdomen. She endorses urinary urgency and incomplete emptying of bladder. She reports burningwith urination. as well as itching and burning with hygiene. She denies vaginal discharge. She has nottried any OTC medications. She states she has a prolapsebladder forwhich she has had pessaries in the past. Shewould like a referralto see a new women's health physician to get help with her bladder. She denies hematuria, fever, chills, nauseaor vomiting. No flank pain. She has diarrhea on occasion. Pt checksBSG 1 time per day, rotating at meals. She is taking insulin 2 times per day. ReportedBSG rangefrom 96-140's in the last 2 weeks. Review of Systems As per HPI Physical Exam Vitals & Measurements T:36.4C HR:96(Monitored) RR:12 BP:124/72 SpO2:96% HT:157.5cm WT:86.400kg(Dosing) WT:86.4kg BMI:34.83 PHQ2 Data(Data Documented on:11/07/2023 10:33) Emotional health assessment NEGATIVE General: _Alert and oriented, No acute distress Cardiovascular: _Normal rate, Regular rhythm, No murmur, No gallop. Respiratory: _Lungs are clear to auscultation, Respirations are non-labored, Breath sounds are equal Psych: Mood-affect congruence. Reports no SI/HI. Speech is of normal pace and content Gastrointestinal: _Soft, Non-tender, Non-distended, Normal bowel sounds. Genitourinary: POC UA performed- high in glucose and leukocytes. No CVA tenderness, Tender with palpation of bladder. Assessment/Plan 1.UTI (urinary tract infection), uncomplicated Pt presents withsymptomsand POC UA consistent with acute UTI.Pthad a UTI in July 2023 whereculture grew pseudomonas.Pt is allergic to both penicillins and ciprofloxacin reporting hives. Atthis time,patient was prescribed Bactrimfor broad coveragewith lowrisk of allergic reactionwhile weawaiturine culture for growth andsensitivities. Acute, uncomplicated illness/injury Goal:Resolution Data:unique tests ordered:POCUAandUrine culture _ Plan: Prescribed [id number] BID x 7 days Prescribed Pyridium 100mg TID PRN for pressure and discomfort Await urine culture Referral for COORDINATOR SK[employer] TRAINING PROGRAM to address bladder prolapse_ Attestation Preceptor Note: I saw the patient and confirmed the saab portions of the history and physical exam. Discussed with the resident physician and agree with the above impression and plan. Advised to have close f/u with us and call with any concerns. Lorne Moody MD Problem List/Past Medical History Ongoing Arthritis of [...] mg oral tablet), 1 tab, PO, Daily azithromycin(Zithromax Z-Wale 250 mg oral tablet), See Comments, PO, Daily furosemide(furosemide 20 mg oral tablet), See Instructions [...] 100 mg= 1 tab, PO, tid, PRN sulfamethoxazole-trimethoprim(Bactrim DS 800 mg-160 mg oral tablet), 1 tab, PO, bid Allergies ciprofloxacinHives penicillins Social History Smoking Status Never smoked cigarettes Alcohol - Denies Alcohol Use Employment/School - Not employed or in school Status:Retired Description:retired from [employer] Exercise - Occasional exercise Substance Abuse - [...] zoster vaccine, inactivated 03/09/2022 Recorded Comments : [facility] pharmacy pneumococcal 23-valent vaccine 03/05/2022 Recorded Comments : [facility] Pharmacy influenza virus vaccine, inactivated 01/26/2022 Given [...] Due Adult Social Determinants of Health Screening due11/07/23Unknown Frequency Due In Future Diabetes Management A1c not due until12/30/23and every 366day Diabetic Eye Exam not due until08/29/24and every 366day Satisfied(in the past 1 year) Satisfied Adult Influenza Vaccine on12/05/22.Satisfied by CHRISTIAN Marrufo Paula Body Mass Index on11/07/23.Satisfied by BHAVANA Haynes Paul Diabetes Management A1c on12/29/22.Satisfied by Contributor_system, [employer] Electronic Signature on File Electronically Reviewed/Signed by: Corry Reece DO Author Signature Dt/Tm:11/07/2023 11:56 AM Resident Department of Family Medicine Electronically Reviewed/Signed by: Lorne Moody MD Cosigner Signature Dt/Tm: 11/07/2023 11:58 AM Department of Family Medicine [facility] Patient Care team information Care Team Personnel Name: MD Moody Dongsheng Position: Physician - Family Med Member Role: Primary Care Provider Address: [address] Care Team Related Persons Name: KANDACE REYNA"
--- NOTE | 2023-12-29 10:39 | Electrocardiogram Report ---
Test Reason : Blood Pressure : */* mmHG Vent. Rate : 114 BPM Atrial Rate : 114 BPM P-R Int : 146 ms QRS Dur : 96 ms QT Int : 350 ms P-R-T Axes : 52 -61 31 degrees QTcB Int : 482 ms Sinus tachycardia with Premature atrial complexes Possible Left atrial enlargement Left axis deviation Low voltage QRS Incomplete right bundle branch block T wave abnormality, consider anterior ischemia Abnormal ECG When compared with ECG of 10-Dec-2019 06:32, Incomplete right bundle branch block is now Present Confirmed by Chente Ramos ([id number]) on 12/29/2023 10:38:39 AM Referred By: REFERRED SELF Confirmed By: Chente Ramos
[2023-12-29 16:42] LABS: Adenovirus F 40/41 PCR Not Detected (NotDetected); Astrovirus PCR Not Detected (NotDetected); Campylobacter PCR Not Detected (NotDetected); Cryptosporidium PCR Not Detected (NotDetected); Cyclospora cayetanensis PCR Not Detected (NotDetected); E.coli O157 PCR Not Detected (NotDetected); Entamoeba histolytica PCR Not Detected (NotDetected); Enteroaggregative E.coli(EAEC) Not Detected (NotDetected); Enterotoxigenic E.coli (ETEC) Not Detected (NotDetected); Giardia lamblia PCR Not Detected (NotDetected); Norovirus GI/GII PCR Not Detected (NotDetected); Plesiomonas shigelloides PCR Not Detected (NotDetected); Rotavirus A PCR Not Detected (NotDetected); Salmonella PCR Not Detected (NotDetected); Sapovirus PCR Not Detected (NotDetected); Shigella/Enteroinvasive E.coli Not Detected (NotDetected); Vibrio cholerae PCR Not Detected (NotDetected); Vibrio species PCR Not Detected (NotDetected); Yersinia enterocolitica PCR Not Detected (NotDetected)
[2023-12-29 17:00] LABS: Shiga-like Toxin E.coli (STEC) DETECTED (NotDetected)
[2023-12-29] MEDS: CHERRY SYRUP 5 ML UDP PO SCH (17:41)
[2023-12-29] MEDS ORDERED: VANCOMYCIN HCL 125 MG/2.5ML SOLN PO SCH (18:00)
--- NOTE | 2023-12-29 18:48 | Electrocardiogram Report ---
Test Reason : Blood Pressure : */* mmHG Vent. Rate : 113 BPM Atrial Rate : 113 BPM P-R Int : 142 ms QRS Dur : 90 ms QT Int : 356 ms P-R-T Axes : 42 -44 21 degrees QTcB Int : 488 ms Sinus tachycardia with Premature atrial complexes Left axis deviation Low voltage QRS Incomplete right bundle branch block T wave abnormality, consider anterior ischemia Abnormal ECG When compared with ECG of 28-Dec-2023 20:44, No significant change was found Confirmed by Chente Ramos ([id number]) on 12/29/2023 6:47:50 PM Referred By: REFERRED SELF Confirmed By: Chente Ramos
[2023-12-29] MEDS ORDERED: cefTRIAXone SODIUM 2,000 MG/50 ML BAG IV SCH (23:00)
[2023-12-30] MEDS: GABAPENTIN 100 MG CAP PO SCH (00:41)
[2023-12-30 06:45] LABS: Hematocrit (blood only) 37.7 % (37.0-47.0); Mean Corpuscular Hemoglobin 29.3 pg (25.0-34.0); Mean Corpuscular Hgb Conc 34.5 g/dL (32.0-36.0); Mean Corpuscular Volume 84.9 fL (80.0-100.0); Mean Platelet Volume 9.6 fL (9.4-12.4); Platelet Count 280 K/uL (130-400); RDW Coefficient of Variation 13.6 % (11.5-14.5); Red Blood Count 4.44 M/uL (4.20-5.40); White Blood Count 13.18 K/ul (4.8-10.8)
[2023-12-30 07:01] LABS: BUN Creatinine Ratio 17.4 (10-20); Calcium 8.4 mg/dl (8.6-10.3); Creatinine Clr Calc Pharmacy 74.4 ml/min; Potassium 3.5 mmol/L (3.5-5.1)
[2023-12-30] MEDS: LACTATED RINGER'S 1,000 ML IV SCH (08:49)
--- NOTE | 2023-12-30 14:42 | Hospitalist Progress Note ---
Date of Service December 30, 2023 Assessment & Plan (1) Rhabdomyolysis: Plan: 78yo woman with unwitnessed fall, prolonged downtime in her apartment apx 21 hours. Found to have sepsis and rhabdomyolysis - [id number]. Also with increased Cr from baseline - 1.2 from previous 0.8. within less than 24 hours of admission had acute diarrhea and was found to be positive for E. coli with Shiga toxin Treated with IV fluids and ceftriaxone the first night, changed to ciprofloxacin once urine cultures available from [facility] - E. coli and Klebsiella R to cefepime, has PCN allergy, S to cipro -CK improved from 92296 --> 3000. reduce IV fluids to LR at 100/h through tomorrow morning, caution for volume overload -AST/ALT and minimal troponin elevation related to rhabdo - all improved -HAGMA improved bicarb up to 19, hypovolemic hyponatremia resolved - atorvastatin held, was only on 10 mg -AM BMP and CK -PT and OT (2) UTI (urinary tract infection): Plan: Sepsis present on admission - persistent tachycardia and severe leukocytosis despite IV fluid resuscitation, related to UTI and infectious colitis. Was on cefdinir outpatient but UTI was resistant - continues to be tachycardic however leukocytosis much improved, blood pressure normal - continue Cipro and IV fluids (3) Infectious colitis: Plan: Acute diarrhea Stool + E. coli with shiga toxin. C. diff was negative Continue IVF, supportive care - soft formed stool today Plan Diabetes -BG in 200s, increase glargine and aspart - to 9 twice daily and tightened CF:CR -Continue Gabapentin - decreased evening dose from 300mg to 200mg HS DVT ppx - enoxaparin 40 sq qd Admission and Anticipated Discharge Date Admission Date: December 28, 2023 Subjective Dolly is definitely feeling better today, less malaise and dysuria continues to improve remains tachycardic but seems a little less so no dyspnea though she does have a little bit of dry cough Physical Exam 2 Physical Exam: PHYSICAL EXAMINATION Last 24h vital signs reviewed, see documentation in flowsheet General: comfortable appearing, no distress, sitting up in the chair HEENT: Normocephalic, atraumatic, pupils round and equal, sclerae anicteric, no conjunctival injection, dry mucus membranes Lungs: Normal respiratory effort. Clear to auscultation bilaterally. No RRW Heart: mildly tachycardicRegular rate and rhythm, no murmurs. No JVD Abdomen: Soft, nontender, nondistended. Bowel sounds present. no suprapubic tenderness Extremities: Warm, dry, well-perfused. 1-2+ lower extremity edema. Neuro: Alert and oriented x 4, face symmetric, moves 4 extremities well Psych: Normal affect and behavior Results & Data Results & Data Vital Signs (Past 12 Hours) Vital Signs Temp Pulse Resp BP Pulse Ox O2 Del Method 12/30/23 07:41 36.7 C 104 H 16 124/77 94 Room Air 12/30/23 07:25 Room Air Laboratory Results 12/30/23 06:04 12/30/23 06:04 PG Care Time/CCT Total # of Minutes Spent Total Time Spent with Patient: Total time spent is greater than 50% in coordination of care (as documented) at patient's floor/unit and/or counseling patient: Coding Level of Care Code 42857 SUB INP/OBS CARE 2/35MIN Diagnoses Rhabdomyolysis M62.82 UTI (urinary tract infection) N39.0 Infectious colitis A09
[2023-12-30] MEDS: LANTUS PER UNIT CHARGE SQ SCH (20:58)
[2023-12-31 07:33] LABS: Hematocrit (blood only) 35.8 % (37.0-47.0); Hemoglobin 12.5 g/dl (12.0-16.0); Mean Corpuscular Hemoglobin 29.1 pg (25.0-34.0); Mean Corpuscular Hgb Conc 34.9 g/dL (32.0-36.0); Mean Corpuscular Volume 83.3 fL (80.0-100.0); Mean Platelet Volume 9.3 fL (9.4-12.4); Platelet Count 296 K/uL (130-400); RDW Coefficient of Variation 13.7 % (11.5-14.5); RDW Standard Deviation 41.9 fL (36.4-46.3); White Blood Count 8.72 K/ul (4.8-10.8)
[2023-12-31 07:40] LABS: BUN Creatinine Ratio 18.2 (10-20); Calcium 8.5 mg/dl (8.6-10.3); Creatinine Clr Calc Pharmacy 77.8 ml/min; Magnesium 1.8 mg/dl (1.7-2.4); Potassium 3.3 mmol/L (3.5-5.1)
[2023-12-31] MEDS: POTASSIUM CHLORIDE CRTAB 20 MEQ TABCR PO STA (11:10)
[2023-12-31] MEDS: ADVANCED PROBIOTIC 625 MG CAPSULE PO SCH (11:13)
--- NOTE | 2023-12-31 12:54 | Hospitalist Progress Note ---
Date of Service December 31, 2023 Assessment & Plan (1) Rhabdomyolysis: Plan: 78yo woman with unwitnessed fall, prolonged downtime in her apartment apx 21 hours. Found to have sepsis and rhabdomyolysis - [id number]. Also with increased Cr from baseline - 1.2 from previous 0.8. within less than 24 hours of admission had acute diarrhea and was found to be positive for E. coli with Shiga toxin Treated with IV fluids and ceftriaxone the first night, changed to ciprofloxacin once urine cultures available from [facility] - E. coli and Klebsiella R to cefepime, has PCN allergy, S to cipro. admission urine culture here with greater than 100,000 ESBL E. coli again sensitive to fluoroquinolone -CK improved from 59940 --> 1000. stop IV fluids but continue holding Lasix -AST/ALT and minimal troponin elevation related to rhabdo - all improved -HAGMA and hypovolemic hyponatremia resolved - atorvastatin held, was only on 10 mg -AM BMP and CK -PT and OT - evaluated 12/28 was not strong enough for discharge home safely at that time, await repeat evaluation (2) UTI (urinary tract infection): Plan: Sepsis present on admission - persistent tachycardia and severe leukocytosis despite IV fluid resuscitation, related to UTI and infectious colitis. Was on cefdinir outpatient but UTI was resistant - much improved though sinus tachycardia persists. Repeat TSH and fT4 in am (3) Infectious colitis: Plan: Acute diarrhea, now resolved Stool + E. coli with shiga toxin. C. diff was negative Plan Diabetes -BG in 200s, increased glargine and aspart - to 9 twice daily and tightened CF:CR - BG better this AM -Continue Gabapentin - decreased evening dose from 300mg to 200mg HS DVT ppx - enoxaparin 40 sq qd Admission and Anticipated Discharge Date Admission Date: December 28, 2023 Subjective Dolly would like to go home soon and does feel better No dysuria abdominal pain or nausea Has been OOB to chair and bathroom consistently Physical Exam 2 Physical Exam: PHYSICAL EXAMINATION Last 24h vital signs reviewed, see documentation in flowsheet General: sitting in the chair per her habit HEENT: Normocephalic, atraumatic, pupils round and equal, sclerae anicteric, no conjunctival injection, dry mucus membranes Lungs: Normal respiratory effort. bibasilar crackles no wheezing Heart: regular mildly tachycardic no murmurs Abdomen: Soft, nontender, nondistended. Bowel sounds present. no suprapubic tenderness Extremities: Warm, dry, well-perfused. 2+ lower extremity edema. Neuro: Alert and oriented x 4, face symmetric, moves 4 extremities well Psych: Normal affect and behavior Results & Data Results & Data Vital Signs (Past 12 Hours) Vital Signs Temp Pulse Resp BP Pulse Ox O2 Del Method 12/31/23 07:20 37.2 C 108 H 20 122/71 95 Room Air Laboratory Results 12/31/23 06:48 12/31/23 06:48 PG Care Time/CCT Total # of Minutes Spent Total Time Spent with Patient: Total time spent is greater than 50% in coordination of care (as documented) at patient's floor/unit and/or counseling patient: Coding Level of Care Code 36425 SUB INP/OBS CARE 2/35MIN Diagnoses Rhabdomyolysis M62.82 UTI (urinary tract infection) N39.0 Infectious colitis A09
[2023-12-31 21:53] VITALS: RESP 16
[2024-01-01 07:17] VITALS: BP 112/69; PULSE 86; TEMP 98.6; O2SAT 94
[2024-01-01 09:09] LABS: BUN Creatinine Ratio 16.9 (10-20); Calcium 8.6 mg/dl (8.6-10.3); Magnesium 1.9 mg/dl (1.7-2.4); Potassium 3.6 mmol/L (3.5-5.1)
[2024-01-01 09:24] LABS: Thyroid Stimulating Hormone 3.207 uIu/ml (0.300-4.500)
[2024-01-01 09:27] LABS: T4 Free Thyroxine 1.18 ng/dl (0.61-1.60)
--- NOTE | 2024-01-01 18:14 | Discharge Summary ---
Discharge Summary Date of Service January 01, 2024 Principal Dx & Hospital Course #1 = Principal Diagnosis (1) Rhabdomyolysis: 78yo woman with unwitnessed fall, prolonged downtime in her apartment apx 21 hours. Found to have sepsis and rhabdomyolysis - [id number]. Also with increased Cr from baseline - 1.2 from previous 0.8. within less than 24 hours of admission had acute diarrhea and was found to be positive for E. coli with Shiga toxin Treated with IV fluids and ceftriaxone the first night, changed to ciprofloxacin once urine cultures available from [facility] - E. coli and Klebsiella R to cefepime, has PCN allergy, S to cipro. admission urine culture here with greater than 100,000 ESBL E. coli again sensitive to fluoroquinolone [place] [id number] --> 750 with IV fluids -AST/ALT and minimal troponin elevation related to rhabdo - all improved -HAGMA and hypovolemic hyponatremia resolved - atorvastatin held, was only on 10 mg. instructed to hold until follow-up with primary care. seems unlikely that this episode of rhabdomyolysis was triggered by statin, more likely all caused by prolonged downtime - renal function remained stable at baseline able to discharge home with home health PT and OT (2) UTI (urinary tract infection): Sepsis present on admission - persistent tachycardia and severe leukocytosis despite IV fluid resuscitation, related to UTI and infectious colitis. Was on cefdinir outpatient but UTI was resistant - sepsis resolved sinus tachycardia was a little prolonged, TSH and fT4 were normal, tachycardia had resolved by day of discharge - will complete a course of oral Cipro (3) Infectious colitis: Acute diarrhea developed day after admission, now resolved Stool + E. coli with shiga toxin. C. diff was negative Plan Diabetes with peripheral neuropathy - resume home medications -Continue Gabapentin - decreased evening dose from 300mg to 200mg HS I updated her family at bedside day of discharge Notes For Next Care Provider consider resumption of simvastatin on follow-up if no further symptoms, CK remains normal with monitoring Medication Changes From Visit simvastatin held oral Cipro prescribed for UTI instructed that she can double her Lasix for a few days if lower extremity edema not resolving Admission HPI Per Admitting Provider Krista Perez is a 78yo female with history of DM, HLP, GERD and RLS presenting after an unwitnessed fall at home with prolonged down time - rhabdomyolysis. Patient has reportedly been quite weak, difficulty with ambulating due to pain in the knees and back. She was recently diagnosed with a UTI and started on Cefdinir. She also recently had a gel shot in her right knee. Yesterday she slid out of bed onto the floor around 22:00. She was unable to get up and laid on the floor until 19:30 today. She reports ongoing diffuse weakness, otherwise denies fever, chills, chest pain, palpitations, abdominal pain, nausea, vomiting, diarrhea. No LOC or head trauma. Upon arrival patient found to be tachycardic, otherwise HD stable ER Course: NSS x 1L Ceftriaxone x 2gm Discharge Exam PHYSICAL EXAMINATION Last 24h vital signs reviewed, see documentation in flowsheet General: sitting in the chair per her habit exam unchanged 12/31 except that no longer tachycardic HEENT: Normocephalic, atraumatic, pupils round and equal, sclerae anicteric, no conjunctival injection, dry mucus membranes Lungs: Normal respiratory effort. clear to auscultation bilaterally Heart: regular no murmurs Abdomen: Soft, nontender, nondistended. Bowel sounds present. no suprapubic tenderness Extremities: Warm, dry, well-perfused. 2-3+ lower extremity edema. Neuro: Alert and oriented x 4, face symmetric, moves 4 extremities well Psych: Normal affect and behavior Discharge Plan Discharge Items Patient Disposition: Home - Home Health Services Reason For Visit: FALL, RHABDOMYOLYSIS Discharge Diagnosis: ESBL E. coli UTI, rhabdomyolysis Condition on Discharge: Fair Activity: Resume your previous activity Weightbearing: Full weightbearing Non-emergency contact: Primary Care Provider Call non-emergency contact if: you have any medication questions, your symptoms worsen and you have a fever Follow-up/Referrals: Lorne Moody [Primary Care Provider] - 01/04/24 1:00 pm (Please arrive 15 min s. early for appointment) Diet: Carb Consistent or DM2 Addtl Attending Provider Instructions: Take ciprofloxacin until it runs out for UTI Its a good idea to take a probiotic for 2 to 4 weeks Hold statin until you follow up with your doctor and discuss whether to resume it Decrease the nighttime dose of gabapentin to 200 mg. This will reduce your risk of falls and confusion. The leg swelling should improve with elevation and resuming your furosemide(lasix). If its not getting better you can increase your furosemide to 2 tabs every morning for 3-5 days to speed it along Home health PT and OT Pending Studies at Discharge: No Stand-Alone Forms: [facility], Smoking Cessation Medications and DC Order Prescriptions: New gabapentin 100 mg Capsule 200 mg PO HS Qty: 30 0RF ciprofloxacin HCl 500 mg tablet 500 mg PO BID Qty: 9 0RF Continued (DME) lancets [BD Microtainer Lancet] 21 gauge misc See Rx Instructions .Route Qty: 200 11RF Rx Instructions: As directed use four times per day (DME) OneTouch Verio test strips Strip See Rx Instructions .ROUTE .MEDSUPPLY Qty: 200 3RF Rx Instructions: Twice Daily and as needed (DME) insulin syringe-needle U-100 [BD Insulin Syringe Ultra-Fine] 0.3 mL 31 gauge x 5/16" syringe See Rx Instructions .ROUTE .MEDSUPPLY Qty: 200 3RF Rx Instructions: Inject insulin two times daily Trulicity 1.5 mg/0.5 mL pen injector 1.5 mg subcut Q7D Qty: 2 12RF Rx Instructions: monday Humulin 70/30 U-100 Insulin 100 unit/mL (70-30) suspension See Rx Instructions .ROUTE .COMPLEX Qty: 30 3RF Rx Instructions: Inject 11 units with Breakfast and inject 12 units with Dinner gabapentin 100 mg capsule 100 mg PO QAM Premarin 0.625 mg/gram cream 1 applic topical UD Rx Instructions: PT NOT SURE OF MED furosemide 20 mg tablet 20 mg PO QAM oxybutynin chloride 5 mg tablet extended release 24hr 5 mg PO QAM (DME) blood-glucose meter [OneTouch Verio Reflect Meter] Misc See Rx Instructions .Route Rx Instructions: Check blood glucose twice daily and as needed aspirin [Adult Low Dose Aspirin] 81 mg tablet,delayed release (DR/EC) 81 mg PO QAM multivitamin Tablet 1 tab PO QAM cholecalciferol (vitamin D3) 25 mcg (1,000 unit) Tablet 25 mcg PO QAM omeprazole 20 mg capsule,delayed release(DR/EC) 20 mg PO QAM Held atorvastatin 10 mg tablet 10 mg PO HS Hold Instructions: Resume on 01/15/24. discuss with primary care provider whether to restart this Discontinued nitrofurantoin monohyd/m-cryst 100 mg capsule 100 mg PO BID Rx Instructions: ORDERED 12/28/23 TAKE FOR 10 DAYS gabapentin 300 mg capsule 300 mg PO HS Discharge Orders: Discharge Order (Routine); Ordered 01/01/24 Ordered By: Eleonora Yusuf Admission Data Admit Date/Time: 12/28/23 23:41 Attending Provider: Eleonora Yusuf Admit Provider: Marti Moreno Primary Care Provider: Lorne Moody Other Providers: Marti Moreno; [facility] Other Interventions: Discharge Summary Assessment (RN) Last Done: 01/01/24 11:33 Hospital Stay Data Consultations 12/28/23 23:36 ED Decision to Admit Stat Diagnostic Imagining Performed 12/28/23 21:30 CT head/brain wo con Stat Pending Results Patient Have Any Pending Studies at Discharge: No Discharge Instructions Given to Patient (Per Discharging Provider) Take ciprofloxacin until it runs out for UTI Its a good idea to take a probiotic for 2 to 4 weeks Hold statin until you follow up with your doctor and discuss whether to resume it Decrease the nighttime dose of gabapentin to 200 mg. This will reduce your risk of falls and confusion. The leg swelling should improve with elevation and resuming your furosemide(lasix). If its not getting better you can increase your furosemide to 2 tabs every morning for 3-5 days to speed it along Home health PT and OT Total Time Total Time Spent Total Time Spent (In Minutes): I personally spent: 40-minute today on clinical care activities including: reviewing chart notes and vital signs reviewing labs discussion with rn primary care examining and counseling the patient counseling the patient's family writing orders writing prescriptions, discharge instructions documentation Coding Level of Care Code 09696 INP/OBS DISCH >30 MIN Diagnoses Rhabdomyolysis M62.82 UTI (urinary tract infection) N39.0 Infectious colitis A09
== END 2024-01-01 13:25 | disposition home health service (06) | DRG 872 ==
LOC: ED 20:32 → EDINP 23:41 → SUATTDRO 23:41 → 3W 12-29 21:43

== ENCOUNTER 2024-06-12 22:13 | Inpatient (IN) ==
[2024-06-12 22:47] LABS: Appearance Urine Turbid (Clear); Bilirubin Urine Negative (Negative); Blood Urine 2+ (Negative); Color Urine Dark Yellow; Epithelial Cell Urine Auto 0-2 /hpf (0-2); Glucose Urine UA Trace (Negative); Ketones Urine Negative (Negative); Leukocyte Esterase Urine 3+ (Negative); Nitrite Urine Positive (Negative); Protein Urine 2+ (Negative); RBC Urine Automated 0-2 /hpf (0-2); Specific Gravity Urine 1.006 (1.000-1.030); Urobilinogen Urine Negative (Negative); WBC Urine Automated >50 /hpf (0-5); pH Urine 7.5 (4.5-7.5)
[2024-06-12 22:57] LABS: Bacteria Urine Automated 1+ (None Seen)
[2024-06-13 00:22] LABS: Basophils # (auto) 0.13 K/uL (0.00-0.20); Basophils % (auto) 0.6 %; Eosinophils % (auto) 1.4 %; Hematocrit (blood only) 45.5 % (37.0-47.0); Hemoglobin 14.9 g/dl (12.0-16.0); Immature Granulocytes # (auto) 0.09 K/uL (0.01-0.20); Immature Granulocytes % (auto) 0.4 %; Lymphocytes # (auto) 2.66 K/uL (1.20-3.40); Lymphocytes % (auto) 12.5 %; Mean Corpuscular Hemoglobin 28.9 pg (25.0-34.0); Mean Corpuscular Hgb Conc 32.7 g/dL (32.0-36.0); Mean Corpuscular Volume 88.3 fL (80.0-100.0); Monocytes # (auto) 1.35 K/uL (0.11-0.59); Monocytes % (auto) 6.3 %; Neutrophils # (auto) 16.79 K/uL (1.40-6.50); Neutrophils % (auto) 78.8 %; Platelet Count 403 K/uL (130-400); RDW Coefficient of Variation 13.8 % (11.5-14.5); RDW Standard Deviation 44.4 fL (36.4-46.3); Red Blood Count 5.15 M/uL (4.20-5.40); White Blood Count 21.32 K/ul (4.8-10.8)
[2024-06-13 00:38] LABS: Albumin Globulin Ratio 1.1 (0.9-2); Albumin Level 4.1 gm/dl (3.4-5.0); BUN Creatinine Ratio 19.3 (10-20); Bilirubin,Total 0.5 mg/dl (0.2-1.0); Calcium 9.6 mg/dl (8.6-10.3); Creatinine Clr Calc Pharmacy 55.7 ml/min; Globulin 3.6 gm/dl (2.5-4.0); Total Protein 7.7 gm/dl (6.0-8.3)
[2024-06-13] MEDS: PIPERACILLIN/TAZOBACTAM 4.5 GM/100 ML BAG IV ONE (00:52)
[2024-06-13] MEDS: SODIUM CHLORIDE 0.9% 1,000 ML IV ONE ×3 (00:55→03:41)
[2024-06-13] MEDS: OPTIRAY 320 100ml IV ONE (01:59)
--- NOTE | 2024-06-13 02:02 | Emergency Department Note ---
Impression & Plan Dysuria, Acute UTI (urinary tract infection), Abdominal pain, lower, Pyelonephritis ED Provider Note ED Provider Note NAME: YIN REYNA AGE:78 SEX: Female : 1945 ARRIVES VIA: EMS INFORMANT: Patient ED PROVIDER(s): Emily Paige DO CHIEF COMPLAINT: Difficulty urinating HPI: This is a 78-year-old female who presents emergency room due to concern for difficulty urinating. Patient states symptoms began this evening around 8 PM when she realized she felt the urge to urinate however could only go a small amount. She states on arrival here she urinated a small amount again and has been incontinent of urine since. Patient states she has lower abdominal pain and pressure but denies any accompanying back pain, nausea or vomiting, fevers or chills. Patient states she has had similar episodes recently and has had multiple urinary tract infections. She states she has not been referred to urology. She states she was previously told that her bladder was dropped and they did attempt to place a pessary however that would not remain in place and she developed yeast infections and so this was subsequently removed. PAST MEDICAL HISTORY:See Below PAST SURGICAL HISTORY:See Below FAMILY HISTORY:See Below SOCIAL HISTORY:See Below HOME MEDICATIONS:See Below ALLERGIES:See Below VITALS:See Below PHYSICAL EXAMINATION: GENERAL: alert, well appearing, well nourished, no distress, non-toxic EYE EXAM: normal conjunctiva, PERRL and EOM's grossly intact OROPHARYNX: no exudate, no erythema, lips, buccal mucosa, and tongue normal and mucous membranes are moist NECK: supple, no nuchal rigidity, no adenopathy, non-tender LUNGS: Clear to auscultation. Normal chest wall mechanics, no w/r/r HEART: no murmurs, S1 normal and S2 normal ABDOMEN: abdomen soft, mild lower abdominal tenderness with palpation, normo- active bowel sounds, no masses, no rebound or guarding. BACK: Back is symmetrical on inspection and there is no deformity, no CVA tenderness SKIN: no rashes, petechiae, orbruising UPPER EXTREMITIES: upper extremities are grossly normal. FROM, nml pulses b/l. LOWER EXTREMITIES: No pitting edema. FROM, nml pulses b/l. NEURO EXAM: Normal sensorium, cranial nerves II-XII grossly intact, normal speech, no facial droop,nogross weakness of arms, no gross weakness of legs. Gross sensation intact. No ataxia. Vital Signs: reviewed and remarkable Differential Diagnosis: UTI, Urethritis, Pyelonephritis,Hyperglycemia, Yeast, Hemorrhagic Cystitis, ELDA, amongst other pathologies entertained. MEDICAL DECISION MAKING: This is a 78-year-old female who presents emergency room due to concern for dysuria, lower abdominal pain, and recurrent urinary tract infection. Patient was afebrile, tachycardic, but hemodynamically stable on arrival. Labs drawn and sent, IV established, EKG performed at bedside and interpreted by me and patient monitored on telemetry. Patient was able to provide a urine specimen here and a postvoid residual was not significantly elevated. No evidence of acute urinary retention. After discussion with the patient at bedside due to concern for history of recurrent UTIs recently and diabetic status, we have discussed further evaluation. Patient sent for CT of the abdomen and pelvis additionally. She was given IV fluids and after review of prior urine culture started on IV Zosyn while awaiting further labs. Blood cultures, lactic acid, procalcitonin added after patient found to have significant leukocytosis of 21. Patient did report feeling improved here. IV Tylenol added for pain. CT as read by outside radiology concerning for evolving pyelonephritis. In light of age, recent UTIs, diabetic status, and persistent tachycardia here, case discussed with the hospitalist team for additional evaluation and management. Patient did receive 30 mL/KG based on actual body weight as a precaution due to concern for risk of evolving sepsis. Patient's lactic acid and procalcitonin reassuring. No evidence of ELDA. Consultation(s): 0352: Discussed with Dr. Moreno, [facility] hospitalist team, for additional evaluation and management. ER Treatment Provided: See below Diagnostics Interpreted By Me: -ECG: Sinus tachycardia at 117, leftward axis, normal intervals, nonspecific ST/T wave changes -Cardiac Monitoring: An order was placed for continuous cardiac monitoring. The monitor shows a rate of 98 with normal sinus rhythm. -Laboratory studies: As stated above and show below. -Imaging studies: ct a/p -no ureterolithiasis, no SBO Triage Nursing Note Reviewed Prior/Outside Records Reviewed -prior urine cultures reviewed that grew E. 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 no chest pain. 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 Surgical History History of arthroscopy RT KNEE Hx of lumpectomy Left History of dilatation and curettage History of esophagogastroduodenoscopy (EGD) History of colonoscopy Hx laparoscopic cholecystectomy Status post shoulder surgery (2002) Left shoulder r/t frozen shoulder Family History Father Diabetes Brother Diabetes Aunt Breast cancer maternal aunt Other No family history of adverse response to anesthesia Denies family history of Ovarian cancer Prostate cancer Colorectal cancer Social History Smoking Status: Never smoker Tobacco Type: Cigarettes Second Hand Exposure: Yes (Son smokes); Do You Dip or Chew Tobacco: No; Hx Alcohol Use: No Hx Substance Use: No Preferred Language: Niuean Communication Ability: Effective Visual Impairment: Limited Hoist Operator Required: No Beliefs That Will Affect Care: None marital status: Single Current Living Situation: Alone Current Living Situation Comment: sister Feels Safe at Home: Yes caffeine: No Physical Activity Frequency: Does not Exercise Seatbelt Use: always Sunscreen Use: Yes Assistive Devices: Crutches, Denture - Upper, Denture - Lower, Glasses and Walker Assistive Devices Comment: uses walker at home Allergies Allergies Allergy/AdvReac Type Severity Reaction Status Date / Time No Known Drug Allergies Allergy Verified 05/26/24 12:24 Home Meds Home Medications Medication Instructions Recorded Confirmed atorvastatin 10 mg tablet 10 mg PO 12/09/19 05/26/24 cholecalciferol (vitamin D3) 25 25 mcg PO QAM 12/09/19 05/17/24 mcg (1,000 unit) tablet multivitamin 1 tab PO QAM 12/09/19 05/26/24 omeprazole 20 mg capsule,delayed 20 mg PO QAM 12/09/19 05/26/24 release blood-glucose meter (OneTouch 01/20/21 05/17/24 Verio Reflect Meter) aspirin 81 mg tablet,delayed 81 mg PO QAM 05/24/21 05/26/24 release (Adult Low Dose Aspirin) conjugated estrogens 0.625 mg/gram 1 applic topical UD 10/22/21 05/26/24 vaginal cream (Premarin) furosemide 20 mg tablet 20 mg PO [facility] 10/22/21 05/26/24 gabapentin 100 mg capsule 100 mg PO [facility] 10/22/21 05/26/24 oxybutynin chloride 5 mg 5 mg PO [facility] 05/12/22 05/26/24 tablet,extended release 24 hr clotrimazole-betamethasone 1 topical 03/21/24 04/17/24 %-0.05 % lotion phenazopyridine [Azo Urinary Pain PO 03/21/24 05/26/24 Relief] gabapentin 300 mg capsule 300 mg PO 05/17/24 05/26/24 Previous Rx's Medication Instructions Recorded lancets 21 gauge (BD Microtainer #200 ea 10/11/22 Lancet) insulin syringe-needle U-100 0.3 #200 ea 12/04/23 mL 31 gauge x 5/16" (BD Insulin Syringe Ultra-Fine) dulaglutide 1.5 mg/0.5 mL 1.5 mg (0.5 mL) subcut Q7D #2 mL 12/07/23 subcutaneous pen injector (Trulicity) insulin human U-100 NPH-regulr See Rx Instructions .Route 12/14/23 70-30 mix 100 unit/mL subcutaneous .COMPLEX #30 mL susp (Humulin 70/30 U-100 Insulin) blood sugar diagnostic (OneTouch #200 ea 05/07/24 Verio test strips) Results & Data (ED) Vital Signs Vital Signs - 24 hr 06/12/24 22:15 06/12/24 23:00 06/13/24 00:13 Temperature 36.7 C Temperature Source Oral Pulse Rate 111 H 124 H Pulse Rate [Finger] 108 H Pulse Rate from SpO2 Sensor Pulse Rhythm [Finger] Regular Respiratory Rate 20 18 Respiratory Effort / Characteristics Non-Labored Spontaneous Non-Labored Spontaneous Respiratory Depth Normal Normal Respiratory Pattern Regular Regular Blood Pressure 163/89 H Blood Pressure [Right Arm] 152/72 H Blood Pressure Mean 113 Blood Pressure Mean [Right Arm] 98 Pulse Oximetry 94 97 Oxygen Delivery Method Room Air Nasal Cannula Room Air Sepsis Recent Fever Within 48 Hours No Sepsis New/Unexplained Change in Mental Status No Sepsis Action Taken by Nursing No Action Required 06/13/24 00:30 06/13/24 01:00 06/13/24 01:00 Temperature Temperature Source Pulse Rate 120 H 110 H Pulse Rate [Finger] 120 H Pulse Rate from SpO2 Sensor Pulse Rhythm [Finger] Respiratory Rate 19 20 19 Respiratory Effort / Characteristics Non-Labored Spontaneous Respiratory Depth Normal Respiratory Pattern Regular Blood Pressure 107/56 L 132/60 Blood Pressure [Right Arm] 132/60 Blood Pressure Mean 81 85 Blood Pressure Mean [Right Arm] 84 Pulse Oximetry 95 95 94 Oxygen Delivery Method Room Air Room Air Room Air Sepsis Recent Fever Within 48 Hours Sepsis New/Unexplained Change in Mental Status Sepsis Action Taken by Nursing 06/13/24 01:30 06/13/24 01:30 06/13/24 02:00 Temperature Temperature Source Pulse Rate 118 H 113 H Pulse Rate [Finger] 109 H Pulse Rate from SpO2 Sensor 114 H Pulse Rhythm [Finger] Regular Respiratory Rate 20 24 19 Respiratory Effort / Characteristics Non-Labored Spontaneous Respiratory Depth Normal Respiratory Pattern Regular Blood Pressure 123/90 123/90 Blood Pressure [Right Arm] 129/69 Blood Pressure Mean 100 101 Blood Pressure Mean [Right Arm] 89 Pulse Oximetry 92 93 95 Oxygen Delivery Method Room Air Room Air Room Air Sepsis Recent Fever Within 48 Hours Sepsis New/Unexplained Change in Mental Status Sepsis Action Taken by Nursing 06/13/24 02:00 06/13/24 02:30 Temperature Temperature Source Pulse Rate 115 H 109 H Pulse Rate [Finger] Pulse Rate from SpO2 Sensor Pulse Rhythm [Finger] Respiratory Rate 21 18 Respiratory Effort / Characteristics Respiratory Depth Respiratory Pattern Blood Pressure 129/69 128/71 Blood Pressure [Right Arm] Blood Pressure Mean 107 78 Blood Pressure Mean [Right Arm] Pulse Oximetry 94 94 Oxygen Delivery Method Room Air Room Air Sepsis Recent Fever Within 48 Hours Sepsis New/Unexplained Change in Mental Status Sepsis Action Taken by Nursing Laboratory Data 06/12/24 23:59 06/12/24 23:59 Lab Results 06/12/24 06/12/24 06/13/24 Range/Units 22:24 23:59 00:49 WBC 21.32 H (4.8-10.8) K/ul RBC 5.15 (4.20-5.40) M/uL Hgb 14.9 (12.0-16.0) g/dl Hct 45.5 (37.0-47.0) % MCV 88.3 (80.0-100.0) fL MCH 28.9 (25.0-34.0) pg MCHC 32.7 (32.0-36.0) g/dL RDW Std Deviation 44.4 (36.4-46.3) fL RDW Coeff of Kwasi 13.8 (11.5-14.5) % Plt Count 403 H (130-400) K/uL MPV 9.0 L (9.4-12.4) fL Immature Gran % (Auto) 0.4 % Neut % (Auto) 78.8 % Lymph % (Auto) 12.5 % [place] % (Auto) 6.3 % Eos % (Auto) 1.4 % Baso % (Auto) 0.6 % Neut # (Auto) 16.79 H (1.40-6.50) K/uL Lymph # (Auto) 2.66 (1.20-3.40) K/uL Brewster # (Auto) 1.35 H (0.11-0.59) K/uL Eos # (Auto) 0.30 (0.00-0.50) K/uL Baso # (Auto) 0.13 (0.00-0.20) K/uL Immature Gran # (Auto) 0.09 (0.01-0.20) K/uL Sodium 139 (136-145) mmol/L Potassium 4.0 (3.5-5.1) mmol/L Chloride 100 (98-107) mmol/L Carbon Dioxide 33 H (21-32) mmol/L Anion Gap 6 (3-11) BUN 16 (6-23) mg/dl Creatinine 0.83 (0.6-1.2) mg/dl Est Cr Clr Drug Dosing 55.7 ml/min eGFR 72.56 BUN/Creatinine Ratio 19.3 (10-20) Glucose 169 H (70-99(Fasting)) mg/dl Lactate 1.5 (0.4-2.0) mmol/L Calcium 9.6 (8.6-10.3) mg/dl Total Bilirubin 0.5 (0.2-1.0) mg/dl AST 17 (13-39) U/L ALT 15 (7-52) U/L Alkaline Phosphatase 54 (34-104) U/L Total Protein 7.7 (6.0-8.3) gm/dl Albumin 4.1 (3.4-5.0) gm/dl Globulin 3.6 (2.5-4.0) gm/dl Albumin/Globulin Ratio 1.1 (0.9-2) Procalcitonin < 0.02 (0-0.5) ng/ml Urine Color Dark Yellow Urine Appearance Turbid A (Clear) Urine pH 7.5 (4.5-7.5) Ur Specific [place] 1.006 (1.000-1.030) Urine Protein 2+ H (Negative) Urine Glucose (UA) Trace H (Negative) Urine Ketones Negative (Negative) Urine Blood 2+ H (Negative) Urine Nitrite Positive A (Negative) Urine Bilirubin Negative (Negative) Urine Urobilinogen Negative (Negative) Ur Leukocyte Esterase 3+ H (Negative) Urine WBC (Auto) >50 H (0-5) /hpf Urine RBC (Auto) 0-2 (0-2) /hpf U Hyaline Cast (Auto) 3-5 H (0-2) /lpf U Epithel Cells (Auto) 0-2 (0-2) /hpf Urine Bacteria (Auto) 1+ H (None Seen) Administered Medications Discontinued Medications Piperacillin Sod/Tazobactam Sod (Zosyn) 4.5 gm in 100 mls @ 200 mls/hr IV NOW ONE; Protocol Stop: 06/12/24 23:54 Last Infusion: 06/13/24 01:25 Dose: Infused Documented By: Admin: 06/13/24 00:52 Dose: 200 mls/hr Documented By: MANNY Sodium Chloride (Nss) 1,000 mls @ 999 mls/hr IV .Q1H1M ONE Stop: 06/13/24 01:35 Last Infusion: 06/13/24 02:28 Dose: Infused Documented By: Admin: 06/13/24 00:55 Dose: 999 mls/hr Documented By: MANNY Sodium Chloride (Nss) 1,000 mls @ 999 mls/hr IV .Q1H1M ONE Stop: 06/13/24 02:44 Last Infusion: 06/13/24 03:25 Dose: Infused Documented By: Admin: 06/13/24 02:21 Dose: 999 mls/hr Documented By: MANNY Sodium Chloride (Nss) 1,000 mls @ 999 mls/hr IV .Q1H1M ONE Stop: 06/13/24 04:31 Last Infusion: 06/13/24 04:54 Dose: Infused Documented By: Admin: 06/13/24 03:41 Dose: 999 mls/hr Documented By: AN Acetaminophen (Ofirmev) 1,000 mg in 100 mls @ 400 mls/hr IV NOW STA Stop: 06/13/24 03:45 Last Infusion: 06/13/24 04:05 Dose: Infused Documented By: Admin: 06/13/24 03:41 Dose: 400 mls/hr Documented By: AN Ioversol (Optiray 320 100ml) 100 ml IV ONCE ONE Stop: 06/13/24 02:00 Last Admin: 06/13/24 01:59 Dose: 93 ml Documented By: HARRISON Imaging Data Radiologist's Impression: Abdomen/Pelvis CT 06/12/24 23:24 EXAM: CT abd pelvis IV con only CLINICAL HISTORY: UTI, abd pain, r/o pyelo TECHNIQUE: Multiple contiguous axial images were obtained from the level of diaphragm to the pubis symphysis. This study was acquired after the IV administration of iodinated contrast material, given the patient's indications for the examination. If IV contrast material had not been administered, the likelihood of detecting abnormalities relevant to the patient's condition would have been substantially decreased. Coronal and sagittal reformatted images were generated and reviewed to improve anatomic localization and optimize lesion detection. CT scan was performed according to ALARA (as low as reasonably achievable). COMPARISON: Compared with previous CT abdomen dated 04/07/2021. Only images available for comparison. FINDINGS: Mild interstitial septal thickening with subpleural fibrosis and traction bronchiectasis seen in visualized bilateral lung bases. Diffuse circumferential heterogeneously enhancing irregular wall thickening of urinary bladder noted, maximum wall thickness of 10 mm; suggestive of changes of cystitis. Marked perivesical fat stranding noted. Ill-defined hypoenhancing hypodense areas seen involving cortex of right kidney; possible changes of pyelonephritis. Mild perinephric fat stranding seen on right side. No obvious evidence of well defined peripherally enhancing thick walled collection in present scan. A simple Bosniak class I cortical cyst measuring 11 x 10 mm seen arising from upper pole of left kidney. The kidneys are normal in size. There is no hydronephrosis on either side. No renal calculi are identified. The ureters are normal in caliber and no ureteral calculi are seen. The liver is normal in size and attenuation. No focal liver lesions are seen. There is no intra or extrahepatic biliary ductal dilatation. Hepatic vasculature is patent. Post-cholecystectomy status. Surgical clips seen in gallbladder fossa region. The spleen, pancreas, and adrenal glands are unremarkable. Multiple air and content filled outpouchings seen arising from wall of sigmoid colon, descending colon and caecum; suggestive multiple colonic diverticulosis. No evident signs of diverticulitis. No evidence of focal or diffuse bowel wall thickening or evidence of bowel obstruction is seen. The appendix is visualized in the right lower quadrant and appears within normal limits. Pelvic organs appears unremarkable. No adnexal mass lesion on either side. No adenopathy or fluid collections are seen. The aorta is normal in caliber. Calcified atheromatous changes noted in aorta. Spondylotic changes noted in lumbar spine in form of peridiscal osteophytes formation and facetal joint arthropathy at multiple lumbar levels. Reduced intervertebral disc space at L5-S1 level. Mild anterior offset of L4 over L5 vertebrae, possibly due to facetal joint instability. No evidence of spondylolysis. Changes of osteitis pubis noted. IMPRESSION: 1. Diffuse circumferential heterogeneous enhancing wall thickening of urinary bladder with perivesical fat stranding; suggestive of changes of cystitis. New finding. 2. Ill-defined hypoenhancing hypodense areas involving cortex of right kidney with mild perinephric fat stranding; suggestive of changes of right sided pyelonephritis. New finding. 3. Left renal simple cortical cyst. Bosniak class I . Stable finding. 4. Colonic diverticulosis. No evident signs of diverticulitis. Stable finding. 5. Spondylotic changes in lumbar spine. 6. Changes of early interstitial lung disease in bilateral lung bases. Requires CT thorax for further evaluation. Progressive finding. Electronically signed by John Marion 06-13-2024 03:33 AM Discharge Plan Visit Data Chief Complaint: Unable to Void ED Provider: Emily Paige Discharge Problem: Dysuria, Acute UTI (urinary tract infection), Abdominal pain, lower, Pyelonephritis Discharge Instructions Interventions: ED Discharge Assessment Last Done: 06/13/24 04:27
--- NOTE | 2024-06-13 03:33 | CT Scan Report ---
EXAM: CT abd pelvis IV con only CLINICAL HISTORY: UTI, abd pain, r/o pyelo TECHNIQUE: Multiple contiguous axial images were obtained from the level of diaphragm to the pubis symphysis. This study was acquired after the IV administration of iodinated contrast material, given the patient's indications for the examination. If IV contrast material had not been administered, the likelihood of detecting abnormalities relevant to the patient's condition would have been substantially decreased. Coronal and sagittal reformatted images were generated and reviewed to improve anatomic localization and optimize lesion detection. CT scan was performed according to ALARA (as low as reasonably achievable). COMPARISON: Compared with previous CT abdomen dated 04/07/2021. Only images available for comparison. FINDINGS: Mild interstitial septal thickening with subpleural fibrosis and traction bronchiectasis seen in visualized bilateral lung bases. Diffuse circumferential heterogeneously enhancing irregular wall thickening of urinary bladder noted, maximum wall thickness of 10 mm; suggestive of changes of cystitis. Marked perivesical fat stranding noted. Ill-defined hypoenhancing hypodense areas seen involving cortex of right kidney; possible changes of pyelonephritis. Mild perinephric fat stranding seen on right side. No obvious evidence of well defined peripherally enhancing thick walled collection in present scan. A simple Bosniak class I cortical cyst measuring 11 x 10 mm seen arising from upper pole of left kidney. The kidneys are normal in size. There is no hydronephrosis on either side. No renal calculi are identified. The ureters are normal in caliber and no ureteral calculi are seen. The liver is normal in size and attenuation. No focal liver lesions are seen. There is no intra or extrahepatic biliary ductal dilatation. Hepatic vasculature is patent. Post-cholecystectomy status. Surgical clips seen in gallbladder fossa region. The spleen, pancreas, and adrenal glands are unremarkable. Multiple air and content filled outpouchings seen arising from wall of sigmoid colon, descending colon and caecum; suggestive multiple colonic diverticulosis. No evident signs of diverticulitis. No evidence of focal or diffuse bowel wall thickening or evidence of bowel obstruction is seen. The appendix is visualized in the right lower quadrant and appears within normal limits. Pelvic organs appears unremarkable. No adnexal mass lesion on either side. No adenopathy or fluid collections are seen. The aorta is normal in caliber. Calcified atheromatous changes noted in aorta. Spondylotic changes noted in lumbar spine in form of peridiscal osteophytes formation and facetal joint arthropathy at multiple lumbar levels. Reduced intervertebral disc space at L5-S1 level. Mild anterior offset of L4 over L5 vertebrae, possibly due to facetal joint instability. No evidence of spondylolysis. Changes of osteitis pubis noted. IMPRESSION: 1. Diffuse circumferential heterogeneous enhancing wall thickening of urinary bladder with perivesical fat stranding; suggestive of changes of cystitis. New finding. 2. Ill-defined hypoenhancing hypodense areas involving cortex of right kidney with mild perinephric fat stranding; suggestive of changes of right sided pyelonephritis. New finding. 3. Left renal simple cortical cyst. Bosniak class I . Stable finding. 4. Colonic diverticulosis. No evident signs of diverticulitis. Stable finding. 5. Spondylotic changes in lumbar spine. 6. Changes of early interstitial lung disease in bilateral lung bases. Requires CT thorax for further evaluation. Progressive finding. Electronically signed by John Marion 06-13-2024 03:33 AM
[2024-06-13] MEDS: ACETAMINOPHEN 1,000 MG/100 ML VIAL IV STA (03:41)
--- NOTE | 2024-06-13 03:48 | History & Physical Report ---
Date of Service June 13, 2024 Assessment & Plan (1) Pyelonephritis: (2) Sepsis: (3) Diabetes: (4) Hypercholesterolemia: (5) Cystocele with prolapse: Plan 78-year-old female with history of diabetes, hyperlipidemia, cystocele with prolapse presenting with lower abdominal pain, dysuria and difficulty urinating ongoing for the last day. Patient with sepsis present on admission with leukocytosis WBC = 21.23, tachycardia with heart rate of 109 bpm presently. Likely source is urinary with UA suggestive of infection, CT of the abdomen with early changes of pyelonephritis involving the right side. #Sepsispresent on admission. SIRS 2 out of 4 likely source urinary Patient has received 2 L IV crystalloid thus far with third liter being administered presently. Her heart rate remains mildly elevated. Blood pressure is stable Follow-up culture sent from the ER, blood and urine Continue antibiotic coverage with cefepime #Pyelonephritispatient with UA suggestive of infection, CT of the abdomen with concerns for early pyelonephritis involving the right side. Patient denies back pain. No prominent CVA tenderness present on exam prior urinary cultures have grown out ESBL E. coli which is sensitive to Zosyn Follow cultures sent from the ER Continue Zosyn Tylenol as needed for pain Zofran as needed for nausea Bladder scan with straight cath as needed #Diabetespatient overall fairly well-controlled with hemoglobin A1c on 05/20/2024 = 7.1. She follows with diabetes clinic and is currently on Trulicity, NPH 70/30 Will administer Lantus 10 units twice daily with insulin sliding scale. Goal glucose 110-140 Continue gabapentin #Hyperlipidemia Continue atorvastatin #F/E/Npatient receiving her third liter of fluid, encourage oral intake, electrolytes within normal limits, carb consistent diet as tolerated ProphylaxisLovenox Codefull Dispositionadmit to medical with telemetry History of Present Illness Chief Complaint: Bladder pain Primary Care Provider: Lorne Moody Krista Washington is a pleasant 78-year-old female with history of cystocele with prolapse, frequent UTIs, hyperlipidemia, asthma presenting from home with lower abdominal cramping and pressure as well as dysuria with difficulty urinating. The symptoms began at approximately 20:00 on 06/11/2024 and have been persistent. Patient denies fever, chills, chest pain, cough, shortness of breath. Denies nausea, vomiting, diarrhea, constipation. She still has ongoing lower abdominal pressure otherwise with no complaints at present. In the ER she is afebrile, tachycardic at 109 bpm, blood pressure is stable, adequate oxygenation on room air ER course: Tylenol Zosyn Normal saline x 2 L given, third liter being given presently Allergies Allergy/AdvReac Type Severity Reaction Status Date / Time No Known Drug Allergies Allergy Verified 05/26/24 12:24 Home Medications Medication Instructions Recorded Confirmed Type atorvastatin 10 mg tablet 10 mg PO HS 12/09/19 05/26/24 History cholecalciferol (vitamin D3) 25 25 mcg PO QAM 12/09/19 05/17/24 History mcg (1,000 unit) tablet multivitamin 1 tab PO QAM 12/09/19 05/26/24 History omeprazole 20 mg capsule,delayed 20 mg PO QAM 12/09/19 05/26/24 History release blood-glucose meter (OneTouch 01/20/21 05/17/24 History Verio Reflect Meter) aspirin 81 mg tablet,delayed 81 mg PO QAM 05/24/21 05/26/24 History release (Adult Low Dose Aspirin) conjugated estrogens 0.625 mg/gram 1 applic topical UD 10/22/21 05/26/24 History vaginal cream (Premarin) furosemide 20 mg tablet 20 mg PO QAM 10/22/21 05/26/24 History gabapentin 100 mg capsule 100 mg PO QAM 10/22/21 05/26/24 History oxybutynin chloride 5 mg 5 mg PO QAM 05/12/22 05/26/24 History tablet,extended release 24 hr lancets 21 gauge (BD Microtainer #200 ea 10/11/22 05/17/24 Rx Lancet) insulin syringe-needle U-100 0.3 #200 ea 12/04/23 05/17/24 Rx mL 31 gauge x 5/16" (BD Insulin Syringe Ultra-Fine) dulaglutide 1.5 mg/0.5 mL 1.5 mg (0.5 mL) subcut Q7D #2 mL 12/07/23 05/17/24 Rx subcutaneous pen injector (Trulicity) insulin human U-100 NPH-regulr See Rx Instructions .Route 12/14/23 05/17/24 Rx 70-30 mix 100 unit/mL subcutaneous .COMPLEX #30 mL susp (Humulin 70/30 U-100 Insulin) clotrimazole-betamethasone 1 topical 03/21/24 04/17/24 History %-0.05 % lotion phenazopyridine [Azo Urinary Pain PO 03/21/24 05/26/24 History Relief] blood sugar diagnostic (OneTouch #200 ea 05/07/24 05/17/24 Rx Verio test strips) gabapentin 300 mg capsule 300 mg PO HS 05/17/24 05/26/24 History Past Med/Surg History Problem List (Updated 06/13/24 @ 04:17 by Marti Moreno DO) Sepsis Diabetes Pyelonephritis Abdominal pain, lower (Acute) Acute UTI (urinary tract infection) (Acute) Dysuria (Acute) Cystocele with prolapse History of breast cancer (2013) Left breast -- surgical intervention + radiation treatments -> 2013 Lower extremity edema Primary osteoarthritis of left knee Vitamin D deficiency (Chronic) 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 no chest pain. 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 Surgical History History of arthroscopy RT KNEE Hx of lumpectomy Left History of dilatation and curettage History of esophagogastroduodenoscopy (EGD) History of colonoscopy Hx laparoscopic cholecystectomy Status post shoulder surgery (2002) Left shoulder r/t frozen shoulder Family History Father Diabetes Brother Diabetes Aunt Breast cancer maternal aunt Other No family history of adverse response to anesthesia Denies family history of Ovarian cancer Prostate cancer Colorectal cancer Social History Smoking Status: Former smoker Tobacco Type: Cigarettes Second Hand Exposure: Yes (Son smokes); Do You Dip or Chew Tobacco: No; Hx Alcohol Use: No Hx Substance Use: No Preferred Language: Ukrainian Communication Ability: Effective Visual Impairment: Limited Master Police Detective Required: No Beliefs That Will Affect Care: None marital status: Single Current Living Situation: Alone Current Living Situation Comment: sister Feels Safe at Home: Yes caffeine: No Physical Activity Frequency: Does not Exercise Seatbelt Use: always Sunscreen Use: Yes Assistive Devices: Denture - Upper, Denture - Lower, Glasses and Walker Review of Systems Review of Systems: All systems reviewed & are unremarkable except as noted in HPI & below Physical Exam Physical Exam: General: patient resting comfortably, NAD, non-toxic in appearance, AA&O x 4 Skin: warm, dry, intact, no rashes or lesions HEENT: NC/AT, PERRL, EOMI, anicteric sclera, conjunctiva without injection, external ear normal to inspection and nontender, nares patent, moist mucus membranes, dentition intact, no oropharyngeal lesions, neck supple, trachea midline, no LAD, no thyromegaly, no JVD Heart: +S1/S2, regular, tachycardic, no m/r/g Lungs: equal air entry bilaterally, no rales/rhonchi/wheezes Abd: +BS, soft, mild lower abdominal tenderness without rebound or guarding, nondistended, no masses/organomegaly/ascites Ext: warm, 2+ pulses in UE/LE bilaterally, no clubbing/cyanosis or edema Neuro: nonfocal, patient AA&O x 4, speech intact, no facial droop, moving all extremities on command with equal strength 5/5 Results & Data Results & Data Vital Signs (Past 12 Hours) Vital Signs Temp Pulse Pulse Resp BP BP Pulse Ox 06/13/24 02:30 109 H 18 128/71 94 06/13/24 02:00 115 H 21 129/69 94 06/13/24 02:00 109 H 19 129/69 95 06/13/24 01:30 113 H 24 123/90 93 06/13/24 01:30 118 H 20 123/90 92 06/13/24 01:00 110 H 19 132/60 94 06/13/24 01:00 120 H 20 132/60 95 06/13/24 00:30 120 H 19 107/56 L 95 03/20/25 00:13 124 H 06/12/24 23:00 108 H 18 152/72 H 97 06/12/24 22:15 36.7 C 111 H 20 163/89 H 94 O2 Del Method 06/13/24 02:30 Room Air 06/13/24 02:00 Room Air 06/13/24 02:00 Room Air 06/13/24 01:30 Room Air 06/13/24 01:30 Room Air 06/13/24 01:00 Room Air 06/13/24 01:00 Room Air 06/13/24 00:30 Room Air 06/13/24 00:13 06/12/24 23:00 Room Air 06/12/24 22:15 Room Air, Nasal Cannula Laboratory Results Laboratory Results WBC 21.32 K/ul (4.8-10.8) H 06/12/24 23:59 RBC 5.15 M/uL (4.20-5.40) 06/12/24 23:59 Hgb 14.9 g/dl (12.0-16.0) 06/12/24 23:59 Hct 45.5 % (37.0-47.0) 06/12/24 23:59 MCV 88.3 fL (80.0-100.0) 06/12/24 23:59 MCH 28.9 pg (25.0-34.0) 06/12/24 23:59 MCHC 32.7 g/dL (32.0-36.0) 06/12/24 23:59 RDW Std Deviation 44.4 fL (36.4-46.3) 06/12/24 23:59 RDW Coeff of Kwasi 13.8 % (11.5-14.5) 06/12/24 23:59 Plt Count 403 K/uL (130-400) H 06/12/24 23:59 MPV 9.0 fL (9.4-12.4) L 06/12/24 23:59 Immature Gran % (Auto) 0.4 % 06/12/24 23:59 Neut % (Auto) 78.8 % 06/12/24 23:59 Lymph % (Auto) 12.5 % 06/12/24 23:59 [place] % (Auto) 6.3 % 06/12/24 23:59 Eos % (Auto) 1.4 % 06/12/24 23:59 Baso % (Auto) 0.6 % 06/12/24 23:59 Neut # (Auto) 16.79 K/uL (1.40-6.50) H 06/12/24 23:59 Lymph # (Auto) 2.66 K/uL (1.20-3.40) 06/12/24 23:59 [place] # (Auto) 1.35 K/uL (0.11-0.59) H 06/12/24 23:59 Eos # (Auto) 0.30 K/uL (0.00-0.50) 06/12/24 23:59 Baso # (Auto) 0.13 K/uL (0.00-0.20) 06/12/24 23:59 Immature Gran # (Auto) 0.09 K/uL (0.01-0.20) 06/12/24 23:59 Sodium 139 mmol/L (136-145) 06/12/24 23:59 Potassium 4.0 mmol/L (3.5-5.1) 06/12/24 23:59 Chloride 100 mmol/L (98-107) 06/12/24 23:59 Carbon Dioxide 33 mmol/L (21-32) H 06/12/24 23:59 Anion Gap 6 (3-11) 06/12/24 23:59 BUN 16 mg/dl (6-23) 06/12/24 23:59 Creatinine 0.83 mg/dl (0.6-1.2) 06/12/24 23:59 Est Cr Clr Drug Dosing 55.7 ml/min 06/12/24 23:59 eGFR 72.56 06/12/24 23:59 BUN/Creatinine Ratio 19.3 (10-20) 06/12/24 23:59 Glucose 169 mg/dl (70-99(Fasting)) H 06/12/24 23:59 Lactate 1.5 mmol/L (0.4-2.0) 06/13/24 00:49 Calcium 9.6 mg/dl (8.6-10.3) 06/12/24 23:59 Total Bilirubin 0.5 mg/dl (0.2-1.0) 06/12/24 23:59 AST 17 U/L (13-39) 06/12/24 23:59 ALT 15 U/L (7-52) 06/12/24 23:59 Alkaline Phosphatase 54 U/L (34-104) 06/12/24 23:59 Total Protein 7.7 gm/dl (6.0-8.3) 06/12/24 23:59 Albumin 4.1 gm/dl (3.4-5.0) 06/12/24 23:59 Globulin 3.6 gm/dl (2.5-4.0) 06/12/24 23:59 Albumin/Globulin Ratio 1.1 (0.9-2) 06/12/24 23:59 Procalcitonin < 0.02 ng/ml (0-0.5) 06/12/24 23:59 Urine Color Dark Yellow 06/12/24 22:24 Urine Appearance Turbid (Clear) A 06/12/24 22:24 Urine pH 7.5 (4.5-7.5) 06/12/24 22:24 Ur Specific [place] 1.006 (1.000-1.030) 06/12/24 22:24 Urine Protein 2+ (Negative) H 06/12/24 22:24 Urine Glucose (UA) Trace (Negative) H 06/12/24 22:24 Urine Ketones Negative (Negative) 06/12/24 22:24 Urine Blood 2+ (Negative) H 06/12/24 22:24 Urine Nitrite Positive (Negative) A 06/12/24 22:24 Urine Bilirubin Negative (Negative) 06/12/24 22:24 Urine Urobilinogen Negative (Negative) 06/12/24 22:24 Ur Leukocyte Esterase 3+ (Negative) H 06/12/24 22:24 Urine WBC (Auto) >50 /hpf (0-5) H 06/12/24 22:24 Urine RBC (Auto) 0-2 /hpf (0-2) 06/12/24 22:24 U Hyaline Cast (Auto) 3-5 /lpf (0-2) H 06/12/24 22:24 U Epithel Cells (Auto) 0-2 /hpf (0-2) 06/12/24 22:24 Urine Bacteria (Auto) 1+ (None Seen) H 06/12/24 22:24 Impressions Abdomen/Pelvis CT 06/12/24 23:24 EXAM: CT abd pelvis IV con only CLINICAL HISTORY: UTI, abd pain, r/o pyelo TECHNIQUE: Multiple contiguous axial images were obtained from the level of diaphragm to the pubis symphysis. This study was acquired after the IV administration of iodinated contrast material, given the patient's indications for the examination. If IV contrast material had not been administered, the likelihood of detecting abnormalities relevant to the patient's condition would have been substantially decreased. Coronal and sagittal reformatted images were generated and reviewed to improve anatomic localization and optimize lesion detection. CT scan was performed according to ALARA (as low as reasonably achievable). COMPARISON: Compared with previous CT abdomen dated 04/07/2021. Only images available for comparison. FINDINGS: Mild interstitial septal thickening with subpleural fibrosis and traction bronchiectasis seen in visualized bilateral lung bases. Diffuse circumferential heterogeneously enhancing irregular wall thickening of urinary bladder noted, maximum wall thickness of 10 mm; suggestive of changes of cystitis. Marked perivesical fat stranding noted. Ill-defined hypoenhancing hypodense areas seen involving cortex of right kidney; possible changes of pyelonephritis. Mild perinephric fat stranding seen on right side. No obvious evidence of well defined peripherally enhancing thick walled collection in present scan. A simple Bosniak class I cortical cyst measuring 11 x 10 mm seen arising from upper pole of left kidney. The kidneys are normal in size. There is no hydronephrosis on either side. No renal calculi are identified. The ureters are normal in caliber and no ureteral calculi are seen. The liver is normal in size and attenuation. No focal liver lesions are seen. There is no intra or extrahepatic biliary ductal dilatation. Hepatic vasculature is patent. Post-cholecystectomy status. Surgical clips seen in gallbladder fossa region. The spleen, pancreas, and adrenal glands are unremarkable. Multiple air and content filled outpouchings seen arising from wall of sigmoid colon, descending colon and caecum; suggestive multiple colonic diverticulosis. No evident signs of diverticulitis. No evidence of focal or diffuse bowel wall thickening or evidence of bowel obstruction is seen. The appendix is visualized in the right lower quadrant and appears within normal limits. Pelvic organs appears unremarkable. No adnexal mass lesion on either side. No adenopathy or fluid collections are seen. The aorta is normal in caliber. Calcified atheromatous changes noted in aorta. Spondylotic changes noted in lumbar spine in form of peridiscal osteophytes formation and facetal joint arthropathy at multiple lumbar levels. Reduced intervertebral disc space at L5-S1 level. Mild anterior offset of L4 over L5 vertebrae, possibly due to facetal joint instability. No evidence of spondylolysis. Changes of osteitis pubis noted. IMPRESSION: 1. Diffuse circumferential heterogeneous enhancing wall thickening of urinary bladder with perivesical fat stranding; suggestive of changes of cystitis. New finding. 2. Ill-defined hypoenhancing hypodense areas involving cortex of right kidney with mild perinephric fat stranding; suggestive of changes of right sided pyelonephritis. New finding. 3. Left renal simple cortical cyst. Bosniak class I . Stable finding. 4. Colonic diverticulosis. No evident signs of diverticulitis. Stable finding. 5. Spondylotic changes in lumbar spine. 6. Changes of early interstitial lung disease in bilateral lung bases. Requires CT thorax for further evaluation. Progressive finding. Electronically signed by John Marion 06-13-2024 03:33 AM ECG Additional Comments: EKG per my interpretation was sinus tachycardic at 117 bpm, left axis deviation, WA = 182, QRS = 68, QTc = 418, no acute, some nonspecific ST wave changes in anterior leads PG Care Time/CCT Total # of Minutes Spent Total Time Spent with Patient: Total time spent is greater than 50% in coordination of care (as documented) at patient's floor/unit and/or counseling patient: Coding Level of Care Code 58597 INT INP/OBS CARE 3/75MIN Diagnoses Pyelonephritis N12 Sepsis A41.9 Diabetes E11.9 Hypercholesterolemia E78.00 Cystocele with prolapse N81.4
[2024-06-13] MEDS ORDERED: ACETAMINOPHEN 325 MG TAB PO PRN (04:27)
[2024-06-13] MEDS ORDERED: GLUCAGON FOR INJ 1 MG VIAL SQ PRN (04:27)
[2024-06-13] MEDS ORDERED: GLUCOSE 40% GEL 15 GM TUBE PO PRN (04:27)
[2024-06-13] MEDS ORDERED: DEXTROSE 50% 50 ML SYRINGE IV PRN (04:27)
[2024-06-13] MEDS ORDERED: GLUCOSE 10 TAB/TUBE PO PRN (04:27)
[2024-06-13] MEDS: PIPERACILLIN/TAZOBACTAM 4.5 GM/100 ML BAG IV SCH (06:34)
--- OUTSIDE RECORDS SUMMARY | 2024-06-13 06:46 | External Medical Summary | Continuity of Care Document ---
Author Name Unknown Organization [address] [place] [phone] Care Team Providers Care House Painter Name Role Phone Nora Shaw Primary Care Physician [phone] Encounter [facility] [id number] Date(s): 05/24/24 - 05/24/24 [facility] 0 [facility] 207 [facility] [address] [address] [place] [phone] Encounter Diagnosis Type 1 diabetes mellitus with hyperglycemia(Discharge Diagnosis) - 05/24/24 GERD (gastroesophageal reflux disease)(Discharge Diagnosis) - 05/24/24 Hyperlipidemia(Discharge Diagnosis) - 05/24/24 Leg swelling(Discharge Diagnosis) - 05/24/24 Gastro-esophageal reflux disease without esophagitis(Final) - Discharge Disposition: Home or Self Care Attending Physician: MD Moody Dongsheng Encounter Type: Clinic Allergies, Adverse Reactions, Alerts No Known Medication Allergies Assessment and Plan Extracted from: Title:Office Visit Note Author:MD Moody Dongsh eng Date:05/24/24 1.Type 1 diabetes mellitus with hyperglycemia STATUS: Chronic at goal DATA: Reviewed labs: A1c,cmp; tsh GOAL: A1c<8 PLAN: f/u Endo. continue insulin and Trulicity. Diet and exercise. Glu BID plus prn. ordered A1c and UACR 2.GERD (gastroesophageal reflux disease) STATUS: Chronic stable: x Chronic uncontrolled: Acute uncomplicated: Acute illness with systemic symptoms: Undiagnosed new problems with uncertain prognosis: Chronic illnesses with exacerbation, progression, or side effects of treatment: 1 acute complicated injury: DATA: Review of prior external note(s) from each unique source: Review of the result(s) of each unique test: cbc Ordering of each unique test: Assessment requiring independent historian(s): GOAL: Resolution PLAN: on PPI for yrs - switch to famotidine. diet modification. ordered b12, vitD, mag, cbc 3.Hyperlipidemia STATUS: Chronic,LDL was at goal in 2021 but due DATA: Reviewed labs GOAL: Maintain stability PLAN: continue statin. diet and exercise 4.Leg swelling STATUS: Chronic stable: x Chronic uncontrolled: Acute uncomplicated: Acute illness with systemic symptoms: Undiagnosed new problems with uncertain prognosis: Chronic illnesses with exacerbation, progression, or side effects of treatment: 1 acute complicated injury: DATA: Review of prior external note(s) from each unique source: Review of the result(s) of each unique test: cmp Ordering of each unique test: Assessment requiring independent historian(s): GOAL:Reduce symptoms PLAN: elevation. laxix dailyprn call prn.f/u 4 mos Immunizations Given and Recorded Vaccine Date Status Refusal Reason influenza virus vaccine, inactivated 01/19/24 Give n influenza virus vaccine, inactivated 12/05/22 Give n influenza virus vaccine, inactivated 01/26/22 Give n influenza virus vaccine, inactivated 1 01/26/21 Gi nhan influenza virus vaccine, inactivated 01/20/20 Give n influenza virus vaccine, inactivated 12/17/18 Give n influenza virus vaccine, inactivated 01/06/17 Give n influenza virus vaccine, inactivated 12/04/15 Give n influenza virus vaccine, inactivated 12/12/14 Give n SARS COVID Vaccine Unspecified 01/25/23 Recorded zoster vaccine, inactivated 09/08/22 Recorded zoster vaccine, [...] Other : Given on time 2Result Comment: [facility] pharmacy 3Result Comment: [facility] Medications aspirin 81 mg oral tablet Start: 08/02/13 9:51:00 AM EDT, 1 tab, PO, Daily Start Date: 08/02/13 Status: Ordered Repeat number: 1 atorvastatin 10 mg oral tablet Start: 07/28/23 5:22:00 PM EDT, 1 tab, PO, Daily, Disp# 90 tab, Refills: 3, Pharmacy: [id number] Start Date: 07/28/23 Status: Ordered Quantity: 90.0 Unit: tab Repeat number: 1 atorvastatin 10 mg oral tablet Start: 09/26/22 11:00:00 AM EDT, See Instructions, Disp# 90 tab, Refills: 3, TAKE 1 TABLET BY MOUTH EVERY DAY, Pharmacy: [facility] [id number] Start Date: 09/26/22 Status: Suspended Quantity: 90.0 Unit: tab Repeat number: 1 betamethasone-clotrimazole 0.05%-1% topical lotion Start: 03/14/24 2:33:00 PM EST, 1 appl, topical, Daily, Disp# 30 mL, Pharmacy: [facility] #[id number] Start Date: 03/14/24 Stop Date: 03/21/24 Status: Ordered Quantity: 30.0 Unit: mL Repeat number: 1 famotidine 20 mg oral tablet Start: 05/24/24 11:20:00 AM EST, 1 tab, PO, qhs, Disp# 30 tab, Refills: 5, avoid eating and drinkingfor 10 minutes after each dose, Pharmacy: [facility] #[id number] Start Date: 05/24/24 Stop Date: 11/20/24 Status: Ordered Quantity: 30.0 Unit: tab Repeat number: 6 fluconazole 150 mg oral tablet Start: 03/14/24 2:28:00 PM EST, See Instructions, Disp# 2 tab, 1 tab now, 2nd tab 72 hours from now, Pharmacy: [facility] #[id number] Start Date: 03/14/24 Status: Ordered Quantity: 2.0 Unit: tab Repeat number: 1 furosemide 20 mg oral tablet Start: 05/16/24 3:09:00 PM EST, See Instructions, Disp# 90 tab, Refills: 0, TAKE 1 TABLET BY MOUTH EVERY DAY, Pharmacy: [facility] #[id number] Start Date: 05/16/24 Status: Ordered Quantity: 90.0 Unit: tab Repeat number: 1 gabapentin 100 mg oral capsule Start: 01/15/24 9:19:00 AM EDT, 2 cap, PO, qhs, Disp# 180 cap, Refills: 3, Pharmacy: [facility]/pharmacy #[id number] Start Date: 01/15/24 Stop Date: 01/09/25 Status: Ordered Quantity: 180.0 Unit: cap Repeat number: 4 NovoLIN NPH [place] 100 units/mL subcutaneous suspension Start: 09/03/12 2:46:00 PM EDT, 18u AM, 8u PM, subQ, bid, per Endocrinology instruction Start Date: 09/03/12 Status: Ordered Repeat number: 1 oxyBUTYnin 5 mg/24 hours oral tablet, extended release Start: 05/01/24 11:12:00 AM EST, 1 tab, PO, Daily, Disp# 30 tab, Refills: 5, DO NOT CRUSH OR CHEW., Pharmacy: [facility] STORE [id number] Start Date: 05/01/24 Status: Ordered Quantity: 30.0 Unit: tab Repeat number: 1 Trulicity Pen Start: 11/30/23 1:41:00 PM EDT Start Date: 11/30/23 Status: Ordered Repeat number: 1 Vital-D oral tablet Start: 08/09/23 2:17:00 PM EDT, 1 tab, PO, Daily Start Date: 08/09/23 Status: Ordered Repeat number: 1 Mental Status 05/24/24 Barriers to Learning one year None evide nt Mandatory Health Literacy Documentation Yes Health Literacy Communication Barriers N ever Primary Language Chinese Problem List Condition Confirmation Course Effective Dates [...] Active Current use of insulin Confirmed Active Multiple drug resistant organism (MDRO) culture positive 2, 3, 4, 5 Confirmed 12/26/23 Active Right knee DJD Confirmed Active DJD (degenerative joint disease) of knee Confirmed Active Osteopenia Confirmed Active RLS (restless legs syndrome) Confirmed Active Leg swelling Confirmed Active Type 1 diabetes mellitus with hyperglycemia Confirmed Active Vitamin D deficiency Confirmed Active 1left 2URINE, >100 THOUSAND COLONIES/ML ESCHERICHIA COLI This organism produces an extended-spectrum beta-lactamase (ESBL), Date of Service: March 14, 2024 14:47 EST Urine Culture >100 THOUSAND COLONIES/ML ESCHERICHIA COLI This organism produces an extended-spectrum beta-lactamase (ESBL) 4URINE, >100 THOUSAND COLONIES/ML ESCHERICHIA COLI, This organism produces an extended-spectrum beta-lactamase (ESBL), Date of Service: February 12, 2024 14:04 EST 5Collected 12/26/2023, Urine: 80 THOUSAND COLONIES/ML ESCHERICHIA COLI This organism produces an extended-spectrum beta-lactamase (ESBL) (MDRO), and the patient requires contact isolation. Diagnosis Diagnosis Type Effective Dates Health Status Clinical Service Informant GERD (gastroesophageal reflux disease) Discharge Diagnosis 05/24/24 Non-Specified Type 1 diabetes mellitus with hyperglycemia Discharge Diagnosis 05/24/24 Non-Specified Hyperlipidemia Discharge Diagnosis 05/24/24 Non-Specified Leg swelling Discharge Diagnosis 05/24/24 Non-Specified Procedures Procedure Date Related Diagnosis Body [...] A 1 year screening mammogram is recommended, 12-19. 16Normal rotator cuff. Biceps tenosynovitis. Severe glenohumeral [...] Gerry andrade Results Laboratory List Name Date Complete Blood Count (CBC) 05/24/24 Magnesium Level (MAGNESIUM) 05/24/24 Vitamin B12 Level (VITAMIN B12) 05/24/24 Vitamin D, 25-Hydroxy Level, Total (25-H YDROXY VITAMIN D) 05/24/24 Most recent to oldest [Reference Range]: 1 Vitamin D, 25-Hydroxy [30-100 ng/mL] 39 ng/mL 1 (05/24/24 11:47 AM) MPV [9.0-12.2 fL] 9.5 fL (05/24/24 11:47 AM) RDW [11.5-14.2 %] 14.0 % (05/24/24 11:47 AM) B12 [211-946 pg/mL] 574 pg/mL (05/24/24 11:47 AM) Hct [35-44 %] 44.9 % *HI* (05/24/24 11:47 AM) Hgb [11.7-15.0 g/dL] 13.8 g/dL (05/24/24 11:47 AM) MCH [28-33 pg] 28.7 pg (05/24/24 11:47 AM) MCHC [32-36 g/dL] 30.7 g/dL *LOW* (05/24/24 11:47 AM) MCV [81-96 fL] 93.3 fL (05/24/24 11:47 AM) Mg [1.6-2.6 mg/dL] 2.4 mg/dL (05/24/24 11:47 AM) Plts [150-350 K/uL] 475 K/uL *HI* (05/24/24 11:47 AM) RBC [3.90-5.00 M/uL] 4.81 M/uL (05/24/24 11:47 AM) WBC [4.0-10.4 K/uL] 11.96 K/uL *HI* (05/24/24 11:47 AM) 1Result Comment: Deficiency: <20 ng/mL Insufficiency: 21-29 ng/mL Sufficiency: 30-100 ng/mL Potenial Toxicity: >150 ng/mL Vital Signs Most recent to oldest [Reference Range]: 1 Heart Rate 69 bpm (05/24/24 10:48 AM) Respiratory Rate 18 br/min (05/24/24 10:48 AM) Blood Pressure 116/78mmHg (05/24/24 10:48 AM) Cuff Pulse Pressure 38 mmHg (05/24/24 10:48 AM) Social History Social History Type Response Tobacco 1 Smoking Status Never smoked cigaret maldonado Sex Female Sex Representation Female (finding) 1quit in 2000, a pack a day previously 20-30 years FCM Outpt Note * [facility] PERFORM Event Display: FCM Outpt Note Authored Date: [id number] Chief Complaint 3 month f/u History of Present Illness DM: on meds. no low sugar. HLD: on statin. no muslce pain. GERD: on med. stable. leg swelling: ongoing. Review of Systems No fever/chills. No headache. No respiratory symptoms. No chest pain/shortness of breath. No nausea/vomiting. No abdominal pain. No change with bowels. No urinary symptoms. No joint pain. No anxiety/depression. Other systems reviewed and are neg. Physical Exam Vitals & Measurements HR:69(Monitored) RR:18 BP:116/78 SpO2:96% PHQ2 Data(Data Documented on:05/24/2024 10:46) Emotional health assessment NEGATIVE General: No acute distress. Nontoxic. Neck:Supple, Non-tender, No thyromegaly Respiratory:Lungs are clear to auscultation, Respirations non-labored, Breath sounds equal YANNA. Cardiovascular:Normal rate, Regular rhythm, No murmur, Rubs, gallops. Gastrointestinal:Soft, Non-tender, Non-distended, Normal bowel sounds. Musculoskeletal:no pitting edema Neurologic:Alert, Oriented, No focal deficits. Psychiatric:Cooperative, Appropriate mood & affect. Assessment/Plan 1.Type 1 diabetes mellitus with hyperglycemia STATUS: Chronic at goal DATA: Reviewed labs: A1c,cmp; tsh GOAL: A1c<8 PLAN: f/u Endo. continue insulin and Trulicity. Diet and exercise. Glu BID plus prn. ordered A1c and UACR 2.GERD (gastroesophageal reflux disease) STATUS: Chronic stable: x Chronic uncontrolled: Acute uncomplicated: Acute illness with systemic symptoms: Undiagnosed new problems with uncertain prognosis: Chronic illnesses with exacerbation, progression, or side effects of treatment: 1 acute complicated injury: DATA: Review of prior external note(s) from each unique source: Review of the result(s) of each unique test: cbc Ordering of each unique test: Assessment requiring independent historian(s): GOAL: Resolution PLAN: on PPI for yrs - switch to famotidine. diet modification. ordered b12, vitD, mag, cbc 3.Hyperlipidemia STATUS: Chronic,LDL was at goal in 2021 but due DATA: Reviewed labs GOAL: Maintain stability PLAN:continue statin. diet and exercise 4.Leg swelling STATUS: Chronic stable: x Chronic uncontrolled: Acute uncomplicated: Acute illness with systemic symptoms: Undiagnosed new problems with uncertain prognosis: Chronic illnesses with exacerbation, progression, or side effects of treatment: 1 acute complicated injury: DATA: Review of prior external note(s) from each unique source: Review of the result(s) of each unique test: cmp Ordering of each unique test: Assessment requiring independent historian(s): GOAL:Reduce symptoms PLAN: elevation. laxix dailyprn call prn.f/u 4 mos Problem List/Past Medical History Ongoing Arthritis of carpometacarpal (CMC) joint of right thumb Carcinoma in situ of breast Current use of insulin Cystocele, midline| Status: Inactive Degenerative arthritis of knee, bilateral Diverticulosis| Status: Inactive DJD (degenerative joint disease) of knee GERD (gastroesophageal reflux disease) Hyperlipidemia Multiple drug resistant organism (MDRO) culture positive Osteopenia Other chronic pain Overactive bladder Right knee DJD RLS (restless legs syndrome) S/P knee replacement Type 1 diabetes mellitus with hyperglycemia Vitamin D deficiency Resolved Diverticulitis Essential thrombocythemia Major depression, recurrent Pleuritic chest pain Rib pain on left side Urine incontinence Procedure/Surgical History Mammogram of right breast| Service [...] of retinopathy in past yearLaparoscopic cholecystectomy Medications aspirin(aspirin 81 mg oral tablet), 81 mg= 1 tab, PO, Daily atorvastatin(atorvastatin 10 mg oral tablet), 1 tab, PO, Daily betamethasone-clotrimazole topical(betamethasone-clotrimazole 0.05%-1% topical lotion), 1 appl, topical, Daily dulaglutide(Trulicity Pen) famotidine(famotidine 20 mg oral tablet), 20 mg= 1 tab, PO, qhs, 5 refills fluconazole(fluconazole 150 mg oral tablet), See Instructions furosemide(furosemide 20 mg oral tablet), See Instructions gabapentin(gabapentin 100 mg oral capsule), 200 mg= 2 cap, PO, qhs, 3 refills insulin isophane (NPH)(NovoLIN NPH [place] 100 units/mL subcutaneous suspension), 18u AM, 8u PM, subQ, bid multivitamin with minerals(Vital-D oral tablet), 1 tab, PO, Daily oxyBUTYnin(oxyBUTYnin 5 mg/24 hours oral tablet, extended release), 1 tab, PO, Daily Allergies No Known Medication Allergies Social History Smoking Status Never smoked cigarettes Alcohol - Denies Alcohol Use Employment/School - Not employed or in school Status:Retired Description:retired from [employer] Exercise - Occasional exercise Substance Abuse - Denies Substance Abuse Tobacco - Denies Tobacco Use - Comments: quit in 2000, a pack a day previously 20-30 years Intake (Yg) Smoking History Cigarette smoker: Never smoked cigarettes Tobacco Product Use: Never used other tobacco products Family History Cancer: Mother, Sister and Brother. Cancer of colon: Unknown. Type II diabetes mellitus: Sister and Brother. Health Status Family Member(s) Immunizations Vaccine Date Status influenza virus vaccine, inactivated 01/19/2024 Given SARS COVID Vaccine Unspecified 01/25/2023 Recorded influenza virus vaccine, inactivated 12/05/2022 Given zoster vaccine, inactivated 09/08/2022 Recorded zoster vaccine, inactivated 03/09/2022 Recorded Comments : [facility] pharmacy pneumococcal 23-valent vaccine 03/05/2022 Recorded Comments : [facility] Pharmacy influenza virus vaccine, inactivated 01/26/2022 Given [...] Medicare Annual Wellness Visit due02/14/23and every 1year Kidney Health Evaluation due07/13/23and every 366day Diabetes Management A1c due12/30/23and every 366day Due Adult Social Determinants of Health Screening due05/24/24Unknown Frequency Due In Future Adult Influenza Vaccine not due until09/24/24and every 1year Diabetic Eye Exam not due until12/20/24and every 366day Body Mass Index not due until05/02/25and every 366day Satisfied(in the past 1 year) Satisfied Adult Influenza Vaccine on01/19/24.Satisfied by CHRISTIAN Mallory [place] Body Mass Index on05/01/24.Satisfied by BHAVANA Dinero Emma Diabetes Nephropathy Management on02/12/24.Satisfied by Contributor_system, [email or web address] Kidney Health Evaluation on02/12/24.Satisfied by Contributor_system, [email or web address] Electronic Signature on File Electronically Reviewed/Signed by: Lorne Moody MD Author Signature Dt/Tm:05/24/2024 11:21 AM Department of Family Medicine DJ Patient Care team information Care Team Personnel Name: MD Rose Jonathan D Position: Physician - Family Med Member Role: Lifetime Relationship Address: [address] [place] [address] [employer]: [phone] Name: Colin, DO, Nora S Position: Resident Member Role: Primary Care Provider Address: [address] [facility] [address] Telecom: [phone] Care Team Related Persons Name: KANDACE REYNA Insurance Providers Guarantor name: YIN REYNA Health Plan Information #: 1 Payer: [employer] Member Number: [id number] Policy Number: NA Group Number: [id number] Health Plan Information #: 2 Payer: [employer] Member Number: [id number] Policy Number: NA Group Number: [id number]"
--- NOTE | 2024-06-13 07:45 | XRay Report ---
EXAM: XR chest 1V portable CLINICAL HISTORY: sepsis, o2 req TECHNIQUE: An X-ray image of the chest is obtained in AP projection. COMPARISON: study dated 12/28/2023 FINDINGS: Pulmonary Parenchyma: Bilateral prominent bronchovascular markings, hugh with peribronchial cuffing. Left lower lung zone shows relative radio-opacity. No evidence of pleural effusion or pleural thickening. Heart and Mediastinum: Heart size and shape are normal. No mediastinal widening or masses. No hilar or mediastinal lymphadenopathy. Bony Thorax: Bony thorax appears intact without fractures or deformities. Soft Tissues: Soft tissues overlying the chest wall are unremarkable. IMPRESSION: 1. Bilateral prominent bronchovascular markings, hugh with peribronchial cuffing. 2. Left lower lung zone shows relative radio-opacity. 3. Features suggesting pulmonary congestion/ edema, with the possibility of underlying infection can't be ruled out. 4. No interval changes. Electronically signed by Jose D Jackson 06-13-2024 07:45 AM
[2024-06-13] MEDS: INSULIN ASPART PER UNIT CHARGE SC SCH (07:54)
--- NOTE | 2024-06-13 08:47 | Electrocardiogram Report ---
Test Reason : Blood Pressure : */* mmHG Vent. Rate : 117 BPM Atrial Rate : 117 BPM P-R Int : 182 ms QRS Dur : 68 ms QT Int : 300 ms P-R-T Axes : 36 -71 28 degrees QTcB Int : 418 ms Sinus tachycardia Possible Left atrial enlargement Left axis deviation possible Inferior infarct , age undetermined Anterolateral infarct , age undetermined Abnormal ECG Confirmed by Chente Ramos ([id number]) on 06/13/2024 8:47:50 AM Referred By: REFERRED SELF Confirmed By: Chente Ramos
--- NOTE | 2024-06-13 08:53 | Hospitalist Progress Note ---
Date of Service June 13, 2024 Assessment & Plan (1) Pyelonephritis: (2) Sepsis: (3) Diabetes: (4) Hypercholesterolemia: (5) Cystocele with prolapse: Plan 78-year-old female with history of diabetes, hyperlipidemia, cystocele with prolapse presenting with lower abdominal pain, dysuria and difficulty urinating ongoing for the last day. WBC 21k on admission along with tachycardia to 120s but afebrile. UA appeared infected w/ recurrent UTIs and CTAP obtained with early changes of PYELONEPHRITIS on the RIGHT, bladder wall thickening, does note cyst as well #Sepsispresent on admission. SIRS 2 out of 4, likely source urinary s/p 2L NSS bolus in ER, continued 1L on admission Continue ZOSYN IV given prior resistance * Notable patient was given Cefdinir 3/ by Nephrology PA for UTI but cx ESBL resistance to such and called in Augmentin 3/ to complete 7 day course BID * Also appears has had Cipro in December for sepsis 2nd to UTI while inpatient w/ ecoli/shiga infectious colitis but also given Bactrim in October * Does not appear to have been seen by Urology in the past and while CTAP not noting any stones/obstruction have placed consult to weigh in/consider cystoscopy outpatient/cycling abx. Should be encouraged on hygiene if co ntributing but also suspect possible prolapse/cystocele contributing Blood/urine cultures pending and will need follow up to ensure not needing IV abx to complete course at discharge given prior resistance and multiple abx provided. Cdiff ordered as well if any diarrhea given recent abx use #Pyelonephritis patient with UA suggestive of infection, CT of the abdomen with concerns for early pyelonephritis involving the right side. Patient denies back pain. No prominent CVA tenderness present on exam prior urinary cultures have grown out ESBL E. coli which is sensitive to Zosyn Continue Zosyn Follow urine/blood cultures Tylenol for pain/fever, zofran for nausea/vomiting and resumed PPI/H2 as below Pyridum for spasm/pain as well Bladder scan without retention but can place catheter if occurs Urology consulted as above given repeat UTIs for further recs/assistance #GERD,Reflux Chronic, recent meds for such -- NOT controlled on eval but notable had not been ordered her PPI or pepcid per primary care fills and stat IV push protonix ordered and will continue PO once daily but also pepcid HS. Monitor/adjust as needed Zofran available and provided x 1 #Abnormal finding on CTAP--- noted possible early changes ILD on CTAP (progressive finding)- recs for CT thorax for follow up. Incentive spirometer ordered/RN to provide No hx asthma (in chart) and on RA at present time but will follow up testing in AM to consider vs arrange as outpatient. Does have hx breast ca and completed course tamoxifen per patient #Diabetes II A1c 7.1 in fe and follows w/ DM clinic on trulicty. 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 Concerns for possible need for IV abx to complete course given prior resistance and multiple recent abx with ongoing issues. Urology consult pending Admission and Anticipated Discharge Date Admission Date: June 13, 2024 Supervising Physician Co-Signing Physician Notes The patient was not seen by me. The chart was reviewed. Case discussed with JEN López. Agree with assessment and plan Subjective BRIDGE NOTE: ADMITTED AFTER MIDNIGHT Seen this morning around lunch, feeling better. Having ongoing frequency issues/dysuria, pyridium added as taken in the past. She inquired if going home today, discussed just got here/need to monitor cultures, especially given discussion she has been on multiple abx even this month for this issue. Hx asthma in chart but DENIES such. Does have some basilar crackles, discussed possible CT thorax tomorrow but will hold off for now. On RA. Incentive spirometer added/encouraged. Discussed possible dc tomorrow on PO abx pending cx but would prefer blood cx neg x 48hr given ongoing issues. NEVER seen by urology in the past, consult placed. Having some reflux, on PPI daily, not ordered and has been ordered IVP stat. Feels like going to vomit, needs emesis bag/RN to provide dose IV zofran as well. Tachy to 120s on monitor w/ emesis. Physical Exam Physical Exam: General: 78yo female laying in bed upon entry, NAD and reporting feeling better (did have some nausea/feel like needing to vomit after being told needing to stay however also hasn't received her PPI yet and having some reflux) Head atraumatic, normocephalic, mmm, trachea midline Resp: even but slightly diminished with bibasilar crackles, no wheezing, on room air CV: regular, rates improved to 80s (exception to 120s w/ nausea), no significant m/r/g or pitting edema and calves nontender GI: +BS, soft/slight suprapubic/lower abdominal tenderness but no guarding/rebound no erazo or CVA tenderness MSK/Neuro: generalized weakness but nonfocal, no slurred speech/facial droop Psych: AOx3, cooperative Results & Data Results & Data Vital Signs (Past 12 Hours) Vital Signs Temp Pulse Pulse Resp BP BP Pulse Ox 06/13/24 07:56 96 H 21 103/78 97 06/13/24 06:48 97 H 06/13/24 06:23 86 16 121/63 96 06/13/24 04:24 98 H 06/13/24 04:20 37 C 92 H 16 114/63 95 06/13/24 04:00 105 H 16 114/66 99 06/13/24 02:30 109 H 18 128/71 94 06/13/24 02:00 115 H 21 129/69 94 06/13/24 02:00 109 H 19 129/69 95 06/13/24 01:30 113 H 24 123/90 93 06/13/24 01:30 118 H 20 123/90 92 06/13/24 01:00 110 H 19 132/60 94 06/13/24 01:00 120 H 20 132/60 95 06/13/24 00:30 120 H 19 107/56 L 95 06/13/24 00:13 124 H 06/12/24 23:00 108 H 18 152/72 H 97 06/12/24 22:15 36.7 C 111 H 20 163/89 H 94 O2 Del Method O2 Flow Rate 06/13/24 07:56 Room Air 06/13/24 06:48 06/13/24 06:23 Nasal Cannula 2 06/13/24 04:24 06/13/24 04:20 Room Air 06/13/24 04:00 Room Air 06/13/24 02:30 Room Air 06/13/24 02:00 Room Air 06/13/24 02:00 Room Air 06/13/24 01:30 Room Air 06/13/24 01:30 Room Air 06/13/24 01:00 Room Air 06/13/24 01:00 Room Air 06/13/24 00:30 Room Air 06/13/24 00:13 06/12/24 23:00 Room Air 06/12/24 22:15 Room Air, Nasal Cannula Laboratory Results 06/13/24 06/13/24 06/13/24 Range/Units 12:02 11:54 07:22 WBC 14.64 H (4.8-10.8) K/ul RBC 4.85 (4.20-5.40) M/uL Hgb 13.8 (12.0-16.0) g/dl Hct 42.9 (37.0-47.0) % MCV 88.5 (80.0-100.0) fL MCH 28.5 (25.0-34.0) pg MCHC 32.2 (32.0-36.0) g/dL RDW Std Deviation 45.1 (36.4-46.3) fL RDW Coeff of Kwasi 14.1 (11.5-14.5) % Plt Count 380 (130-400) K/uL MPV 8.9 L (9.4-12.4) fL Immature Gran % (Auto) % Neut % (Auto) % Lymph % (Auto) % Greene % (Auto) % Eos % (Auto) % Baso % (Auto) % Neut # (Auto) (1.40-6.50) K/uL Lymph # (Auto) (1.20-3.40) K/uL Greene # (Auto) (0.11-0.59) K/uL Eos # (Auto) (0.00-0.50) K/uL Baso # (Auto) (0.00-0.20) K/uL Immature Gran # (Auto) (0.01-0.20) K/uL Sodium 140 (136-145) mmol/L Potassium 4.0 (3.5-5.1) mmol/L Chloride 108 H (98-107) mmol/L Carbon Dioxide 28 (21-32) mmol/L Anion Gap 4 (3-11) BUN 11 (6-23) mg/dl Creatinine 0.69 (0.6-1.2) mg/dl Est Cr Clr Drug Dosing 67.0 ml/min eGFR 89.33 BUN/Creatinine Ratio 15.9 (10-20) Glucose 113 H (70-99(Fasting)) mg/dl POC Glucose 110 H 126 H (70-99) mg/dl Lactate (0.4-2.0) mmol/L Calcium 8.8 (8.6-10.3) mg/dl Magnesium 2.1 (1.7-2.4) mg/dl Total Bilirubin (0.2-1.0) mg/dl AST (13-39) U/L ALT (7-52) U/L Alkaline Phosphatase (34-104) U/L Total Protein (6.0-8.3) gm/dl Albumin (3.4-5.0) gm/dl Globulin (2.5-4.0) gm/dl Albumin/Globulin Ratio (0.9-2) Procalcitonin (0-0.5) ng/ml Urine Color Urine Appearance (Clear) Urine pH (4.5-7.5) Ur Specific [place] (1.000-1.030) Urine Protein (Negative) Urine Glucose (UA) (Negative) Urine Ketones (Negative) Urine Blood (Negative) Urine Nitrite (Negative) Urine Bilirubin (Negative) Urine Urobilinogen (Negative) Ur Leukocyte Esterase (Negative) Urine WBC (Auto) (0-5) /hpf Urine RBC (Auto) (0-2) /hpf U Hyaline Cast (Auto) (0-2) /lpf U Epithel Cells (Auto) (0-2) /hpf Urine Bacteria (Auto) (None Seen) 06/13/24 06/12/24 06/12/24 Range/Units 00:49 23:59 22:24 WBC 21.32 H (4.8-10.8) K/ul RBC 5.15 (4.20-5.40) M/uL Hgb 14.9 (12.0-16.0) g/dl Hct 45.5 (37.0-47.0) % MCV 88.3 (80.0-100.0) fL MCH 28.9 (25.0-34.0) pg MCHC 32.7 (32.0-36.0) g/dL RDW Std Deviation 44.4 (36.4-46.3) fL RDW Coeff of Kwasi 13.8 (11.5-14.5) % Plt Count 403 H (130-400) K/uL MPV 9.0 L (9.4-12.4) fL Immature Gran % (Auto) 0.4 % Neut % (Auto) 78.8 % Lymph % (Auto) 12.5 % Greene % (Auto) 6.3 % Eos % (Auto) 1.4 % Baso % (Auto) 0.6 % Neut # (Auto) 16.79 H (1.40-6.50) K/uL Lymph # (Auto) 2.66 (1.20-3.40) K/uL Greene # (Auto) 1.35 H (0.11-0.59) K/uL Eos # (Auto) 0.30 (0.00-0.50) K/uL Baso # (Auto) 0.13 (0.00-0.20) K/uL Immature Gran # (Auto) 0.09 (0.01-0.20) K/uL Sodium 139 (136-145) mmol/L Potassium 4.0 (3.5-5.1) mmol/L Chloride 100 (98-107) mmol/L Carbon Dioxide 33 H (21-32) mmol/L Anion Gap 6 (3-11) BUN 16 (6-23) mg/dl Creatinine 0.83 (0.6-1.2) mg/dl Est Cr Clr Drug Dosing 55.7 ml/min eGFR 72.56 BUN/Creatinine Ratio 19.3 (10-20) Glucose 169 H (70-99(Fasting)) mg/dl POC Glucose (70-99) mg/dl Lactate 1.5 (0.4-2.0) mmol/L Calcium 9.6 (8.6-10.3) mg/dl Magnesium (1.7-2.4) mg/dl Total Bilirubin 0.5 (0.2-1.0) mg/dl AST 17 (13-39) U/L ALT 15 (7-52) U/L Alkaline Phosphatase 54 (34-104) U/L Total Protein 7.7 (6.0-8.3) gm/dl Albumin 4.1 (3.4-5.0) gm/dl Globulin 3.6 (2.5-4.0) gm/dl Albumin/Globulin Ratio 1.1 (0.9-2) Procalcitonin < 0.02 (0-0.5) ng/ml Urine Color Dark Yellow Urine Appearance Turbid A (Clear) Urine pH 7.5 (4.5-7.5) Ur Specific [place] 1.006 (1.000-1.030) Urine Protein 2+ H (Negative) Urine Glucose (UA) Trace H (Negative) Urine Ketones Negative (Negative) Urine Blood 2+ H (Negative) Urine Nitrite Positive A (Negative) Urine Bilirubin Negative (Negative) Urine Urobilinogen Negative (Negative) Ur Leukocyte Esterase 3+ H (Negative) Urine WBC (Auto) >50 H (0-5) /hpf Urine RBC (Auto) 0-2 (0-2) /hpf U Hyaline Cast (Auto) 3-5 H (0-2) /lpf U Epithel Cells (Auto) 0-2 (0-2) /hpf Urine Bacteria (Auto) 1+ H (None Seen) Diagnostic Findings Abdomen/Pelvis CT 06/12/24 23:24 EXAM: CT abd pelvis IV con only CLINICAL HISTORY: UTI, abd pain, r/o pyelo TECHNIQUE: Multiple contiguous axial images were obtained from the level of diaphragm to the pubis symphysis. This study was acquired after the IV administration of iodinated contrast material, given the patient's indications for the examination. If IV contrast material had not been administered, the likelihood of detecting abnormalities relevant to the patient's condition would have been substantially decreased. Coronal and sagittal reformatted images were generated and reviewed to improve anatomic localization and optimize lesion detection. CT scan was performed according to ALARA (as low as reasonably achievable). COMPARISON: Compared with previous CT abdomen dated 04/07/2021. Only images available for comparison. FINDINGS: Mild interstitial septal thickening with subpleural fibrosis and traction bronchiectasis seen in visualized bilateral lung bases. Diffuse circumferential heterogeneously enhancing irregular wall thickening of urinary bladder noted, maximum wall thickness of 10 mm; suggestive of changes of cystitis. Marked perivesical fat stranding noted. Ill-defined hypoenhancing hypodense areas seen involving cortex of right kidney; possible changes of pyelonephritis. Mild perinephric fat stranding seen on right side. No obvious evidence of well defined peripherally enhancing thick walled collection in present scan. A simple Bosniak class I cortical cyst measuring 11 x 10 mm seen arising from upper pole of left kidney. The kidneys are normal in size. There is no hydronephrosis on either side. No renal calculi are identified. The ureters are normal in caliber and no ureteral calculi are seen. The liver is normal in size and attenuation. No focal liver lesions are seen. There is no intra or extrahepatic biliary ductal dilatation. Hepatic vasculature is patent. Post-cholecystectomy status. Surgical clips seen in gallbladder fossa region. The spleen, pancreas, and adrenal glands are unremarkable. Multiple air and content filled outpouchings seen arising from wall of sigmoid colon, descending colon and caecum; suggestive multiple colonic diverticulosis. No evident signs of diverticulitis. No evidence of focal or diffuse bowel wall thickening or evidence of bowel obstruction is seen. The appendix is visualized in the right lower quadrant and appears within normal limits. Pelvic organs appears unremarkable. No adnexal mass lesion on either side. No adenopathy or fluid collections are seen. The aorta is normal in caliber. Calcified atheromatous changes noted in aorta. Spondylotic changes noted in lumbar spine in form of peridiscal osteophytes formation and facetal joint arthropathy at multiple lumbar levels. Reduced intervertebral disc space at L5-S1 level. Mild anterior offset of L4 over L5 vertebrae, possibly due to facetal joint instability. No evidence of spondylolysis. Changes of osteitis pubis noted. IMPRESSION: 1. Diffuse circumferential heterogeneous enhancing wall thickening of urinary bladder with perivesical fat stranding; suggestive of changes of cystitis. New finding. 2. Ill-defined hypoenhancing hypodense areas involving cortex of right kidney with mild perinephric fat stranding; suggestive of changes of right sided pyelonephritis. New finding. 3. Left renal simple cortical cyst. Bosniak class I . Stable finding. 4. Colonic diverticulosis. No evident signs of diverticulitis. Stable finding. 5. Spondylotic changes in lumbar spine. 6. Changes of early interstitial lung disease in bilateral lung bases. Requires CT thorax for further evaluation. Progressive finding. Electronically signed by John Marion 06-13-2024 03:33 AM Chest X-Ray 06/13/24 07:02 EXAM: XR chest 1V portable CLINICAL HISTORY: sepsis, o2 req TECHNIQUE: An X-ray image of the chest is obtained in AP projection. COMPARISON: study dated 12/28/2023 FINDINGS: Pulmonary Parenchyma: Bilateral prominent bronchovascular markings, hugh with peribronchial cuffing. Left lower lung zone shows relative radio-opacity. No evidence of pleural effusion or pleural thickening. Heart and Mediastinum: Heart size and shape are normal. No mediastinal widening or masses. No hilar or mediastinal lymphadenopathy. Bony Thorax: Bony thorax appears intact without fractures or deformities. Soft Tissues: Soft tissues overlying the chest wall are unremarkable. IMPRESSION: 1. Bilateral prominent bronchovascular markings, hugh with peribronchial cuffing. 2. Left lower lung zone shows relative radio-opacity. 3. Features suggesting pulmonary congestion/ edema, with the possibility of underlying infection can't be ruled out. 4. No interval changes. Electronically signed by Jose D Jackson 06-13-2024 07:45 AM PG Care Time/CCT Total # of Minutes Spent Total Time Spent with Patient: Total time spent is greater than 50% in coordination of care (as documented) at patient's floor/unit and/or counseling patient: Coding Level of Care Code None Diagnoses Pyelonephritis N12 Sepsis A41.9 Diabetes E11.9 Hypercholesterolemia E78.00 Cystocele with prolapse N81.4
[2024-06-13] MEDS: OXYBUTYNIN CHLORIDE XL 5 MG TABCR PO SCH (08:58)
[2024-06-13] MEDS: GABAPENTIN 100 MG CAP PO SCH (08:58)
[2024-06-13] MEDS: ASPIRIN 81 MG ECTAB PO SCH (08:58)
[2024-06-13] MEDS: ENOXAPARIN INJ 40 MG/0.4 ML SYR SQ SCH (08:59)
[2024-06-13] MEDS: LANTUS PER UNIT CHARGE SQ SCH (09:06)
[2024-06-13] MEDS ORDERED: FAMOTIDINE 20 MG TAB PO PRN ×2 (11:44→11:57)
[2024-06-13] MEDS: PHENAZOPYRIDINE HCL 200 MG TAB PO STA (12:29)
[2024-06-13] MEDS: PANTOprazole 40 MG/10 ML SYR IV ONE (12:29)
[2024-06-13] MEDS: ONDANSETRON INJ 2 MG/ML 2 ML VIAL IV PRN (12:29)
[2024-06-13 12:30] LABS: Hematocrit (blood only) 42.9 % (37.0-47.0); Hemoglobin 13.8 g/dl (12.0-16.0); Mean Corpuscular Hemoglobin 28.5 pg (25.0-34.0); Mean Corpuscular Hgb Conc 32.2 g/dL (32.0-36.0); Mean Corpuscular Volume 88.5 fL (80.0-100.0); Mean Platelet Volume 8.9 fL (9.4-12.4); Platelet Count 380 K/uL (130-400); RDW Coefficient of Variation 14.1 % (11.5-14.5); RDW Standard Deviation 45.1 fL (36.4-46.3); Red Blood Count 4.85 M/uL (4.20-5.40); White Blood Count 14.64 K/ul (4.8-10.8)
[2024-06-13 12:53] LABS: BUN Creatinine Ratio 15.9 (10-20); Calcium 8.8 mg/dl (8.6-10.3); Magnesium 2.1 mg/dl (1.7-2.4)
--- NOTE | 2024-06-13 13:50 | Urology Consultation ---
<Statement entered by Gerry Elliott MD - 06/13/24 15:44> 78-year-old female with recurrent UTIs. Agree with antibiotics, narrowing coverage as culture data becomes available. Labs have been improving. CT scan demonstrating no focal obstructions although suggestive of pyelonephritis in the right kidney. If she fails to improve could consider reimaging. No plan for s urgical intervention at this time. Urology can coordinate outpatient follow-up, recurrent UTI workup. Date of Consultation June 13, 2024 Assessment & Plan (1) Acute UTI (urinary tract infection): (2) Sepsis: 78-year-old female with history of cystocele with prolapse admitted for complicated UTI and sepsis. Patient afebrile, hemodynamically stable Labs reviewedcreatinine 0.69, WBC downtrending (14.64) Urinalysis on arrival was suggestive of infection Urine and blood cultures pending History of recurrent E. coli ESBL infections Recommend continue with broad-spectrum antibiotics and narrow per sensitivity data when available CT imaging consistent with cystitis/right pyelonephritis; no stones or hydronephrosis No acute intervention warranted Continue with antibiotics for complicated UTI Voiding spontaneously at present Recommend monitor bladder emptying with postvoid residual/bladder scan prn We can arrange outpatient follow-up with urology to discuss UTI prevention options and possible workup Recommend continue follow-up with gynecology to revisit pessary placement since UTIs may be due to incomplete bladder emptying secondary to pelvic organ prolapse will sign off, please contact our service with any additional questions or concerns History of Present Illness Reason for Consultation: Recurrent UTIs, sepsis, pyelonephritis Requesting Physician: Dr. Marshall Attending Physician: Sam Marshall MD History of Present Illness This is a 78-year-old female with history of breast cancer, diabetes, hyperlipidemia and grade 3 cystocele with prolapse who presented to the emergency department on 06/13/2024 for evaluation of lower abdominal pain, dysuria and difficulty urinating. On arrival to ED, she was afebrile, tachycardic, hypertensive. Lab work showed WBC 21.32, hemoglobin 14.9, creatinine 0.83. Lactate 1.5. Urinalysis demonstrated turbid urine, 2+ protein, trace glucose, 2+ blood, positive nitrates, 3+ LE, >50 WBC, 0-2 RBC, 0-2 epithelial cells and 1+ bacteria. Workup included CT abdomen pelvis with IV contrast which showed diffuse circumferential heterogeneous enhancing wall thickening of the urinary bladder with perivesical fat stranding. Ill-defined hypoenhancing areas involving cortex of the right kidney with mild perinephric fat stranding. Left simple cyst. ED course: IV fluids, Zosyn, acetaminophen. She is admitted to the hospital medicine service for complicated UTI and sepsis. Urology is consulted for recurrent UTIs, sepsis, pyelonephritis. Patient seen and examined at bedside. She is awake and sitting up eating lunch. Reports feeling better since arrival. Denies suprapubic or flank discomfort at present. No fever or chills. No nausea or vomiting. She is voiding spontaneously. Reports intermittent difficulty with emptying her bladder. No hematuria. She reports recurrent urinary tract infections within the past year. She reports improvement with antibiotics, then developing yeast infections. She has known cystocele and has tried pessaries without success. She states that pessaries "fall out". Denies constipation. No prior urology evaluations. Denies history of kidney stones. No personal or known family history of malignancy. Allergies Allergy/AdvReac Type Severity Reaction Status Date / Time No Known Drug Allergies Allergy Verified 06/13/24 08:29 Home Medications Medication Instructions Recorded Confirmed Type atorvastatin 10 mg tablet 10 mg PO HS 12/09/19 06/13/24 History cholecalciferol (vitamin D3) 25 25 mcg PO QAM 12/09/19 06/13/24 History mcg (1,000 unit) tablet multivitamin 1 tab PO QAM 12/09/19 06/13/24 History omeprazole 20 mg capsule,delayed 20 mg PO QAM 12/09/19 06/13/24 History release blood-glucose meter (OneTouch 01/20/21 05/17/24 History Verio Reflect Meter) aspirin 81 mg tablet,delayed 81 mg PO QAM 05/24/21 06/13/24 History release (Adult Low Dose Aspirin) furosemide 20 mg tablet 20 mg PO QAM 10/22/21 06/13/24 History gabapentin 100 mg capsule 100 mg PO QAM 10/22/21 06/13/24 History oxybutynin chloride 5 mg 5 mg PO QAM 05/12/22 06/13/24 History tablet,extended release 24 hr lancets 21 gauge (BD Microtainer #200 ea 10/11/22 05/17/24 Rx Lancet) insulin syringe-needle U-100 0.3 #200 ea 12/04/23 05/17/24 Rx mL 31 gauge x 5/16" (BD Insulin Syringe Ultra-Fine) dulaglutide 1.5 mg/0.5 mL 1.5 mg (0.5 mL) subcut Q7D #2 mL 12/07/23 06/13/24 Rx subcutaneous pen injector (Trulicity) clotrimazole-betamethasone 1 1 applic topical DAILY PRN 03/21/24 06/13/24 History %-0.05 % lotion Itching/Irritation blood sugar diagnostic (OneTouch #200 ea 05/07/24 05/17/24 Rx Verio test strips) gabapentin 300 mg capsule 300 mg PO HS 05/17/24 06/13/24 History insulin human U-100 NPH-regulr 12 unit subcut BIDWMEAL 06/13/24 06/13/24 History 70-30 mix 100 unit/mL subcutaneous susp (Humulin 70/30 U-100 Insulin) Patient History Medical History Abnormal abdominal CT scan Weakness Rhabdomyolysis Poor historian Osteoarthritis GERD (gastroesophageal reflux disease) Restless leg syndrome Hyperlipidemia Myocardial Infarction "silent" found on EKG (per patient). no chest pain. 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 Surgical History History of arthroscopy RT KNEE Hx of lumpectomy Left History of dilatation and curettage History of esophagogastroduodenoscopy (EGD) History of colonoscopy Hx laparoscopic cholecystectomy Status post shoulder surgery (2002) Left shoulder r/t frozen shoulder Family History Father Diabetes Brother Diabetes Aunt Breast cancer maternal aunt Other No family history of adverse response to anesthesia Denies family history of Ovarian cancer Prostate cancer Colorectal cancer Social History Smoking Status: Never smoker Tobacco Type: Cigarettes Second Hand Exposure: Yes (Son smokes); Do You Dip or Chew Tobacco: No; Hx Alcohol Use: No Hx Substance Use: No Preferred Language: Spanish Communication Ability: Effective Visual Impairment: Limited [employer] Examiner Required: No Beliefs That Will Affect Care: None marital status: Single Current Living Situation: Alone Current Living Situation Comment: sister Feels Safe at Home: Yes caffeine: No Physical Activity Frequency: Does not Exercise Seatbelt Use: always Sunscreen Use: Yes Assistive Devices: Crutches, Denture - Upper, Denture - Lower, Glasses and Walker Review of Systems Review of Systems: All systems reviewed & are unremarkable except as noted in HPI & below Physical Exam Constitutional: well developed and well nourished; no acute distress Respiratory: normal respiratory effort; no respiratory distress and no labored breathing Gastrointestinal (Abdomen): Inspection/Auscultation: abdomen normal to inspection Musculoskeletal: Head/Neck/Chest: normocephalic Neurologic: moves all extremities and awake Psychiatric: Orientation: alert and oriented x 3 Results & Data Vital Signs (Past 12 Hours) Vital Signs Temp Pulse Pulse Resp BP BP Pulse Ox 06/13/24 11:19 36.6 C 86 18 127/68 94 06/13/24 07:56 96 H 21 103/78 97 06/13/24 06:48 97 H 06/13/24 06:23 86 16 121/63 96 06/13/24 04:24 98 H 06/13/24 04:20 37 C 92 H 16 114/63 95 06/13/24 04:00 105 H 16 114/66 99 06/13/24 02:30 109 H 18 128/71 94 06/13/24 02:00 115 H 21 129/69 94 06/13/24 02:00 109 H 19 129/69 95 O2 Del Method O2 Flow Rate 06/13/24 11:19 Room Air 06/13/24 07:56 Room Air 06/13/24 06:48 06/13/24 06:23 Nasal Cannula 2 06/13/24 04:24 06/13/24 04:20 Room Air 06/13/24 04:00 Room Air 06/13/24 02:30 Room Air 06/13/24 02:00 Room Air 06/13/24 02:00 Room Air PG Care Time/CCT Total # of Minutes Spent Total Time Spent with Patient: Total time spent is greater than 50% in coordination of care (as documented) at patient's floor/unit and/or counseling patient: Coding Level of Care Code 32767 INT INP/OBS CARE 2/55MIN Diagnoses Acute UTI (urinary tract infection) N39.0 Sepsis A41.9
[2024-06-13] MEDS: ATORVASTATIN 10 MG TAB PO SCH (21:09)
[2024-06-13] MEDS: GABAPENTIN 300 MG CAP PO SCH (21:09)
[2024-06-13] MEDS: FAMOTIDINE 20 MG TAB PO SCH (21:10)
[2024-06-14 08:07] LABS: Hematocrit (blood only) 42.2 % (37.0-47.0); Hemoglobin 13.8 g/dl (12.0-16.0); Mean Corpuscular Hemoglobin 29.1 pg (25.0-34.0); Mean Corpuscular Hgb Conc 32.7 g/dL (32.0-36.0); Mean Corpuscular Volume 88.8 fL (80.0-100.0); Mean Platelet Volume 8.9 fL (9.4-12.4); Platelet Count 382 K/uL (130-400); RDW Coefficient of Variation 14.1 % (11.5-14.5); RDW Standard Deviation 45.7 fL (36.4-46.3); Red Blood Count 4.75 M/uL (4.20-5.40); White Blood Count 10.25 K/ul (4.8-10.8)
--- NOTE | 2024-06-14 08:07 | Hospitalist Progress Note ---
Date of Service June 14, 2024 Assessment & Plan (1) Sepsis: (2) Pyelonephritis: (3) Pulmonary emboli: (4) Diabetes: (5) Hypercholesterolemia: (6) Cystocele with prolapse: Plan 78-year-old female with history of diabetes, hyperlipidemia, cystocele with prolapse presenting with lower abdominal pain, dysuria and difficulty urinating ongoing for the last day. WBC 21k on admission along with tachycardia to 120s but afebrile. UA appeared infected w/ recurrent UTIs and CTAP obtained with early changes of PYELONEPHRITIS on the RIGHT, bladder wall thickening, does note cyst as well Notable patient was given Cefdinir 3/2 by Nephrology PA for UTI but cx ESBL resistance to such and called in Augmentin 3/ to complete 7 day course BID * Also appears has had Cipro in December for sepsis 2nd to UTI while inpatient w/ ecoli/shiga infectious colitis but also given Bactrim in October * Does not appear to have been seen by Urology in the past and while CTAP not noting any stones/obstruction have placed consult to weigh in/consider cystoscopy outpatient/cycling abx. Should be encouraged on hygiene if contributing but also suspect possible prolapse/cystocele contributing #Sepsispresent on admission. SIRS 2 out of 4, likely source urinary s/p 2L NSS bolus in ER, 1L on admission Zosyn IV continued given prior resistance, hopefully not needing IV abx to complete course at discharge. WBC now normalized, plts normalized and HR stabilized after IVF and renal function stable. Blood/urine cultures pending and will need follow up to ensure not needing IV abx to complete course at discharge given prior resistance and multiple abx provided. Cdiff ordered as well if any diarrhea given recent abx use #Pyelonephritis UA appearing infected and CTAP noting early pyelo on the RIGHT. No CVA tenderness Zosyn IV as above and following cultures Urology consulted, Pyridium available and bladder scan without retention Will need urology f/u [place] [facility] for further eval (jordy in light of new PEs as below) #Pulmonary Emboli - NEW CT chest obtained given CTAP reporting possible progressive interstitial lung disease in patient without hx COPD/asthma (but does have smoking hx about 20yrs or so, quit 2000) and hx breast cancer for eval ILD but no hypoxia but did note 2L and was tachycardic on admission but no pleurtic pain/inspiration pain but did have significant "reflux/nausea" improved with PPI/pepcid however CT chest noting FEW SEGMENTAL PULMONARY EMBOLI WITHIN THE LEFT LOWER LOBE, age- indeterminate but new since CT December 2019 No hx DVT/PE, no hx afib. No hypoxia, no hypotension. Tachycardia on admission but HR improved w/ IVF and remains NSR Notable did have some leg cramping/tenderness but no significant findings -->Will check Venous Doppler for completeness. May need further work-up but has had prolonged illness w/ UTI and ?if 2nd to immobilization at home/laying around but will monitor ECHO for completeness NOT on oxygen, BP stable and no further tachycardia Lovenox SQ was ordered on admission but discussed w/ patient and CHANGED TO ELIQUIS 10mg BID and will have CM polk check Also CT does note ground-glass opacities in the lungs (no honeycombing) and could be treatment related, mild interstitial lung disease could appear similar Plan for pulm outpt f/u vs inpatient consult pending course #GERD,Reflux Chronic, recent meds for such -- NOT controlled on eval 06/13 but not ordered home meds and resumed PPI once daily AM and pepcid HS and has resolved Zofran available ?if increased reflux recently more from PE? above #Abnormal finding on CTAP--- noted possible early changes ILD on CTAP (progressive finding)- recs for CT thorax for follow up--> see above, noting segmental PE, also possible ILD and plan for pulm follow up inpatient vs outpatient at [facility] Does have hx breast ca and completed course tamoxifen per patient. Incentive spirometer ordered/aide to provide and patient using and remains on RA #Diabetes II A1c 7.1 in apr and follows w/ DM clinic on trulicty. 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 PT/OT consults pending and hopeful for [facility] in next 24-48hs Will need urology and pulm f/u at [place] Admission and Anticipated Discharge Date Admission Date: June 13, 2024 Supervising Physician Co-Signing Physician Notes The patient was not seen by me. The chart was reviewed. Case discussed with JEN López. Agree with assessment and plan Subjective Eval this morning, resting in bed. Feeling much better. Some fullness but no further significant pain. No back pain. Seen by urology yesterday. Discussed waiting for urine cultures to ensure not needing IV but WBC is normalized and hopefully dc tomorrow on PO meds. Lungs diminished with bibasilar crackles but no SOB. Discussed smoking hx, quit in 2000, smoked for about [address] chest today given hx breast ca for completeness and CTAP findings w/ recs for such. Reflux stable/improved since resumption of her PPI/pepcid. Questions/concerns addressed at this time. Physical Exam 2 Physical Exam: General: 78yo female resting in bed, reports feeling much better, NAD Head atraumatic, normocephalic, mm improved, trachea midline Resp: unlabored, no cough but bibasilar crackles, no wheezing, on room air CV: NSR on telemetry, rates 70-80s, no significant m/r/g, no pitting edema but calves slightly tender bilaterally but cap refill wnl/pulses present GI: +BS, soft/no overt tenderness, decreased suprapubic discomfort MSK/Neuro: generalized weakness but nonfocal, no slurred speech/facial droop or confusion Psych: AOx3, cooperative with exam Results & Data Results & Data Vital Signs (Past 12 Hours) Vital Signs Temp Pulse Pulse Resp BP Pulse Ox O2 Del Method 06/14/24 07:27 93 H 06/14/24 03:40 36.9 C 85 16 133/89 90 Room Air 06/13/24 23:17 37.1 C 87 16 110/68 92 Room Air 06/13/24 22:22 99 H 06/13/24 21:15 Room Air Laboratory Results 06/14/24 07:30 06/14/24 07:[address] 06/14/24 09:10 CT OF THE CHEST WITH IV CONTRAST CLINICAL HISTORY: f/u CTAP findings for concerns ILD, hx breast ca COMPARISON STUDY: Chest CT December 31, 2019. PET/CT February 19, 2020. Chest radiograph June 13, 2024. CT of the abdomen and pelvis June 13, 2024. TECHNIQUE: Following IV administration of 94 mL of Optiray, helical axial images of the chest were obtained. Sagittal and coronal reconstructions were viewed as well as maximal intensity projections on an independent 3-D workstation. Automated exposure control was utilized for the study. A dose lowering technique was utilized adhering to the principles of ALARA. CT DOSE: 620.56 mGy.cm FINDINGS: No enlarged axillary, mediastinal or hilar lymph nodes are present. Stable left chest wall soft tissue thickening is noted. This is unchanged since PET/CT of February 19, [address] December 31, 2019. Asymmetric left breast stranding and skin thickening is unchanged. This is treatment related. There are stable postoperative findings within the left breast. Chronic irregularity and deformity of the anterior left fourth through sixth ribs is unchanged. No suspicious lesions within the bony thorax are present. There is no pneumothorax or pleural effusion. Mild lower lung predominant subpleural reticulation is present with mild groundglass opacities. There is no honeycombing. There is no bronchiectasis. Subpleural biapical opacities are unchanged. These represent scarring. A few small segmental pulmonary emboli within the left lower lobe are best depicted on image 113 of 233. No central pulmonary emboli are identified. These emboli are new since CT of December 31, 2019. IMPRESSION: 1. A few small segmental pulmonary emboli within the left lower lobe. These are age-indeterminate but new since CT of December 31, 2019. Findings will be called/faxed to the ordering provider at time of dictation. 2. Stable post therapy changes within the left breast and chest wall. 3. No evidence for metastatic disease within the chest. 4. Mild subpleural reticulation and groundglass opacities within the lungs. No honeycombing. The findings are nonspecific and may be treatment related. Mild interstitial lung disease could appear similar. ACT 112: Negative or not required by law. Electronically signed by: Mario Mariscal M.D. 06/14/2024 10:56 AM PG Care Time/CCT Total # of Minutes Spent Total Time Spent with Patient: Total time spent is greater than 50% in coordination of care (as documented) at patient's floor/unit and/or counseling patient: Coding Level of Care Code 13349 SUB INP/OBS CARE 3/50MIN Diagnoses Sepsis A41.9 Pyelonephritis N12 Pulmonary emboli I26.99 Diabetes E11.9 Hypercholesterolemia E78.00 Cystocele with prolapse N81.4
[2024-06-14 08:14] LABS: BUN Creatinine Ratio 13.8 (10-20); Calcium 8.7 mg/dl (8.6-10.3); Creatinine Clr Calc Pharmacy 57.8 ml/min; Magnesium 2.1 mg/dl (1.7-2.4); Potassium 4.1 mmol/L (3.5-5.1)
[2024-06-14] MEDS: PANTOprazole 40 MG TAB PO SCH (08:46)
[2024-06-14] MEDS: PHENAZOPYRIDINE HCL 100 MG TAB PO PRN (08:46)
[2024-06-14] MEDS: OPTIRAY 320 100ml IV ONE (10:32)
--- NOTE | 2024-06-14 10:57 | CT Scan Report ---
CT OF THE CHEST WITH IV CONTRAST CLINICAL HISTORY: f/u CTAP findings for concerns ILD, hx breast ca COMPARISON STUDY: Chest CT December 31, 2019. PET/CT February 19, 2020. Chest radiograph June [address] of the abdomen and pelvis June 13, 2024. TECHNIQUE: Following IV administration of 94 mL of Optiray, helical axial images of the chest were o btained. Sagittal and coronal reconstructions were viewed as well as maximal intensity projections o n an independent 3-D workstation. Automated exposure control was utilized for the study. A dose low ering technique was utilized adhering to the principles of ALARA. CT DOSE: 620.56 mGy.cm FINDINGS: No enlarged axillary, mediastinal or hilar lymph nodes are present. Stable left chest wall soft tissue thickening is noted. This is unchanged since PET/CT of February 19, [address] Oc tob2019. Asymmetric left breast stranding and skin thickening is unchanged. This is treatment r elated. There are stable postoperative findings within the left breast. Chronic irregularity and defo rmity of the anterior left fourth through sixth ribs is unchanged. No suspicious lesions within the b elliot thorax are present. There is no pneumothorax or pleural effusion. Mild lower lung predominant sub pleural reticulation is present with mild groundglass opacities. There is no honeycombing. There is n o bronchiectasis. Subpleural biapical opacities are unchanged. These represent scarring. A few small segmental pulmonary emboli within the left lower lobe are best depicted on image 113 of 233. No centr al pulmonary emboli are identified. These emboli are new since CT of December 31, 2019. IMPRESSION: 1. A few small segmental pulmonary emboli within the left lower lobe. These are age-indeterminate but new since CT of December 31, 2019. Findings will be called/faxed to the ordering provider at time of d ictation. 2. Stable post therapy changes within the left breast and chest wall. 3. No evidence for metastatic disease within the chest. 4. Mild subpleural reticulation and groundglass opacities within the lungs. No honeycombing. The find ings are nonspecific and may be treatment related. Mild interstitial lung disease could appear simila r. ACT 112: Negative or not required by law. Electronically signed by: Mario Mariscal M.D. 06/14/2024 10:56 AM
[2024-06-14] MEDS: APIXABAN 5 MG TABLET PO SCH (12:38)
--- NOTE | 2024-06-14 13:25 | Ultrasound Report ---
BILATERAL LOWER EXTREMITY VENOUS DOPPLER CLINICAL HISTORY: Pulmonary emboli. Lower extremity pain. COMPARISON STUDY: Left lower extremity venous Doppler ultrasound July 30, 2019. Bilateral lower extrem ity venous Doppler ultrasound January 02, 2014. TECHNIQUE: Sonography of the deep venous system of the bilateral lower extremities was performed. Co mpression and augmentation were evaluated. FINDINGS: The bilateral common femoral, superficial femoral and popliteal veins were compressible. A ugmentation was normal. Flow was shown within the deep calf vessels. IMPRESSION: No evidence of deep venous thrombus within the bilateral lower extremities. ACT 112: Negative or not required by law. Electronically signed by: Mario Mariscal M.D. 06/14/2024 1:24 PM
[2024-06-14] MEDS: CARBOHYDRATES FOR HYPOGLYCEMIA PO PRN (17:04)
--- NOTE | 2024-06-14 17:55 | XCELERA ---
[id number]
[2024-06-15 07:36] LABS: Basophils % (auto) 1.1 %; Eosinophils # (auto) 0.45 K/uL (0.00-0.50); Hematocrit (blood only) 40.8 % (37.0-47.0); Hemoglobin 13.4 g/dl (12.0-16.0); Immature Granulocytes # (auto) 0.02 K/uL (0.01-0.20); Immature Granulocytes % (auto) 0.2 %; Lymphocytes # (auto) 2.83 K/uL (1.20-3.40); Lymphocytes % (auto) 31.1 %; Mean Corpuscular Hemoglobin 28.8 pg (25.0-34.0); Mean Corpuscular Hgb Conc 32.8 g/dL (32.0-36.0); Mean Corpuscular Volume 87.7 fL (80.0-100.0); Mean Platelet Volume 8.9 fL (9.4-12.4); Monocytes # (auto) 0.81 K/uL (0.11-0.59); Monocytes % (auto) 8.9 %; Neutrophils # (auto) 4.88 K/uL (1.40-6.50); Neutrophils % (auto) 53.7 %; Platelet Count 381 K/uL (130-400); RDW Coefficient of Variation 14.1 % (11.5-14.5); RDW Standard Deviation 45.2 fL (36.4-46.3); Red Blood Count 4.65 M/uL (4.20-5.40); White Blood Count 9.09 K/ul (4.8-10.8)
--- NOTE | 2024-06-15 07:45 | Hospitalist Progress Note ---
Date of Service June 15, 2024 Assessment & Plan (1) Sepsis: (2) Pyelonephritis: (3) Pulmonary emboli: (4) Diabetes: (5) Hypercholesterolemia: (6) Cystocele with prolapse: (7) History of breast cancer: (8) Interstitial lung disease: Plan 78-year-old female with history of diabetes, hyperlipidemia, cystocele with prolapse presenting with lower abdominal pain, dysuria and difficulty urinating ongoing x1 day. - Notable recent rx Cefdinir 3/2 by Nephro PA for ESBL ecoli UTI but switched to Augmentin 3/4 and completed 7 day course (also had Cipro in December/Bactrim in October). Never followed/seen by Urology in the past #Sepsis/Pyelonephritis/UTI - Sepsis on admission w/ WBC 21k w/ HR 120s on admission w/ urinary source suspected- UA infected appearing and CTAP w/ evidence for early PYELO on the right along w/ bladder wall thickening and notes small cyst as well (never followed by urology) s/p 3L IVF Zosyn IV continued -Urine cx gram negative bacilli this morning (prior pin-point) >> need to ensure sensitive to PO options given prior ESBL resistance to cephalosporins as well as bactrim and intermediate to cipro -Blood cx NGTD at this time- monitor WBC normalized, afebrile Tylenol, zofran available if needed, pyridium DVT proph: now on eliquis for +CT for segmental Pes as below, doppler negative PT/OT cleared for return home but again need final cx to ensure not need for IV abx to complete course at discharge and hopefully able to dc 06/16. Will need urology f/u at dc #Pulmonary Emboli - NEW NO HX DVT/PE in the past, but does have smoking hx about 20 yrs, quit in 2000. Also hx breast ca s/p tamoxifen--did have sinus tachy but no hypotension/hypoxia to note, (prior admit rhabdo/on ground, ?from that time) Obtained CT chest given CTAP reporting possible progressive ILD --> noted to have FEW SEGMENTAL PULMONARY EMBOLI WITHIN THE LEFT LOWER LOBE, age-indeterminate but new since CT December 2019 [address] chest did NOT note any evidence for metastatic disease Venous Doppler NEGATIVE however did report having some increased LEFT leg swelling prior, ?source Lovenox SQ on admission switched to ELIQUIS 10mg BID and plan for 10mg BID x 7 days and then 5mg BID thereafter. Will need pulm f/u given concerns for possible ILD/smoking hx for eval, urology for cysto as outlined. Hgb stable w/ use and no bleeding reported and will need f/u at [facility] ECHO for completeness #Abnormal finding on CTAP noted possible early changes ILD on CTAP (progressive finding)- recs for CT thorax for follow up--> see above, noting segmental PE, also possible ILD and plan for pulm follow up inpatient vs outpatient at [facility] given smoking hx and breast ca hx but no evidence for metastatic disease on CT chest to note. CTAP w/ bladder thicening (will need urology f/u and cysto) as some diverticulosis and some outpouchings in colon and if not done c-scope in past should be considered in f/u #GERD,Reflux Recent increased issue w/ nausea and improved/resolved w/ resumption of home PPI/pepcid as taking and not ordered but ?if related to PEs. Tx as outlined and no further issues but should be monitored. #Diabetes II A1c 7.1 in apr and follows w/ DM clinic on . Given lantus BID w/ SSI and BSGs acceptable but did drop LOW to 65 last evening and reduced lantus from 10u BID to 7u BID and will monitor (recent POC 130 and will loosen parameters) Monitor/adjust as needed #Hyperlipidemia Continue atorvastatin DVT proph: now on eliquis BID given CT findings Dispo: continued inpatient stay until urine cx final to ensure no needing IV abx to complete course. Hopeful dc 06/16 with follow up PCP, urology, pulmonology (and GI for c-scope if not done in past for screening) Admission and Anticipated Discharge Date Admission Date: June 13, 2024 Supervising Physician Co-Signing Physician Notes The patient was not seen by me. The chart was reviewed. Case discussed with JEN López. Agree with assessment and plan Subjective Eval this morning, sitting up in chair. Feels well. Urinary sx improved.= Urine cx still pending w/ pin point growth and discussed concerns for resistance and making sure sensitivites back prior to dc to ensure no need for IV abx at dc. Tele sinus w/ sinus tach to 130s w/ ambulation. No CP/SOB or hypoxia reported. Tolerating eliquis. Did endorse some swelling of her left leg recently, about same now, venous dopplers negative but could have been source for present emoli. Improvement in bases of lungs w/ addition incentive spirometer and continued use encouraged. ECHO pending Questions/concerns addressed at this time. Plan likely for dc in AM. Physical Exam 2 Physical Exam: General: 78yo female sitting up in the chair, NAD, reports feeling pretty good Head atraumatic, normocephalic, mmm, trachea midline Resp: even/unlabored, improvement/resolution in bibasilar crackles, no wheezing, on ROOM air CV: regular, sinus, rates controlled but does bump up to 130s with activity, trace pedal edema nonpitting, calves slightly tender/cramping but pulses present (venous doppler negative)- reports her L leg prior more swollen GI: +BS, soft/no overt tenderness, occ cramping lower abdomen no erazo MSK/Neuro: generalized weakness but nonfocal, no slurred speech/facial droop or confusion Psych: AOx3, cooperative with exam Results & Data Results & Data Vital Signs (Past 12 Hours) Vital Signs Temp Pulse Pulse Resp BP Pulse Ox O2 Del Method 06/15/24 03:04 36.7 C 83 20 113/68 93 Room Air 06/14/24 22:43 36.7 C 74 18 113/68 92 Room Air 06/14/24 21:45 82 06/14/24 20:50 Room Air Laboratory Results 06/15/24 06:48 06/15/24 06:[address] 06/14/24 09:10 CT OF THE CHEST WITH IV CONTRAST CLINICAL HISTORY: f/u CTAP findings for concerns ILD, hx breast ca COMPARISON STUDY: Chest CT December 31, 2019. PET/CT February 19, 2020. Chest radiograph June 13, 2024. CT of the abdomen and pelvis June 13, 2024. TECHNIQUE: Following IV administration of 94 mL of Optiray, helical axial images of the chest were obtained. Sagittal and coronal reconstructions were viewed as well as maximal intensity projections on an independent 3-D workstation. Automated exposure control was utilized for the study. A dose lowering technique was utilized adhering to the principles of ALARA. CT DOSE: 620.56 mGy.cm FINDINGS: No enlarged axillary, mediastinal or hilar lymph nodes are present. Stable left chest wall soft tissue thickening is noted. This is unchanged since PET/CT of February 19, [address] December 31, 2019. Asymmetric left breast stranding and skin thickening is unchanged. This is treatment related. There are stable postoperative findings within the left breast. Chronic irregularity and deformity of the anterior left fourth through sixth ribs is unchanged. No suspicious lesions within the bony thorax are present. There is no pneumothorax or pleural effusion. Mild lower lung predominant subpleural reticulation is present with mild groundglass opacities. There is no honeycombing. There is no bronchiectasis. Subpleural biapical opacities are unchanged. These represent scarring. A few small segmental pulmonary emboli within the left lower lobe are best depicted on image 113 of 233. No central pulmonary emboli are identified. These emboli are new since CT of December 31, 2019. IMPRESSION: 1. A few small segmental pulmonary emboli within the left lower lobe. These are age-indeterminate but new since CT of December 31, 2019. Findings will be called/faxed to the ordering provider at time of dictation. 2. Stable post therapy changes within the left breast and chest wall. 3. No evidence for metastatic disease within the chest. 4. Mild subpleural reticulation and groundglass opacities within the lungs. No honeycombing. The findings are nonspecific and may be treatment related. Mild interstitial lung disease could appear similar. ACT 112: Negative or not required by law. Electronically signed by: Mario Mariscal M.D. 06/14/2024 10:56 AM Venous Doppler Study 06/14/24 11:32 BILATERAL LOWER EXTREMITY VENOUS DOPPLER CLINICAL HISTORY: Pulmonary emboli. Lower extremity pain. COMPARISON STUDY: Left lower extremity venous Doppler ultrasound July 30, 2019. Bilateral lower extremity venous Doppler ultrasound January 02, 2014. TECHNIQUE: Sonography of the deep venous system of the bilateral lower extremities was performed. Compression and augmentation were evaluated. FINDINGS: The bilateral common femoral, superficial femoral and popliteal veins were compressible. Augmentation was normal. Flow was shown within the deep calf vessels. IMPRESSION: No evidence of deep venous thrombus within the bilateral lower extremities. ACT 112: Negative or not required by law. Electronically signed by: Mario Mariscal M.D. 06/14/2024 1:24 PM PG Care Time/CCT Total # of Minutes Spent Total Time Spent with Patient: Total time spent is greater than 50% in coordination of care (as documented) at patient's floor/unit and/or counseling patient: Coding Level of Care Code 17643 SUB INP/OBS CARE 3/50MIN Diagnoses Sepsis A41.9 Pyelonephritis N12 Pulmonary emboli I26.99 Diabetes E11.9 Hypercholesterolemia E78.00 Cystocele with prolapse N81.4 History of breast cancer Z85.3 Interstitial lung disease J84.9
[2024-06-15 07:58] LABS: Albumin Globulin Ratio 1.1 (0.9-2); Albumin Level 3.4 gm/dl (3.4-5.0); BUN Creatinine Ratio 14.6 (10-20); Bilirubin,Total 0.6 mg/dl (0.2-1.0); Calcium 8.8 mg/dl (8.6-10.3); Creatinine Clr Calc Pharmacy 50.8 ml/min; Globulin 3.1 gm/dl (2.5-4.0); Magnesium 2.1 mg/dl (1.7-2.4); Potassium 3.9 mmol/L (3.5-5.1); Total Protein 6.5 gm/dl (6.0-8.3)
[2024-06-15] MEDS: LANTUS PER UNIT CHARGE SQ SCH (09:43)
[2024-06-15 19:44] VITALS: RESP 18
[2024-06-16 07:16] LABS: Hematocrit (blood only) 41.8 % (37.0-47.0); Hemoglobin 13.9 g/dl (12.0-16.0); Mean Corpuscular Hemoglobin 29.3 pg (25.0-34.0); Mean Corpuscular Hgb Conc 33.3 g/dL (32.0-36.0); Mean Platelet Volume 8.8 fL (9.4-12.4); Platelet Count 379 K/uL (130-400); RDW Standard Deviation 44.9 fL (36.4-46.3); Red Blood Count 4.75 M/uL (4.20-5.40); White Blood Count 9.21 K/ul (4.8-10.8)
[2024-06-16 07:36] LABS: BUN Creatinine Ratio 19.2 (10-20); Calcium 8.8 mg/dl (8.6-10.3); Potassium 3.9 mmol/L (3.5-5.1)
--- NOTE | 2024-06-16 07:42 | Hospitalist Progress Note ---
Date of Service June 16, 2024 Assessment & Plan (1) Sepsis: (2) Pyelonephritis: (3) Pulmonary emboli: (4) Diabetes: (5) Hypercholesterolemia: (6) Cystocele with prolapse: (7) History of breast cancer: (8) Interstitial lung disease: Plan 78-year-old female with history of diabetes, hyperlipidemia, cystocele with prolapse presenting with lower abdominal pain, dysuria and difficulty urinating ongoing x1 day. - Notable recent rx Cefdinir 3/2 by Nephro PA for ESBL ecoli UTI but switched to Augmentin 3/4 and completed 7 day course (also had Cipro in December/Bactrim in October). Never followed/seen by Urology in the past #Sepsis/Pyelonephritis/UTI - Sepsis on admission w/ WBC 21k w/ HR 120s on admission w/ urinary source suspected- UA infected appearing and CTAP w/ evidence for early PYELO on the right along w/ bladder wall thickening and notes small cyst as well (never followed by urology) s/p 3L IVF Zosyn IV continued -Urine cx gram negative bacilli this morning (prior pin-point) >> need to ensure sensitive to PO options given prior ESBL resistance to cephalosporins as well as bactrim and intermediate to cipro -Blood cx NGTD at this time- monitor WBC normalized, afebrile Tylenol, zofran available if needed, pyridium DVT proph: now on eliquis for +CT for segmental Pes as below, doppler negative PT/OT cleared for return home but again need final cx to ensure not need for IV abx to complete course at discharge and hopefully able to dc 06/16. Will need urology f/u at dc 06/16 -- urine cx still gram negative bacilli. Blood cx remain NGTD. If micro able to finalize urine cx can consider dc today #Pulmonary Emboli - NEW NO HX DVT/PE in the past, but does have smoking hx about 20 yrs, quit in 2000. Also hx breast ca s/p tamoxifen--did have sinus tachy but no hypotension/hypoxia to note, (prior admit rhabdo/on ground, ?from that time) Obtained CT chest given CTAP reporting possible progressive ILD --> noted to have FEW SEGMENTAL PULMONARY EMBOLI WITHIN THE LEFT LOWER LOBE, age-indeterminate but new since CT December 2019 CT chest did NOT note any evidence for metastatic disease Venous Doppler NEGATIVE however did report having some increased LEFT leg swelling prior, ?source Lovenox SQ on admission switched to ELIQUIS 10mg BID and plan for 10mg BID x 7 days and then 5mg BID thereafter. Will need pulm f/u given concerns for possible ILD/smoking hx for eval, urology for cysto as outlined. Hgb stable w/ use and no bleeding reported and will need f/u at ct ECHO for completeness #Abnormal finding on CTAP noted possible early changes ILD on CTAP (progressive finding)- recs for CT thorax for follow up--> see above, noting segmental PE, also possible ILD and plan for pulm follow up inpatient vs outpatient at ct given smoking hx and b reast ca hx but no evidence for metastatic disease on CT chest to note. CTAP w/ bladder thicening (will need urology f/u and cysto) as some diverticulosis and some outpouchings in colon and if not done c-scope in past should be considered in f/u #GERD,Reflux Recent increased issue w/ nausea and improved/resolved w/ resumption of home PPI/pepcid as taking and not ordered but ?if related to PEs. Tx as outlined and no further issues but should be monitored. #Diabetes II A1c 7.1 in apr and follows w/ DM clinic on . Given lantus BID w/ SSI and BSGs acceptable but did drop LOW to 65 last evening and reduced lantus from 10u BID to 7u BID and will monitor (recent POC 130 and will loosen parameters) Monitor/adjust as needed #Hyperlipidemia Continue atorvastatin DVT proph: now on eliquis BID given CT findings Dispo: continued inpatient stay until urine cx final to ensure no needing IV abx to complete course. Hopeful dc 06/16 with follow up PCP, urology, pulmonology (and GI for c-scope if not done in past for screening) Admission and Anticipated Discharge Date Admission Date: June 13, 2024 Results & Data Results & Data Vital Signs (Past 12 Hours) Vital Signs Temp Pulse Pulse Resp BP Pulse Ox O2 Del Method 06/16/24 07:31 Room Air 06/16/24 03:03 36.7 C 73 18 116/72 99 Room Air 06/15/24 22:30 83 06/15/24 22:27 36.8 C 80 18 127/73 98 Room Air 06/15/24 20:50 Room Air PG Care Time/CCT Total # of Minutes Spent Total Time Spent with Patient: Total time spent is greater than 50% in coordination of care (as documented) at patient's floor/unit and/or counseling patient: Coding Diagnoses Sepsis A41.9 Pyelonephritis N12 Pulmonary emboli I26.99 Diabetes E11.9 Hypercholesterolemia E78.00 Cystocele with prolapse N81.4 History of breast cancer Z85.3 Interstitial lung disease J84.9
[2024-06-16] MEDS: AMOXICILLIN/CLAVULANATE 875 MG TAB PO SCH (09:54)
[2024-06-16] MEDS ORDERED: levoFLOXacin 750 MG TAB PO SCH (11:00)
[2024-06-16 11:44] VITALS: BP 100/62; PULSE 99; TEMP 98.1; O2SAT 95
--- NOTE | 2024-06-16 14:26 | Discharge Summary ---
Discharge Summary Date of Service June 16, 2024 Principal Dx & Hospital Course #1 = Principal Diagnosis (1) Sepsis: (2) Pyelonephritis: (3) Pulmonary emboli: (4) Diabetes: (5) Hypercholesterolemia: (6) Cystocele with prolapse: (7) History of breast cancer: (8) Interstitial lung disease: Plan 78-year-old female with history of diabetes, hyperlipidemia, cystocele with prolapse presenting with lower abdominal pain, dysuria and difficulty urinating x 1 day. - Notable recent rx Cefdinir 3/2 by Nephro PA for ESBL ecoli UTI but switched to Augmentin 3/4 and completed 7 day course (also had Cipro in December/Bactrim in October). Never followed/seen by Urology in the past #Sepsis/Pyelonephritis/UTI - Sepsis on admission w/ WBC 21k w/ HR 120s on admission w/ urinary source suspected - UA infected appearing and CTAP w/ evidence for early PYELO on the right along w/ bladder wall thickening and notes small cyst as well (never followed by urology) s/p 3L IVF, Zosyn IV continued and urine cx gram neg but <4000 CFU and no sensitivities/identification and decision to complete course Augmentin PO Blood cx remained NGTD and WBC normalized and has remained afebrile. Urology consulted given repeat infections and never seen and should have outpt f/u for cysto for evaluation any underlying issues but do note has cystocele w/ prolapse and suspect increases her risk. Was treated with Lovenox SQ for DVT proph but notable did complete CT chest for f/u possible ILD on CTAP without known COPD/lung disease (denied asthma but has been in chart in the past) and noted several small segmental pulmonary emobil within the LEFT lower lobe but were age-indeterminate but new since December 2019. She does have hx breast ca 2015 s/p treatment and completion of tamoxifen therapy and did not note any evidence for metastatic disease thankfully but see below re tx PEs as did have rhabdo hospitalization in the fall and w/ repeat infections/likely prolonged periods immobilization and leg sx could have been s ource. Venous doppler NEGATIVE PT/OT cleared for home, ambulated in gomez and lowests o2 95% without significant hypotension and has NOT been hypoxic #Pulmonary Emboli -No hx DVT/PE but notable hx breast ca in the past and smoking hx (quit ~20yrs ago) and was sinus tachy on admission CTAP noting concerns for progressive ILD/ground glass on CTAP but no hypoxia however given hx obtained CT chest for eval Ct chest noting FEW SEGMENTAL PULMONARY EMBOLI WITHIN THE LEFT LOWER LOBE, age- indeterminate but new since CT December 2019 --> Lovenox SQ stopped and placed on ELIQUIS 10mg BID x 7 days with plans to reduce to 5mg BID thereafter. Navigator to give 1st month coupon. CT chest did NOT note evidence for metastatic disease within the chest, but noted mild subpleural reticulation and ground-glass opacities within the lungs. No honeycombing. The findings are nonspecific and may be treatment related. Mild interstitial lung disease could appear similar. Do Venous dopplers negative but did have LLE pain prior and ?source as above ECHO w/o valvular disease, EF normal Remained on RA, incentive spirometer provided and crackles almost resolved. Augmentin for UTI coverage above sufficient for lung coverage as well Ambulation in gomez w/ RN and O2 >95% Discussed w/ on-call pulm and to continue Eliquis at [place] and can arrange for outpt f/u #Abnormal finding on CTAP- noted possible early changes ILD on CTAP (progressive finding)- recs for CT thorax for follow up--> see above, noting segmental PE, also possible ILD and plan for pulm follow up outpatient at [place] given smoking hx and breast ca hx but no evidence for metastatic disease on CT chest to note. CTAP w/ bladder thickening (will need urology f/u and cysto) as some diverticulosis and some outpouchings in colon and if not done c-scope in past should be considered in f/u #GERD,Reflux Recent increased issue w/ nausea and improved/resolved w/ resumption of home PPI/pepcid as taking and not ordered but ?if related to PEs. Tx as outlined and no further issues but should be monitored. #Diabetes II A1c 7.1 in apr and follows w/ DM clinic on trulicty. Sliding scale inpatient w/ adjustment for low x 1 w/ improvement and to resume home regimen at [place] given improvement PO w/ tx infection/PE as above #Hyperlipidemia Continued atorvastatin DVT proph: now on eliquis BID given CT findings and continued at [place] Notes For Next Care Provider Ensure f/u pulmonology for possible interstitial lung disease on CT chest and PEs. Rx for eliquis provided and no large PE/RV dysfunction or metastatic disease noted but should have f/u pulmonology as well as urology for cysto for eval given repeat infections/biopsy. Followed w/ Dr Gr in past and liked him and if any issues can reach out ot him if needed Was instructed to decrease eliquis to 5mg BID after 7 days but please ensure decreases to 5mg on June 21 as discussed. C-scope if not done prior should be done for screening as well Could consider holter monitor for possible afib but remained SINUS on telemetry and denied palpitations. Medication Changes From Visit Augmentin PO BID x 4 more days for 7 day course Eliquis 10mg PO BID x 7 days then 5mg BID thereafter for segmental PEs unknown duration Admission HPI Per Admitting Provider Krista Washington is a pleasant 78-year-old female with history of cystocele with prolapse, frequent UTIs, hyperlipidemia, asthma presenting from home with lower abdominal cramping and pressure as well as dysuria with difficulty urinating. The symptoms began at approximately 20:00 on 06/11/2024 and have been persistent. Patient denies fever, chills, chest pain, cough, shortness of breath. Denies nausea, vomiting, diarrhea, constipation. She still has ongoing lower abdominal pressure otherwise with no complaints at present. In the ER she is afebrile, tachycardic at 109 bpm, blood pressure is stable, adequate oxygenation on room air ER course: Tylenol Zosyn Normal saline x 2 L given, third liter being given presently Admission Exam Per Admitting Provider General: patient resting comfortably, NAD, non-toxic in appearance, AA&O x 4 Skin: warm, dry, intact, no rashes or lesions HEENT: NC/AT, PERRL, EOMI, anicteric sclera, conjunctiva without injection, external ear normal to inspection and nontender, nares patent, moist mucus membranes, dentition intact, no oropharyngeal lesions, neck supple, trachea midline, no LAD, no thyromegaly, no JVD Heart: +S1/S2, regular, tachycardic, no m/r/g Lungs: equal air entry bilaterally, no rales/rhonchi/wheezes Abd: +BS, soft, mild lower abdominal tenderness without rebound or guarding, nondistended, no masses/organomegaly/ascites Ext: warm, 2+ pulses in UE/LE bilaterally, no clubbing/cyanosis or edema Neuro: nonfocal, patient AA&O x 4, speech intact, no facial droop, moving all extremities on command with equal strength 5/5 Discharge Exam General: 78yo female sitting up in the chair, NAD, reports feeling pretty good and ambulating by herself with walker to the bathroom Head atraumatic, normocephalic, mmm, trachea midline Resp: even/unlabored, improvement/resolution in bibasilar crackles, no wheezing, on ROOM air 95% CV: regular, sinus, rates controlled, trace pedal edema nonpitting, calves slightly tender/cramping but pulses present (venous doppler negative)- reports her L leg prior more swollen GI: +BS, soft/no overt tenderness, occ cramping lower abdomen no erazo MSK/Neuro: generalized weakness IMPROVED, nonfocal, no slurred speech/facial droop or confusion Psych: AOx3, cooperative with exam Discharge Plan Discharge Items Patient Disposition: Home - Self-Care Reason For Visit: PYELONEPHRITIS, SEPSIS Discharge Diagnosis: Sepsis, urinary tract infection, Pulmonary emoboli Health Concerns: You have been hospitalized for an acute medical problem. During your stay at [facility], we have made an effort to correct the problem that brought you to the hospital while keeping you as comfortable as possible. Medications were used to bring your condition under control and your discharge instructions will include directions for any medications you should take after leaving the hospital. Please make sure you see your Primary Care Provider as part of your follow up plan. Activity: As commented below Non-emergency contact: Primary Care Provider, Damage Appraiser and Urologist Call non-emergency contact if: you have any medication questions, your symptoms worsen, your pain is not controlled, your pain is concerning for you and you have a fever Follow-up/Referrals: Chente Galvan MD [Physician] - Elvin Gr DO [Outside Practitioners] - Carlos Issa MD, [facility] [Physician] - Lorne Moody [Primary Care Provider] - (PLEASE CALL YOUR PRIMARY CARE PROVIDER TO SCHEDULE A HOSPITAL DISCHARGE FOLLOW-UP APPOINTMENT WITHIN 7-10 DAYS) Diet: Carb Consistent or DM2 and Heart Healthy Addtl Attending Provider Instructions: You have been hospitalized for weakness and UTI. Have been treated for UTI with IV antibiotics and blood cultures negative to date and are being sent on Augmentin twice daily for another 4 days. We did do a CT scan of the chest given concerns for possible "interstitial lung disease" noted on the abdominal imaging and your history of cancer as well as smoking and this showed a couple small blood clots in the left lobe and are new since 2019 but unclear when they occurred but as discussed have had multiple infections and hospitalization and could be from acute illness but have been started on a medication called ELIQUIS to help treat this. I did discuss the imaging with Dr Issa from pulmonology and he recommends continuing Eliquis at discharge and having outpatient follow up. Eliquis should be 10mg twice daily until June 20 and then on the DECREASE to 5mg by mouth TWICE daily. Continue with the incentive spirometer to prevent any pneumonia. Please avoid NSAIDs (ibuprofen, naproxen, Aleve while on these as can worsen bleeding). Alert your medical provider of any blood in urine or stool when taking these medications. Pulmonology follow up to be arranged/encouraged as well as urology for repeat urinary tract infections. Please follow up with primary care in the next 7-10 days to monitor your progress. It has been a pleasure being a part of the medical team providing for you while you have been in the hospital. Take care! Pending Studies at Discharge: Yes Studies:: blood cultures no growth to date Stand-Alone Forms: My [facility], Smoking Cessation Medications and DC Order Prescriptions: New Eliquis 5 mg tablet 5 mg PO BID 90 Days Qty: 180 0RF Rx Instructions: 10mg by mouth twice daily for 7 days then 5mg twice daily for three months amoxicillin-pot clavulanate 875-125 mg Tablet 1 tab PO BIDM 4 Days Qty: 8 0RF Continued Trulicity 1.5 mg/0.5 mL pen injector 1.5 mg subcut Q7D Qty: 2 12RF Rx Instructions: monday gabapentin 100 mg capsule 100 mg PO QAM furosemide 20 mg tablet 20 mg PO QAM oxybutynin chloride 5 mg tablet extended release 24hr 5 mg PO QAM aspirin [Adult Low Dose Aspirin] 81 mg tablet,delayed release (DR/EC) 81 mg PO QAM clotrimazole-betamethasone 1-0.05 % lotion 1 applic topical DAILY PRN (Reason: Itching/Irritation) gabapentin 300 mg capsule 300 mg PO HS atorvastatin 10 mg tablet 10 mg PO HS Hold Instructions: Resume on 01/15/24. discuss with primary care provider whether to restart this multivitamin Tablet 1 tab PO QAM cholecalciferol (vitamin D3) 25 mcg (1,000 unit) Tablet 25 mcg PO QAM omeprazole 20 mg capsule,delayed release(DR/EC) 20 mg PO QAM Humulin 70/30 U-100 Insulin 100 unit/mL (70-30) suspension 12 unit SUBCUT BIDWMEAL No Action (DME) lancets [BD Microtainer Lancet] 21 gauge misc See Rx Instructions .Route Qty: 200 11RF Rx Instructions: As directed use four times per day (DME) insulin syringe-needle U-100 [BD Insulin Syringe Ultra-Fine] 0.3 mL 31 gauge x 5/16" syringe See Rx Instructions .ROUTE .MEDSUPPLY Qty: 200 3RF Rx Instructions: Inject insulin two times daily (DME) OneTouch Verio test strips Strip See Rx Instructions .ROUTE .MEDSUPPLY Qty: 200 3RF Rx Instructions: Twice Daily and as needed (DME) blood-glucose meter [OneTouch Verio Reflect Meter] Misc See Rx Instructions .Route Rx Instructions: Check blood glucose twice daily and as needed Discharge Orders: Discharge Order (Routine); Ordered 06/16/24 Ordered By: Jayshree Hartley Admission Data Admit Date/Time: 06/13/24 03:54 Attending Provider: Sam Marshall Admit Provider: Marti Moreno Primary Care Provider: Lorne Moody Other Providers: Marti Moreno; Chente Galvan Other Interventions: Discharge Summary Assessment (RN) Last Done: 06/16/24 14:35 Hospital Stay Data Consultations 06/13/24 04:11 ED Decision to Admit Stat 06/13/24 11:51 Consult Urology Routine Diagnostic Imagining Performed Abdomen/Pelvis CT 06/12/24 23:24 EXAM: CT abd pelvis IV con only CLINICAL HISTORY: UTI, abd pain, r/o pyelo TECHNIQUE: Multiple contiguous axial images were obtained from the level of diaphragm to the pubis symphysis. This study was acquired after the IV administration of iodinated contrast material, given the patient's indications for the examination. If IV contrast material had not been administered, the likelihood of detecting abnormalities relevant to the patient's condition would have been substantially decreased. Coronal and sagittal reformatted images were generated and reviewed to improve anatomic localization and optimize lesion detection. CT scan was performed according to ALARA (as low as reasonably achievable). COMPARISON: Compared with previous CT abdomen dated 04/07/2021. Only images available for comparison. FINDINGS: Mild interstitial septal thickening with subpleural fibrosis and traction bronchiectasis seen in visualized bilateral lung bases. Diffuse circumferential heterogeneously enhancing irregular wall thickening of urinary bladder noted, maximum wall thickness of 10 mm; suggestive of changes of cystitis. Marked perivesical fat stranding noted. Ill-defined hypoenhancing hypodense areas seen involving cortex of right kidney; possible changes of pyelonephritis. Mild perinephric fat stranding seen on right side. No obvious evidence of well defined peripherally enhancing thick walled collection in present scan. A simple Bosniak class I cortical cyst measuring 11 x 10 mm seen arising from upper pole of left kidney. The kidneys are normal in size. There is no hydronephrosis on either side. No renal calculi are identified. The ureters are normal in caliber and no ureteral calculi are seen. The liver is normal in size and attenuation. No focal liver lesions are seen. There is no intra or extrahepatic biliary ductal dilatation. Hepatic vasculature is patent. Post-cholecystectomy status. Surgical clips seen in gallbladder fossa region. The spleen, pancreas, and adrenal glands are unremarkable. Multiple air and content filled outpouchings seen arising from wall of sigmoid colon, descending colon and caecum; suggestive multiple colonic diverticulosis. No evident signs of diverticulitis. No evidence of focal or diffuse bowel wall thickening or evidence of bowel obstruction is seen. The appendix is visualized in the right lower quadrant and appears within normal limits. Pelvic organs appears unremarkable. No adnexal mass lesion on either side. No adenopathy or fluid collections are seen. The aorta is normal in caliber. Calcified atheromatous changes noted in aorta. Spondylotic changes noted in lumbar spine in form of peridiscal osteophytes formation and facetal joint arthropathy at multiple lumbar levels. Reduced intervertebral disc space at L5-S1 level. Mild anterior offset of L4 over L5 vertebrae, possibly due to facetal joint instability. No evidence of spondylolysis. Changes of osteitis pubis noted. IMPRESSION: 1. Diffuse circumferential heterogeneous enhancing wall thickening of urinary bladder with perivesical fat stranding; suggestive of changes of cystitis. New finding. 2. Ill-defined hypoenhancing hypodense areas involving cortex of right kidney with mild perinephric fat stranding; suggestive of changes of right sided pyelonephritis. New finding. 3. Left renal simple cortical cyst. Bosniak class I . Stable finding. 4. Colonic diverticulosis. No evident signs of diverticulitis. Stable finding. 5. Spondylotic changes in lumbar spine. 6. Changes of early interstitial lung disease in bilateral lung bases. Requires CT thorax for further evaluation. Progressive finding. Electronically signed by John Marion 06-13-2024 03:33 AM Chest X-Ray 06/13/24 07:02 EXAM: XR chest 1V portable CLINICAL HISTORY: sepsis, o2 req TECHNIQUE: An X-ray image of the chest is obtained in AP projection. COMPARISON: study dated 12/28/2023 FINDINGS: Pulmonary Parenchyma: Bilateral prominent bronchovascular markings, hugh with peribronchial cuffing. Left lower lung zone shows relative radio-opacity. No evidence of pleural effusion or pleural thickening. Heart and Mediastinum: Heart size and shape are normal. No mediastinal widening or masses. No hilar or mediastinal lymphadenopathy. Bony Thorax: Bony thorax appears intact without fractures or deformities. Soft Tissues: Soft tissues overlying the chest wall are unremarkable. IMPRESSION: 1. Bilateral prominent bronchovascular markings, hugh with peribronchial cuffing. 2. Left lower lung zone shows relative radio-opacity. 3. Features suggesting pulmonary congestion/ edema, with the possibility of underlying infection can't be ruled out. 4. No interval changes. Electronically signed by Jose D Jackson 06-13-2024 07:[address] 06/14/24 09:10 CT OF THE CHEST WITH IV CONTRAST CLINICAL HISTORY: f/u CTAP findings for concerns ILD, hx breast ca COMPARISON STUDY: Chest CT December 31, 2019. PET/CT February 19, 2020. Chest radiograph June 13, 2024. CT of the abdomen and pelvis June 13, 2024. TECHNIQUE: Following IV administration of 94 mL of Optiray, helical axial images of the chest were obtained. Sagittal and coronal reconstructions were viewed as well as maximal intensity projections on an independent 3-D workstation. Automated exposure control was utilized for the study. A dose lowering technique was utilized adhering to the principles of ALARA. CT DOSE: 620.56 mGy.cm FINDINGS: No enlarged axillary, mediastinal or hilar lymph nodes are present. Stable left chest wall soft tissue thickening is noted. This is unchanged since PET/CT of February 19, [address] December 31, 2019. Asymmetric left breast stranding and skin thickening is unchanged. This is treatment related. There are stable postoperative findings within the left breast. Chronic irregularity and deformity of the anterior left fourth through sixth ribs is unchanged. No suspicious lesions within the bony thorax are present. There is no pneumothorax or pleural effusion. Mild lower lung predominant subpleural reticulation is present with mild groundglass opacities. There is no honeycombing. There is no bronchiectasis. Subpleural biapical opacities are unchanged. These represent scarring. A few small segmental pulmonary emboli within the left lower lobe are best depicted on image 113 of 233. No central pulmonary emboli are identified. These emboli are new since CT of December 31, 2019. IMPRESSION: 1. A few small segmental pulmonary emboli within the left lower lobe. These are age-indeterminate but new since CT of December 31, 2019. Findings will be called/faxed to the ordering provider at time of dictation. 2. Stable post therapy changes within the left breast and chest wall. 3. No evidence for metastatic disease within the chest. 4. Mild subpleural reticulation and groundglass opacities within the lungs. No honeycombing. The findings are nonspecific and may be treatment related. Mild interstitial lung disease could appear similar. ACT 112: Negative or not required by law. Electronically signed by: Mario Mariscal M.D. 06/14/2024 10:56 AM Venous Doppler Study 06/14/24 11:32 BILATERAL LOWER EXTREMITY VENOUS DOPPLER CLINICAL HISTORY: Pulmonary emboli. Lower extremity pain. COMPARISON STUDY: Left lower extremity venous Doppler ultrasound July 30, 2019. Bilateral lower extremity venous Doppler ultrasound January 02, 2014. TECHNIQUE: Sonography of the deep venous system of the bilateral lower extremities was performed. Compression and augmentation were evaluated. FINDINGS: The bilateral common femoral, superficial femoral and popliteal veins were compressible. Augmentation was normal. Flow was shown within the deep calf vessels. IMPRESSION: No evidence of deep venous thrombus within the bilateral lower extremities. ACT 112: Negative or not required by law. Electronically signed by: Mario Mariscal M.D. 06/14/2024 1:24 PM ECHOCARDIOGRAM 06/14/24 LV systolic function is normal. RV is normal in size and function. No significant valvular disease No shunt Pending Results Patient Have Any Pending Studies at Discharge: Yes Discharge Instructions Given to Patient (Per Discharging Provider) You have been hospitalized for weakness and UTI. Have been treated for UTI with IV antibiotics and blood cultures negative to date and are being sent on Augmentin twice daily for another 4 days. We did do a CT scan of the chest given concerns for possible "interstitial lung disease" noted on the abdominal imaging and your history of cancer as well as smoking and this showed a couple small blood clots in the left lobe and are new since 2019 but unclear when they occurred but as discussed have had multiple infections and hospitalization and could be from acute illness but have been started on a medication called ELIQUIS to help treat this. I did discuss the imaging with Dr Issa from pulmonology and he recommends continuing Eliquis at discharge and having outpatient follow up. Eliquis should be 10mg twice daily until June 20 and then on the DECREASE to 5mg by mouth TWICE daily. Continue with the incentive spirometer to prevent any pneumonia. Please avoid NSAIDs (ibuprofen, naproxen, Aleve while on these as can worsen bleeding). Alert your medical provider of any blood in urine or stool when taking these medications. Pulmonology follow up to be arranged/encouraged as well as urology for repeat urinary tract infections. Please follow up with primary care in the next 7-10 days to monitor your progress. It has been a pleasure being a part of the medical team providing for you while you have been in the hospital. Take care! Supervising Physician Co-Signing Physician Notes The patient was not seen by me. The chart was reviewed. Case discussed with JEN López. Agree with assessment and plan Total Time Total Time Spent Total Time Spent (In Minutes): 60 Coding Level of Care Code 62420 INP/OBS DISCH >30 MIN Diagnoses Sepsis A41.9 Pyelonephritis N12 Pulmonary emboli I26.99 Diabetes E11.9 Hypercholesterolemia E78.00 Cystocele with prolapse N81.4 History of breast cancer Z85.3 Interstitial lung disease J84.9
== END 2024-06-16 15:11 | disposition home or self-care (01) | DRG 871 ==
LOC: ED 22:13 → EDINP 06-13 03:54 → SUATTDRO 06-13 03:54 → 2W 06-13 04:30

== ENCOUNTER 2024-11-25 01:01 | Inpatient (IN) ==
[2024-11-25] MEDS: KETOROLAC 30 MG/ML VIAL IV ONE (02:19)
[2024-11-25] MEDS: CALCIUM CARBONATE 500 MG CHEWABLE TAB PO STA (03:53)
[2024-11-25] MEDS: ONDANSETRON INJ 2 MG/ML 2 ML VIAL IV STA (03:53)
[2024-11-25] MEDS: FAMOTIDINE 20MG IV PUSH 20 MG/5 ML SYR IV STA (03:56)
[2024-11-25] MEDS: HYDROmorphone INJ 0.5 MG/0.5 ML SYR IV STA ×2 (03:57→08:12)
--- NOTE | 2024-11-25 04:35 | Emergency Department Note ---
Impression & Plan Lumbar compression fracture, Acute left lumbar radiculopathy, Discitis of lumbar region Admit to the [facility] ED Provider Note NAME: YIN REYNA AGE: 78 SEX: Female INFORMANT: Patient ED PROVIDER(S): Anni Byrne DO CHIEF COMPLAINT: Low back pain and left leg pain PLAN: Disposition: Admit to the [facility] MEDICAL DECISION MAKING: This is a 78-year-old female patient who presents to the emergency department with a 5-6-week history of pain and burning in the left leg. Patient describes having plain films of her lumbar spine performed which showed evidence of a pinched nerve. I did review those images which show findings at L4. Patient will go for MRI of the lumbar spine. She was medicated with IV Toradol initially which gave her some relief of her discomfort. She went on to receive a dose of IV Dilaudid which helped even more. Upon returning from radiology, the patient still had moderate discomfort in her left leg to the point that she could not bear weight without intense pain. She was given another dose of IV Dilaudid. laboratory studies were drawn which revealed a mildly elevated white blood cell count. she continued to require IV opioids for pain management. I discussed the case with Dr. Agustin from the [facility] group and they will evaluate her further inpatient care. MRI revealed compression fracture L4 and L5 with disc edema between those 2 vertebrae. Care/management discussed with: manager contact and [facility] Triage Nursing notes: reviewed and agree with them. Vital Signs: reviewed and Unremarkable Chronic Medical/Social Conditions affecting care: 5-6-week history of low back pain and burning sensation to her left lower extremity Prior/ Outside/ External records reviewed: I did review previous lumbar spine films obtained by her PCP Differential Diagnosis: acute disc herniation, sciatica, lumbar radiculopathy, cauda equina syndrome Diagnostics, independently interpreted by me: Imaging studies: MRI of the lumbar spine:as per [facility] HPI: 78 year old Female arrives for evaluation of Left lower extremity pain. 5-6-week history of pain and burning in the left leg. Patient describes having plain films of her lumbar spine performed which showed evidence of a pinched nerve. I did review those images which show findings at L4. PAST MEDICAL HISTORY: See Below, PAST SURGICAL HISTORY: See Below, SOCIAL HISTORY: See Below, HOME MEDICATIONS: see list ALLERGIES: see list VITALS: See Below PHYSICAL EXAMINATION: HEENT: Head - normocephalic and atraumatic. Pupils are equal, round, and reactive to light. Extraocular eye muscles are intact and sclera are anicteric. Ears - bilaterally patent canals with noninjected tympanic membranes and no evidence of hemotympanum. Nose - moist nasal mucosa without discharge. Mouth - moist buccal mucosa. Oropharynx is nonerythematous and there is no tonsillar exudate or edema noted. Neck: Supple; no JVD or cervical lymphadenopathy Heart: Regular rate and rhythm. There is a normal S1 and S2 with no murmurs, clicks, or gallops appreciated. Lungs: Clear to auscultation bilaterally with no wheezes, rales, or rhonchi. Abdomen: Soft, completely nontender, nondistended, with good bowel sounds. There are no palpable pulsatile masses or hepatosplenomegaly. There is no guarding, rigidity, or rebound noted. Extremities: No evidence of cyanosis, clubbing, or edema. There are easily palpable peripheral pulses. Neuro:The patient is awake and alert, oriented to day, time, and place. Patient has equal pedal push and pull. She has good sensation in her feet. Patellar reflexes were 2/4. Emergency department treatment: IV Toradol, IV Dilaudid, IV Zofran , IV Pepcid,oral tums, IV Dilaudid emergency department course: The patient was evaluated in room A-10. A complete history and physical was performed. Patient had moderate pain on my exam. IV lock was initiated He was given a dose of IV Toradol with some relief of her discomfort but the patient continued to complain of pain and was given a dose of IV Dilaudid and IV Zofran. Patient went for MRI of the lumbar spine after reviewing plain films ordered by her PCP. Upon returning from radiology, the patient complained of epigastric discomfort and heartburn. She was given a dose of IV Pepcid and oral Tums. Patient's back pain and left leg burning persisted and she was given a second dose of IV Dilaudid. I discussed the case with the [facility] hospitalist and they will evaluate for further inpatient care for intractable pain Past Med/Surg History Problem List (Updated 11/25/24 @ 23:57 by Anni Byrne DO) Discitis of lumbar region (Acute) Acute left lumbar radiculopathy (Acute) Lumbar compression fracture (Acute) Compression fracture of lumbar spine, non-traumatic Leg swelling (Acute) Renal cyst (Chronic) Interstitial lung disease Pulmonary emboli Diabetes Abdominal pain, lower (Acute) Dysuria (Acute) Cystocele with prolapse History of breast cancer (2013) Left breast -- surgical intervention + radiation treatments -> 2013 Lower extremity edema Primary osteoarthritis of left knee Vitamin D deficiency (Chronic) 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 no chest pain. 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 Surgical History History of arthroscopy RT KNEE Hx of lumpectomy Left History of dilatation and curettage History of esophagogastroduodenoscopy (EGD) History of colonoscopy Hx laparoscopic cholecystectomy Status post shoulder surgery (2002) Left shoulder r/t frozen shoulder Family History Father Diabetes Brother Diabetes Aunt Breast cancer maternal aunt Other No family history of adverse response to anesthesia Denies family history of Ovarian cancer Prostate cancer Colorectal cancer Social History (Updated 07/25/24 @ 09:36 by Sary Mora RN) Smoking Status: Former smoker Tobacco Type: Cigarettes Age Started Using Tobacco: 25; Age Quit Using Tobacco: 55; packs per day: 1; Second Hand Exposure: Yes (Son smokes); Do You Dip or Chew Tobacco: No; Hx Alcohol Use: No Hx Substance Use: No Preferred Language: Georgian Communication Ability: Effective Visual Impairment: Limited Radiator Tester Required: No Beliefs That Will Affect Care: None marital status: Single Current Living Situation: Alone Current Living Situation Comment: sister Feels Safe at Home: Yes Safety Concerns: Feels Safe At This Time caffeine: No Physical Activity Frequency: Does not Exercise Seatbelt Use: always Sunscreen Use: Yes Assistive Devices: Denture - Upper, Denture - Lower, Glasses and Walker Assistive Devices Comment: dentures at home Allergies Allergies Allergy/AdvReac Type Severity Reaction Status Date / Time ciprofloxacin [From Cipro] Allergy Intermediate Hives Verified 11/25/24 02:02 penicillin G Allergy Intermediate Rash Verified 11/25/24 02:02 Home Meds Home Medications Medication Instructions Recorded Confirmed atorvastatin 10 mg tablet 10 mg PO HS 12/09/19 11/25/24 cholecalciferol (vitamin D3) 25 25 mcg PO QAM 12/09/19 11/25/24 mcg (1,000 unit) tablet multivitamin 1 tab PO QAM 12/09/19 11/25/24 omeprazole 20 mg capsule,delayed 20 mg PO QAM 12/09/19 11/25/24 release aspirin 81 mg tablet,delayed 81 mg PO QAM 05/24/21 11/25/24 release (Adult Low Dose Aspirin) furosemide 20 mg tablet 20 mg PO QAM 10/22/21 11/25/24 gabapentin 100 mg capsule 100 mg PO QAM 10/22/21 11/25/24 clotrimazole-betamethasone 1 1 applic topical DAILY PRN 03/21/24 11/25/24 %-0.05 % lotion Itching/Irritation gabapentin 300 mg capsule 300 mg PO HS 05/17/24 11/25/24 insulin human U-100 NPH-regulr 0 unit subcut BIDWMEAL 06/13/24 11/25/24 70-30 mix 100 unit/mL subcutaneous susp (Humulin 70/30 U-100 Insulin) dulaglutide 1.5 mg/0.5 mL 1.5 mg subcut WK 11/25/24 11/25/24 subcutaneous pen injector (Trulicity) famotidine 20 mg tablet 20 mg PO DAILY 11/25/24 11/25/24 nystatin 100,000 unit/gram topical 1 applic topical DIRECTED PRN 11/25/24 11/25/24 ointment Skin Irritation oxybutynin chloride 5 mg 5 mg PO QAM 11/25/24 11/25/24 tablet,extended release 24 hr Previous Rx's Medication Instructions Recorded methenamine hippurate 1 gram tablet 1 g PO BID #180 tabs 09/05/24 lidocaine 5 % topical patch 1 patch topical DAILY PRN pain #15 11/18/24 ea Results & Data (ED) Vital Signs Vital Signs - 24 hr 11/25/24 03:00 11/25/24 03:55 11/25/24 04:00 Pulse Rate 103 H Pulse Rate [Apical] 107 H 111 H Pulse Rate from SpO2 Sensor Pulse Rhythm [Apical] Regular Pulse Strength [Apical] Normal Respiratory Rate 18 20 18 Respiratory Effort / Characteristics Non-Labored Spontaneous Respiratory Depth Normal Respiratory Pattern Regular Blood Pressure 158/80 H Blood Pressure [Right Arm] 143/73 H 154/86 H Blood Pressure Mean 114 Blood Pressure Mean [Right Arm] 96 108 Blood Pressure Position [Right Arm] Semi-fowlers Pulse Oximetry 94 96 93 Oxygen Delivery Method Room Air Room Air Room Air Oxygen Flow Rate Oxygen Flow Rate - Titration Pulse Oximetry Post Tiitration 11/25/24 04:30 11/25/24 05:21 11/25/24 05:23 Pulse Rate 101 H 103 H 95 H Pulse Rate [Apical] Pulse Rate from SpO2 Sensor Pulse Rhythm [Apical] Pulse Strength [Apical] Respiratory Rate 16 16 Respiratory Effort / Characteristics Respiratory Depth Respiratory Pattern Blood Pressure 132/69 125/78 Blood Pressure [Right Arm] Blood Pressure Mean 84 84 Blood Pressure Mean [Right Arm] Blood Pressure Position [Right Arm] Pulse Oximetry 94 95 Oxygen Delivery Method Nasal Cannula Nasal Cannula Oxygen Flow Rate 2 2 Oxygen Flow Rate - Titration Pulse Oximetry Post Tiitration 11/25/24 05:30 11/25/24 06:00 11/25/24 06:30 Pulse Rate 103 H 101 H 100 H Pulse Rate [Apical] Pulse Rate from SpO2 Sensor Pulse Rhythm [Apical] Pulse Strength [Apical] Respiratory Rate 20 22 14 Respiratory Effort / Characteristics Respiratory Depth Respiratory Pattern Blood Pressure 119/61 128/67 135/71 Blood Pressure [Right Arm] Blood Pressure Mean 75 100 102 Blood Pressure Mean [Right Arm] Blood Pressure Position [Right Arm] Pulse Oximetry 97 96 95 Oxygen Delivery Method Nasal Cannula Nasal Cannula Room Air Oxygen Flow Rate 2 2 Oxygen Flow Rate - Titration Pulse Oximetry Post Tiitration 11/25/24 07:00 11/25/24 08:29 11/25/24 08:30 Pulse Rate 91 H 97 H Pulse Rate [Apical] Pulse Rate from SpO2 Sensor 94 H Pulse Rhythm [Apical] Pulse Strength [Apical] Respiratory Rate 18 20 Respiratory Effort / Characteristics Respiratory Depth Respiratory Pattern Blood Pressure 136/72 Blood Pressure [Right Arm] Blood Pressure Mean 101 Blood Pressure Mean [Right Arm] Blood Pressure Position [Right Arm] Pulse Oximetry 95 86 L 85 L Oxygen Delivery Method Room Air Room Air Oxygen Flow Rate Oxygen Flow Rate - Titration 2 Pulse Oximetry Post Tiitration 95 11/25/24 08:33 11/25/24 09:00 11/25/24 09:02 Pulse Rate 86 Pulse Rate [Apical] Pulse Rate from SpO2 Sensor 88 Pulse Rhythm [Apical] Pulse Strength [Apical] Respiratory Rate 18 Respiratory Effort / Characteristics Respiratory Depth Respiratory Pattern Blood Pressure 107/63 126/66 Blood Pressure [Right Arm] Blood Pressure Mean 76 83 Blood Pressure Mean [Right Arm] Blood Pressure Position [Right Arm] Pulse Oximetry 96 98 Oxygen Delivery Method Nasal Cannula Nasal Cannula Oxygen Flow Rate 2 2 Oxygen Flow Rate - Titration Pulse Oximetry Post Tiitration 11/25/24 09:53 11/25/24 10:00 11/25/24 11:51 Pulse Rate 82 85 Pulse Rate [Apical] Pulse Rate from SpO2 Sensor 82 84 Pulse Rhythm [Apical] Pulse Strength [Apical] Respiratory Rate 13 15 Respiratory Effort / Characteristics Respiratory Depth Respiratory Pattern Blood Pressure 115/56 L Blood Pressure [Right Arm] Blood Pressure Mean 92 Blood Pressure Mean [Right Arm] Blood Pressure Position [Right Arm] Pulse Oximetry 97 98 Oxygen Delivery Method Nasal Cannula Oxygen Flow Rate 2 Oxygen Flow Rate - Titration Pulse Oximetry Post Tiitration 11/25/24 11:52 11/25/24 11:53 Pulse Rate Pulse Rate [Apical] 83 Pulse Rate from SpO2 Sensor Pulse Rhythm [Apical] Pulse Strength [Apical] Respiratory Rate 15 Respiratory Effort / Characteristics Non-Labored Spontaneous Respiratory Depth Normal Respiratory Pattern Regular Blood Pressure 121/82 Blood Pressure [Right Arm] 121/82 Blood Pressure Mean 91 Blood Pressure Mean [Right Arm] 95 Blood Pressure Position [Right Arm] Pulse Oximetry 100 Oxygen Delivery Method Nasal Cannula Oxygen Flow Rate 2 Oxygen Flow Rate - Titration Pulse Oximetry Post Tiitration Laboratory Data 11/25/24 08:08 11/25/24 08:08 Lab Results 11/25/24 11/25/24 Range/Units 07:41 08:08 WBC 13.33 H (4.8-10.8) K/ul RBC 4.86 (4.20-5.40) M/uL Hgb 14.4 (12.0-16.0) g/dl Hct 43.4 (37.0-47.0) % MCV 89.3 (80.0-100.0) fL MCH 29.6 (25.0-34.0) pg MCHC 33.2 (32.0-36.0) g/dL RDW Std Deviation 45.1 (36.4-46.3) fL RDW Coeff of Kwasi 13.9 (11.5-14.5) % Plt Count 353 (130-400) K/uL MPV 8.7 L (9.4-12.4) fL Immature Gran % (Auto) 0.5 % Neut % (Auto) 60.5 % Lymph % (Auto) 25.5 % [place] % (Auto) 7.4 % Eos % (Auto) 5.5 % Baso % (Auto) 0.6 % Neut # (Auto) 8.06 H (1.40-6.50) K/uL Lymph # (Auto) 3.40 (1.20-3.40) K/uL [place] # (Auto) 0.99 H (0.11-0.59) K/uL Eos # (Auto) 0.73 H (0.00-0.50) K/uL Baso # (Auto) 0.08 (0.00-0.20) K/uL Immature Gran # (Auto) 0.07 (0.01-0.20) K/uL ESR 26 (0-30) mm/hr Sodium 140 (136-145) mmol/L Potassium 4.9 (3.5-5.1) mmol/L Chloride 105 (98-107) mmol/L Carbon Dioxide 33 H (21-32) mmol/L Anion Gap 2 L (3-11) BUN 12 (6-23) mg/dl Creatinine 0.78 (0.6-1.2) mg/dl Est Cr Clr Drug Dosing 65.0 ml/min eGFR 78.18 BUN/Creatinine Ratio 15.4 (10-20) Glucose 173 H (70-99(Fasting)) mg/dl POC Glucose 147 H (70-99) mg/dl Calcium 9.4 (8.6-10.3) mg/dl Total Bilirubin 0.6 (0.2-1.0) mg/dl AST 67 H (13-39) U/L ALT 40 (7-52) U/L Alkaline Phosphatase 59 (34-104) U/L C-Reactive Protein < 0.50 (0-0.5) mg/dl Total Protein 6.5 (6.0-8.3) gm/dl Albumin 3.3 L (3.4-5.0) gm/dl Globulin 3.2 (2.5-4.0) gm/dl Albumin/Globulin Ratio 1.0 (0.9-2) Administered Medications Atorvastatin Calcium (Atorvastatin 10 Mg Tab) 10 mg PO [facility] Stop: 12/25/24 20:59 Last Admin: 11/25/24 20:24 Dose: 10 mg Documented By: MARCELO Gabapentin (Gabapentin 300 Mg Cap) 300 mg PO [facility] Stop: 12/25/24 20:59 Last Admin: 11/25/24 20:24 Dose: 300 mg Documented By: MARCELO Insulin Aspart (Insulin Aspart Per Unit Charge) [facility] Stop: 12/25/24 16:29 Last Admin: 11/25/24 21:22 Dose: Not Given Documented By: Admin: 11/25/24 17:22 Dose: 6 units Documented By: LYNETTE Co-signed By: AYO Methenamine Hippurate (Methenamine Hippurate 1 Gm Tab) 1 gm PO BID [facility] Stop: 12/05/24 20:59 Last Admin: 11/25/24 20:24 Dose: 1 gm Documented By: MARCELO Oxycodone HCl (Oxycodone Hcl Ir 5 Mg Tab (Immediate Release)) 5 mg PO Q4H PRN PRN Reason: Severe Pain (Scale 7, 8, 9,10) Stop: 12/09/24 15:34 Last Admin: 11/25/24 15:53 Dose: 5 mg Documented By: LYNETTE Discontinued Medications Calcium Carbonate (Calcium Carbonate 500 Mg Chewable Tab) 1,500 mg PO NOW STA Stop: 11/25/24 03:32 Last Admin: 11/25/24 03:53 Dose: 1,500 mg Documented By: ROBERT Hydromorphone HCl (Hydromorphone Inj 0.5 Mg/0.5 Ml Syr) 0.5 mg IV NOW STA Stop: 11/25/24 03:11 Last Admin: 11/25/24 03:57 Dose: 0.5 mg Documented By: ROBERT Hydromorphone HCl (Hydromorphone Inj 0.5 Mg/0.5 Ml Syr) 0.5 mg IV NOW STA Stop: 11/25/24 07:57 Last Admin: 11/25/24 08:12 Dose: 0.5 mg Documented By: ANTOINETTE Famotidine (Pepcid 20mg Iv Push) 20 mg in 5 mls @ 2.5 mls/min IV NOW STA Stop: 11/25/24 03:32 Last Admin: 11/25/24 03:56 Dose: 2.5 mls/min Documented By: ROBERT Ketorolac Tromethamine (Ketorolac 30 Mg/Ml Vial) 30 mg IV NOW ONE Stop: 11/25/24 01:59 Last Admin: 11/25/24 02:19 Dose: 30 mg Documented By: JAMES Ondansetron HCl (Ondansetron Inj 2 Mg/Ml 2 Ml Vial) 4 mg IV NOW STA Stop: 11/25/24 03:11 Last Admin: 11/25/24 03:53 Dose: 4 mg Documented By: ROBERT Discharge Plan Visit Data Chief Complaint: Leg Weakness, Bilateral Stated Complaint: LEG PAIN, RADIATING INTO BACK, HERE FOR SAME ED Provider: Anni Byrne Discharge Problem: Lumbar compression fracture, Acute left lumbar radiculopathy, Discitis of lumbar region Patient Disposition: Admitted As Inpatient Condition: Serious Discharge Instructions Interventions: ED Discharge Assessment Last Done: 11/25/24 14:16
[2024-11-25 08:43] LABS: Hematocrit (blood only) 43.4 % (37.0-47.0); Hemoglobin 14.4 g/dl (12.0-16.0); Immature Granulocytes # (auto) 0.07 K/uL (0.01-0.20); Immature Granulocytes % (auto) 0.5 %; Mean Corpuscular Hemoglobin 29.6 pg (25.0-34.0); Mean Corpuscular Volume 89.3 fL (80.0-100.0); Platelet Count 353 K/uL (130-400); RDW Standard Deviation 45.1 fL (36.4-46.3); Red Blood Count 4.86 M/uL (4.20-5.40); White Blood Count 13.33 K/ul (4.8-10.8)
--- NOTE | 2024-11-25 08:43 | Magnetic Resonance Report ---
EXAM: MR lumbar spine wo con CLINICAL HISTORY: eval acute disc herniation TECHNIQUE: Different pulse sequences were performed in different planes for the lumbar spine without contrast. Images were sent through PACs for diagnostic interpretation. COMPARISON: [id number] to 11/15/2024 cr, the MRI study dated 05/25/2023 /[id number] study dated 06/13/2024/[id number].5.1 FINDINGS: Mild levoscoliosis of the thoracolumbar spine noted. Vertebral Alignment: First-degree spondylolithesis of L4 over L5 vertebrae. Mild anterior displacement of L3 over L4 vertebrae. Vertebral Bodies and Intervertebral Discs: Partial collapse decreased the height of the L4 vertebral body and, to a lesser extent, the upper end plate of the L5 vertebral body. Degenerative changes/ bone marrow edema/ contusion at opposing vertebral end plates at the L4-5 disc level. The other vertebral bodies are in normal height. Multilevel osteoarthritis of facet joints with hypertrophied ligamenta flava noted. Bilateral mild to moderate neural foraminal stenosis of the lumbar spine secondary to disc bulgings, dorsal osteophytes, spondylolisthesis and facet joints hypertrophies. Abnormally high SI is seen within the L4-5 disc, likely post-traumatic rather than spondylodiscitis. Otherwise, degenerated intervertebral discs in the form of decreased T2 SI. [id number] analysis: T12-L1: There is a 1.3 mm central focal protrusion of the disc, mildly effacing anterior epidural fat. No nerve root comöpression. No spinal canal stenosis or neural foraminal stenosis. L1-L2: There is a 4.8 mm right paracentral-right foraminal focal protrusion of the disc, effacing the anterior epidural fat, compressing the dural sac and right L2 nerve root, abutting the right L1 nerve root in the neural foramen. There is moderate right neural foraminal stenosis. No spinal canal and left foraminal stenosis. L2-L3: There is 3.8 mm diffuse bulging of the disc, effacing the anterior epidural fat, indenting the dural sac and both L3 nerve roots, while abutting both L2 nerve roots in the neural foramina. There is mild spinal canal and mild bilateral neural foraminal stenosis secondary to disc bulging, dorsal osteophytes, buckling of the ligamenta flava and facet joints hypertrophy. L3-L4: There is a 5 mm diffuse pseudodisc bulging due to listhesis, effacing the anterior epidural fat, compressing the dural sac and both L4 nerve roots, indenting both L3 nerve roots in the neural foramina. There is moderate spinal canal and bilateral neural foraminal stenosis secondary to listhesis, pseudodisc bulging, dorsal osteophytes, buckling of the ligamenta flava and facet joints hypertrophy. L4-L5: There is a 6.1 mm diffuse pseudodisc bulging due to listhesis, effacing the anterior epidural fat, compressing the dural sac and both L5 nerve roots, also compressing both L4 nerve roots in the neural foramina. There is severe spinal canal and moderate bilateral neural foraminal stenosis secondary to listhesis, pseudodisc bulging, dorsal osteophytes, buckling of the ligamenta flava and facet joints hypertrophy. L5-S1: There is 2 mm diffuse bulging of the disc, effacing the anterior epidural fat, indenting the dural sac and abutting both L5 nerve roots in the neural foramina. No compression of the S1 nerve roots. No spinal canal stenosis. Bilateral mild neural foraminal stenosis noted. Spinal Cord: Conus medullaris terminates at the L1 level without abnormality. The lower thoracic spinal cord and conus medullaris are unremarkable. Soft Tissues: Edema of the posterior subcutaneous fat tissues noted. IMPRESSION: 1. Grade 1 acute compression fractures of the L4 and L5 vertebral bodies with edema of the L4-L5 disc. Interval new findings. 2. Grade 1 spondylolisthesis of the L3-L4 and L4-L5 levels, spondylodegenerative changes of the lumbar spine with mild levoscoliosis. 3. Multilevel degenerative disc bulgings and protrusions, causing nerve roots indentation and compressions, along with spinal canal and neural foraminal stenosis; as details given above. Interval stable. Electronically signed by Jose D Jackson 11-25-2024 08:42 AM
[2024-11-25 09:00] LABS: Alanine Aminotransferase 40 U/L (7-52); Albumin Globulin Ratio 1.0 (0.9-2); Alkaline Phosphatase 59 U/L (34-104); Anion Gap 2 (3-11); Bilirubin,Total 0.6 mg/dl (0.2-1.0); Blood Urea Nitrogen 12 mg/dl (6-23); Calcium 9.4 mg/dl (8.6-10.3); Carbon Dioxide 33 mmol/L (21-32); Chloride 105 mmol/L (98-107); Creatinine Clr Calc Pharmacy 65.0 ml/min; Globulin 3.2 gm/dl (2.5-4.0); Glucose 173 mg/dl (70-99(Fasting)); Potassium 4.9 mmol/L (3.5-5.1); Sodium 140 mmol/L (136-145); Total Protein 6.5 gm/dl (6.0-8.3)
[2024-11-25] MEDS ORDERED: GLUCAGON FOR INJ 1 MG VIAL SQ PRN (15:00)
[2024-11-25] MEDS ORDERED: DEXTROSE 50% 50 ML SYRINGE IV PRN (15:00)
[2024-11-25] MEDS ORDERED: GLUCOSE 40% GEL 15 GM TUBE PO PRN (15:00)
[2024-11-25] MEDS ORDERED: GLUCOSE 10 TAB/TUBE PO PRN (15:00)
[2024-11-25] MEDS ORDERED: HYDROmorphone INJ 0.5 MG/0.5 ML SYR IV PRN (15:35)
[2024-11-25] MEDS: INSULIN ASPART PER UNIT CHARGE SC SCH (17:22)
--- NOTE | 2024-11-25 18:29 | History & Physical Report ---
Date of Service November 25, 2024 Assessment & Plan (1) Compression fracture of lumbar spine, non-traumatic: Plan: #Lumbar Spine Compression fracture - noted on L4, L5, as well as multilevel degenerative disc bulgings and protrusions causing nerve roots indentation and compression - pain regimen ordered - ortho consulted - PT / OT - cont gabapentin - hold off on further steroids until evaluated by ortho #DM II - cont insulin - hypoglycemic protocol #HLD - cont statin #Code status: full code #Dispo: [facility] #DVT ppx: SCDs for now, if prolonged hospitalization, will start heparin subq Admission and Anticipated Discharge Date Admission Date: November 25, 2024 History of Present Illness Chief Complaint: severe back pain Primary Care Provider: Lorne Moody 78 yr old F with PMHx of DM II, HLD, asthma returns to the ED for the evaluation of low back pain and left leg pain This has been going on for about 5-6 weeks. She has severe burning in the thigh. She reports that every time she puts weight on her left leg, her leg hurts. She has tried steroids and pain medications without significant relief. She is denying any fall prior to the onset of pain. Over the past 24 hours pain has worsened prompting her to come to the hospital. She denies weakness in her legs, bowel/bladder incontinence, numbness in the groin. Allergies Allergy/AdvReac Type Severity Reaction Status Date / Time ciprofloxacin [From Cipro] Allergy Intermediate Hives Verified 11/25/24 02:02 penicillin G Allergy Intermediate Rash Verified 11/25/24 02:02 Home Medications Medication Instructions Recorded Confirmed Type atorvastatin 10 mg tablet 10 mg PO HS 12/09/19 11/25/24 History cholecalciferol (vitamin D3) 25 25 mcg PO QAM 12/09/19 11/25/24 History mcg (1,000 unit) tablet multivitamin 1 tab PO QAM 12/09/19 11/25/24 History omeprazole 20 mg capsule,delayed 20 mg PO QAM 12/09/19 11/25/24 History release aspirin 81 mg tablet,delayed 81 mg PO QAM 05/24/21 11/25/24 History release (Adult Low Dose Aspirin) furosemide 20 mg tablet 20 mg PO QAM 10/22/21 11/25/24 History gabapentin 100 mg capsule 100 mg PO QAM 10/22/21 11/25/24 History clotrimazole-betamethasone 1 1 applic topical DAILY PRN 03/21/24 11/25/24 History %-0.05 % lotion Itching/Irritation gabapentin 300 mg capsule 300 mg PO HS 05/17/24 11/25/24 History insulin human U-100 NPH-regulr 0 unit subcut BIDWMEAL 06/13/24 11/25/24 History 70-30 mix 100 unit/mL subcutaneous susp (Humulin 70/30 U-100 Insulin) methenamine hippurate 1 gram tablet 1 g PO BID #180 tabs 09/05/24 11/25/24 Rx lidocaine 5 % topical patch 1 patch topical DAILY PRN pain #15 11/18/24 11/25/24 Rx ea dulaglutide 1.5 mg/0.5 mL 1.5 mg subcut WK 11/25/24 11/25/24 History subcutaneous pen injector (Trulicity) famotidine 20 mg tablet 20 mg PO DAILY 11/25/24 11/25/24 History nystatin 100,000 unit/gram topical 1 applic topical DIRECTED PRN 11/25/24 11/25/24 History ointment Skin Irritation oxybutynin chloride 5 mg 5 mg PO QAM 11/25/24 11/25/24 History tablet,extended release 24 hr Past Med/Surg History Problem List (Updated 11/25/24 @ 18:32 by So Agustin MD) Compression fracture of lumbar spine, non-traumatic Leg swelling (Acute) Renal cyst (Chronic) Interstitial lung disease Pulmonary emboli Diabetes Abdominal pain, lower (Acute) Dysuria (Acute) Cystocele with prolapse History of breast cancer (2013) Left breast -- surgical intervention + radiation treatments -> 2013 Lower extremity edema Primary osteoarthritis of left knee Vitamin D deficiency (Chronic) 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 no chest pain. 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 Surgical History History of arthroscopy RT KNEE Hx of lumpectomy Left History of dilatation and curettage History of esophagogastroduodenoscopy (EGD) History of colonoscopy Hx laparoscopic cholecystectomy Status post shoulder surgery (2002) Left shoulder r/t frozen shoulder Family History Father Diabetes Brother Diabetes Aunt Breast cancer maternal aunt Other No family history of adverse response to anesthesia Denies family history of Ovarian cancer Prostate cancer Colorectal cancer Social History (Updated 07/25/24 @ 09:36 by Sary Mora RN) Smoking Status: Former smoker Tobacco Type: Cigarettes Age Started Using Tobacco: 25; Age Quit Using Tobacco: 55; packs per day: 1; Second Hand Exposure: Yes (Son smokes); Do You Dip or Chew Tobacco: No; Hx Alcohol Use: No Hx Substance Use: No Preferred Language: Sami Communication Ability: Effective Visual Impairment: Limited Asp Net Mvc Developer Required: No Beliefs That Will Affect Care: None marital status: Single Current Living Situation: Alone Current Living Situation Comment: sister Feels Safe at Home: Yes Safety Concerns: Feels Safe At This Time caffeine: No Physical Activity Frequency: Does not Exercise Seatbelt Use: always Sunscreen Use: Yes Assistive Devices: Denture - Upper, Denture - Lower, Glasses and Walker Assistive Devices Comment: dentures at home Review of Systems Review of Systems: Comprehensive ROS completed and is otherwise negative. Physical Exam Physical Exam: Gen: no acute distress, lying in bed comfortable HEENT: NC/AT, MMM Lungs: nonlabored breathing, CTAB CVS: s1s2nl, RRR Abd: nl bowel sounds, soft, NT / ND : no erazo Ext: no edema Neuro: AAOx3 Psych: calm cooperative Results & Data Results & Data Vital Signs (Past 12 Hours) Vital Signs Temp Pulse Pulse Pulse Resp BP BP 11/25/24 14:50 11/25/24 14:50 36.6 C 84 16 120/72 11/25/24 14:00 122/70 11/25/24 14:00 75 14 11/25/24 13:57 73 16 11/25/24 13:00 80 19 11/25/24 13:00 120/57 L 11/25/24 11:53 83 15 121/82 11/25/24 11:52 121/82 11/25/24 11:51 85 15 11/25/24 10:00 115/56 L 11/25/24 09:53 82 13 11/25/24 09:02 86 18 11/25/24 09:00 126/66 11/25/24 08:33 107/63 11/25/24 08:30 11/25/24 08:29 97 H 20 11/25/24 07:00 91 H 18 136/72 11/25/24 06:30 100 H 14 135/71 Pulse Ox O2 Del Method O2 Flow Rate 11/25/24 14:50 Room Air 11/25/24 14:50 95 Room Air 11/25/24 14:00 11/25/24 14:00 98 11/25/24 13:57 100 11/25/24 13:00 98 11/25/24 13:00 11/25/24 11:53 100 Nasal Cannula 2 11/25/24 11:52 11/25/24 11:51 98 11/25/24 10:00 11/25/24 09:53 97 Nasal Cannula 2 11/25/24 09:02 98 Nasal Cannula 2 11/25/24 09:00 11/25/24 08:33 96 Nasal Cannula 2 11/25/24 08:30 85 L Room Air 11/25/24 08:29 86 L Room Air 11/25/24 07:00 95 11/25/24 06:30 95 Room Air PG Care Time/CCT Total # of Minutes Spent Total Time Spent with Patient: Total time spent is greater than 50% in coordination of care (as documented) at patient's floor/unit and/or counseling patient: Coding Level of Care Code 06555 INT INP/OBS CARE 75MIN Diagnoses Compression fracture of lumbar spine, non-traumatic M48.56XA
[2024-11-25] MEDS: ATORVASTATIN 10 MG TAB PO SCH (20:24)
[2024-11-25] MEDS: METHENAMINE HIPPURATE 1 GM TAB PO SCH (20:24)
[2024-11-25] MEDS: GABAPENTIN 300 MG CAP PO SCH (20:24)
[2024-11-26] MEDS: ONDANSETRON INJ 2 MG/ML 2 ML VIAL IV PRN (02:06)
[2024-11-26] MEDS ORDERED: ONDANSETRON INJ 2 MG/ML 2 ML VIAL IV PRN (05:31)
[2024-11-26] MEDS: ONDANSETRON INJ 2 MG/ML 2 ML VIAL IV STA (05:45)
[2024-11-26 06:29] LABS: Hematocrit (blood only) 45.3 % (37.0-47.0); Hemoglobin 15.3 g/dl (12.0-16.0); Mean Corpuscular Hemoglobin 30.7 pg (25.0-34.0); Mean Corpuscular Volume 90.8 fL (80.0-100.0); Platelet Count 346 K/uL (130-400); RDW Standard Deviation 45.5 fL (36.4-46.3); Red Blood Count 4.99 M/uL (4.20-5.40); White Blood Count 13.15 K/ul (4.8-10.8)
[2024-11-26 06:47] LABS: Anion Gap 9.0 (3-11); Calcium 8.9 mg/dl (8.6-10.3); Carbon Dioxide 24.0 mmol/L (21-32); Chloride 102.0 mmol/L (98-107); Magnesium 1.9 mg/dl (1.7-2.4); Potassium 4.2 mmol/L (3.5-5.1); Sodium 135.0 mmol/L (136-145)
[2024-11-26 06:53] LABS: Blood Urea Nitrogen 15.0 mg/dl (6-23); Creatinine Clr Calc Pharmacy 66.8 ml/min; Glucose 224.0 mg/dl (70-99(Fasting))
[2024-11-26] MEDS ORDERED: HYDROmorphone INJ 0.5 MG/0.5 ML SYR IV PRN (07:17)
--- NOTE | 2024-11-26 07:21 | Hospitalist Progress Note ---
Date of Service November 26, 2024 Assessment & Plan (1) Compression fracture of lumbar spine, non-traumatic: (2) Osteoporosis with current pathological fracture: Plan In summary this is a 78-year-old female who presents with progressive low back pain found to have a subacute lumbar compression fracture Continue pain regimen as detailed below; orthopedic surgery was consulted to evaluate for potential surgical intervention; at the time of my exam there is no evidence of radiculopathy, there is no indication for steroids at this time Continue acetaminophen 1000 mg p.o. every 8 hours Continue gabapentin 100 mg in the morning, 300 mg at bedtime from home medications Continue Toradol 15 mg IV every 6 hours scheduled, did not be extended past 12/01 Continue tramadol 50 mg p.o. twice daily, per patient request as they felt hydromorphone was inadequate Regarding the patient's type 2 diabetes mellitus; this is relatively well- controlled at home; based on their weight we will treat as detailed below Start Lantus 7 units SQ twice daily Start prandial and bedtime aspart with correction factor of 50 mg/dL/unit, carbohydrate ratio of 18 g/unit with goal blood glucose range of 140-180; pharmacy has been consulted for continued assistance with glycemic management [facility] Continue the patient's remaining home chronic medications as prescribed DVT prophylaxis: Start Lovenox 40 mg SQ daily Admission and Anticipated Discharge Date Admission Date: November 25, 2024 Subjective Ms. Bishop is a 78-year-old female whose active medical conditions include osteoporosis evidenced by multiple compression fractures, lumbar degenerative disc disease with associated osteoarthritis, interstitial lung disease among other chronic medical conditions who presented to the [facility] on 11/121 progressive and persistent low back pain that was intolerable and significantly affected the patient's ability to perform her activities of daily living. No acute overnight events; the patient states this morning that they are experiencing significant stiffness in their low back though they suspect this is from being in the hospital bed rather than association with her presenting complaints. She denies any new neurologic symptoms, uncontrolled pain, but expresses great concern regarding continued management of these issues. Review of Systems Review of Systems: Review of constitutional, musculoskeletal, neurologic, genitourinary, gastrointestinal systems were unremarkable Physical Exam Physical Exam: General: Elderly female in no acute distress Vital Signs: Reviewed HEENT: Moist mucous membranes; pupils equally round reactive to light, extraocular motion intact Pulmonary: Symmetric chest wall rise without restriction; comfortable respirations Cardiovascular: Regular rate and rhythm without murmurs, rubs, or gallops; right radial pulse 2+; no notable lower extremity edema Gastrointestinal: Soft, nontender Musculoskeletal: Hypertonic paraspinal musculature throughout the entire lumbar spine, especially with respect to the quadratus lumbar ROM bilaterally Neurologic: Cranial nerves II through XII grossly intact; no discernible focal weakness or paresthesias Results & Data Results & Data Vital Signs (Past 12 Hours) Vital Signs Temp Pulse Resp BP Pulse Ox O2 Del Method 11/25/24 22:49 36.7 C 80 16 126/78 95 Room Air PG Care Time/CCT Total # of Minutes Spent Total Time Spent with Patient: Total time spent is greater than 50% in coordination of care (as documented) at patient's floor/unit and/or counseling patient: Coding Level of Care Code 74551 SUB INP/OBS CARE 2/35MIN Diagnoses Nontraumatic compression fracture of L4 vertebra, initial encounter M48.56XA Encounter type: initial encounter Lumbar vertebra fracture level: L4 Age-related osteoporosis with current pathological fracture, initial encounter M80.00XA Osteoporosis type: age-related Encounter type: initial encounter (1) Compression fracture of lumbar spine, non-traumatic Encounter type: initial encounter Lumbar vertebra fracture level: L4 Qualified Code(s): M48.56XA - Collapsed vertebra, not elsewhere classified, lumbar region, initial encounter for fracture (2) Osteoporosis with current pathological fracture Osteoporosis type: age-related Encounter type: initial encounter Qualified Code(s): M80.00XA - Age-related osteoporosis with current pathological fracture, unspecified site, initial encounter for fracture
[2024-11-26] MEDS: GABAPENTIN 100 MG CAP PO SCH (08:22)
[2024-11-26] MEDS: KETOROLAC TROMETHAMINE 15 MG/ML VIAL IV SCH (08:22)
[2024-11-26] MEDS: ACETAMINOPHEN 500 MG TAB PO SCH (08:22)
[2024-11-26] MEDS: OXYBUTYNIN CHLORIDE XL 5 MG TABCR PO SCH (08:23)
[2024-11-26] MEDS: FAMOTIDINE 20 MG TAB PO SCH (08:23)
[2024-11-26] MEDS: FUROSEMIDE 20 MG TAB PO SCH (08:23)
[2024-11-26] MEDS: INSULIN ASPART PER UNIT CHARGE SC SCH (09:35)
[2024-11-26] MEDS: LANTUS PER UNIT CHARGE SQ SCH (09:36)
[2024-11-26] MEDS: POLYETHYLENE (MIRALAX) 17 GM PACK PO SCH (09:42)
--- NOTE | 2024-11-26 10:06 | Consultation ---
Date of Consultation November 26, 2024 Assessment & Plan (1) Compression fracture of lumbar spine, non-traumatic: Dr Clay has reviewed imaging and treatment plan. We have discussed both conservative and surgical treatment options. COnservative treatment involves LSO brace wear and consult with pain management team for lumbar injections for spondylolisthesis. SUrgical intervention would involve Kyphoplasty L3, L4, L5 and decompression/instrumented fusion L3-5. I've ordered the LSO brace regardless of her decision. SHe wants to think about her options right now. SUggest physical therapy. SHe might need discharge to a rehab facility. History of Present Illness Attending Physician: Yoel Bob, DO History of Present Illness THis is a pleasant 78yo female who presented to the ED yesterday with complaint of back and left leg pain. SHe states she's had this pain for the last 4-5 weeks. SHe denies any accident, trauma or fall. Her back pain is along her waistline. Her Left leg pain involves her knee, anterior padilla to her foot. She denies RLE pain. SHe has been having a difficult time with ambulation at home because of the pain. SHe's been trying to manage the pain wth Aleve at home. SHe typically ambulates with a walker. SHe lives alone in an apartment. Allergies Allergy/AdvReac Type Severity Reaction Status Date / Time ciprofloxacin [From Cipro] Allergy Intermediate Hives Verified 11/25/24 02:02 penicillin G Allergy Intermediate Rash Verified 11/25/24 02:02 Home Medications Medication Instructions Recorded Confirmed Type atorvastatin 10 mg tablet 10 mg PO HS 12/09/19 11/25/24 History cholecalciferol (vitamin D3) 25 25 mcg PO QAM 12/09/19 11/25/24 History mcg (1,000 unit) tablet multivitamin 1 tab PO QAM 12/09/19 11/25/24 History omeprazole 20 mg capsule,delayed 20 mg PO QAM 12/09/19 11/25/24 History release aspirin 81 mg tablet,delayed 81 mg PO QAM 05/24/21 11/25/24 History release (Adult Low Dose Aspirin) furosemide 20 mg tablet 20 mg PO QAM 10/22/21 11/25/24 History gabapentin 100 mg capsule 100 mg PO QAM 10/22/21 11/25/24 History clotrimazole-betamethasone 1 1 applic topical DAILY PRN 03/21/24 11/25/24 History %-0.05 % lotion Itching/Irritation gabapentin 300 mg capsule 300 mg PO HS 05/17/24 11/25/24 History insulin human U-100 NPH-regulr 0 unit subcut BIDWMEAL 06/13/24 11/25/24 History 70-30 mix 100 unit/mL subcutaneous susp (Humulin 70/30 U-100 Insulin) methenamine hippurate 1 gram tablet 1 g PO BID #180 tabs 09/05/24 11/25/24 Rx lidocaine 5 % topical patch 1 patch topical DAILY PRN pain #15 11/18/24 11/25/24 Rx ea dulaglutide 1.5 mg/0.5 mL 1.5 mg subcut WK 11/25/24 11/25/24 History subcutaneous pen injector (Trulicity) famotidine 20 mg tablet 20 mg PO DAILY 11/25/24 11/25/24 History nystatin 100,000 unit/gram topical 1 applic topical DIRECTED PRN 11/25/24 11/25/24 History ointment Skin Irritation oxybutynin chloride 5 mg 5 mg PO QAM 11/25/24 11/25/24 History tablet,extended release 24 hr Patient History Medical History Abnormal abdominal CT scan Weakness Rhabdomyolysis Poor historian Osteoarthritis GERD (gastroesophageal reflux disease) Restless leg syndrome Hyperlipidemia Myocardial Infarction Cystocele, midline 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, controlled Dyspnea Abnormal CT scan of lung Elevated LFTs Chest pain Thickened endometrium 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) Surgical History History of arthroscopy Hx of lumpectomy History of dilatation and curettage History of esophagogastroduodenoscopy (EGD) History of colonoscopy Hx laparoscopic cholecystectomy Status post shoulder surgery (2002) Family History Father Diabetes Brother Diabetes Aunt Breast cancer Other No family history of adverse response to anesthesia Denies family history of Ovarian cancer Prostate cancer Colorectal cancer Social History Smoking Status: Former smoker Tobacco Type: Cigarettes Age Started Using Tobacco: 25; Age Quit Using Tobacco: 55; packs per day: 1; Second Hand Exposure: Yes (Son smokes); Do You Dip or Chew Tobacco: No; Hx Alcohol Use: No Hx Substance Use: No Preferred Language: Brazilian Communication Ability: Effective Visual Impairment: Limited Longitudinal Float Operator Required: No Beliefs That Will Affect Care: None marital status: Single Current Living Situation: Alone Current Living Situation Comment: sister Feels Safe at Home: Yes Safety Concerns: Feels Safe At This Time caffeine: No Physical Activity Frequency: Does not Exercise Seatbelt Use: always Sunscreen Use: Yes Assistive Devices: Walker Assistive Devices Comment: dentures at home Review of Systems Review of Systems: All systems reviewed & are unremarkable except as noted in HPI & below Physical Exam Physical Exam: able to walk from restroom to bed with minimal assist has pain to palpation midline lower lumbar spine 5/5 strength B/L LE negative log rolling negative SLR Results & Data Vital Signs (Past 12 Hours) Vital Signs Temp Pulse Resp BP Pulse Ox O2 Del Method 11/25/24 22:49 36.7 C 80 16 126/78 95 Room Air Diagnostic Findings [place], [place] [phone] Magnetic Resonance Report Patient: YIN REYNA Admit Date: 11/25/24 MR#: [id number] Address1: [address] [place] [address] Acct ID:[id number] Address2: [address] Date: 1945 [facility] Zip: [place] [address] Age: 78 Location: ED Sex: F Room/Bed: Att Phy: Diagnosis: LEG PAIN, RADIATING INTO BACK, HERE FOR SAME Bridgette Phy: Lorne Moody MD Service Date: 11/25/24 [facility] Phy: Interpreting Phy: Jose D Jackson MDAdmit Phy: Ordering Phy: Anni Byrne D.O. cc: ~ EXAM: MR lumbar spine wo con CLINICAL HISTORY: eval acute disc herniation TECHNIQUE: Different pulse sequences were performed in different planes for the lumbar spine without contrast. Images were sent through PACs for diagnostic interpretation. COMPARISON: [id number] to 11/15/2024 cr, the MRI study dated 05/25/2023 /[id number] study dated 06/13/2024/[id number].5.1.2/OBX.5.1 FINDINGS: Mild levoscoliosis of the thoracolumbar spine noted. Vertebral Alignment: First-degree spondylolithesis of L4 over L5 vertebrae. Mild anterior displacement of L3 over L4 vertebrae. Vertebral Bodies and Intervertebral Discs: Partial collapse decreased the height of the L4 vertebral body and, to a lesser extent, the upper end plate of the L5 vertebral body. Degenerative changes/ bone marrow edema/ contusion at opposing vertebral end plates at the L4-5 disc level. The other vertebral bodies are in normal height. Multilevel osteoarthritis of facet joints with hypertrophied ligamenta flava noted. Bilateral mild to moderate neural foraminal stenosis of the lumbar spine secondary to disc bulgings, dorsal osteophytes, spondylolisthesis and facet joints hypertrophies. Abnormally high SI is seen within the L4-5 disc, likely post-traumatic rather than spondylodiscitis. Otherwise, degenerated intervertebral discs in the form of decreased T2 SI. [id number] analysis: T12-L1: There is a 1.3 mm central focal protrusion of the disc, mildly effacing anterior epidural fat. No nerve root comöpression. No spinal canal stenosis or neural foraminal stenosis. L1-L2: There is a 4.8 mm right paracentral-right foraminal focal protrusion of the disc, effacing the anterior epidural fat, compressing the dural sac and right L2 nerve root, abutting the right L1 nerve root in the neural foramen. There is moderate right neural foraminal stenosis. No spinal canal and left foraminal stenosis. L2-L3: There is 3.8 mm diffuse bulging of the disc, effacing the anterior epidural fat, indenting the dural sac and both L3 nerve roots, while abutting both L2 nerve roots in the neural foramina. There is mild spinal canal and mild bilateral neural foraminal stenosis secondary to disc bulging, dorsal osteophytes, buckling of the ligamenta flava and facet joints hypertrophy. L3-L4: There is a 5 mm diffuse pseudodisc bulging due to listhesis, effacing the anterior epidural fat, compressing the dural sac and both L4 nerve roots, indenting both L3 nerve roots in the neural foramina. There is moderate spinal canal and bilateral neural foraminal stenosis secondary to listhesis, pseudodisc bulging, dorsal osteophytes, buckling of the ligamenta flava and facet joints hypertrophy. L4-L5: There is a 6.1 mm diffuse pseudodisc bulging due to listhesis, effacing the anterior epidural fat, compressing the dural sac and both L5 nerve roots, also compressing both L4 nerve roots in the neural foramina. There is severe spinal canal and moderate bilateral neural foraminal stenosis secondary to listhesis, pseudodisc bulging, dorsal osteophytes, buckling of the ligamenta flava and facet joints hypertrophy. L5-S1: There is 2 mm diffuse bulging of the disc, effacing the anterior epidural fat, indenting the dural sac and abutting both L5 nerve roots in the neural foramina. No compression of the S1 nerve roots. No spinal canal stenosis. Bilateral mild neural foraminal stenosis noted. Spinal Cord: Conus medullaris terminates at the L1 level without abnormality. The lower thoracic spinal cord and conus medullaris are unremarkable. Soft Tissues: Edema of the posterior subcutaneous fat tissues noted. IMPRESSION: 1. Grade 1 acute compression fractures of the L4 and L5 vertebral bodies with edema of the L4-L5 disc. Interval new findings. 2. Grade 1 spondylolisthesis of the L3-L4 and L4-L5 levels, spondylodegenerative changes of the lumbar spine with mild levoscoliosis. 3. Multilevel degenerative disc bulgings and protrusions, causing nerve roots indentation and compressions, along with spinal canal and neural foraminal stenosis; as details given above. Interval stable. Electronically signed by Jose D Jackson 11-25-2024 08:42 AM Dictated: 11/25/24 [id number] Transcribed:
[2024-11-26] MEDS: GLYCERIN ADULT 12 SUPP/BOX SUPP PR ONE (11:15)
--- NOTE | 2024-11-26 15:09 | Orthopedic Progress Note ---
Date of Service November 26, 2024 Assessment & Plan (1) Osteoporosis with current pathological fracture: Plan: Assessment lumbar compression fracture L4 with lumbar spondylosis and spondylolisthesis with radiculopathy. Plan I did discuss with the patient her treatment options including bedrest injections or surgery. She is quite uncomfortable would like to pursue surgical intervention. Would require lumbar decompression and fusion L3-L5 with kyphoplasty of L4. Risk benefits pros cons alternatives again outlined in detail. The patient will be made n.p.o. after midnight and plan for surgery tomorrow. Admission and Anticipated Discharge Date Admission Date: November 26, 2024 Subjective Patient continues to note back and left leg pain. This has been present for several weeks and of course worsened after her fracture. Physical Exam Physical Exam: Physical exam essentially unchanged. Results & Data Vital Signs (Past 12 Hours) Vital Signs Temp Pulse Resp BP Pulse Ox O2 Del Method 11/26/24 14:38 36.8 C 102 H 14 113/75 94 Room Air 11/26/24 12:05 105 H 94 Room Air 11/26/24 10:04 36.4 C L 112 H 18 140/85 92 Room Air Queries Orthopedic Spine Vertebral Fracture Secondary to Osteoporosis: Yes (1) Osteoporosis with current pathological fracture Osteoporosis type: age-related Encounter type: initial encounter Qualified Code(s): M80.00XA - Age-related osteoporosis with current pathological fracture, unspecified site, initial encounter for fracture
[2024-11-26] MEDS: ENOXAPARIN INJ 40 MG/0.4 ML SYR SQ SCH (15:57)
[2024-11-27] MEDS ORDERED: Nursing to Pharmacy Communication SCH ×2 (07:45→16:30)
[2024-11-27] MEDS: LANTUS PER UNIT CHARGE SQ ONE (10:37)
[2024-11-27] MEDS ORDERED: MIDAZOLAM HCL 1 MG/ML 2ML VIAL ONE (10:53)
[2024-11-27] MEDS ORDERED: ROCURONIUM BROMIDE 10 MG/ML 5 ML VIAL IV ONE (10:54)
[2024-11-27] MEDS ORDERED: DEXAMETHASONE SOD INJ 4 MG/ML VIAL ONE (10:54)
[2024-11-27] MEDS ORDERED: PROPOFOL IV EMULSION 10 MG/ML 20 ML VIAL IV ONE (10:54)
[2024-11-27] MEDS ORDERED: LIDOCAINE 2% 2 ML VIAL/AMP(20MG/ML) INFIL ONE (10:54)
[2024-11-27] MEDS ORDERED: ONDANSETRON INJ 2 MG/ML 2 ML VIAL ONE (10:54)
[2024-11-27] MEDS: LACTATED RINGER'S 1,000 ML IV SCH (11:01)
--- NOTE | 2024-11-27 11:15 | Hospitalist Progress Note ---
Date of Service November 27, 2024 Assessment & Plan (1) Osteoporosis with current pathological fracture: (2) Acute left lumbar radiculopathy: (3) Compression fracture of lumbar spine, non-traumatic: (4) Interstitial lung disease: (5) Pulmonary emboli: (6) Sepsis: (7) Diabetes: Plan #Lumbar Spine Compression fracture - noted on L4, L5, as well as multilevel degenerative disc bulgings and protrusions causing nerve roots indentation and compression - pain regimen ordered - ortho consulted: recommend surgical intervention for 11/27 - PT/OT consults placed, likely will need rehab after surgery #DM II - cont insulin, will need higher dose of basal insulin given high dose dexamethasone therapy used during surgery - a1c: 7.1% - hypoglycemic protocol #HLD - cont statin #Code status: full code #Dispo: admit to medr #DVT ppx: SCDs for now, if prolonged hospitalization, will start heparin subq Admission and Anticipated Discharge Date Admission Date: November 26, 2024 Supervising Physician Co-Signing Physician Notes ATTESTATION I also saw the patient and confirmed saab portions of the history and exam. I agree with the impression and plan in the resident documentation, and as summarized below. Patient without complaint this morning. Scheduled for OR late morning. EXAM 139/81, 102 Alert and oriented. NAD. Friend at bedside. CV regular/slight tachycardia Respirations non labored DATA Labs (11/26) WBC 13.15, Hgb 15.3 Na 135, K 4.2, Cr 0.76 Most recent A1c 7.1% (Oct, 2024) Imaging Most recent echo May, - EF 55-60%, no significant valvular disease IMPRESSION & PLAN Lumbar compression fracture Diabetes OR today DM reasonable control but likely will need increased coverage post operatively Additional per resident documentation Subjective Krista Washington is feeling well this AM. Reports that she has had soreness in her legs and some bladder/bowel incontinence over the past week. Patient does not report saddle anesthesia or radiation of neuropathy down her legs. Patient denies SOB, cough, wheeze, abdominal pain, nausea, vomiting, headache, fevers, and chills. Patient is afebrile and hemodynamically stable. Physical Exam Physical Exam: General: patient resting comfortably, NAD, non-toxic in appearance, answers questions appropriately. Skin: warm, dry, intact HEENT: NC/AT, anicteric sclera, conjunctiva without injection, moist mucus membranes. Heart: +S1/S2, regular, no m/r/g Lungs: equal air entry bilaterally, no rales/rhonchi/wheezes Abd: +BS, soft, NT/ND Ext: warm, no clubbing/cyanosis or edema Neuro: nonfocal, speech intact, no facial droop, moving all extremities. Results & Data Results & Data Vital Signs (Past 12 Hours) Vital Signs Temp Pulse Resp BP Pulse Ox O2 Del Method 11/27/24 11:02 37 C 102 H 20 136/94 95 Room Air 11/27/24 07:55 36.8 C 101 H 18 139/81 97 Room Air 11/26/24 23:46 36.4 C L 88 18 119/74 92 Room Air Resident Activity Tracking Resident Involvement: Resident Care Provided Care Provided: Adult Hospital Medicine (1) Osteoporosis with current pathological fracture Osteoporosis type: age-related Encounter type: initial encounter Qualified Code(s): M80.00XA - Age-related osteoporosis with current pathological fracture, unspecified site, initial encounter for fracture (3) Compression fracture of lumbar spine, non-traumatic Encounter type: initial encounter Lumbar vertebra fracture level: L4 Qualified Code(s): M48.56XA - Collapsed vertebra, not elsewhere classified, lumbar region, initial encounter for fracture (6) Sepsis Sepsis type: Escherichia coli Sepsis acute organ dysfunction status: without acute organ dysfunction Qualified Code(s): A41.51 - Sepsis due to Escherichia coli [E. coli]
--- NOTE | 2024-11-27 12:05 | History & Physical Bridge Note ---
Date of Service November 27, 2024 History & Physical Bridge Note I have examined the patient, reviewed the History & Physical and in the interval since the performance of the History & Physical I have noted the following changes of clinical significance: no changes noted Patient presents with lumbar spinal stenosis spondylolisthesis L3-L4 L4-L5 with acute compression fracture involving the endplate of L4. This contributing to significant neural compression adding to the instability at this level. She is demonstrating severe neural compression and back pain with activity and ambulation. To prevent permanent functional loss neurologic deficit and recommending decompression and fusion from L3-L5 with kyphoplasty L4.
[2024-11-27] MEDS: INSULIN ASPART PER UNIT CHARGE SC SCH ×2 (12:06→21:04)
[2024-11-27] MEDS ORDERED: HYDROmorphone INJ 2 MG/ML SYR/VIAL IV PRN (12:15)
[2024-11-27] MEDS ORDERED: ATROPINE SULFATE 0.1 MG/ML 10ML SYR IV PRN (12:15)
--- NOTE | 2024-11-27 12:15 | Anesthesiology Consultation ---
Date of Service November 27, 2024 Assessment & Plan Chart Review Chart Review: Acceptable Risk for Surgery and Patient NOT seen in Pre Admission Testing Consults Requested none ASA ASA3 Proposed Anesthesia Anesthesia Type: General Risk / Benefits Reviewed With: PT / POA / Parent / Guardian, Accepts Plan and Informed Consent Obtained History Surgery Operation Date: 11/27/24 12:15 Proposed Procedures p L3-L5 Decompression and Fusion, L4 Kyphoplasty - Darion Clay, Height/Weight Height: 5 ft 6 in Weight: 81.6 kg Allergies Allergy/AdvReac Type Severity Reaction Status Date / Time ciprofloxacin [From Cipro] Allergy Intermediate Hives Verified 11/27/24 11:00 penicillin G Allergy Intermediate Rash Verified 11/27/24 11:00 Medications Home Medications Medication Instructions Recorded Confirmed Last Taken atorvastatin 10 mg tablet 10 mg PO HS 12/09/19 11/25/24 11/24/24 cholecalciferol (vitamin D3) 25 25 mcg PO QAM 12/09/19 11/25/24 11/24/24 mcg (1,000 unit) tablet multivitamin 1 tab PO QAM 12/09/19 11/25/24 11/24/24 omeprazole 20 mg capsule,delayed 20 mg PO QAM 12/09/19 11/25/24 06/12/24 release aspirin 81 mg tablet,delayed 81 mg PO QAM 05/24/21 11/25/24 11/24/24 release (Adult Low Dose Aspirin) furosemide 20 mg tablet 20 mg PO QAM 10/22/21 11/25/24 11/24/24 gabapentin 100 mg capsule 100 mg PO QAM 10/22/21 11/25/24 11/24/24 clotrimazole-betamethasone 1 1 applic topical DAILY PRN 03/21/24 11/25/24 Unknown %-0.05 % lotion Itching/Irritation gabapentin 300 mg capsule 300 mg PO HS 05/17/24 11/25/24 11/24/24 insulin human U-100 NPH-regulr 0 unit subcut BIDWMEAL 06/13/24 11/25/24 11/24/24 70-30 mix 100 unit/mL subcutaneous susp (Humulin 70/30 U-100 Insulin) methenamine hippurate 1 gram tablet 1 g PO BID #180 tabs 09/05/24 11/25/24 11/24/24 lidocaine 5 % topical patch 1 patch topical DAILY PRN pain #15 11/18/24 11/25/24 Unknown ea dulaglutide 1.5 mg/0.5 mL 1.5 mg subcut WK 11/25/24 11/25/24 11/23/24 subcutaneous pen injector ([facility]) famotidine 20 mg tablet 20 mg PO DAILY 11/25/24 11/25/24 11/24/24 nystatin 100,000 unit/gram topical 1 applic topical DIRECTED PRN 11/25/24 11/25/24 Unknown ointment Skin Irritation oxybutynin chloride 5 mg 5 mg PO QAM 11/25/24 11/25/24 11/24/24 tablet,extended release 24 hr Active Medications Generic Name Dose Route Start Last Admin Trade Name Freq PRN Reason Stop Dose Admin Acetaminophen 1,000 mg 11/26/24 08:00 11/27/24 09:18 Acetaminophen 500 Mg Tab PO 12/26/24 07:59 1,000 mg Q8H SETH Administration Atorvastatin Calcium 10 mg 11/25/24 21:00 11/26/24 19:29 Atorvastatin 10 Mg Tab PO 12/25/24 20:59 10 mg HS SETH Administration Enoxaparin Sodium 40 mg 11/26/24 15:00 11/26/24 15:57 Enoxaparin Inj 40 Mg/0.4 Ml Syr SQ 12/26/24 14:59 Not Given Q24H SETH Famotidine 20 mg 11/26/24 09:00 11/27/24 09:22 Famotidine 20 Mg Tab PO 12/26/24 08:59 20 mg DAILY SETH Administration Furosemide 20 mg 11/26/24 09:00 11/27/24 09:19 Furosemide 20 Mg Tab PO 12/26/24 08:59 Not Given QAM SETH Gabapentin 100 mg 11/26/24 09:00 11/27/24 09:19 Gabapentin 100 Mg Cap PO 12/26/24 08:59 100 mg QAM SETH Administration Gabapentin 300 mg 11/25/24 21:00 11/26/24 19:29 Gabapentin 300 Mg Cap PO 12/25/24 20:59 300 mg HS SETH Administration Lactated Ringer's 1,000 mls @ 15 mls/hr 11/27/24 11:00 11/27/24 11:01 Lr IV 11/30/24 10:59 15 mls/hr .Q24H SETH Administration Ketorolac Tromethamine 15 mg 11/26/24 08:00 11/27/24 09:17 Ketorolac Tromethamine 15 Mg/Ml Vial IV 12/01/24 07:59 15 mg Q6H SETH Administration Methenamine Hippurate 1 gm 11/25/24 21:00 11/27/24 09:19 Methenamine Hippurate 1 Gm Tab PO 12/05/24 20:59 1 gm BID SETH Administration Oxybutynin Chloride 5 mg 11/26/24 09:00 11/27/24 09:19 Oxybutynin Chloride Xl 5 Mg Tabcr PO 12/26/24 08:59 5 mg QAM SETH Administration Polyethylene Glycol 17 gm 11/26/24 09:30 11/27/24 09:19 Polyethylene (Miralax) 17 Gm Pack PO 12/26/24 09:29 Not Given DAILY SETH Tramadol HCl 50 mg 11/26/24 12:00 11/27/24 09:32 Tramadol Hcl 50 Mg Tablet PO 12/26/24 11:59 Not Given BID SETH NPO Date Last Intake of Fluids: 11/27/24 Time Last Intake of Fluids: 09:20 Last Intake of Fluids Comment: sip water this am with meds Date Last Intake of Solids: 11/26/24 Time Last Intake of Solids: 17:00 Past Medical History Medical History Abnormal abdominal CT scan Weakness Rhabdomyolysis Poor historian Osteoarthritis GERD (gastroesophageal reflux disease) Restless leg syndrome Hyperlipidemia Myocardial Infarction Cystocele, midline 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, controlled Dyspnea Abnormal CT scan of lung Elevated LFTs Chest pain Thickened endometrium 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) Exercise / Class Metabolic Activity II 4-5 Yardwork/Stairs/Walk up hill Past Family History Family History Father Diabetes Brother Diabetes Aunt Breast cancer Other No family history of adverse response to anesthesia Denies family history of Ovarian cancer Prostate cancer Colorectal cancer Past Surgical History Surgical History History of arthroscopy Hx of lumpectomy History of dilatation and curettage History of esophagogastroduodenoscopy (EGD) History of colonoscopy Hx laparoscopic cholecystectomy Status post shoulder surgery (2002) Past Anesthesia History No Hx of Anesthesia Complications and No Family Hx of Anesthesia Complications History of PONV No Hx of PONV and No Hx of Motion Sickness Social History Smoking Status: Former smoker tobacco type: cigarettes Do You Dip or Chew Tobacco: No Hx Alcohol Use: No Hx Substance Use: No substance use type: does not use Physical Exam Vital Signs Last Vital Signs Temp 37 C 11/27/24 11:02 Pulse 102 H 11/27/24 11:02 Resp 20 11/27/24 11:02 BP 136/94 11/27/24 11:02 Pulse Ox 95 11/27/24 11:02 O2 Del Method Room Air 11/27/24 11:02 O2 Flow Rate 2 11/25/24 11:53 ENMT Mouth: no dentition abnormality Thyromental Distance: > or= 3.5 Finger Breadths Mallampati Class: II Neck normal visual inspection Respiratory normal respiratory effort Auscultation: lungs clear to auscultation bilaterally Cardiovascular Rate/Rhythm: regular rate and regular rhythm Psychiatric Orientation: alert Testing Laboratory Results 11/26/24 06:04 11/26/24 06:04 11/27/24 11/27/24 10:34 06:54 POC Glucose 175 H 198 H
[2024-11-27] MEDS ORDERED: PHENYLEPHRINE HCL 10 MG/ML VIAL ONE (13:13)
[2024-11-27] MEDS ORDERED: ALBUMIN HUMAN 5% 12.5 GM/250 ML VIAL IV ONE (13:22)
[2024-11-27] MEDS: BUPIVACAINE/EPINEPHRINE 0.25% 1:200,000 30 ML VIAL ONE (13:29)
[2024-11-27] MEDS: IOPAMIDOL INJ 61% 15 ML VIAL INSTIL ONE (13:50)
[2024-11-27] MEDS ORDERED: SUGAMMADEX SODIUM 200 MG/2 ML VIAL IV ONE (14:09)
--- NOTE | 2024-11-27 14:33 | Operative Report ---
Post Operative Report Pre & Post Diagnosis Operation Date: 11/27/24 12:15 Pre-Op Diagnosis: #1 osteoporotic compression fractures L4 and L5. #2 spondylolisthesis L3-L4 L4-L5 #3 spondylosis with radiculopathy #4 lumbar spinal stenosis Post-Op Diagnosis: Same I identified the patient and participated in the time-out.: Yes Procedure Operation Date: 11/27/24 12:15 Actual Procedures #1 lumbar decompression with bilateral medial facetectomies foraminotomies L3- L4, L4-L5. #2 posterior spinal fusion L3-L5. #3 placed to posterior instrumentation including a cross-link L3-L5 using camber. #4 kyphoplasty L3, L4 and L5 vertebral bodies. #5 placement of Proteus combined with Koros in the posterior lateral gutters L3-L5. #6 application of versa wrap over the exposed dura. Surgeon Darion Clay, DO Pad Machine Operator Any Vuong Estimated Blood Loss 100 Findings Consistent with Post-Op Diagnosis Specimens None Indications 79-year-old female with the above-mentioned diagnosis. Patient had marked decline in function and prevent permanent neurologic damage and loss of function she is here for urgent decompression stabilization. Description of Procedure Patient was met with identified informed consent obtained. Patient was then taken to the operative suite underwent intubation placed in a prone position on the Stephen table on top of the Laurent frame. All bony prominences well-padded eyes inspected to ensure no external pressure placed upon them. This point lumbar spine was prepped and draped in normal sterile fashion. Sharp dissection with the assistance of Bovie cautery performed down to and exposing the lamina transverse processes of L3 L4-5. Reza Norton fashion complete laminectomy of L4 and L3 was performed including bilateral medial facetectomies and foraminotomies addressing severe neural compression. Then beginning with L4 I prepared the bilateral pedicles for pedicle screw placement and then subsequently placed to 20 mm Kyphon balloons into the L4 vertebral body sequentially inflating and under fluoroscopic visualization. The balloons were subsequently removed and approximately 6 cc of Kyphon cement injected under fluoroscopic visualization. After the cement was placed I then followed with the placement of bilateral L4 pedicle screws. I then approached L5 and the same technique created the pedicle screw holes followed by placement of the balloons with subsequent inflation under direct fluoroscopic visualization. The balloon subsequently moved and approximately 6 cc of Kyphon cement injected filling into her vertebral body showing excellent interdigitation. This was followed by placement of bilateral pedicle screws and L5 pedicles. Lastly approached L3. Again pedicle screw holes created followed by placement of 20 mm balloons into the L3 vertebral body. These again were subsequently inflated removed and approximately 6 cc of Kyphon cement injected demonstrating excellent interdigitation is fill. This is followed by placement of bilateral pedicle screws in L3. After all screws were placed and appropriate size angel was then locked into position bilaterally. This included a cross-link. The transverse processes of L3 L4-5 burred to subcortical bleeding bone. Proteus combined with Koros placed in the posterolateral gutters. Versa wrap placed of exposed dura. 15 round RYAN drain inserted. The incision was then closed with 1 Vicryl fascia 2-0 Vicryl subcutaneously and 4 Monocryl for final skin closure. Steri-Strips and sterile dressing placed. Patient waken taken PACU stable condition. Please note Any Vuong was present that the entire procedure involve the patient positioning complex portion of the surgery and final skin closure. I attest to the content of the Intraoperative Record and any orders documented therein. Any exceptions are noted below.
--- NOTE | 2024-11-27 15:48 | Anesthesiology Progress Note ---
Date of Service November 27, 2024 Anesthesia Post Procedure Vital Signs Vital Signs: Temp Pulse Pulse Resp BP Pulse Ox O2 Del Method 11/27/24 15:30 103 H 12 133/69 94 Nasal Cannula 11/27/24 15:20 36.3 C L 104 H 13 131/79 94 Nasal Cannula 11/27/24 15:10 104 H 12 150/73 H 95 Oxymask 11/27/24 15:00 106 H 12 156/77 H 96 Oxymask 11/27/24 14:50 108 H 15 135/77 97 Oxymask 11/27/24 14:43 36.2 C L 116 H 12 160/84 H 95 Oxymask 11/27/24 11:02 37 C 102 H 20 136/94 95 Room Air 11/27/24 07:55 36.8 C 101 H 18 139/81 97 Room Air 11/26/24 23:46 36.4 C L 88 18 119/74 92 Room Air O2 Flow Rate 11/27/24 15:30 2 11/27/24 15:20 2 11/27/24 15:10 4 11/27/24 15:00 4 11/27/24 14:50 4 11/27/24 14:43 4 11/27/24 11:02 11/27/24 07:55 11/26/24 23:46 Pain Intensity Left Leg: Pain Intensity: 10 Bilateral Lower Back: Pain Intensity: 0 Transfer of Care Handoff Completed per policy Notes Mental Status: alert / awake / arousable and participated in evaluation Patient Amnestic to Procedure: Yes Nausea / Vomiting: adequately controlled Pain: adequately controlled Airway Patency, RR, SpO2: stable & adequate BP & HR: stable & adequate Hydration State: stable & adequate Anesthetic Complications: no major complications apparent and Pt Satisfied with anesthetic care
[2024-11-27] MEDS ORDERED: HYDROmorphone INJ 0.5 MG/0.5 ML SYR IV PRN (16:17)
[2024-11-27] MEDS ORDERED: PROMETHAZINE 12.5 MG/50.5 ML BAG IV PRN (16:17)
[2024-11-27] MEDS ORDERED: ONDANSETRON 4 MG OD TAB PO PRN (16:17)
[2024-11-27] MEDS ORDERED: LORazepam 0.5 MG TAB PO PRN (16:17)
[2024-11-27] MEDS ORDERED: DO NOT ADMINISTER FLU VACCINE PRN (16:17)
[2024-11-27] MEDS ORDERED: HYDROmorphone INJ 1 MG/ML SYRINGE IV PRN (16:17)
[2024-11-27] MEDS ORDERED: METOCLOPRAMIDE HCL INJ 5 MG/ML 2 ML VIAL IV PRN (16:17)
[2024-11-27] MEDS ORDERED: DO NOT ADMINISTER PNEUMOCOCCAL VACCINE PRN (16:17)
[2024-11-27] MEDS ORDERED: FAMOTIDINE 20 MG TAB PO PRN (16:17)
[2024-11-27] MEDS ORDERED: SOD PHOSPHATE/SOD BIPHOSPHATE ENEMA 132 ML BTL PR PRN (16:17)
[2024-11-27] MEDS ORDERED: NALOXONE HCL 0.4 MG/1 ML VIAL/CARP IV PRN (16:17)
[2024-11-27] MEDS ORDERED: MAGNESIUM HYDROXIDE SUSP 30 ML UDC PO PRN (16:17)
[2024-11-27] MEDS: ceFAZolin 330 MG/ML 1 GM VIAL ONE ×2 (16:20)
[2024-11-27] MEDS: FLOSEAL HEMOSTATIC MATRIX 10ML TOP ONE (16:21)
--- NOTE | 2024-11-27 16:21 | Fluoroscopy Report ---
FL lumbar spine 2-3V CLINICAL HISTORY: L3-L5 DECOMP FUSION, L4 kyphoplasty COMPARISON STUDY: 11/15/2024 FINDINGS: 2 intraoperative fluoroscopic spot images are provided for interpretation. Accurate numberi ng is difficult due to the limited [id number]. There appears to be postsurgical changes of an L3-5 spinal decompression and fusion with L3, L4, and L5 kyphoplasty with cement injection. There are pos terior spinal rods with pedicle screws. There is a grade 1 spondylolisthesis of L3 on L4, and L4 on L 5. IMPRESSION: Intraoperative fluoroscopic spot images obtained following an L3-5 spinal decompression and fusion and kyphoplasty. ACT 112: Negative or not required by law. Electronically signed by: Angel Lopez M.D. 11/27/2024 4:19 PM
[2024-11-27] MEDS: ACETAMINOPHEN 325 MG TAB PO PRN (16:24)
[2024-11-27] MEDS: DOCUSATE SODIUM/SENNA 50/8.6MG TAB PO SCH (21:01)
[2024-11-27] MEDS ORDERED: ACETAMINOPHEN 500 MG TAB PO PRN (23:00)
[2024-11-27] MEDS ORDERED: ACETAMINOPHEN 1,000 MG/100 ML VIAL IV PRN (23:00)
[2024-11-28] MEDS: POLYETHYLENE (MIRALAX) 17 GM PACK PO SCH (05:16)
[2024-11-28 06:55] LABS: Hematocrit (blood only) 37.0 % (37.0-47.0); Hemoglobin 12.8 g/dl (12.0-16.0); Immature Granulocytes # (auto) 0.13 K/uL (0.01-0.20); Immature Granulocytes % (auto) 0.8 %; Mean Corpuscular Hemoglobin 30.2 pg (25.0-34.0); Mean Corpuscular Volume 87.3 fL (80.0-100.0); Platelet Count 339 K/uL (130-400); RDW Standard Deviation 42.7 fL (36.4-46.3); Red Blood Count 4.24 M/uL (4.20-5.40); White Blood Count 15.69 K/ul (4.8-10.8)
[2024-11-28 07:13] LABS: Anion Gap 6.0 (3-11); Blood Urea Nitrogen 14.0 mg/dl (6-23); Calcium 8.7 mg/dl (8.6-10.3); Carbon Dioxide 27.0 mmol/L (21-32); Chloride 101.0 mmol/L (98-107); Creatinine Clr Calc Pharmacy 58.7 ml/min; Glucose 236.0 mg/dl (70-99(Fasting)); Potassium 4.3 mmol/L (3.5-5.1); Sodium 134.0 mmol/L (136-145)
--- NOTE | 2024-11-28 08:28 | Hospitalist Progress Note ---
Date of Service November 28, 2024 Assessment & Plan (1) Osteoporosis with current pathological fracture: (2) Acute left lumbar radiculopathy: (3) Compression fracture of lumbar spine, non-traumatic: (4) Interstitial lung disease: (5) Pulmonary emboli: (6) Sepsis: (7) Diabetes: Plan #Lumbar Spine Compression fracture - noted on L4, L5, as well as multilevel degenerative disc bulgings and protrusions causing nerve roots indentation and compression - lumbar spinal stenosis spondylolisthesis L3-L4 L4-L5 with acute compression fracture involving the endplate of L4. - pain regimen ordered - ortho consulted: recommend surgical intervention for 11/27 - PT/OT consults placed, continue inpatient PT until d/c to rehab for continued therapy #DM II - cont insulin, will need higher dose of basal insulin given high dose dexamethasone therapy used during surgery - a1c: 7.1% - 20 units of Lantus given this AM, will switch to 10 units BID QAM and QHS with tighter Bolus insulin regimen as follows --Goal BSG Range: Low 110 mg/dL, High 140 mg/dL --Correction Factor: 25 mg/dL/unit --Carbohydrate ratio = 8 g/unit --BSGs ACHS - Consider modifying regimen with use of high-dose steroid therapy after recent surgery - hypoglycemic protocol #HLD - cont statin #Code status: full code #Dispo: admit to [facility] #DVT ppx: SCDs for now, if prolonged hospitalization, will start heparin subq Admission and Anticipated Discharge Date Admission Date: November 26, 2024 Supervising Physician Co-Signing Physician Notes ATTESTATION I also saw the patient and confirmed saab portions of the history and exam. I agree with the impression and plan in the resident documentation, and as summarized below. Patient denies pain. Feels well this morning. EXAM 111/74, 96, 16, 36.6 Alert and oriented. NAD. CV regular/slight tachycardia Respirations non labored (+) RYAN drain DATA Labs WBC 15.69 Hgb 12.8 Na 134, K 4.3, Cr 0.85 Most recent A1c 7.1% (Oct, 2024) Imaging Most recent echo May, - EF 55-60%, no significant valvular disease IMPRESSION & PLAN Lumbar compression fracture POD #1 S/P lumbar surgery Diabetes Insulin adjusted - note interoperative Decadron yesterday PT per orthopedics Likely will need inpatient PT upon discharge Additional per resident documentation Subjective Krista Washington is feeling well this AM post surgery. Reports that masha pain is well controlled. Patient does not report saddle anesthesia or radiation of neuropathy down her legs. Patient denies SOB, cough, wheeze, abdominal pain, nausea, vomiting, headache, fevers, and chills. Patient is afebrile and hemodynamically stable. Physical Exam Physical Exam: General: patient resting comfortably, NAD, non-toxic in appearance, answers questions appropriately. Skin: warm, dry, intact HEENT: NC/AT, anicteric sclera, conjunctiva without injection, moist mucus membranes. Heart: +S1/S2, regular, no m/r/g Lungs: equal air entry bilaterally, no rales/rhonchi/wheezes Abd: +BS, soft, NT/ND Ext: warm, no clubbing/cyanosis or edema Neuro: nonfocal, speech intact, no facial droop, moving all extremities. Results & Data Results & Data Vital Signs (Past 12 Hours) Vital Signs Temp Pulse Resp BP Pulse Ox O2 Del Method O2 Flow Rate 11/28/24 07:22 36.7 C 96 H 18 137/79 96 Nasal Cannula 2 11/28/24 04:24 36.9 C 104 H 18 128/78 95 Nasal Cannula 1 11/27/24 23:59 36.7 C 87 18 132/84 95 Room Air 11/27/24 21:39 36.7 C 93 H 18 117/74 94 Nasal Cannula 1 Resident Activity Tracking Resident Involvement: Resident Care Provided Care Provided: Adult Hospital Medicine (1) Osteoporosis with current pathological fracture Encounter type: initial encounter Osteoporosis type: age-related Qualified Code(s): M80.00XA - Age-related osteoporosis with current pathological fracture, unspecified site, initial encounter for fracture (3) Compression fracture of lumbar spine, non-traumatic Encounter type: initial encounter Lumbar vertebra fracture level: L4 Qualified Code(s): M48.56XA - Collapsed vertebra, not elsewhere classified, lumbar region, initial encounter for fracture (6) Sepsis Sepsis acute organ dysfunction status: without acute organ dysfunction Sepsis type: Escherichia coli Qualified Code(s): A41.51 - Sepsis due to Escherichia coli [E. coli]
--- NOTE | 2024-11-28 08:30 | Orthopedic Progress Note ---
Date of Service November 28, 2024 Assessment & Plan (1) Osteoporosis with current pathological fracture: Plan: At this time we will initiate physical therapy. Monitor RYAN output anticipate discharge to rehab when stable. Admission and Anticipated Discharge Date Admission Date: November 26, 2024 Subjective Patient's back pain is controlled leg symptoms improved Physical Exam Physical Exam: Patient is seen in bed. She appears comfortable. Is good strength testing. Results & Data Vital Signs (Past 12 Hours) Vital Signs Temp Pulse Resp BP Pulse Ox O2 Del Method O2 Flow Rate 11/28/24 07:22 36.7 C 96 H 18 137/79 96 Nasal Cannula 2 11/28/24 04:24 36.9 C 104 H 18 128/78 95 Nasal Cannula 1 11/27/24 23:59 36.7 C 87 18 132/84 95 Room Air 11/27/24 21:39 36.7 C 93 H 18 117/74 94 Nasal Cannula 1 Queries Orthopedic Spine Vertebral Fracture Secondary to Osteoporosis: Yes (1) Osteoporosis with current pathological fracture Osteoporosis type: age-related Encounter type: initial encounter Qualified Code(s): M80.00XA - Age-related osteoporosis with current pathological fracture, unspecified site, initial encounter for fracture
[2024-11-28] MEDS: LANTUS PER UNIT CHARGE SQ STA (09:03)
[2024-11-28] MEDS: ALUMINUM/MAGNESIUM SUSP 30 ML UDC PO PRN (12:15)
--- NOTE | 2024-11-29 08:16 | Discharge Summary ---
Date of Service November 29, 2024 Admission HPI Per Admitting Provider 78 yr old F with PMHx of DM II, HLD, asthma returns to the ED for the evaluation of low back pain and left leg pain This has been going on for about 5-6 weeks. She has severe burning in the thigh. She reports that every time she puts weight on her left leg, her leg hurts. She has tried steroids and pain medications without significant relief. She is denying any fall prior to the onset of pain. Over the past 24 hours pain has worsened prompting her to come to the hospital. She denies weakness in her legs, bowel/bladder incontinence, numbness in the groin. Discharge Exam General: patient resting comfortably, NAD, non-toxic in appearance, answers questions appropriately. Skin: warm, dry, intact HEENT: NC/AT, anicteric sclera, conjunctiva without injection, moist mucus membranes. Heart: +S1/S2, regular, no m/r/g Lungs: equal air entry bilaterally, no rales/rhonchi/wheezes Abd: +BS, soft, NT/ND Ext: warm, no clubbing/cyanosis or edema Neuro: nonfocal, speech intact, no facial droop, moving all extremities. Discharge Data Allergies Allergy/AdvReac Type Severity Reaction Status Date / Time ciprofloxacin [From Cipro] Allergy Intermediate Hives Verified 11/27/24 11:00 penicillin G Allergy Intermediate Rash Verified 11/27/24 11:00 Consultations 11/25/24 08:03 ED Decision to Admit Stat 11/25/24 15:37 Consult Orthopedic Surgery Routine Procedures Performed Operation Date: 11/27/24 12:15 Actual Procedures p L3-L5 Decompression and Fusion, (Not Applicable) - Darion Clay DO s L3-L4, L4-L-5 Kyphoplasty(Not Applicable) - Darion Clay DO Ordered Studies 11/25/24 02:49 MRI Lumbar Spine [MR lumbar spine wo con] Stat 11/27/24 FL lumbar spine 2-3V Routine Hospital Course (1) Osteoporosis with current pathological fracture: (2) Acute left lumbar radiculopathy: (3) Compression fracture of lumbar spine, non-traumatic: (4) Interstitial lung disease: (5) Pulmonary emboli: (6) Sepsis: (7) Diabetes: Plan #Lumbar Spine Compression fracture - noted on L4, L5, as well as multilevel degenerative disc bulgings and protrusions causing nerve roots indentation and compression - lumbar spinal stenosis spondylolisthesis L3-L4 L4-L5 with acute compression fracture involving the endplate of L4. - pain regimen ordered - ortho consulted: recommend surgical intervention for 11/27 - PT/OT consults placed, recommend continue inpatient PT until d/c to home with home health #DM II - cont insulin, will need higher dose of basal insulin given high dose dexamethasone therapy used during surgery - a1c: 7.1% - 20 units of Lantus given this AM, will switch to 10 units BID QAM and QHS with tighter Bolus insulin regimen as follows --Goal BSG Range: Low 110 mg/dL, High 140 mg/dL --Correction Factor: 30 mg/dL/unit --Carbohydrate ratio = 10 g/unit --BSGs ACHS - Consider modifying regimen with use of high-dose steroid therapy after recent surgery - hypoglycemic protocol #HLD - cont statin #Code status: full code #Dispo: admit to [facility] #DVT ppx: SCDs for now, if prolonged hospitalization, will start heparin subq Total Time Total Time Spent Total Time Spent (In Minutes): See attending attestation Discharge Plan Discharge Items Patient Disposition: Home - Home Health Services Reason For Visit: L4-L5 COMPRESSION FRACTURE Discharge Diagnosis: L4-L5 compression fracture Condition on Discharge: Serious Activity: Per Instructions section Non-emergency contact: Primary Care Provider Call non-emergency contact if: your pain is not controlled Follow-up/Referrals: Lorne Moody [Primary Care Provider] - Diet: Carb Consistent or DM2 and Heart Healthy Addtl Attending Provider Instructions: You were admitted to the hospital for a Lumbar spine fracture with symptoms of bladder and bowel incontinence. Orthopedic surgery was consulted and you were treated with surgery to your L3-L5 lumbar vertebrae. You are healing very well with reduced pain and discomfort in your legs. It is important to complete PT while at home to properly rehabilitate after this recent surgery. You will be sent home with pain medication to help reduce post-operation pain and the details with this medication can be found below. A discharge summary will be sent to your primary care physician to ensure continuity of care. Please bring this discharge summary with you to your next office appointment so that your provider can review it at that time. Follow-up appointments: Make a follow-up appointment with your PCP within the next week. It is very important that you follow up with them shortly after discharge from the hospital. Medications: Your medication list has been reviewed and reconciled upon discharge to ensure accuracy and continuity of care. An updated list of all your medications is included with your hospital discharge paperwork. Please review this list closely, and make note of any changes. ? We sent a new medication called [med name] to your pharmacy. Take [med name] ([_]mg) [one tablet] [daily] [for _ days]. Take your medications as instructed; do not skip a dose of your medicines. Make sure all of your doctors know every medicine you are taking (including yler-hqu-qjiramh medicines, vitamins, and supplements). Call your primary care provider before taking any new medicines (including rsmf-umg-rmtbpis medicines, vitamins, and supplements), because some of these may interact with your current medications, or may make your symptoms worse. Tell your primary care provider if you cannot afford your medications. CONTACT YOUR PRIMARY CARE PROVIDER if you experience any of the following: Difficulty following your treatment plan, or difficulty taking medications CALL 911 OR GO TO THE EMERGENCY DEPARTMENT if you experience any of the following: Sudden, severe abdominal pain or nausea/vomiting Severe chest pain, or chest pain that radiates (moves) to your jaw or arm Sudden, severe shortness of breath or difficulty breathing Thank you for allowing us to participate in your care. Pending Studies at Discharge: No Stand-Alone Forms: [facility], Smoking Cessation Medications and DC Order Prescriptions: No Action gabapentin 100 mg capsule 100 mg PO QAM furosemide 20 mg tablet 20 mg PO QAM aspirin [Adult Low Dose Aspirin] 81 mg tablet,delayed release (DR/EC) 81 mg PO QAM clotrimazole-betamethasone 1-0.05 % lotion 1 applic topical DAILY PRN (Reason: Itching/Irritation) methenamine hippurate 1 gram tablet 1 g PO BID Qty: 180 3RF gabapentin 300 mg capsule 300 mg PO HS atorvastatin 10 mg tablet 10 mg PO HS Hold Instructions: Resume on 01/15/24. discuss with primary care provider whether to restart this multivitamin Tablet 1 tab PO QAM cholecalciferol (vitamin D3) 25 mcg (1,000 unit) Tablet 25 mcg PO QAM omeprazole 20 mg capsule,delayed release(DR/EC) 20 mg PO QAM Rx Instructions: UNABLE TO VERIFY THIS MED Humulin 70/30 U-100 Insulin 100 unit/mL (70-30) suspension 0 unit SUBCUT BIDWMEAL Rx Instructions: TAKES 11 UNITS WITH BREAKFAST, THEN 12 UNITS WITH DINNER lidocaine 5 % adhesive patch,medicated 1 patch TOP DAILY PRN (Reason: pain) Qty: 15 0RF Rx Instructions: leave on most painful area for 12 hrs famotidine 20 mg tablet 20 mg PO DAILY oxybutynin chloride 5 mg tablet extended release 24hr 5 mg PO QAM nystatin 100,000 unit/gram ointment 1 applic topical DIRECTED PRN (Reason: Skin Irritation) Trulicity 1.5 mg/0.5 mL pen injector 1.5 mg subcut WK Rx Instructions: monday Admission Data Admit Date/Time: 11/26/24 14:33 Attending Provider: Crys Dykes Admit Provider: Yoel Bob Primary Care Provider: Lorne Moody Other Providers: Sam Marshall; Darion Clay; [facility] Resident Activity Tracking Resident Involvement: Resident Care Provided Care Provided: Adult Hospital Medicine
[2024-11-29] MEDS: LANTUS PER UNIT CHARGE SQ SCH (09:10)
--- NOTE | 2024-11-29 09:51 | Orthopedic Progress Note ---
Date of Service November 29, 2024 Assessment & Plan (1) Osteoporosis with current pathological fracture: Plan: At this time we will continue physical therapy monitor RYAN output. I would recommend rehab if possible. Admission and Anticipated Discharge Date Admission Date: November 26, 2024 Subjective Patient's back pain is controlled leg symptoms markedly improved. Tolerating physical therapy. Physical Exam Physical Exam: Patient is in the chair at the bedside. She is comfortably and is going to testing. Results & Data Vital Signs (Past 12 Hours) Vital Signs Temp Pulse Resp BP Pulse Ox O2 Del Method 11/29/24 07:37 36.4 C L 106 H 16 98/66 L 94 Room Air 11/28/24 22:33 36.6 C 98 H 18 102/66 94 Room Air Queries Orthopedic Spine Vertebral Fracture Secondary to Osteoporosis: Yes (1) Osteoporosis with current pathological fracture Osteoporosis type: age-related Encounter type: initial encounter Qualified Code(s): M80.00XA - Age-related osteoporosis with current pathological fracture, unspecified site, initial encounter for fracture
--- NOTE | 2024-11-29 10:40 | Hospitalist Progress Note ---
Date of Service November 29, 2024 Assessment & Plan (1) Osteoporosis with current pathological fracture: (2) Acute left lumbar radiculopathy: (3) Compression fracture of lumbar spine, non-traumatic: (4) Interstitial lung disease: (5) Pulmonary emboli: (6) Sepsis: (7) Diabetes: Plan #Lumbar Spine Compression fracture - noted on L4, L5, as well as multilevel degenerative disc bulgings and protrusions causing nerve roots indentation and compression - lumbar spinal stenosis spondylolisthesis L3-L4 L4-L5 with acute compression fracture involving the endplate of L4. - ortho consulted: completed surgical intervention for 11/27 - Pain regimen ordered: Hydromorphone 0.5mg/1mg PRN and Ketorolac 15mg Q6H discontinued as patient is declining these medications. Continue Oxycodone 5- 10mg and Tramadol 50mg BID for pain control. Can add medications if pain is wors ening. - PT/OT consults placed, patient initially decline inpatient rehab, but is now considering this and CM is aware and working on placement #DM II - cont insulin, will need higher dose of basal insulin given high dose dexamethasone therapy used during surgery - a1c: 7.1% - 20 units of Lantus given this AM, will switch to 10 units BID QAM and QHS with tighter Bolus insulin regimen as follows --Goal BSG Range: Low 110 mg/dL, High 140 mg/dL --Correction Factor: 30 mg/dL/unit --Carbohydrate ratio = 10 g/unit --BSGs ACHS - Consider modifying regimen with use of high-dose steroid therapy after recent surgery - hypoglycemic protocol #HLD - cont statin #Code status: full code #Dispo: admit [facility] #DVT ppx: SCDs for now, if prolonged hospitalization, will start heparin subq Admission and Anticipated Discharge Date Admission Date: November 26, 2024 Supervising Physician Co-Signing Physician Notes I personally examined the patient and verified saab points of history and exam, discussed case, and agree with decision making and plan documented by Dr. Hein. POD#2 s/p lumbar decompression, fusion, and kyphoplasty. PT recommending rehab, referral has been placed to [facility], possible discharge Monday. Subjective Krista Washington is seen resting in recliner while she was getting blood draw completed for morning labs. Patient endorses approximately 8/10 lumbar back pain with some difficulty ambulating. Patient likely will need formal rehab process to continue recovering. Patient's is trying to manage pain more conservatively Physical Exam Physical Exam: General: patient resting comfortably, NAD, non-toxic in appearance, answers questions appropriately. Skin: warm, dry, intact HEENT: NC/AT, anicteric sclera, conjunctiva without injection, moist mucus membranes. Heart: +S1/S2, regular, no m/r/g Lungs: equal air entry bilaterally, no rales/rhonchi/wheezes Abd: +BS, soft, NT/ND Ext: warm, no clubbing/cyanosis or edema Neuro: nonfocal, speech intact, no facial droop, moving all extremities. Results & Data Results & Data Vital Signs (Past 12 Hours) Vital Signs Temp Pulse Resp BP Pulse Ox O2 Del Method 11/29/24 10:21 94 H 100/65 11/29/24 07:37 36.4 C L 106 H 16 98/66 L 94 Room Air 11/29/24 07:35 Room Air Resident Activity Tracking Resident Involvement: Resident Care Provided Care Provided: Adult Hospital Medicine (1) Osteoporosis with current pathological fracture Encounter type: initial encounter Osteoporosis type: age-related Qualified Code(s): M80.00XA - Age-related osteoporosis with current pathological fracture, unspecified site, initial encounter for fracture (3) Compression fracture of lumbar spine, non-traumatic Encounter type: initial encounter Lumbar vertebra fracture level: L4 Qualified Code(s): M48.56XA - Collapsed vertebra, not elsewhere classified, lumbar region, initial encounter for fracture (6) Sepsis Sepsis acute organ dysfunction status: without acute organ dysfunction Sepsis type: Escherichia coli Qualified Code(s): A41.51 - Sepsis due to Escherichia coli [E. coli]
[2024-11-29 12:25] LABS: Hematocrit (blood only) 39.6 % (37.0-47.0); Hemoglobin 12.7 g/dl (12.0-16.0); Immature Granulocytes # (auto) 0.08 K/uL (0.01-0.20); Immature Granulocytes % (auto) 0.7 %; Mean Corpuscular Hemoglobin 30.4 pg (25.0-34.0); Mean Corpuscular Volume 94.7 fL (80.0-100.0); Platelet Count 307 K/uL (130-400); RDW Standard Deviation 48.1 fL (36.4-46.3); Red Blood Count 4.18 M/uL (4.20-5.40); White Blood Count 12.23 K/ul (4.8-10.8)
[2024-11-29 12:43] LABS: Anion Gap 7.0 (3-11); Blood Urea Nitrogen 13.0 mg/dl (6-23); Calcium 8.9 mg/dl (8.6-10.3); Carbon Dioxide 28.0 mmol/L (21-32); Chloride 100.0 mmol/L (98-107); Creatinine Clr Calc Pharmacy 69.4 ml/min; Glucose 163.0 mg/dl (70-99(Fasting)); Potassium 3.5 mmol/L (3.5-5.1); Sodium 135.0 mmol/L (136-145)
[2024-11-29] MEDS: diphenhydrAMINE Capsule 25 MG CAP PO PRN (22:08)
[2024-11-30 07:04] LABS: Hematocrit (blood only) 34.9 % (37.0-47.0); Hemoglobin 11.4 g/dl (12.0-16.0); Immature Granulocytes # (auto) 0.12 K/uL (0.01-0.20); Immature Granulocytes % (auto) 1.0 %; Mean Corpuscular Hemoglobin 29.2 pg (25.0-34.0); Mean Corpuscular Volume 89.3 fL (80.0-100.0); Platelet Count 315 K/uL (130-400); RDW Standard Deviation 45.1 fL (36.4-46.3); Red Blood Count 3.91 M/uL (4.20-5.40); White Blood Count 12.17 K/ul (4.8-10.8)
[2024-11-30 07:24] LABS: Anion Gap 4 (3-11); Blood Urea Nitrogen 8 mg/dl (6-23); Calcium 8.8 mg/dl (8.6-10.3); Carbon Dioxide 32 mmol/L (21-32); Chloride 102 mmol/L (98-107); Creatinine Clr Calc Pharmacy 62.4 ml/min; Glucose 177 mg/dl (70-99(Fasting)); Sodium 138 mmol/L (136-145)
--- NOTE | 2024-11-30 08:10 | Hospitalist Progress Note ---
Date of Service November 30, 2024 Assessment & Plan (1) Osteoporosis with current pathological fracture: (2) Acute left lumbar radiculopathy: (3) Compression fracture of lumbar spine, non-traumatic: (4) Interstitial lung disease: (5) Pulmonary emboli: (6) Sepsis: (7) Diabetes: Plan #Lumbar Spine Compression fracture - noted on L4, L5, as well as multilevel degenerative disc bulgings and protrusions causing nerve roots indentation and compression - lumbar spinal stenosis spondylolisthesis L3-L4 L4-L5 with acute compression fracture involving the endplate of L4. - ortho consulted: completed surgical intervention on 11/27 with L3-L5 intervention and spinal fusion - Pain regimen ordered: Tylenol 1000mg Q8H, Oxycodone 5-10mg and Tramadol 50mg BID for pain control. Can add medications if pain is worsening. - PT/OT consults placed, patient initially decline inpatient rehab, but is now considering this and CM is aware and working on placement #DM II - cont insulin, will need higher dose of basal insulin given high dose dexam ethasone therapy used during surgery - a1c: 7.1% - 20 units of Lantus given this AM, will switch to 10 units BID QAM and QHS with tighter Bolus insulin regimen as follows --Goal BSG Range: Low 110 mg/dL, High 140 mg/dL --Correction Factor: 30 mg/dL/unit --Carbohydrate ratio = 10 g/unit --BSGs ACHS - Consider modifying regimen with use of high-dose steroid therapy after recent surgery - hypoglycemic protocol #HLD - cont Lipitor 10mg QHS #Code status: full code #Dispo: admit to [facility] #DVT ppx: SCDs for now, if prolonged hospitalization, will start heparin subq Admission and Anticipated Discharge Date Admission Date: November 26, 2024 Supervising Physician Co-Signing Physician Notes I personally examined the patient and verified saab points of history and exam, discussed case, and agree with decision making and plan documented by Dr. Hein. POD#3 s/p lumbar decompression, fusion, and kyphoplasty. Pain controlled. PT recommending rehab, referral has been placed to [facility], possible discharge Monday. Salbador Washington is seen resting in recliner while she was getting blood draw completed for morning labs. Patient endorses approximately 4/10 lumbar back pain with some difficulty ambulating, but reports much improved radicular symptoms. Patient likely will need formal rehab process to continue recovering. Patient's is trying to manage pain more conservatively Physical Exam Physical Exam: General: patient resting comfortably, NAD, non-toxic in appearance, answers questions appropriately. Skin: warm, dry, intact HEENT: NC/AT, anicteric sclera, conjunctiva without injection, moist mucus membranes. Heart: +S1/S2, regular, no m/r/g Lungs: equal air entry bilaterally, no rales/rhonchi/wheezes Abd: +BS, soft, NT/ND Ext: warm, no clubbing/cyanosis or edema Neuro: nonfocal, speech intact, no facial droop, moving all extremities. Results & Data Results & Data Vital Signs (Past 12 Hours) Vital Signs Temp Pulse Resp BP Pulse Ox O2 Del Method 11/30/24 08:00 36.7 C 114 H 18 103/59 L 96 Room Air 11/29/24 22:07 37 C 110 H 16 124/75 96 Room Air Resident Activity Tracking Resident Involvement: Resident Care Provided Care Provided: Adult Hospital Medicine (1) Osteoporosis with current pathological fracture Encounter type: initial encounter Osteoporosis type: age-related Qualified Code(s): M80.00XA - Age-related osteoporosis with current pathological fracture, unspecified site, initial encounter for fracture (3) Compression fracture of lumbar spine, non-traumatic Encounter type: initial encounter Lumbar vertebra fracture level: L4 Qualified Code(s): M48.56XA - Collapsed vertebra, not elsewhere classified, lumbar region, initial encounter for fracture (6) Sepsis Sepsis acute organ dysfunction status: without acute organ dysfunction Sepsis type: Escherichia coli Qualified Code(s): A41.51 - Sepsis due to Escherichia coli [E. coli]
--- NOTE | 2024-11-30 08:39 | Orthopedic Progress Note ---
Date of Service November 30, 2024 Assessment & Plan (1) Osteoporosis with current pathological fracture: Plan: We will discontinue her drain today. Continue physical therapy. Anticipate rehab Monday. Admission and Anticipated Discharge Date Admission Date: November 26, 2024 Subjective Patient's pain is controlled. She is ambulating well with physical therapy. Physical Exam Physical Exam: Patient is neurologically intact. She is up and ambulating. Results & Data Vital Signs (Past 12 Hours) Vital Signs Temp Pulse Resp BP Pulse Ox O2 Del Method 11/30/24 08:00 36.7 C 114 H 18 103/59 L 96 Room Air 11/29/24 22:07 37 C 110 H 16 124/75 96 Room Air Queries Orthopedic Spine Vertebral Fracture Secondary to Osteoporosis: Yes (1) Osteoporosis with current pathological fracture Osteoporosis type: age-related Encounter type: initial encounter Qualified Code(s): M80.00XA - Age-related osteoporosis with current pathological fracture, unspecified site, initial encounter for fracture
[2024-12-01 09:21] LABS: Hematocrit (blood only) 35.2 % (37.0-47.0); Hemoglobin 11.5 g/dl (12.0-16.0); Immature Granulocytes # (auto) 0.19 K/uL (0.01-0.20); Immature Granulocytes % (auto) 1.3 %; Mean Corpuscular Hemoglobin 29.3 pg (25.0-34.0); Mean Corpuscular Volume 89.8 fL (80.0-100.0); Platelet Count 372 K/uL (130-400); RDW Standard Deviation 45.7 fL (36.4-46.3); Red Blood Count 3.92 M/uL (4.20-5.40); White Blood Count 14.97 K/ul (4.8-10.8)
[2024-12-01 09:39] LABS: Anion Gap 7.0 (3-11); Blood Urea Nitrogen 8.0 mg/dl (6-23); Calcium 8.7 mg/dl (8.6-10.3); Carbon Dioxide 30.0 mmol/L (21-32); Chloride 100.0 mmol/L (98-107); Creatinine Clr Calc Pharmacy 73.4 ml/min; Glucose 199.0 mg/dl (70-99(Fasting)); Potassium 3.9 mmol/L (3.5-5.1); Sodium 137.0 mmol/L (136-145)
--- NOTE | 2024-12-01 10:32 | Orthopedic Progress Note ---
Date of Service December 01, 2024 Assessment & Plan (1) Osteoporosis with current pathological fracture: Plan: At this time we will continue physical therapy. She is stable for discharge to rehab Monday when bed available from orthopedic standpoint. Admission and Anticipated Discharge Date Admission Date: November 26, 2024 Subjective Patient states her back pain is controlled leg pain improved. She is tolerating physical therapy. Physical Exam Physical Exam: Patient is currently in bed. She is comfortable. Distracted testing. Results & Data Vital Signs (Past 12 Hours) Vital Signs Temp Pulse Resp BP Pulse Ox O2 Del Method 12/01/24 08:22 124/67 12/01/24 07:59 Room Air 12/01/24 07:32 36.7 C 94 H 18 103/65 93 Room Air Queries Orthopedic Spine Vertebral Fracture Secondary to Osteoporosis: Yes (1) Osteoporosis with current pathological fracture Osteoporosis type: age-related Encounter type: initial encounter Qualified Code(s): M80.00XA - Age-related osteoporosis with current pathological fracture, unspecified site, initial encounter for fracture
--- NOTE | 2024-12-01 11:47 | Hospitalist Progress Note ---
Date of Service December 01, 2024 Assessment & Plan (1) Osteoporosis with current pathological fracture: (2) Acute left lumbar radiculopathy: (3) Compression fracture of lumbar spine, non-traumatic: (4) Interstitial lung disease: (5) Pulmonary emboli: (6) Sepsis: (7) Diabetes: Plan #Lumbar Spine Compression fracture - noted on L4, L5, as well as multilevel degenerative disc bulging and protrusions causing nerve roots indentation and compression - lumbar spinal stenosis spondylolisthesis L3-L4 L4-L5 with acute compression fracture involving the endplate of L4. - ortho consulted: completed surgical intervention on 11/27 with L3-L5 intervention and spinal fusion - Pain regimen ordered: Tylenol 1000mg Q8H, Oxycodone 5-10mg and Tramadol 50mg BID for pain control. Can add medications if pain is worsening. - PT/OT consults placed, patient initially decline inpatient rehab, but is now requesting this and CM is aware and working on placement #Urinary retention/urinary urgency - Patient required straight cath 11/30 after bladder scan showing 525ml with straight cath removing 600ml - Continued reports of oliguria and urinary urge, thus a Mcmanus catheter was placed #DM II - cont insulin, will need higher dose of basal insulin given high dose dexamethasone therapy used during surgery - a1c: 7.1% - 20 units of Lantus given this AM, will switch to 10 units BID QAM and QHS with tighter Bolus insulin regimen as follows --Goal BSG Range: Low 110 mg/dL, High 140 mg/dL --Correction Factor: 30 mg/dL/unit --Carbohydrate ratio = 10 g/unit --BSGs ACHS - Consider modifying regimen with use of high-dose steroid therapy after recent surgery - hypoglycemic protocol #HLD - cont Lipitor 10mg QHS #Code status: full code #Dispo: admit to [facility] #DVT ppx: SCDs for now, if prolonged hospitalization, will start heparin subq Admission and Anticipated Discharge Date Admission Date: November 26, 2024 Supervising Physician Co-Signing Physician Notes I personally examined the patient and verified saab points of history and exam, discussed case, and agree with decision making and plan documented by Dr. Hein. Post-op s/p lumbar decompression, fusion, and kyphoplasty 11/27/24. Pain controlled. Mcmanus placed today 2/2 urinary retention. PT recommending rehab, referral has been placed to [facility] (patient preference), possible discharge Monday. Subjective Patient seen resting comfortable this AM. Patient reports decreased lumbar back pain and improvements in leg pain and ambulation. Patient does endorse increased urinary frequency with reports of increased urinary retention. Patient remains afebrile and hemodynamically stable. Physical Exam Physical Exam: General: patient resting comfortably, NAD, non-toxic in appearance, answers questions appropriately. Skin: warm, dry, intact HEENT: NC/AT, anicteric sclera, conjunctiva without injection, moist mucus membranes. Heart: +S1/S2, regular, no m/r/g Lungs: equal air entry bilaterally, no rales/rhonchi/wheezes Abd: +BS, soft, NT/ND Ext: warm, no clubbing/cyanosis or edema Neuro: nonfocal, speech intact, no facial droop, moving all extremities. Results & Data Results & Data Vital Signs (Past 12 Hours) Vital Signs Temp Pulse Resp BP Pulse Ox O2 Del Method 12/01/24 08:22 124/67 12/01/24 07:59 Room Air 12/01/24 07:32 36.7 C 94 H 18 103/65 93 Room Air Resident Activity Tracking Resident Involvement: Resident Care Provided Care Provided: Adult Hospital Medicine (1) Osteoporosis with current pathological fracture Encounter type: initial encounter Osteoporosis type: age-related Qualified Code(s): M80.00XA - Age-related osteoporosis with current pathological fracture, unspecified site, initial encounter for fracture (3) Compression fracture of lumbar spine, non-traumatic Encounter type: initial encounter Lumbar vertebra fracture level: L4 Qualified Code(s): M48.56XA - Collapsed vertebra, not elsewhere classified, lumbar region, initial encounter for fracture (6) Sepsis Sepsis acute organ dysfunction status: without acute organ dysfunction Sepsis type: Escherichia coli Qualified Code(s): A41.51 - Sepsis due to Escherichia coli [E. coli]
[2024-12-01] MEDS: ONDANSETRON INJ 2 MG/ML 2 ML VIAL IV PRN (23:33)
[2024-12-02 08:23] LABS: Hematocrit (blood only) 32.8 % (37.0-47.0); Hemoglobin 11.2 g/dl (12.0-16.0); Immature Granulocytes # (auto) 0.14 K/uL (0.01-0.20); Immature Granulocytes % (auto) 1.0 %; Mean Corpuscular Hemoglobin 30.4 pg (25.0-34.0); Mean Corpuscular Volume 89.1 fL (80.0-100.0); Platelet Count 394 K/uL (130-400); RDW Standard Deviation 44.2 fL (36.4-46.3); Red Blood Count 3.68 M/uL (4.20-5.40); White Blood Count 14.19 K/ul (4.8-10.8)
[2024-12-02 08:38] LABS: Anion Gap 3.0 (3-11); Blood Urea Nitrogen 7.0 mg/dl (6-23); Calcium 8.4 mg/dl (8.6-10.3); Carbon Dioxide 32.0 mmol/L (21-32); Chloride 103.0 mmol/L (98-107); Creatinine Clr Calc Pharmacy 81.9 ml/min; Glucose 162.0 mg/dl (70-99(Fasting)); Potassium 3.9 mmol/L (3.5-5.1); Sodium 138.0 mmol/L (136-145)
--- NOTE | 2024-12-02 09:48 | Hospitalist Progress Note ---
Date of Service December 02, 2024 Assessment & Plan (1) Osteoporosis with current pathological fracture: (2) Acute left lumbar radiculopathy: (3) Compression fracture of lumbar spine, non-traumatic: (4) Interstitial lung disease: (5) Pulmonary emboli: (6) Diabetes: Plan #Lumbar Spine Compression fracture - noted on L4, L5, as well as multilevel degenerative disc bulging and protrusions causing nerve roots indentation and compression - lumbar spinal stenosis spondylolisthesis L3-L4 L4-L5 with acute compression fracture involving the endplate of L4. - ortho consulted: completed surgical intervention on 11/27 with L3-L5 intervention and spinal fusion - Pain regimen ordered: Tylenol 1000mg Q8H, Oxycodone 5-10mg and Tramadol 50mg BID for pain control. Can add medications if pain is worsening. - PT/OT consults placed, patient initially decline inpatient rehab, but is now requesting this and CM is aware and working on placement #Urinary retention/urinary urgency - Patient required straight cath 11/30 after bladder scan showing 525ml with straight cath removing 600ml - Continued reports of oliguria and urinary urge, thus a Mcmanus catheter was placed #DM II - cont insulin, will need higher dose of basal insulin given high dose dexamethasone therapy used during surgery - a1c: 7.1% - 20 units of Lantus given this AM, will switch to 10 units BID QAM and QHS with tighter Bolus insulin regimen as follows --Goal BSG Range: Low 110 mg/dL, High 140 mg/dL --Correction Factor: 30 mg/dL/unit --Carbohydrate ratio = 10 g/unit --BSGs ACHS - Consider modifying regimen with use of high-dose steroid therapy after recent surgery - hypoglycemic protocol #HLD - cont Lipitor 10mg QHS #Code status: full code #Dispo: admit to [facility] #DVT ppx: Enoxaparin 40mg SQ Admission and Anticipated Discharge Date Admission Date: November 26, 2024 Supervising Physician Co-Signing Physician Notes I personally examined the patient and verified all saab points of history and exam, discussed case, and agree with decision making with Dr Hein Feeling okay. Just wants to get somewhere to start rehabbing to get stronger. No new complaints. Vitals noted, in general she is awake and alert, pleasant no distress. HEENT normocephalic atraumatic mucous membranes moist. Breathing unlabored no accessory muscle use good effort. Skin without rashes pallor or icterus. Neuro without focal deficits. Thoracic compression fracturestatus post kyphoplasty. Pain appears to be under reasonable control. PT/OT eval and treat. Presumed osteoporosisoutpatient bone health workup and management urinary retentionstatus post Mcmanus drainage, hold oxybutynin for now. DVT prophylaxiswas ambulation and SCDs. Now that her hospital stay is becoming more prolonged as we await rehab placement, and she is further removed from surgerystart Lovenox. Subjective Patient seen walking with PT this AM using her brace. Patient reports decreased lumbar back pain and improvements in ambulation. Patient does endorse increased urinary frequency with reports of increased urinary retention. Patient remains afebrile and hemodynamically stable. Physical Exam Physical Exam: General: patient resting comfortably, NAD, non-toxic in appearance, answers questions appropriately. Skin: warm, dry, intact HEENT: NC/AT, anicteric sclera, conjunctiva without injection, moist mucus membranes. Heart: +S1/S2, regular, no m/r/g Lungs: equal air entry bilaterally, no rales/rhonchi/wheezes Abd: +BS, soft, NT/ND Ext: warm, no clubbing/cyanosis or edema Neuro: nonfocal, speech intact, no facial droop, moving all extremities. Results & Data Results & Data Vital Signs (Past 12 Hours) Vital Signs Temp Pulse Resp BP Pulse Ox O2 Del Method 12/02/24 07:26 36.7 C 95 H 18 107/66 93 Room Air 12/02/24 00:25 36.9 C 103 H 18 117/66 100 Room Air Resident Activity Tracking Resident Involvement: Resident Care Provided Care Provided: Adult Hospital Medicine (1) Osteoporosis with current pathological fracture Encounter type: initial encounter Osteoporosis type: age-related Qualified Code(s): M80.00XA - Age-related osteoporosis with current pathological fracture, unspecified site, initial encounter for fracture (3) Compression fracture of lumbar spine, non-traumatic Encounter type: initial encounter Lumbar vertebra fracture level: L4 Qualified Code(s): M48.56XA - Collapsed vertebra, not elsewhere classified, lumbar region, initial encounter for fracture
--- NOTE | 2024-12-02 10:29 | Orthopedic Progress Note ---
Date of Service December 02, 2024 Assessment & Plan (1) Osteoporosis with current pathological fracture: Plan: At this time she is stable from an orthopedic standpoint for discharge to a nursing facility. Will see her in the office in 2 weeks to obtain x-rays and evaluate her progress. Admission and Anticipated Discharge Date Admission Date: November 26, 2024 Subjective Patient's back pain is controlled leg symptoms improved. She is tolerating physical therapy. Physical Exam Physical Exam: Patient is in the chair at the bedside. She is comfortable. Distracted testing. Results & Data Vital Signs (Past 12 Hours) Vital Signs Temp Pulse Resp BP Pulse Ox O2 Del Method 12/02/24 07:26 36.7 C 95 H 18 107/66 93 Room Air 12/02/24 00:25 36.9 C 103 H 18 117/66 100 Room Air Queries Orthopedic Spine Vertebral Fracture Secondary to Osteoporosis: Yes (1) Osteoporosis with current pathological fracture Osteoporosis type: age-related Encounter type: initial encounter Qualified Code(s): M80.00XA - Age-related osteoporosis with current pathological fracture, unspecified site, initial encounter for fracture
--- NOTE | 2024-12-02 13:28 | Billing Data ---
Date of Service December 02, 2024 Coding Level of Care Code 57595 SUB INP/OBS CARE
[2024-12-03 07:56] LABS: Hematocrit (blood only) 33.3 % (37.0-47.0); Hemoglobin 10.9 g/dl (12.0-16.0); Immature Granulocytes # (auto) 0.15 K/uL (0.01-0.20); Immature Granulocytes % (auto) 1.3 %; Mean Corpuscular Hemoglobin 29.2 pg (25.0-34.0); Mean Corpuscular Volume 89.3 fL (80.0-100.0); Platelet Count 421 K/uL (130-400); RDW Standard Deviation 44.3 fL (36.4-46.3); Red Blood Count 3.73 M/uL (4.20-5.40); White Blood Count 11.51 K/ul (4.8-10.8)
[2024-12-03 08:26] LABS: Anion Gap 4.0 (3-11); Blood Urea Nitrogen 8.0 mg/dl (6-23); Calcium 8.5 mg/dl (8.6-10.3); Carbon Dioxide 32.0 mmol/L (21-32); Chloride 103.0 mmol/L (98-107); Creatinine Clr Calc Pharmacy 84.6 ml/min; Glucose 126.0 mg/dl (70-99(Fasting)); Potassium 3.9 mmol/L (3.5-5.1); Sodium 139.0 mmol/L (136-145)
--- NOTE | 2024-12-03 08:53 | Hospitalist Progress Note ---
Date of Service December 03, 2024 Assessment & Plan (1) Osteoporosis with current pathological fracture: (2) Acute left lumbar radiculopathy: (3) Compression fracture of lumbar spine, non-traumatic: (4) Interstitial lung disease: (5) Pulmonary emboli: (6) Diabetes: Plan #Lumbar Spine Compression fracture - noted on L4, L5, as well as multilevel degenerative disc bulging and protrusions causing nerve roots indentation and compression - lumbar spinal stenosis spondylolisthesis L3-L4 L4-L5 with acute compression fracture involving the endplate of L4. - ortho consulted: completed surgical intervention on 11/27 with L3-L5 intervention and spinal fusion - Pain regimen ordered: Tylenol 1000mg Q8H, Oxycodone 5-10mg and Tramadol 50mg BID for pain control. Can add medications if pain is worsening. - PT/OT consults placed, patient initially decline inpatient rehab, but is now requesting this and CM is aware and working on placement #Urinary retention/urinary urgency - Patient required straight cath 11/30 after bladder scan showing 525ml with straight cath removing 600ml - Continued reports of oliguria and urinary urge, thus a Mcmanus catheter was placed #DM II - cont insulin, will need higher dose of basal insulin given high dose dexamethasone therapy used during surgery - a1c: 7.1% - 20 units of Lantus given this AM, will switch to 10 units BID QAM and QHS with tighter Bolus insulin regimen as follows --Goal BSG Range: Low 110 mg/dL, High 140 mg/dL --Correction Factor: 30 mg/dL/unit --Carbohydrate ratio = 10 g/unit --BSGs ACHS - Consider modifying regimen with use of high-dose steroid therapy after recent surgery - hypoglycemic protocol #HLD - cont Lipitor 10mg QHS #Code status: full code #Dispo: admit to [facility] #DVT ppx: Enoxaparin 40mg SQ Admission and Anticipated Discharge Date Admission Date: November 26, 2024 Supervising Physician Co-Signing Physician Notes I personally examined the patient and verified all saab points of history and exam, discussed case, and agree with decision making with Dr Hein no new issues, feeling ok just wants to go to rehab. Vitals noted, in general she is awake and alert, pleasant no distress. HEENT normocephalic atraumatic mucous membranes moist. Breathing unlabored no accessory muscle use good effort. Skin without rashes pallor or icterus. Neuro without focal deficits. Thoracic compression fracturestatus post kyphoplasty. Pain appears to be under reasonable control. PT/OT eval and treat ongoing. Presumed osteoporosisoutpatient bone health workup and management after dc urinary retentionstatus post Mcmanus drainage, holding oxybutynin for now. DVT prophylaxiswas ambulation and SCDs. Now that her hospital stay is becoming more prolonged as we await rehab placement, and she is further removed from surgerystarted Lovenox. Subjective Patient seen walking with PT this AM using her brace. Patient reports decreased lumbar back pain and improvements in ambulation. Patient does endorse increased urinary frequency with reports of increased urinary retention. Patient remains afebrile and hemodynamically stable. Physical Exam Physical Exam: General: patient resting comfortably, NAD, non-toxic in appearance, answers questions appropriately. Skin: warm, dry, intact HEENT: NC/AT, anicteric sclera, conjunctiva without injection, moist mucus membranes. Heart: +S1/S2, regular, no m/r/g Lungs: equal air entry bilaterally, no rales/rhonchi/wheezes Abd: +BS, soft, NT/ND Ext: warm, no clubbing/cyanosis or edema Neuro: nonfocal, speech intact, no facial droop, moving all extremities. Results & Data Results & Data Vital Signs (Past 12 Hours) Vital Signs Temp Pulse Resp BP Pulse Ox O2 Del Method 12/03/24 07:40 36.7 C 93 H 106/58 L 92 Room Air 12/02/24 23:18 37.0 C 91 H 18 107/68 95 Room Air (1) Osteoporosis with current pathological fracture Osteoporosis type: age-related Encounter type: initial encounter Qualified Code(s): M80.00XA - Age-related osteoporosis with current pathological fracture, unspecified site, initial encounter for fracture (3) Compression fracture of lumbar spine, non-traumatic Encounter type: initial encounter Lumbar vertebra fracture level: L4 Qualified Code(s): M48.56XA - Collapsed vertebra, not elsewhere classified, lumbar region, initial encounter for fracture
[2024-12-03] MEDS: ENOXAPARIN INJ 40 MG/0.4 ML SYR SQ SCH (09:19)
--- NOTE | 2024-12-03 10:57 | XRay Report ---
XR lumbar spine 2-3V CLINICAL HISTORY: post op COMPARISON STUDY: 11/15/2024 FINDINGS: Stable left convex scoliosis. Interval posterior metallic fusion from L3 through L5 shows n o hardware complication. There is interval kyphoplasty at L3-L5. There is stable mild height loss at the L4 vertebral body. No interval fracture seen. Stable grade 1 anterolisthesis of L3 on 4 and L4 on 5. IMPRESSION: Postoperative exam with no acute findings seen. ACT 112: Negative or not required by law. Electronically signed by: Dariel Aden M.D. 12/03/2024 10:56 AM
--- NOTE | 2024-12-03 14:18 | Billing Data ---
Date of Service December 03, 2024 Coding Level of Care Code 81116 SUB INP/OBS CARE
--- NOTE | 2024-12-04 08:43 | Hospitalist Progress Note ---
Date of Service December 04, 2024 Assessment & Plan (1) Osteoporosis with current pathological fracture: (2) Acute left lumbar radiculopathy: (3) Compression fracture of lumbar spine, non-traumatic: (4) Interstitial lung disease: (5) Pulmonary emboli: (6) Diabetes: Plan #Lumbar Spine Compression fracture - noted on L4, L5, as well as multilevel degenerative disc bulging and protrusions causing nerve roots indentation and compression - lumbar spinal stenosis spondylolisthesis L3-L4 L4-L5 with acute compression fracture involving the endplate of L4. - ortho consulted: completed surgical intervention on 11/27 with L3-L5 intervention and spinal fusion - Pain regimen ordered: Tylenol 1000mg Q8H, Oxycodone 5-10mg and Tramadol 50mg BID for pain control. Can add medications if pain is worsening. - PT/OT consults placed, patient initially decline inpatient rehab, but is now requesting this and CM is aware and working on placement #Urinary retention/urinary urgency - Patient required straight cath 11/30 after bladder scan showing 525ml with straight cath removing 600ml - Continued reports of oliguria and urinary urge, thus a Mcmanus catheter was placed #DM II - cont insulin, will need higher dose of basal insulin given high dose dexamethasone therapy used during surgery - a1c: 7.1% - 20 units of Lantus given this AM, will switch to 10 units BID QAM and QHS with tighter Bolus insulin regimen as follows --Goal BSG Range: Low 110 mg/dL, High 140 mg/dL --Correction Factor: 30 mg/dL/unit --Carbohydrate ratio = 10 g/unit --BSGs ACHS - Consider modifying regimen with use of high-dose steroid therapy after recent surgery - hypoglycemic protocol #HLD - cont Lipitor 10mg QHS #Code status: full code #Dispo: admit to [facility] #DVT ppx: Enoxaparin 40mg SQ Admission and Anticipated Discharge Date Admission Date: November 26, 2024 Supervising Physician Co-Signing Physician Notes I personally examined the patient and verified all saab points of history and exam, discussed case, and agree with decision making with Dr Hein no new issues, feeling ok just wants to go to rehab. still waiting on insurance approval. understandably she is getting more frustrated. Vitals noted, in general she is awake and alert, pleasant no distress. HEENT normocephalic atraumatic mucous membranes moist. Breathing unlabored no accessory muscle use good effort. Skin without rashes pallor or icterus. Neuro without focal deficits. Thoracic compression fracturestatus post kyphoplasty. Pain appears to be under reasonable control. PT/OT eval and treat ongoing. for rehab once approved Presumed osteoporosisoutpatient bone health workup and management after dc urinary retentionstatus post Mcmanus drainage, holding oxybutynin for now. DVT prophylaxis Lovenox. Subjective Patient feeling well today and anticipating d/c to [facility] when a bed becomes available for rehab. Patient remains afebrile and hemodynamically stable. Physical Exam Physical Exam: General: patient resting comfortably, NAD, non-toxic in appearance, answers questions appropriately. Skin: warm, dry, intact HEENT: NC/AT, anicteric sclera, conjunctiva without injection, moist mucus membranes. Heart: +S1/S2, regular, no m/r/g Lungs: equal air entry bilaterally, no rales/rhonchi/wheezes Abd: +BS, soft, NT/ND Ext: warm, no clubbing/cyanosis or edema Neuro: nonfocal, speech intact, no facial droop, moving all extremities. Results & Data Results & Data Vital Signs (Past 12 Hours) Vital Signs Temp Pulse Resp BP Pulse Ox O2 Del Method 12/04/24 07:26 36.5 C 86 16 102/67 93 Room Air 12/03/24 23:07 37.2 C 86 16 120/60 95 Room Air Resident Activity Tracking Resident Involvement: Resident Care Provided Care Provided: Adult Hospital Medicine (1) Osteoporosis with current pathological fracture Encounter type: initial encounter Osteoporosis type: age-related Qualified Code(s): M80.00XA - Age-related osteoporosis with current pathological fracture, unspecified site, initial encounter for fracture (3) Compression fracture of lumbar spine, non-traumatic Encounter type: initial encounter Lumbar vertebra fracture level: L4 Qualified Code(s): M48.56XA - Collapsed vertebra, not elsewhere classified, lumbar region, initial encounter for fracture
--- NOTE | 2024-12-04 18:50 | Billing Data ---
Date of Service December 04, 2024 Coding Level of Care Code 77177 SUB INP/OBS CARE
[2024-12-05 07:42] LABS: Hematocrit (blood only) 32.9 % (37.0-47.0); Hemoglobin 10.8 g/dl (12.0-16.0); Immature Granulocytes # (auto) 0.13 K/uL (0.01-0.20); Immature Granulocytes % (auto) 1.2 %; Mean Corpuscular Hemoglobin 29.0 pg (25.0-34.0); Mean Corpuscular Volume 88.4 fL (80.0-100.0); Platelet Count 483 K/uL (130-400); RDW Standard Deviation 44.1 fL (36.4-46.3); Red Blood Count 3.72 M/uL (4.20-5.40); White Blood Count 10.67 K/ul (4.8-10.8)
[2024-12-05 08:02] LABS: Anion Gap 5.0 (3-11); Blood Urea Nitrogen 9.0 mg/dl (6-23); Calcium 8.5 mg/dl (8.6-10.3); Carbon Dioxide 30.0 mmol/L (21-32); Chloride 104.0 mmol/L (98-107); Creatinine Clr Calc Pharmacy 90.8 ml/min; Glucose 128.0 mg/dl (70-99(Fasting)); Potassium 4.0 mmol/L (3.5-5.1); Sodium 139.0 mmol/L (136-145)
--- NOTE | 2024-12-05 11:19 | Hospitalist Progress Note ---
Date of Service December 05, 2024 Assessment & Plan (1) Osteoporosis with current pathological fracture: (2) Acute left lumbar radiculopathy: (3) Compression fracture of lumbar spine, non-traumatic: (4) Interstitial lung disease: (5) Pulmonary emboli: (6) Diabetes: Plan #Lumbar Spine Compression fracture - noted on L4, L5, as well as multilevel degenerative disc bulging and protrusions causing nerve roots indentation and compression - lumbar spinal stenosis spondylolisthesis L3-L4 L4-L5 with acute compression fracture involving the endplate of L4. - ortho consulted: completed surgical intervention on 11/27 with L3-L5 intervention and spinal fusion - Pain regimen ordered: Tylenol 1000mg Q8H, Oxycodone 5-10mg and Tramadol 50mg BID for pain control. Can add medications if pain is worsening. - PT/OT consults placed, patient initially decline inpatient rehab, but is now requesting this and CM is aware and working on placement - d/c home with home health, patient is amenable to this plan #Urinary retention/urinary urgency - Patient required straight cath 11/30 after bladder scan showing 525ml with straight cath removing 600ml - Continued reports of oliguria and urinary urge, thus a Mcmanus catheter was placed #DM II - cont insulin, will need higher dose of basal insulin given high dose dexamethasone therapy used during surgery - a1c: 7.1% - 20 units of Lantus given this AM, will switch to 10 units BID QAM and QHS with tighter Bolus insulin regimen as follows --Goal BSG Range: Low 110 mg/dL, High 140 mg/dL --Correction Factor: 30 mg/dL/unit --Carbohydrate ratio = 10 g/unit --BSGs ACHS - Consider modifying regimen with use of high-dose steroid therapy after recent surgery - hypoglycemic protocol #HLD - cont Lipitor 10mg QHS #Code status: full code #Dispo: admit to [facility] #DVT ppx: Enoxaparin 40mg SQ Admission and Anticipated Discharge Date Admission Date: November 26, 2024 Supervising Physician Co-Signing Physician Notes I personally examined the patient and verified all saab points of history and exam, discussed case, and agree with decision making with Dr Hein No rehab bed till Monday, has decided she wants to go home. Discussed with nursingshe is actually mobilizing with a good deal of stability and independence.. Vitals noted, in general she is awake and alert, pleasant no distress. HEENT normocephalic atraumatic mucous membranes moist. Breathing unlabored no accessory muscle use good effort. Skin without rashes pallor or icterus. Neuro without focal deficits. Thoracic compression fracturestatus post kyphoplasty. Pain appears to be under reasonable control. PT/OT eval and treat ongoing. Plan will now be homelikely tomorrow. Presumed osteoporosisoutpatient bone health workup and management after dc urinary retentionstatus post Mcmanus drainage, holding oxybutynin for now. DVT prophylaxis Lovenox. Subjective Patient feeling well today and frustrated with d/c to [facility] and bed availab ility. Patient would like to amenable to completing home PT instead. Patient remains afebrile and hemodynamically stable. Physical Exam Physical Exam: General: patient resting comfortably, NAD, non-toxic in appearance, answers questions appropriately. Skin: warm, dry, intact HEENT: NC/AT, anicteric sclera, conjunctiva without injection, moist mucus membranes. Heart: +S1/S2, regular, no m/r/g Lungs: equal air entry bilaterally, no rales/rhonchi/wheezes Abd: +BS, soft, NT/ND Ext: warm, no clubbing/cyanosis or edema Neuro: nonfocal, speech intact, no facial droop, moving all extremities. Results & Data Results & Data Vital Signs (Past 12 Hours) Vital Signs Temp Pulse Resp BP Pulse Ox O2 Del Method 12/05/24 07:19 36.8 C 97 H 18 108/56 L 96 Room Air 12/04/24 23:34 36.9 C 90 16 110/63 95 Room Air Resident Activity Tracking Resident Involvement: Resident Care Provided Care Provided: Adult Hospital Medicine (1) Osteoporosis with current pathological fracture Encounter type: initial encounter Osteoporosis type: age-related Qualified Code(s): M80.00XA - Age-related osteoporosis with current pathological fracture, unspecified site, initial encounter for fracture (3) Compression fracture of lumbar spine, non-traumatic Encounter type: initial encounter Lumbar vertebra fracture level: L4 Qualified Code(s): M48.56XA - Collapsed vertebra, not elsewhere classified, lumbar region, initial encounter for fracture
--- NOTE | 2024-12-05 16:29 | Billing Data ---
Date of Service December 05, 2024 Coding Level of Care Code 54198 SUB INP/OBS CARE
--- NOTE | 2024-12-06 06:52 | Discharge Summary ---
Date of Service December 06, 2024 Admission HPI Per Admitting Provider Ms Washington is a 74 yo female who presents to the ED complaining of chest pain that started this morning around 8:30 am after having her usual breakfast (bowl of cereal). Based on history, the pain started across the upper abdomen, travelling downwards towards midline of the abdomen and towards left chest. She had a hard time describing the quality of pain and said it is of a sharp nature. Pain has been constant since onset and she rates it at 7/10 when it started, has gown down to 2/10 after she was given MED here. She did not take anything for it before coming to the ED, nor has she had any food since the pain started. Nothing seems to make the pain worse. Patient reports nausea and vomiting twice this morning. Emisis had a brown color "like the cereal" but no coffee ground or blood present. Pain does not radiate down the left arm. Patient denies facial droop, jaw pain, upper or lower extremity weakness, numbness or tingling. Patient denies chest pain, SOB, PORTER, diarrhea, constipation, fever, night sweats, chills, known sick contacts, unusual foods, or recent travel. Patient is compliant with COVID-19 gridlines, always wearing a mask and staying home for the most part. Of note, history and PE were somewhat limited due to patient frustration with having to answer questions. Admission Exam Per Admitting Provider Gen: no acute distress, lying in bed comfortable HEENT: NC/AT, MMM Lungs: nonlabored breathing, CTAB CVS: s1s2nl, RRR Abd: nl bowel sounds, soft, NT / ND : no erazo Ext: no edema Neuro: AAOx3 Psych: calm cooperative Principal Diagnosis L4/L5 compression fracture Discharge Exam General: patient resting comfortably, NAD, non-toxic in appearance, answers questions appropriately. Skin: warm, dry, intact HEENT: NC/AT, anicteric sclera, conjunctiva without injection, moist mucus membranes. Heart: +S1/S2, regular, no m/r/g Lungs: equal air entry bilaterally, no rales/rhonchi/wheezes Abd: +BS, soft, NT/ND, uterine fundus firm at umbilicus, caesarean incision C/D/I. Ext: warm, no clubbing/cyanosis or edema, Samir's neg. Neuro: nonfocal, speech intact, no facial droop, moving all extremities. Discharge Data Allergies Allergy/AdvReac Type Severity Reaction Status Date / Time ciprofloxacin [From Cipro] Allergy Intermediate Hives Verified 11/27/24 11:00 penicillin G Allergy Intermediate Rash Verified 11/27/24 11:00 Consultations 11/25/24 08:03 ED Decision to Admit Stat 11/25/24 15:37 Consult Orthopedic Surgery Routine Procedures Performed Operation Date: 11/27/24 12:15 Actual Procedures p L3-L5 Decompression and Fusion, (Not Applicable) - Darion Clay DO s L3-L4, L4-L-5 Kyphoplasty(Not Applicable) - Darion Clay DO Ordered Studies 11/25/24 02:49 MRI Lumbar Spine [MR lumbar spine wo con] Stat 11/27/24 [place] lumbar spine 2-3V Routine Hospital Course (1) Osteoporosis with current pathological fracture: (2) Acute left lumbar radiculopathy: (3) Compression fracture of lumbar spine, non-traumatic: (4) Interstitial lung disease: (5) Pulmonary emboli: (6) Diabetes: Plan #Lumbar Spine Compression fracture - noted on L4, L5, as well as multilevel degenerative disc bulging and protrusions causing nerve roots indentation and compression - lumbar spinal stenosis spondylolisthesis L3-L4 L4-L5 with acute compression fracture involving the endplate of L4. - ortho consulted: completed surgical intervention on 11/27 with L3-L5 intervention and spinal fusion - Pain regimen ordered: Tylenol 1000mg Q8H, Oxycodone 5-10mg and Tramadol 50mg BID for pain control. Can add medications if pain is worsening. - PT/OT consults placed, d/c home with [facility] home health, patient is amenable to this plan #Urinary retention/urinary urgency - Patient required straight cath 11/30 after bladder scan showing 525ml with straight cath removing 600ml - Continued reports of oliguria and urinary urge, thus a Erazo catheter was placed - Urology f/u for voiding trial/removal of Erazo #DM II - cont insulin, will need higher dose of basal insulin given high dose dexamethasone therapy used during surgery - a1c: 7.1% - 20 units of Lantus given this AM, will switch to 10 units BID QAM and QHS with tighter Bolus insulin regimen as follows --Goal BSG Range: Low 110 mg/dL, High 140 mg/dL --Correction Factor: 30 mg/dL/unit --Carbohydrate ratio = 10 g/unit --BSGs ACHS - Consider modifying regimen with use of high-dose steroid therapy after recent surgery - Continue home regimen on d/c Trulicity once weekly and NPH insulin BID ACHS (11units, 12 units) #HLD - cont Lipitor 10mg QHS #Code status: full code #Dispo: admit to medsurgery #DVT ppx: Enoxaparin 40mg SQ Total Time Total Time Spent Total Time Spent (In Minutes): See attending attestation Discharge Plan Discharge Items Patient Disposition: Home - Home Health Services Reason For Visit: L4-L5 COMPRESSION FRACTURE Discharge Diagnosis: L4-L5 compression fracture Condition on Discharge: Serious Activity: Per Instructions section Non-emergency contact: Primary Care Provider Call non-emergency contact if: your pain is not controlled Follow-up/Referrals: Lorne Moody [Primary Care Provider] - Olvin Villarreal DO [Physician] - (Patient with Erazo catheter after L4-L5 compression fracture and orthopedic intervention, [facility] (11/26-12/06). Hx of bladder/bowel incontinence. Needs void trial prior to erazo removal ) Diet: Carb Consistent or DM2 and Heart Healthy Ambulatory Orders: Complete Blood Count with Diff (Routine) Timeframe: 1 Week Location: Determined by Patient Ordered By: Vipin Titus Attending Provider Instructions: You were admitted to the hospital for a Lumbar spine fracture with symptoms of bladder and bowel incontinence. Orthopedic surgery was consulted and you were treated with surgery to your L3-L5 lumbar vertebrae. You are healing very well with reduced pain and discomfort in your legs. It is important to complete PT while at home to properly rehabilitate after this recent surgery. You currently have a Erazo catheter placed due to increased urinary urgency with urinary retention. This Erazo will remain in place and can be managed by [facility] home health. We will place a urology referral after your recent hospital stay, where they can follow up and remove your Erazo after they complete a voiding trial to make sure that you are able to urinate with no issues. Your oxybutnin medication has been held while you have been admitted, discuss resumption or stopping this medication with your urology provider. Expect a phone call in the next few days to set up this appointment in 1-2 weeks. Additionally a CBC has been ordered for you to complete in 1 week. Today you had a small increase in your white blood cells to approximately 12, this is very slightly above normal, and over the last few days your platelet count has been rising. Sometimes this is indicative of infection, but you have reported that you have not been feeling sick and the rest of your vitals and labs have been normal. Thus we will order a CBC, and the results of this can be discussed with your PCP in approximately 1-2 weeks. Please plan to follow-up with your PCP in the time frame above, and call in the next few days to set up this appointment. A discharge summary will be sent to your primary care physician to ensure continuity of care. Please bring this discharge summary with you to your next office appointment so that your provider can review it at that time. Follow-up appointments: Make a follow-up appointment with your PCP within the next week. It is very important that you follow up with them shortly after discharge from the hospital. Medications: Your medication list has been reviewed and reconciled upon discharge to ensure accuracy and continuity of care. An updated list of all your medications is included with your hospital discharge paperwork. Please review this list closely, and make note of any changes. Take your medications as instructed; do not skip a dose of your medicines. Make sure all of your doctors know every medicine you are taking (including jdth-ner-owmukbu medicines, vitamins, and supplements). Call your primary care provider before taking any new medicines (including djst-oiv-vjeroip medicines, vitamins, and supplements), because some of these may interact with your current medications, or may make your symptoms worse. Tell your primary care provider if you cannot afford your medications. CONTACT YOUR PRIMARY CARE PROVIDER if you experience any of the following: Difficulty following your treatment plan, or difficulty taking medications CALL 911 OR GO TO THE EMERGENCY DEPARTMENT if you experience any of the following: Sudden, severe abdominal pain or nausea/vomiting Severe chest pain, or chest pain that radiates (moves) to your jaw or arm Sudden, severe shortness of breath or difficulty breathing Thank you for allowing us to participate in your care. Addtl Skiver Counter Provider Instructions: ACTIVITY RECOMMENDATIONS: SELF CARE INSTRUCTIONS AFTER THORACIC/LUMBAR FUSIONS 1. You may walk to your tolerance. It is good exercise for your legs and back. Expect some back and intermittent leg aches and pains. 2. You may perform "counter-top" level activities (make a sandwich, babar with a project, etc.). 3. No bending or lifting of more than 10 pounds or back twisting of any nature (roll like a log when turning in bed). 4. You may ride in a car for 20-30 minutes at a time. No driving until after your first visit with your doctor. 5. Frequent changes of position and restricting sitting to 30 minutes at a time will help limit the amount of back spasms and stiffness you may experience. 6. You may discontinue the use of ambulatory aids (cane, crutches, etc.) once your strength and confidence allow. 7. You may parking supervisor the shower and let water strike your incision when you arrive home at least once daily. Do not take a tub bath, sit in a hot tub or go into a swimming pool until after your first recheck in the office. 8. You may resume previous diet. SPECIAL CARE INSTRUCTIONS: VERY IMPORTANT TO READ AND REVIEW A. Your surgical incision has been closed with a cosmetic suture under the skin that will dissolve in about 6 weeks. In 14 days, you can use a pair of clean scissors and cut the suture that is left outside of the skin at the ends of your incision. 1. The small skin tapes can be removed 7 days after surgery if they have not fallen off by that point. 2. You may keep the wound open to air as much as possible to promote healing after post-op day number 5 unless told otherwise by your doctor. 3. If you think the wound looks like it is becoming infected (redness or worsening drainage) and/or you are experiencing fever, chill or worsening back pain and muscle spasms, contact the office so that we may evaluate you as soon as possible. B. Complications are uncommon, but please contact us if you have any signs or symptoms of: 1. wound infection (fever higher than 102.5 degrees F, redness, separation of wound, drainage, or increasing pain from the incision) 2. blood clots in legs (pain, swelling, redness and warmth in legs) 3. urinary tract infection (fever higher than 102.5 degrees F, burning upon urination or increased frequency of urination) 4. nerve problems (inability to walk on your toes or heels, numbness, loss of bowel or bladder control) 5. any other symptoms that concern you C. Please call the office at if you have any concerns or questions about your operation or recovery. D. No smoking! Smoking drastically decreases the chance of a solid fusion. E. Do not take any anti-inflammatory medications (Indocin, Advil, Motrin, Aspirin, Naprosyn, etc.) as these may inhibit the chance of a solid fusion. Tylenol is okay to take for pain. MANAGING PAIN AFTER SPINAL SURGERY 1. Narcotic medication is intended for short-term use and will be provided for surgical pain. Surgical pain usually lasts for a period of 4-6 weeks. Narcotic medication includes Percocet, Vicodin, Darvocet, Tylenol #3 or Lortab. 2. Longer-term pain is more appropriately treated with non-narcotic medication such as Tylenol ES. 3. Muscle spasm is not appropriately treated with narcotics. Muscle relaxers such as Soma, Flexeril or Skelaxin can be used along with Tylenol ES. 4. Remember that we all live with some "aches and pains". This is not unusual or uncommon after an injury or as we get older. a. Back pain is expected and may include muscle spasms for 4 to 6 weeks after surgery. The pain should gradually improve. If the pain worsens for no apparent reason, please contact the office. b. Intermittent leg pain may also be experienced and should not be concerned about unless it worsens for no apparent reason. If so, please contact the office. 5. We will provide appropriate medication within the normal guidelines of their prescribed use. We will also be very cautious and aware of potential abuse and extended duration of patients' medication needs. a. Pain medications are for your comfort and to assist with sleep and rest so that the tissue can heal. They are not provided in order to return to normal activity and should not be used through the day. To do so or worsening pain at night can result from ongoing tissue damage and development of tolerance to the prescribed medicine. 6. Please allow 2-3 days to process refills. Prescriptions will not be mailed but must be picked up at the office. FOLLOW UP VISIT: Keep your scheduled follow-up appointment. Any questions, please call the office at . Pending Studies at Discharge: No Stand-Alone Forms: My [facility] [employer], Smoking Cessation Medications and DC Order Prescriptions: Continued gabapentin 100 mg capsule 100 mg PO QAM furosemide 20 mg tablet 20 mg PO QAM aspirin [Adult Low Dose Aspirin] 81 mg tablet,delayed release (DR/EC) 81 mg PO QAM clotrimazole-betamethasone 1-0.05 % lotion 1 applic topical DAILY PRN (Reason: Itching/Irritation) methenamine hippurate 1 gram tablet 1 g PO BID Qty: 180 3RF gabapentin 300 mg capsule 300 mg PO HS atorvastatin 10 mg tablet 10 mg PO HS Hold Instructions: Resume on 01/15/24. discuss with primary care provider whether to restart this multivitamin Tablet 1 tab PO QAM cholecalciferol (vitamin D3) 25 mcg (1,000 unit) Tablet 25 mcg PO QAM omeprazole 20 mg capsule,delayed release(DR/EC) 20 mg PO QAM Rx Instructions: UNABLE TO VERIFY THIS MED Humulin 70/30 U-100 Insulin 100 unit/mL (70-30) suspension 0 unit SUBCUT BIDWMEAL Rx Instructions: TAKES 11 UNITS WITH BREAKFAST, THEN 12 UNITS WITH DINNER lidocaine 5 % adhesive patch,medicated 1 patch TOP DAILY PRN (Reason: pain) Qty: 15 0RF Rx Instructions: leave on most painful area for 12 hrs famotidine 20 mg tablet 20 mg PO DAILY nystatin 100,000 unit/gram ointment 1 applic topical DIRECTED PRN (Reason: Skin Irritation) Trulicity 1.5 mg/0.5 mL pen injector 1.5 mg subcut WK Rx Instructions: monday Discontinued oxybutynin chloride 5 mg tablet extended release 24hr 5 mg PO QAM Admission Data Admit Date/Time: 11/26/24 14:33 Attending Provider: Aden Matos Admit Provider: Yoel Bob Primary Care Provider: Lorne Moody Other Providers: Sam Marshall; Darion Clay; [facility],Home Healthcare; [place],Care Resident Activity Tracking Resident Involvement: Resident Care Provided Care Provided: Adult Hospital Medicine
[2024-12-06 07:24] LABS: Hematocrit (blood only) 34.2 % (37.0-47.0); Hemoglobin 11.3 g/dl (12.0-16.0); Immature Granulocytes # (auto) 0.12 K/uL (0.01-0.20); Immature Granulocytes % (auto) 1.0 %; Mean Corpuscular Hemoglobin 29.2 pg (25.0-34.0); Mean Corpuscular Volume 88.4 fL (80.0-100.0); Platelet Count 541 K/uL (130-400); RDW Standard Deviation 43.6 fL (36.4-46.3); Red Blood Count 3.87 M/uL (4.20-5.40); White Blood Count 12.49 K/ul (4.8-10.8)
[2024-12-06 07:43] LABS: Anion Gap 5.0 (3-11); Blood Urea Nitrogen 9.0 mg/dl (6-23); Calcium 8.7 mg/dl (8.6-10.3); Carbon Dioxide 29.0 mmol/L (21-32); Chloride 105.0 mmol/L (98-107); Creatinine Clr Calc Pharmacy 94.2 ml/min; Glucose 147.0 mg/dl (70-99(Fasting)); Potassium 4.0 mmol/L (3.5-5.1); Sodium 139.0 mmol/L (136-145)
--- NOTE | 2024-12-06 14:20 | Hospitalist Progress Note ---
Date of Service December 06, 2024 Assessment & Plan (1) Osteoporosis with current pathological fracture: (2) Acute left lumbar radiculopathy: (3) Compression fracture of lumbar spine, non-traumatic: (4) Interstitial lung disease: (5) Pulmonary emboli: (6) Diabetes: Plan Krista Washington is a 79 y/o F DM II, HLD, asthma admitted due to severe low back pain with burning radicular symptoms to her legs and reports of bladder/bowel incontinence. Patient was found to have a L4-L5 pathological compression fracture and surgical optimization with orthopedic surgery. Patient is awaiting SNF rehab vs [facility] home health #Lumbar Spine Compression fracture - noted on L4, L5, as well as multilevel degenerative disc bulging and protrusions causing nerve roots indentation and compression - lumbar spinal stenosis spondylolisthesis L3-L4 L4-L5 with acute compression fracture involving the endplate of L4. - ortho consulted: completed surgical intervention on 11/27 with L3-L5 intervention and spinal fusion - Pain regimen ordered: Tylenol 1000mg Q8H, Oxycodone 5-10mg and Tramadol 50mg BID for pain control. Can add medications if pain is worsening. - PT/OT consults placed, patient initially decline inpatient rehab, but is now requesting this and CM is aware and working on placement - d/c, auths now placed for [facility] once again as a bed was available 12/07, patient had discussion with son and feels that she will not be safe at home as he will not be able to monitor patient and sparse 2-3 home health visits per week. Continue to discuss with CM, SNF less likely given distance ambulated #Urinary retention/urinary urgency - Patient required straight cath 11/30 after bladder scan showing 525ml with straight cath removing 600ml - Continued reports of oliguria and urinary urge, thus a Mcmanus catheter was placed #DM II - cont insulin, will need higher dose of basal insulin given high dose dexamethasone therapy used during surgery - a1c: 7.1% - 20 units of Lantus given this AM, will switch to 10 units BID QAM and QHS with tighter Bolus insulin regimen as follows --Goal BSG Range: Low 110 mg/dL, High 140 mg/dL --Correction Factor: 30 mg/dL/unit --Carbohydrate ratio = 10 g/unit --BSGs ACHS - Consider modifying regimen with use of high-dose steroid therapy after recent surgery - hypoglycemic protocol #HLD - cont Lipitor 10mg QHS #Code status: full code #Dispo: admit to [facility] #DVT ppx: Enoxaparin 40mg SQ Admission and Anticipated Discharge Date Admission Date: November 26, 2024 Supervising Physician Co-Signing Physician Notes I personally examined the patient and verified all saab points of history and exam, discussed case, and agree with decision making with Dr Hein yesterday decided she wanted to go home with home health, then today decided she would rather go to [facility]. Case management working on this. Vitals noted, in general she is awake and alert, pleasant no distress. HEENT normocephalic atraumatic mucous membranes moist. Breathing unlabored no accessory muscle use good effort. Skin without rashes pallor or icterus. Neuro without focal deficits. Thoracic compression fracturestatus post kyphoplasty. Pain appears to be under reasonable control. PT/OT eval and treat ongoing. [facility] Presumed osteoporosisoutpatient bone health workup and management after dc urinary retention continue to hold oxybutynin, voiding trial. I suspect the urinary retention is combination of pain, possibly procedural/to sedation, and oxybutynin. DVT prophylaxis Lovenox. Subjective Patient feeling well today, but reports that she spoke with her son and discussed that she would not be safe at home with home health coming 2-3x week and son being unable to care for her while she is back at home. Patient reports that she would now like to go to [facility] once again, a bed was available this Monday, and [facility] is working on submitting insurance authorization and checking on this availability. Patient remains afebrile and hemodynamically stable. Physical Exam Physical Exam: General: patient resting comfortably, NAD, non-toxic in appearance, answers questions appropriately. Skin: warm, dry, intact HEENT: NC/AT, anicteric sclera, conjunctiva without injection, moist mucus membranes. Heart: +S1/S2, regular, no m/r/g Lungs: equal air entry bilaterally, no rales/rhonchi/wheezes Abd: +BS, soft, NT/ND Ext: warm, no clubbing/cyanosis or edema Neuro: nonfocal, speech intact, no facial droop, moving all extremities. Results & Data Results & Data Vital Signs (Past 12 Hours) Vital Signs Temp Pulse Resp BP Pulse Ox O2 Del Method 12/06/24 07:59 36.9 C 92 H 16 124/72 91 Room Air 12/06/24 07:27 Room Air Resident Activity Tracking Resident Involvement: Resident Care Provided Care Provided: Adult [facility] Medicine (1) Osteoporosis with current pathological fracture Encounter type: initial encounter Osteoporosis type: age-related Qualified Code(s): M80.00XA - Age-related osteoporosis with current pathological fracture, unspecified site, initial encounter for fracture (3) Compression fracture of lumbar spine, non-traumatic Encounter type: initial encounter Lumbar vertebra fracture level: L4 Qualified Code(s): M48.56XA - Collapsed vertebra, not elsewhere classified, lumbar region, initial encounter for fracture
--- NOTE | 2024-12-06 14:29 | Billing Data ---
Date of Service December 06, 2024 Coding Level of Care Code 51718 SUB INP/OBS CARE
--- NOTE | 2024-12-07 06:58 | Hospitalist Progress Note ---
Date of Service December 07, 2024 Assessment & Plan (1) Osteoporosis with current pathological fracture: (2) Acute left lumbar radiculopathy: (3) Compression fracture of lumbar spine, non-traumatic: (4) Interstitial lung disease: (5) Pulmonary emboli: (6) Diabetes: Plan Krista Washington is a 79 y/o F DM II, HLD, asthma admitted due to severe low back pain with burning radicular symptoms to her legs and reports of bladder/bowel incontinence. Patient was found to have a L4-L5 pathological compression fracture and surgical optimization with orthopedic surgery. Patient is awaiting SNF rehab #Lumbar Spine Compression fracture - noted on L4, L5, as well as multilevel degenerative disc bulging and protrusions causing nerve roots indentation and compression - lumbar spinal stenosis spondylolisthesis L3-L4 L4-L5 with acute compression fracture involving the endplate of L4. - ortho consulted: completed surgical intervention on 11/27 with L3-L5 intervention and spinal fusion - Pain regimen ordered: Tramadol 50mg BID, and gabapentin 100mg in AM, 300mg HS, Oxycodone 5mg PRN for pain control. Pt has not used oxycodone in last 24 hrs - PT/OT consults placed, patient initially decline inpatient rehab, but is now requesting this and CM is aware and working on placement - d/c, auths now placed for [facility] once again as a bed was available 12/07, patient had discussion with son and feels that she will not be safe at home as he will not be able to monitor patient and sparse 2-3 home health visits per week. - Last CM note stated: Per [facility] would be able to accept pt on Monday. Cm did submit for insurance authorization through, awaiting determination might hear over the weekend. - Peer to peer completed 12/07 Denied for SNF on grounds of able to care for self at home based on ability to ambulate 250ft with walker CM notified, would need to look at previous plan of home w [facility] with possible DC on 12/09. #Urinary retention/urinary urgency - Patient required straight cath 11/30 after bladder scan showing 525ml with straight cath removing 600ml - Continued reports of oliguria and urinary urge, thus a Erazo catheter was placed - Continue erazo - Oxybutynin on hold #DM II - a1c: 7.1% - Continue Lantus 10 units BID QAM and QHS with tighter Bolus insulin regimen as follows --Goal BSG Range: Low 110 mg/dL, High 140 mg/dL --Correction Factor: 30 mg/dL/unit --Carbohydrate ratio = 10 g/unit --BSGs ACHS - hypoglycemic protocol #HLD - cont Lipitor 10mg QHS #Code status: full code #Dispo: admit to medsurgery #DVT ppx: Enoxaparin 40mg SQ Admission and Anticipated Discharge Date Admission Date: November 26, 2024 Supervising Physician Co-Signing Physician Notes I personally examined the patient and verified all saab points of history and exam, discussed case, and agree with decision making with Dr Reece frustrated about still being in the hospitaltried to explain the bureaucracy of the situation to her. Later, unfortunately, peer to peer review physician denied skilled. Vitals noted, in general she is awake and alert, pleasant no distress. HEENT normocephalic atraumatic mucous membranes moist. Breathing unlabored no accessory muscle use good effort. Skin without rashes pallor or icterus. Neuro without focal deficits. Thoracic compression fracturestatus post kyphoplasty. Pain appears to be under reasonable control. PT/OT eval and treat ongoing. disposition is now very difficult given that the insurance is denied even skilled. This seems to be reasonably unethical given her fractures and spine surgery. She is performing moderately well with PT/OT, but wants her son noted that family support would not be enough to help her at home the other day, skilled seem to be a far superior option for her. Insurance does not really seem to care about that, and mostly anchored on the fact that she is able to walk 250 feetpaying absolutely no deference to the fact that she lives alone, and while she has a degree of family support, they decided it was not enough to really keep her safe at home. At the same time, keeping her in the hospital longer is not really going to be to her betterment given her frustration, given ongoing deconditioning usually occurs in the hospital, ongoing risk of nosocomial infection, etc. Should she suffer any harm due to the insurance inflicting poor disposition options upon her, I would deem them responsible for all consequences. Presumed osteoporosisoutpatient bone health workup and management after dc urinary retention continue to hold oxybutynin, voiding trial. I suspect the urinary retention is combination of pain, possibly procedural/to sedation, and oxybutynin. DVT prophylaxis Lovenox. Subjective Pt is a 79 yo female s/p lumbar fusion and kyphoplasty. This morning, pt reports she slept well overnight and pain is well managed with current meds. She reports she has a good appetite and is ready to eat breakfast this morning, Denies CP, SOB, headaches, dizziness, abdominal pain, N/V/D/C, dysuria, new arthralgias/myalgias, changes in vision/hearing/sensation Review of Systems Review of Systems: As per HPI Physical Exam Physical Exam: General: patient resting comfortably, NAD, non-toxic in appearance, answers questions appropriately. Skin: warm, dry, intact. Bandage covering surgical incision at low back is clean and dry. No drainage noted HEENT: NC/AT, anicteric sclera, conjunctiva without injection, moist mucus membranes. Heart: +S1/S2, regular, no m/r/g Lungs: equal air entry bilaterally, no rales/rhonchi/wheezes Abd: +BS, soft, NT/ND Ext: warm, no clubbing/cyanosis or edema Neuro: nonfocal, speech intact, no facial droop, moving all extremities. Results & Data Results & Data Vital Signs (Past 12 Hours) Vital Signs Temp Pulse Resp BP Pulse Ox O2 Del Method 12/06/24 23:04 36.8 C 91 H 18 118/67 95 Room Air 12/06/24 21:00 Room Air Resident Activity Tracking Resident Involvement: Resident Care Provided Care Provided: Adult Hospital Medicine (1) Osteoporosis with current pathological fracture Encounter type: initial encounter Osteoporosis type: age-related Qualified Code(s): M80.00XA - Age-related osteoporosis with current pathological fracture, unspecified site, initial encounter for fracture (3) Compression fracture of lumbar spine, non-traumatic Encounter type: initial encounter Lumbar vertebra fracture level: L4 Qualified Code(s): M48.56XA - Collapsed vertebra, not elsewhere classified, lumbar region, initial encounter for fracture
[2024-12-07 06:59] VITALS: RESP 16
[2024-12-07 07:01] LABS: Hematocrit (blood only) 35.0 % (37.0-47.0); Hemoglobin 11.9 g/dl (12.0-16.0); Immature Granulocytes # (auto) 0.09 K/uL (0.01-0.20); Immature Granulocytes % (auto) 0.8 %; Mean Corpuscular Hemoglobin 30.1 pg (25.0-34.0); Mean Corpuscular Volume 88.6 fL (80.0-100.0); Platelet Count 525 K/uL (130-400); RDW Standard Deviation 43.6 fL (36.4-46.3); Red Blood Count 3.95 M/uL (4.20-5.40); White Blood Count 10.74 K/ul (4.8-10.8)
[2024-12-07 07:30] LABS: Anion Gap 5.0 (3-11); Blood Urea Nitrogen 8.0 mg/dl (6-23); Calcium 8.6 mg/dl (8.6-10.3); Carbon Dioxide 31.0 mmol/L (21-32); Chloride 104.0 mmol/L (98-107); Creatinine Clr Calc Pharmacy 84.6 ml/min; Glucose 99.0 mg/dl (70-99(Fasting)); Potassium 4.3 mmol/L (3.5-5.1); Sodium 140.0 mmol/L (136-145)
[2024-12-07] MEDS: CARBOHYDRATES FOR HYPOGLYCEMIA PO PRN (16:36)
--- NOTE | 2024-12-07 17:19 | Billing Data ---
Date of Service December 07, 2024 Coding Level of Care Code 49322 SUB INP/OBS CARE
--- NOTE | 2024-12-08 07:00 | Discharge Summary ---
Date of Service December 08, 2024 Principal Diagnosis s/p Lumbar fusion, kyphoplasty Discharge Exam General: patient resting comfortably, NAD, non-toxic in appearance, answers questions appropriately. Skin: warm, dry, intact. Bandage covering surgical incision at low back is clean and dry. No drainage noted HEENT: NC/AT, anicteric sclera, conjunctiva without injection, moist mucus membranes. Heart: +S1/S2, regular, no m/r/g Lungs: equal air entry bilaterally, no rales/rhonchi/wheezes Abd: +BS, soft, NT/ND Ext: warm, no clubbing/cyanosis or edema Neuro: nonfocal, speech intact, no facial droop, moving all extremities. Discharge Data Allergies Allergy/AdvReac Type Severity Reaction Status Date / Time ciprofloxacin [From Cipro] Allergy Intermediate Hives Verified 11/27/24 11:00 penicillin G Allergy Intermediate Rash Verified 11/27/24 11:00 Consultations 11/25/24 08:03 ED Decision to Admit Stat 11/25/24 15:37 Consult Orthopedic Surgery Routine Procedures Performed Operation Date: 11/27/24 12:15 Actual Procedures p L3-L5 Decompression and Fusion, (Not Applicable) - Darion Clay DO s L3-L4, L4-L-5 Kyphoplasty(Not Applicable) - Darion Clay DO Ordered Studies 11/25/24 02:49 MRI Lumbar Spine [MR lumbar spine wo con] Stat 11/27/24 [place] lumbar spine 2-3V Routine Hospital Course (1) Osteoporosis with current pathological fracture: (2) Acute left lumbar radiculopathy: (3) Compression fracture of lumbar spine, non-traumatic: (4) Interstitial lung disease: (5) Pulmonary emboli: (6) Diabetes: Deja Washington is a 79 y/o F DM II, HLD, asthma admitted due to severe low back pain with burning radicular symptoms to her legs and reports of bladder/b owel incontinence. Patient was found to have a L4-L5 pathological compression fracture and surgical optimization with orthopedic surgery. #Lumbar Spine Compression fracture - noted on L4, L5, as well as multilevel degenerative disc bulging and protrusions causing nerve roots indentation and compression - lumbar spinal stenosis spondylolisthesis L3-L4 L4-L5 with acute compression fracture involving the endplate of L4. - ortho consulted: completed surgical intervention on 11/27 with L3-L5 intervention and spinal fusion - Pain regimen ordered: Tramadol 50mg BID, and gabapentin 100mg in AM, 300mg HS, Oxycodone 5mg PRN for pain control. Pt has not used oxycodone in last 24 hrs - PT/OT consults placed, and followed throughout admission Recommended continued therapy via SNF vs home health services due to pt's status of living alone without family able to readily provide assistance. - auths placed for [facility], but denied by insurance in favor of [facility] home health - Recommended pt try to arrange for assistance at home as able to maintain home safety #Urinary retention/urinary urgency - Patient required straight cath 11/30 after bladder scan showing 525ml with straight cath removing 600ml - Continued reports of oliguria and urinary urge, thus a Erazo catheter was placed - Continue removed this morning, pt able to void - Holding Oxybutynin - Follow up outpatient with urology #DM II - a1c: 7.1% - Lantus 10 units BID QAM and QHS with Bolus insulin regimen as follows --Goal BSG Range: Low 110 mg/dL, High 140 mg/dL --Correction Factor: 30 mg/dL/unit --Carbohydrate ratio = 10 g/unit --BSGs ACHS - hypoglycemic protocol - Resume DMT2 management with insulin and Trulicity upon returning home #HLD - cont Lipitor 10mg QHS #Code status: full code #Dispo: admit to medsurgery #DVT ppx: Enoxaparin 40mg SQ Total Time Total Time Spent Total Time Spent (In Minutes): less than 30 Discharge Plan Discharge Items Patient Disposition: Home - Home Health Services Reason For Visit: L4-L5 COMPRESSION FRACTURE Discharge Diagnosis: L4-L5 compression fracture Condition on Discharge: Fair Activity: Per Instructions section Non-emergency contact: Primary Care Provider Call non-emergency contact if: your pain is not controlled Follow-up/Referrals: Olvin Villarreal DO [Physician] - (Patient with Erazo catheter after L4-L5 compression fracture and orthopedic intervention, [facility] (11/26-12/06). Hx of bladder/bowel incontinence. Needs void trial prior to erazo removal ) Lorne Moody [Primary Care Provider] - Diet: Carb Consistent or DM2 and Heart Healthy Addtl Attending Provider Instructions: You were admitted to the hospital for a Lumbar spine fracture with symptoms of bladder and bowel incontinence. Orthopedic surgery was consulted and you were treated with surgery to your L3-L5 lumbar vertebrae. You are healing very well with reduced pain and discomfort in your legs. It is important to complete PT while at home to properly rehabilitate after this recent surgery. You currently have a Erazo catheter placed due to increased urinary urgency with urinary retention. It was removed the morning of discharge. We will place a urology referral after your recent hospital stay, where they can follow up to discuss continuation of your oxybutnin medication has been held while you have been admitted. Expect a phone call in the next few days to set up this appointment in 1-2 weeks. Until then, please hold your Oxybutynin. A discharge summary will be sent to your primary care physician to ensure continuity of care. Please bring this discharge summary with you to your next office appointment so that your provider can review it at that time. Follow-up appointments: Make a follow-up appointment with your PCP within the next week. It is very important that you follow up with them shortly after discharge from the hospital. Medications: Your medication list has been reviewed and reconciled upon discharge to ensure accuracy and continuity of care. An updated list of all your medications is included with your hospital discharge paperwork. Please review this list closely, and make note of any changes. Take your medications as instructed; do not skip a dose of your medicines. Make sure all of your doctors know every medicine you are taking (including ghzr-wsz-apilpjf medicines, vitamins, and supplements). Call your primary care provider before taking any new medicines (including ozzk-urm-wypecfp medicines, vitamins, and supplements), because some of these may interact with your current medications, or may make your symptoms worse. Tell your primary care provider if you cannot afford your medications. CONTACT YOUR PRIMARY CARE PROVIDER if you experience any of the following: Difficulty following your treatment plan, or difficulty taking medications CALL 911 OR GO TO THE EMERGENCY DEPARTMENT if you experience any of the following: Sudden, severe abdominal pain or nausea/vomiting Severe chest pain, or chest pain that radiates (moves) to your jaw or arm Sudden, severe shortness of breath or difficulty breathing Thank you for allowing us to participate in your care. Addtl Plant Equipment Engineer Provider Instructions: ACTIVITY RECOMMENDATIONS: SELF CARE INSTRUCTIONS AFTER THORACIC/LUMBAR FUSIONS 1. You may walk to your tolerance. It is good exercise for your legs and back. Expect some back and intermittent leg aches and pains. 2. You may perform "counter-top" level activities (make a sandwich, babar with a project, etc.). 3. No bending or lifting of more than 10 pounds or back twisting of any nature (roll like a log when turning in bed). 4. You may ride in a car for 20-30 minutes at a time. No driving until after your first visit with your doctor. 5. Frequent changes of position and restricting sitting to 30 minutes at a time will help limit the amount of back spasms and stiffness you may experience. 6. You may discontinue the use of ambulatory aids (cane, crutches, etc.) once your strength and confidence allow. 7. You may elastic attacher chainstitch the shower and let water strike your incision when you arrive home at least once daily. Do not take a tub bath, sit in a hot tub or go into a swimming pool until after your first recheck in the office. 8. You may resume previous diet. SPECIAL CARE INSTRUCTIONS: VERY IMPORTANT TO READ AND REVIEW A. Your surgical incision has been closed with a cosmetic suture under the skin that will dissolve in about 6 weeks. In 14 days, you can use a pair of clean scissors and cut the suture that is left outside of the skin at the ends of your incision. 1. The small skin tapes can be removed 7 days after surgery if they have not fallen off by that point. 2. You may keep the wound open to air as much as possible to promote healing after post-op day number 5 unless told otherwise by your doctor. 3. If you think the wound looks like it is becoming infected (redness or worsening drainage) and/or you are experiencing fever, chill or worsening back pain and muscle spasms, contact the office so that we may evaluate you as soon as possible. B. Complications are uncommon, but please contact us if you have any signs or symptoms of: 1. wound infection (fever higher than 102.5 degrees F, redness, separation of wound, drainage, or increasing pain from the incision) 2. blood clots in legs (pain, swelling, redness and warmth in legs) 3. urinary tract infection (fever higher than 102.5 degrees F, burning upon urination or increased frequency of urination) 4. nerve problems (inability to walk on your toes or heels, numbness, loss of bowel or bladder control) 5. any other symptoms that concern you C. Please call the office at if you have any concerns or questions about your operation or recovery. D. No smoking! Smoking drastically decreases the chance of a solid fusion. E. Do not take any anti-inflammatory medications (Indocin, Advil, Motrin, Aspirin, Naprosyn, etc.) as these may inhibit the chance of a solid fusion. Tylenol is okay to take for pain. MANAGING PAIN AFTER SPINAL SURGERY 1. Narcotic medication is intended for short-term use and will be provided for surgical pain. Surgical pain usually lasts for a period of 4-6 weeks. Narcotic medication includes Percocet, Vicodin, Darvocet, Tylenol #3 or Lortab. 2. Longer-term pain is more appropriately treated with non-narcotic medication such as Tylenol ES. 3. Muscle spasm is not appropriately treated with narcotics. Muscle relaxers such as Soma, Flexeril or Skelaxin can be used along with Tylenol ES. 4. Remember that we all live with some "aches and pains". This is not unusual or uncommon after an injury or as we get older. a. Back pain is expected and may include muscle spasms for 4 to 6 weeks after surgery. The pain should gradually improve. If the pain worsens for no apparent reason, please contact the office. b. Intermittent leg pain may also be experienced and should not be concerned about unless it worsens for no apparent reason. If so, please contact the office. 5. We will provide appropriate medication within the normal guidelines of their prescribed use. We will also be very cautious and aware of potential abuse and extended duration of patients' medication needs. a. Pain medications are for your comfort and to assist with sleep and rest so that the tissue can heal. They are not provided in order to return to normal activity and should not be used through the day. To do so or worsening pain at night can result from ongoing tissue damage and development of tolerance to the prescribed medicine. 6. Please allow 2-3 days to process refills. Prescriptions will not be mailed but must be picked up at the office. FOLLOW UP VISIT: Keep your scheduled follow-up appointment. Any questions, please call the office at . Pending Studies at Discharge: No Stand-Alone Forms: My [facility], Smoking Cessation Medications and DC Order Prescriptions: Continued gabapentin 100 mg capsule 100 mg PO QAM furosemide 20 mg tablet 20 mg PO QAM aspirin [Adult Low Dose Aspirin] 81 mg tablet,delayed release (DR/EC) 81 mg PO QAM clotrimazole-betamethasone 1-0.05 % lotion 1 applic topical DAILY PRN (Reason: Itching/Irritation) methenamine hippurate 1 gram tablet 1 g PO BID Qty: 180 3RF gabapentin 300 mg capsule 300 mg PO HS atorvastatin 10 mg tablet 10 mg PO HS Hold Instructions: Resume on 01/15/24. discuss with primary care provider whether to restart this multivitamin Tablet 1 tab PO QAM cholecalciferol (vitamin D3) 25 mcg (1,000 unit) Tablet 25 mcg PO QAM omeprazole 20 mg capsule,delayed release(DR/EC) 20 mg PO QAM Rx Instructions: UNABLE TO VERIFY THIS MED Humulin 70/30 U-100 Insulin 100 unit/mL (70-30) suspension 0 unit SUBCUT BIDWMEAL Rx Instructions: TAKES 11 UNITS WITH BREAKFAST, THEN 12 UNITS WITH DINNER lidocaine 5 % adhesive patch,medicated 1 patch TOP DAILY PRN (Reason: pain) Qty: 15 0RF Rx Instructions: leave on most painful area for 12 hrs famotidine 20 mg tablet 20 mg PO DAILY nystatin 100,000 unit/gram ointment 1 applic topical DIRECTED PRN (Reason: Skin Irritation) Trulicity 1.5 mg/0.5 mL pen injector 1.5 mg subcut WK Rx Instructions: monday Held oxybutynin chloride 5 mg tablet extended release 24hr 5 mg PO QAM Hold Instructions: Resume on 12/24/24. Pending follow up with urology Discharge Orders: Discharge Order (Routine); Ordered 12/08/24 Ordered By: Corry Reece Admission Data Admit Date/Time: 11/26/24 14:33 Attending Provider: Aden Matos Admit Provider: Yoel Bob Primary Care Provider: Lorne Moody Other Providers: Sam Marshall; Darion Clay; [facility],Home Healthcare; [place],Care Other Interventions: Discharge Summary Assessment (RN) Last Done: 12/08/24 12:12 Supervising Physician Co-Signing Physician Notes I personally examined the patient and verified all saab points of history and exam, discussed case, and agree with decision making with Dr Reece frustrated with the insurance company denial, but understands that we do not have any recourse. Vitals noted, in general she is awake and alert, pleasant no distress. HEENT normocephalic atraumatic mucous membranes moist. Breathing unlabored no accessory muscle use good effort. Skin without rashes pallor or icterus. Neuro without focal deficits. Thoracic compression fracturestatus post kyphoplasty. Pain appears to be under reasonable control. for homegiven insurance denial of even SNF. Emphasized with patient safety being her primary goal, and what she is trying to do being secondary (explained it very granular such as it being far less inconvenient to have to clean up after having an accident then to ho to the bathroom and end up with a broken hip). Outpatient PT. Outpatient follow-up. Presumed osteoporosisoutpatient bone health workup and management after dc urinary retention continue to hold oxybutynin, I suspect the urinary retention is combination of pain, possibly procedural/to sedation, and oxybut ynin. But given that she is going homewould not want her to have urinary retention at homeas long as she is not having any retention, if she has urge incontinence again, can resume oxybutynin as an outpatient DVT prophylaxis Lovenox was utilized during her stay. Resident Activity Tracking Resident Involvement: Resident Care Provided Care Provided: Adult Hospital Medicine
[2024-12-08 07:31] VITALS: BP 103/64; PULSE 88; TEMP 97.7; O2SAT 95
--- NOTE | 2024-12-08 14:10 | Billing Data ---
Date of Service December 08, 2024 Coding Level of Care Code 24793 IN/OBS DISCH 30 MIN/LESS
== END 2024-12-08 13:49 | disposition home health service (06) | DRG 458 ==
LOC: ED 01:01 → 3W 01:01 → SUATTDRO 12:05 → 3W 14:16 → SUATTDRO 11-26 14:33